=== PATIENT | male | born 1940 | race Caucasian/White ===

== ENCOUNTER 2017-11-14 16:06 | Emergency (ER) | payer MEDICARE, SELFPAY ==
[2017-11-14 16:07] VITALS: BP 147/79; PULSE 73; RESP 16; TEMP 37.1; O2SAT 98; BMI 28.5
[2017-11-14 17:30] VITALS: BP 142/78; PULSE 87; RESP 16; O2SAT 98
--- NOTE | 2017-11-14 18:05 | ED.VISSUMM ---
- ER Visit Summary Date of Service: 11/14/17 Chief Complaint: Right foot pain History of Present Illness: The patient is a 77 M who presents for 1 week of right foot pain, that occurs only at night. Patient states that he had a similar episode one year ago in both legs and was diagnosed with neuropathy. His pain began again earlier this week and only occurs while he is sleeping at night. The pain will wake him up. He soaked his foot in Epsom salts which helped. He has no pain during the day. No pain with walking. No left foot pain, ankle pain or other pain. No fever or other constitutional symptoms. No injury. Patient was seen at urgent care and told to come to the emergency department for further evaluation. He has an appointment in January with his neurologist regarding his neuropathy. Physical Examination: Vital signs: afebrile, hemodynamically stable, no hypoxia on room air General: well nourished, well developed, in no distress Skin: warm, dry, no rash, no pallor HEENT: normocephalic and atraumatic; PERRL, EOMI, moist mucous membranes Cardiovascular: regular rate and rhythm with harsh systolic murmur, no peripheral edema, 2+ pulses all distal extremities Respiratory: No increased work of breathing, lungs are clear to auscultation bilaterally, no rales, rhonchi or wheezing Abdominal: Abdomen is soft, nontender with normoactive bowel sounds, no guarding or rebound, no masses MSK: Moves all extremities, no deformities, normal strength, no tenderness or deformities to the feet, very small nontender abrasion to the third distal toe Neuro: Awake and alert, oriented ?4. No facial droop, sensation and motor function intact and symmetric Test Results: [] Emergency Department Course and Treatment: Patient declined an x-ray of the foot to look for occult injury because he did not think it was injured since he is able to walk on his foot during the day without any difficulty. He also declined any pain medication. Patient's nighttime symptoms that resolve during the day are not consistent with gout, infection, or other cause of foot pain. This is likely related to patient's history of neuropathy. Patient was encouraged to follow-up with his doctor. He will take [id number] pain medication as needed. He was discharged home. Treatment Plan: [] Disposition: [] Impression: Right foot pain, suspect neuropathy This note was generated with [employer] dictation software. It may contain incorrect words, spelling, and punctuation that were not noted in review of the chart prior to signing ED Disposition - Plan for ED Patient: Disposition: Home or Assisted Living Chief Complaint: Lower Extremity Injury Instructions: ED Neuropathy Peripheral Referrals: Milton Menendez Chi, MD [Primary Care Provider] - Keep Lia appointment Additional Instructions: You are having night-time foot pain that has no other symptoms that would be concerning for a serious cause, such as heart failure. Please use Tylenol as needed for pain for your nighttime foot pain. You may continue the Epsom salt soaks. Please keep your appointment on Friday with your primary care doctor. If you have any worsening of your condition, such as shortness of breath, chest pain, dizziness or lightheadedness, or leg swelling, please return to emergency department immediately for another evaluation.
[2017-11-14 18:33] VITALS: BP 140/74; PULSE 78; RESP 16; O2SAT 100
== END 2017-11-14 18:34 | disposition home or self-care (01) ==
LOC: ED 18:33
PROVIDERS: Emergency Provider Emergency Medicine; Family Provider Family Medicine Geriatric Medicine; PCP Family Medicine Geriatric Medicine
DX: M79.671 Pain in right foot (principal); G62.9 Polyneuropathy, unspecified; I50.9 Heart failure, unspecified; R01.1 Cardiac murmur, unspecified; Z79.82 Long term (current) use of aspirin; Z79.02 Long term (current) use of antithrombotics/antiplatelets; Z79.899 Other long term (current) drug therapy
CPT/HCPCS: 99283

== ENCOUNTER → 2017-11-17 14:57 | Outpatient (CLI) | payer MEDICARE, SELFPAY ==
[2017-11-17 16:52] LABS: Vitamin D,25 Hydroxy 12.6 ng/mL (19.95-100.01)
[2017-11-17 17:07] LABS: ALB/GLOB Ratio 1.2 RATIO (0.9-2.4); AST(SGOT) 24 U/L (15-37); Alanine Aminotransfer ALT/SGPT 29 U/L (16-61); Albumin, Serum 3.8 g/dL (3.2-5.0); Alkaline Phosphatase 56 U/L (45-117); Anion Gap 8 (5-15); BUN 17 mg/dL (7-18); Calcium,Total 8.3 mg/dL (8.5-10.1); Chloride 102 mmol/L (98-107); EST Glomerular Filtration Rate 77 mL/min (>60); Est Glom Filt Rate - Afr Amer 93 mL/min (>60); Globulin 3.3 g/dL (2.2-4.2); Glucose 92 mg/dL (74-106); Potassium 3.7 mmol/L (3.5-5.1); Protein, Total 7.1 g/dL (6.4-8.2); Sodium Level 139 mmol/L (136-145); Thyroid Stim Hormone (TSH) 2.69 uIU/mL (0.358-3.74)
[2017-11-17 17:24] LABS: Absolute Neutrophil Count 6.9 X10^3/uL (2.0-7.7); Basophil# 0.03 X10^3/uL; Basophil% 0.3 % (0-1); Eosinophil# 0.21 X10^3/uL; Eosinophils% 2.4 % (0-5); Hematocrit 39.1 % (40-54); Hemoglobin 11.7 g/dl (13.0-16.5); Lymphocyte % 12.4 % (19-41); Mean Corp Hgb Conc 29.9 g/gl (32-36); Mean Corpuscular Hgb 23.4 pg (27.0-32.0); Mean Corpuscular Volume 78.2 fL (80-94); Mean Platelet Vol. 10.2 fl (6.2-12.0); Monocyte# 0.64 X10^3/uL; Monocyte% 7.2 % (0-10); Neutrophil # 6.85 X10^3/uL (2.7-7.7); Neutrophil % 77.6 % (47-70); Platelet Count 275 K/mm3 (150-450); RBC Distribution Width CV 17.2 % (11.6-14.6); White Blood Count 8.8 K/mm3 (4.4-11.0)
[2017-11-17 18:13] LABS: POSITIVE COUNT NO; POSITIVE DIFFERENTIAL NO; POSITIVE MORPHOLOGY NO
== END ==
PROVIDERS: Family Provider Family Medicine Geriatric Medicine; PCP Family Medicine Geriatric Medicine; Visit Provider Family Medicine Geriatric Medicine
DX: I10 Essential (primary) hypertension (principal); E55.9 Vitamin D deficiency, unspecified; E23.6 Other disorders of pituitary gland
CPT/HCPCS: 36415; 80053; 82306; 84403; 84443; 85025

== ENCOUNTER 2018-06-30 12:30 | Observation (INO) | payer MEDICARE, SELFPAY ==
[2018-06-30] VITALS (19 sets, daily range): BP systolic 103–129; BP diastolic 62–92; PULSE 60–104; RESP 15–23; TEMP 36.4–37.2; O2SAT 95–100; BMI 27.3; BMI 26.4
--- NOTE | 2018-06-30 12:45 | RAD_ITS ---
STUDY: X-RAY CHEST REASON FOR EXAM: Male, 78 years old. Chronic dyspnea. TECHNIQUE: Single AP portable view of the chest. COMPARISON: Comparison is made with prior study dated July 28, 2016. FINDINGS: Hyperinflation. Stable pleural parenchymal changes at the left lung base. There is mild cardiac enlargement. Normal mediastinum and henrik. Normal visualized pulmonary arteries. Normal visualized aortic arch and descending thoracic aorta. There are diffuse degenerative changes of the visualized thoracic spine. Normal visualized ribs, clavicles, and shoulders. Large hiatal hernia. RAD/Chest 1 View (Portable) IMPRESSION: Hyperinflation. Stable pleural parenchymal changes at the left lung base. Electronically Signed: Bryant Dang MD at 13:24 EDT Tel [phone], Service support ,
--- NOTE | 2018-06-30 12:45 | EKG12_ITS ---
Test Reason : SOB Blood Pressure : / mmHG Vent. Rate : 087 BPM Atrial Rate : 312 BPM P-R Int : 000 ms QRS Dur : 116 ms QT Int : 408 ms P-R-T Axes : 000 015 107 degrees QTc Int : 490 ms Atrial fibrillation with premature ventricular or aberrantly conducted complexes Incomplete left bundle branch block Nonspecific ST and T wave abnormality Abnormal ECG Confirmed by OXANA GREENE, HAFSA ([id number]), editor newspaper WILDA QUINTANILLA ([id number]) on 07/06/2018 3:30:33 PM Referred By: Los Whitney Confirmed By:HAFSA DAIGLE MD
[2018-06-30] MEDS: Ipratropium/Albuterol Sulfate 3 ML AMPUL.NEB INHALATION (13:08)
--- NOTE | 2018-06-30 13:08 | ED.VISSUMM ---
- ER Visit Summary Date of Service: 06/30/18 Chief Complaint: [Shortness of breath] History of Present Illness: The patient is a 78 M [to the emergency department complaint of shortness of breath that started about a ago. Patient complains of exertional dyspnea. Patient denies any chest pain. He denies any fever. Had a mild cough but mostly nonproductive. Patient does have a history of asthma and CHF. Patient has a history of A. fib and is currently on Eliquis. Patient has had history of anemia. Patient denies any blood in his stool or black tarry stools.] Physical Examination: [HEENT-PERRLA, EOMI. Cranial nerves II through XII grossly intact. TMs clear. Mucous membranes moist. No adenopathy. Cardiovascular-elderly irregular with a 3 out of 6 systolic ejection murmur Lungs-clear to auscultation, chest wall stable without crepitus or subcu emphysema Abdomen-normoactive bowel sounds, soft, nontender, no rebound or rigidity, no peritoneal signs. Rectal exam-no masses, brown stool Extremities-intact ?4, normal range of motion, normal pulses, atraumatic]. Trace edema both lower extremities. Test Results: [EKG obtained on arrival showed atrial fibrillation with a ventricular rate of 87 bpm with incomplete left bundle branch block as well as nonspecific ST changes and occasional PVCs. CBC with differential showed a white count of 9.3, hemoglobin 7.5, hematocrit 28, platelets 318. Chemistries unremarkable. Troponin was 0.024. BNP was 896.] Emergency Department Course and Treatment: [Patient had initially a type and screen followed by a type and cross of 2 units packed red cells.] Treatment Plan: [Patient will be transfused and admitted] Disposition: [Admit] Impression: [Dyspnea Symptomatic anemia Chronic A. fib] This note was generated with [employer] dictation software. It may contain incorrect words, spelling, and punctuation that were not noted in review of the chart prior to signing ED Disposition - Plan for ED Patient: Chief Complaint: Shortness of Breath Referrals: Milton Menendez Chi, MD [Primary Care Provider] -
[2018-06-30 13:37] LABS: Absolute Lymphocyte Count 0.74 X10^3/ul (0.83-4.51); Absolute Neutrophil Count 7.4 X10^3/uL (2.0-7.7); Basophil# 0.06 X10^3/uL; Basophil% 0.6 % (0-1); Differential Indicated SCAN CRITERIA MET; Eosinophil# 0.17 X10^3/uL; Eosinophils% 1.8 % (0-5); Hematocrit 25.4 % (40-54); Hemoglobin 7.5 g/dl (13.0-16.5); Lymphocyte # 0.74 X10^3/ul (4.0); Mean Corp Hgb Conc 29.5 g/gl (32-36); Mean Corpuscular Hgb 20.4 pg (27.0-32.0); Mean Platelet Vol. 10.2 fl (6.2-12.0); Monocyte# 0.86 X10^3/uL; Monocyte% 9.3 % (0-10); Neutrophil # 7.44 X10^3/uL (2.7-7.7); Neutrophil % 80.1 % (47-70); POSITIVE COUNT NO; POSITIVE DIFFERENTIAL NO; POSITIVE MORPHOLOGY YES; Platelet Count 318 K/mm3 (150-450); RBC Distribution Width SD 38.9 fl (35.1-43.9); Red Blood Count 3.68 M/mm3 (4.6-6.2); White Blood Count 9.3 K/mm3 (4.4-11.0)
[2018-06-30 13:46] LABS: Anion Gap 9 (5-15); BUN 20 mg/dL (7-18); BUN/Creat Ratio 15.9 RATIO (10-20); Calcium,Total 8.6 mg/dL (8.5-10.1); Chloride 101 mmol/L (98-107); Creatinine, Serum 1.26 mg/dL (0.70-1.30); EST Glomerular Filtration Rate 59 mL/min (>60); Est Glom Filt Rate - Afr Amer 71 mL/min (>60); Estimated Creatinine Clearance 55.89 ml/min; Glucose 112 mg/dL (74-106); Potassium 3.4 mmol/L (3.5-5.1); Sodium Level 137 mmol/L (136-145)
[2018-06-30 13:59] LABS: BNP,B-Type NATRIURETIC PEPTIDE 896.7 pg/mL (0-100)
[2018-06-30 14:12] LABS: Hypochromasia 1+; Microcytosis 1+
--- NOTE | 2018-06-30 14:59 | PCM.HP.STD ---
Problem List (1) Acute blood loss anemia Status: Acute History of Present Illness Date of Admission: 06/30/18 Chief Complaint: shortness of breath The patient is a 78 year old M presents with ZHENG over the past 2 weeks. ~2 weeks ago was constipated but did note dark tarry stools. Given his symptoms were similar to 2 years ago when he was anemic, he came into the hospital. Hg was 7.5 and in October it was 11. Patient denies any epistaxis, hematochezia, hematemesis.[] Past Medical History Past Medical History (Chronic Problems): Chronic Problems History of prostate cancer in remission (Chronic) Hyperlipidemia (Chronic) Hypertension (Chronic) Left eye blindness (Chronic) Hypothyroidism (Chronic) Medical History: Medical History (Last Updated 06/30/18 @ 15:04 by Los Whitney DO) Afib I48.91 Blind left eye H54.40 CVA (cerebral vascular accident) I63.9 Heart failure with reduced ejection fraction I50.20 Hyperlipidemia E78.5 Hypothyroidism E03.9 HTN (hypertension) I10 Allergies latex Allergy (Verified 06/30/18 12:33) Rash Home Medications: Ambulatory Orders Medication Instructions Recorded Levothyroxine [Synthroid] 25 mcg PO 0600 03/19/14 Aspirin [Aspirin, Baby] 81 mg PO DAILY@0800 #30 tab.chew 03/22/14 Metoprolol Tartrate [Lopressor 12.5 mg PO BID #60 tablet 03/22/14 (beta yesi)] Ascorbic Acid [Vitamin C] 500 mg PO DAILY@0800 07/28/16 Cyanocobalamin (Vitamin B-12) 1,000 mcg PO DAILY 07/28/16 [Vitamin B-12] Multivitamins,Therapeutic 1 tablet PO DAILY 07/28/16 [Multivitamin] Vitamin E 400 unit PO DAILY 07/28/16 Furosemide 40 mg PO DAILY #30 tablet 07/30/16 Ketoconazole [Nizoral Cream] 1 applic TOPICAL BID #1 tube 07/30/16 Apixaban [Eliquis] 5 mg PO BID 06/30/18 Atorvastatin Calcium [Lipitor] 20 mg PO QHS 06/30/18 Clotrimazole [Lotrimin] 1 applicatio TP DAILY 06/30/18 Ergocalciferol [Vitamin D] 50,000 unit PO QMONTH 06/30/18 Latanoprost 0.005% [Xalatan 1 drop RIGHT EYE QHS 06/30/18 Opthalmic] Lutein 1 tab PO DAILY 06/30/18 Quinapril/Hydrochlorothiazide 1 tab PO DAILY 06/30/18 [Accuretic 20-12.5 MG Tablet] prednisoLONE eye drops (5 mL) 1 drop LEFT EYE QHS 06/30/18 [Pred Forte eye drops (5 mL)] Surgical History: - - Hernia repair call for surgery, eye surgery Smoking Status: Former smoker Tobacco Use: Non-smoker Alcohol: Rare Drugs: None - *Family History Maternal History Items: No pertinent history - no heart disease Review of Systems Constitutional: Reports: Weakness. Denies: Anorexia, Chills, Fever, Malaise Eyes: Denies: Blurred vision, Double vision HEENT: Denies: Head Aches, Sinus Congestion, Sinus Drainage Cardiovascular: Denies: Chest Pain, Palpitations Respiratory: Denies: Cough, Shortness of breath at rest, Sputum production Gastrointestinal: Reports: Melena. Denies: Abdominal Pain, Hematemesis, Hematochezia, Vomiting Genitourinary: Denies: Dysuria, Hematuria Musculoskeletal: Denies: Joint Pain, Joint Tenderness Skin: Denies: Rash, Wounds Neurological: Denies: Numbness, Tingling, Focal weakness Psychiatric: Denies: Anxiety, Depression Hematologic/ Lymphatic: Denies: Easy Bruising, Easy Bleeding, Hx of blood clot Comment: All review of systems are negative except as mentioned in the history of present illness and the other review of systems. VTE Information - Inpt Only VTE Present on Admission: No VTE Mechan Device Prophylaxis: SCD's VTE Pharm Prophylaxis ordered?: No Reason prophylaxis not ordered:: Medical Contraindication Patient Problems: Active and Suspected Problems Acute blood loss anemia (Acute) - Physical Exam General: Alert, Cooperative, No apparent distress HEENT: Atraumatic, Normocephalic, - - Pale conjunctiva Oral: Moist Mucosa, No Gingival or Mucosal Lesions/ Ulcerations Neck: No Nodes, Thyroid Normal Size and Texture Lungs: Clear to auscultation, Normal air movement, No rhonchi, No wheeze Cardiovascular: Regular rate, Regular Rhythm, Normal S1, Normal S2, No murmurs Abdomen: Bowel Sounds Present, Soft, Non Tender, Non-Distended, No Hepato-splenomegaly Extremities: No edema, No Calf Tenderness Skin: No rashes, No breakdown, - - Some upper extremity bruising Musculoskeletal: No Tenderness to Palpation of Joints or Extremities, No Muscle Wasting Neurological: Sensory exam intact to light touch and pain, - - Clonus Psych/Mental Status: Normal Affect, Appropriate Vital Signs Temp Pulse Resp BP Pulse Ox 36.6 C 103 H 17 129/92 H 95 06/30/18 12:31 06/30/18 14:52 06/30/18 14:52 06/30/18 14:52 06/30/18 14:52 Oxygen Delivery Method Room Air Weight: 99 kg Body Mass Index (BMI) 27.3 Finger Stick Blood Glucose 85 Laboratory Tests Past 24 Hrs 06/30/18 06/30/18 06/30/18 13:20 13:20 13:20 WBC 9.3 RBC 3.68 L Hgb 7.5 L Hct 25.4 L MCV 69.0 L MCH 20.4 L MCHC 29.5 L RDW 16.0 H RDW Differential 38.9 Plt Count 318 MPV 10.2 Immature Gran % (Auto) 0.200 Neut % (Auto) 80.1 H Lymph % (Auto) 8.0 L [place] % (Auto) 9.3 Eos % (Auto) 1.8 Baso % (Auto) 0.6 Absolute Neuts (auto) 7.4 Absolute Lymphs (auto) 0.74 L Total Counted Not Reportable Hypochromasia 1+ Microcytosis 1+ Sodium 137 Potassium 3.4 L Chloride 101 Carbon Dioxide 27.0 Anion Gap 9 BUN 20 H Creatinine 1.26 Estim Creat Clear Calc 55.89 Est GFR (MDRD) Af Amer 71 Est GFR (MDRD) Non-Af 59 L BUN/Creatinine Ratio 15.9 Glucose 112 H Calcium 8.6 Troponin I 0.024 B-Natriuretic Peptide 896.7 H Blood Type Antibody Screen Crossmatch 06/30/18 14:20 WBC RBC Hgb Hct MCV MCH MCHC RDW RDW Differential Plt Count MPV Immature Gran % (Auto) Neut % (Auto) Lymph % (Auto) [place] % (Auto) Eos % (Auto) Baso % (Auto) Absolute Neuts (auto) Absolute Lymphs (auto) Total Counted Hypochromasia Microcytosis Sodium Potassium Chloride Carbon Dioxide Anion Gap BUN Creatinine Estim Creat Clear Calc Est GFR (MDRD) Af Amer Est GFR (MDRD) Non-Af BUN/Creatinine Ratio Glucose Calcium Troponin I B-Natriuretic Peptide Blood Type Pending Antibody Screen Pending Crossmatch See Detail EKG reviewed and showed atrial fibrillation with PVCs Very reviewed and slight flattening of the diaphragms but no pulmonary edema nor infiltrate. Assessment/Plan All Active Problems Acute blood loss anemia (Acute) Acute systolic heart failure exacerbatio (Acute) Cellulitis superimposed acute tinea (Acute) Dyspnea (Acute) 1. Acute blood loss anemia Hemoglobin has dropped roughly 4 g in the past 7-8 months though I suspect much of the drop probably occurred when patient noted some melena a couple weeks ago Patient will receive 1 unit of packed red blood cells as he is currently asymptomatic Will monitor overnight Hold his Eliquis. I explained to the patient in detail and on several occasions that Eliquis did not causes bleeding but led to him bleeding probably more Patient took his Eliquis today and will hold Eliquis for now until he can get further endoscopy Discussed with Dr. De La Cruz The patient is stable and can likely follow-up with her as outpatient. She agreed and would be willing to see him probably next week as she will be out of town and Friday. I will put the patient on a clear diet for now just make sure he does not have any hemorrhage and if he does then he may warrant general surgery seeing him while in the hospital Start ferrous sulfate 2. Atrial fibrillation [id number] score of 6 Given the anemia and likely hemorrhage, Eliquis will be held for now Continue with metoprolol and aspirin Resume Eliquis at a later point when his hemoglobin has been stable and pending on further GI workup 3. Heart failure with reduced ejection fraction EF 40% from echocardiogram 2013 Continue with CADEN inhibitor, Lasix and metoprolol 4. DVT prophylaxis with SCDs 5. Disposition: Patient will be monitored overnight and brought in under observation status. Patient's condition deteriorates, then they will need to be changed to admission but given the patient's anemia and his symptoms I feel the patient could be discharged on the third if he remained stable. Code Visit OBSV E&M: 72198 Initial observation care L3
--- NOTE | 2018-06-30 15:04 | HP.PCM_ITS ---
Problem List (1) Acute blood loss anemia Status: Acute History of Present Illness Date of Admission: 06/30/18 Chief Complaint: shortness of breath The patient is a 78 year old M presents with ZHENG over the past 2 weeks. ~2 weeks ago was constipated but did note dark tarry stools. Given his symptoms were similar to 2 years ago when he was anemic, he came into the hospital. Hg was 7.5 and in October it was 11. Patient denies any epistaxis, hematochezia, hematemesis.[] Past Medical History Past Medical History (Chronic Problems): Chronic Problems History of prostate cancer in remission (Chronic) Hyperlipidemia (Chronic) Hypertension (Chronic) Left eye blindness (Chronic) Hypothyroidism (Chronic) Medical History: Medical History (Last Updated 06/30/18 @ 15:04 by Los hWitney DO) Afib I48.91 Blind left eye H54.40 CVA (cerebral vascular accident) I63.9 Heart failure with reduced ejection fraction I50.20 Hyperlipidemia E78.5 Hypothyroidism E03.9 HTN (hypertension) I10 Allergies latex Allergy (Verified 06/30/18 12:33) Rash Home Medications: Ambulatory Orders Medication Instructions Recorded Levothyroxine [Synthroid] 25 mcg PO 0600 03/19/14 Aspirin [Aspirin, Baby] 81 mg PO DAILY@0800 #30 tab.chew 03/22/14 Metoprolol Tartrate [Lopressor 12.5 mg PO BID #60 tablet 03/22/14 (beta yesi)] Ascorbic Acid [Vitamin C] 500 mg PO DAILY@0800 07/28/16 Cyanocobalamin (Vitamin B-12) 1,000 mcg PO DAILY 07/28/16 [Vitamin B-12] Multivitamins,Therapeutic 1 tablet PO DAILY 07/28/16 [Multivitamin] Vitamin E 400 unit PO DAILY 07/28/16 Furosemide 40 mg PO DAILY #30 tablet 07/30/16 Ketoconazole [Nizoral Cream] 1 applic TOPICAL BID #1 tube 07/30/16 Apixaban [Eliquis] 5 mg PO BID 06/30/18 Atorvastatin Calcium [Lipitor] 20 mg PO QHS 06/30/18 Clotrimazole [Lotrimin] 1 applicatio TP DAILY 06/30/18 Ergocalciferol [Vitamin D] 50,000 unit PO QMONTH 06/30/18 Latanoprost 0.005% [Xalatan 1 drop RIGHT EYE QHS 06/30/18 Opthalmic] Lutein 1 tab PO DAILY 06/30/18 Quinapril/Hydrochlorothiazide 1 tab PO DAILY 06/30/18 [Accuretic 20-12.5 MG Tablet] prednisoLONE eye drops (5 mL) 1 drop LEFT EYE QHS 06/30/18 [Pred Forte eye drops (5 mL)] Surgical History: - - Hernia repair call for surgery, eye surgery Smoking Status: Former smoker Tobacco Use: Non-smoker Alcohol: Rare Drugs: None - *Family History Maternal History Items: No pertinent history - no heart disease Review of Systems Constitutional: Reports: Weakness. Denies: Anorexia, Chills, Fever, Malaise Eyes: Denies: Blurred vision, Double vision HEENT: Denies: Head Aches, Sinus Congestion, Sinus Drainage Cardiovascular: Denies: Chest Pain, Palpitations Respiratory: Denies: Cough, Shortness of breath at rest, Sputum production Gastrointestinal: Reports: Melena. Denies: Abdominal Pain, Hematemesis, Hematochezia, Vomiting Genitourinary: Denies: Dysuria, Hematuria Musculoskeletal: Denies: Joint Pain, Joint Tenderness Skin: Denies: Rash, Wounds Neurological: Denies: Numbness, Tingling, Focal weakness Psychiatric: Denies: Anxiety, Depression Hematologic/ Lymphatic: Denies: Easy Bruising, Easy Bleeding, Hx of blood clot Comment: All review of systems are negative except as mentioned in the history of present illness and the other review of systems. VTE Information - Inpt Only VTE Present on Admission: No VTE Mechan Device Prophylaxis: SCD's VTE Pharm Prophylaxis ordered?: No Reason prophylaxis not ordered:: Medical Contraindication Patient Problems: Active and Suspected Problems Acute blood loss anemia (Acute) - Physical Exam General: Alert, Cooperative, No apparent distress HEENT: Atraumatic, Normocephalic, - - Pale conjunctiva Oral: Moist Mucosa, No Gingival or Mucosal Lesions/ Ulcerations Neck: No Nodes, Thyroid Normal Size and Texture Lungs: Clear to auscultation, Normal air movement, No rhonchi, No wheeze Cardiovascular: Regular rate, Regular Rhythm, Normal S1, Normal S2, No murmurs Abdomen: Bowel Sounds Present, Soft, Non Tender, Non-Distended, No Hepato- splenomegaly Extremities: No edema, No Calf Tenderness Skin: No rashes, No breakdown, - - Some upper extremity bruising Musculoskeletal: No Tenderness to Palpation of Joints or Extremities, No Muscle Wasting Neurological: Sensory exam intact to light touch and pain, - - Clonus Psych/Mental Status: Normal Affect, Appropriate Vital Signs Temp Pulse Resp BP Pulse Ox 36.6 C 103 H 17 129/92 H 95 06/30/18 12:31 06/30/18 14:52 06/30/18 14:52 06/30/18 14:52 06/30/18 14:52 Oxygen Delivery Method Room Air Weight: 99 kg Body Mass Index (BMI) 27.3 Finger Stick Blood Glucose 85 Laboratory Tests Past 24 Hrs 06/30/18 06/30/18 06/30/18 13:20 13:20 13:20 WBC 9.3 RBC 3.68 L Hgb 7.5 L Hct 25.4 L MCV 69.0 L MCH 20.4 L MCHC 29.5 L RDW 16.0 H RDW Differential 38.9 Plt Count 318 MPV 10.2 Immature Gran % (Auto) 0.200 Neut % (Auto) 80.1 H Lymph % (Auto) 8.0 L [place] % (Auto) 9.3 Eos % (Auto) 1.8 Baso % (Auto) 0.6 Absolute Neuts (auto) 7.4 Absolute Lymphs (auto) 0.74 L Total Counted Not Reportable Hypochromasia 1+ Microcytosis 1+ Sodium 137 Potassium 3.4 L Chloride 101 Carbon Dioxide 27.0 Anion Gap 9 BUN 20 H Creatinine 1.26 Estim Creat Clear Calc 55.89 Est GFR (MDRD) Af Amer 71 Est GFR (MDRD) Non-Af 59 L BUN/Creatinine Ratio 15.9 Glucose 112 H Calcium 8.6 Troponin I 0.024 B-Natriuretic Peptide 896.7 H Blood Type Antibody Screen Crossmatch 06/30/18 14:20 WBC RBC Hgb Hct MCV MCH MCHC RDW RDW Differential Plt Count MPV Immature Gran % (Auto) Neut % (Auto) Lymph % (Auto) [place] % (Auto) Eos % (Auto) Baso % (Auto) Absolute Neuts (auto) Absolute Lymphs (auto) Total Counted Hypochromasia Microcytosis Sodium Potassium Chloride Carbon Dioxide Anion Gap BUN Creatinine Estim Creat Clear Calc Est GFR (MDRD) Af Amer Est GFR (MDRD) Non-Af BUN/Creatinine Ratio Glucose Calcium Troponin I B-Natriuretic Peptide Blood Type Pending Antibody Screen Pending Crossmatch See Detail EKG reviewed and showed atrial fibrillation with PVCs Very reviewed and slight flattening of the diaphragms but no pulmonary edema nor infiltrate. Assessment/Plan All Active Problems Acute blood loss anemia (Acute) Acute systolic heart failure exacerbatio (Acute) Cellulitis superimposed acute tinea (Acute) Dyspnea (Acute) 1. Acute blood loss anemia * Hemoglobin has dropped roughly 4 g in the past 7-8 months though I suspect much of the drop probably occurred when patient noted some melena a couple weeks ago * Patient will receive 1 unit of packed red blood cells as he is currently asymptomatic * Will monitor overnight * Hold his Eliquis. I explained to the patient in detail and on several occasions that Eliquis did not causes bleeding but led to him bleeding probably more * Patient took his Eliquis today and will hold Eliquis for now until he can get further endoscopy * Discussed with Dr. De La Cruz The patient is stable and can likely follow-up with her as outpatient. She agreed and would be willing to see him probably next week as she will be out of town and Friday. * I will put the patient on a clear diet for now just make sure he does not have any hemorrhage and if he does then he may warrant general surgery seeing him while in the hospital * Start ferrous sulfate 2. Atrial fibrillation * [id number] score of 6 * Given the anemia and likely hemorrhage, Eliquis will be held for now * Continue with metoprolol and aspirin * Resume Eliquis at a later point when his hemoglobin has been stable and pending on further GI workup 3. Heart failure with reduced ejection fraction * EF 40% from echocardiogram 2013 * Continue with CADEN inhibitor, Lasix and metoprolol 4. DVT prophylaxis with SCDs 5. Disposition: Patient will be monitored overnight and brought in under observation status. Patient's condition deteriorates, then they will need to be changed to admission but given the patient's anemia and his symptoms I feel the patient could be discharged on the third if he remained stable. Code Visit OBSV E&M: 08092 Initial observation care L3
[2018-06-30] MEDS: Ferrous Sulfate 325 MG Tablet PO (16:18)
[2018-06-30] MEDS: Metoprolol Tartrate 25 MG Tablet 12.5 MG PO (21:48)
[2018-06-30] MEDS: Atorvastatin Calcium 20 MG Tablet PO (21:48)
[2018-06-30] MEDS: Latanoprost 0.005% 1 Bottle 1 DRP RIGHT EYE (21:49)
[2018-06-30] MEDS: prednisoLONE eye drops (1 mL) 1 DROP OPTH.BTL 1 DRP LEFT EYE (21:49)
[2018-07-01] VITALS (11 sets, daily range): BP systolic 108–129; BP diastolic 74–96; PULSE 88–99; RESP 16–18; TEMP 36.4–37.1; O2SAT 97–98
[2018-07-01] MEDS: Levothyroxine 25 MCG TABLET PO (05:41)
[2018-07-01 06:28] LABS: Absolute Lymphocyte Count 0.96 X10^3/ul (0.83-4.51); Absolute Neutrophil Count 7.7 X10^3/uL (2.0-7.7); Basophil# 0.04 X10^3/uL; Basophil% 0.4 % (0-1); Differential Indicated SCAN CRITERIA MET; Eosinophil# 0.13 X10^3/uL; Eosinophils% 1.3 % (0-5); Hematocrit 30.2 % (40-54); Hemoglobin 9.2 g/dl (13.0-16.5); Lymphocyte # 0.96 X10^3/ul (4.0); Lymphocyte % 9.7 % (19-41); Mean Corp Hgb Conc 30.5 g/gl (32-36); Mean Corpuscular Hgb 21.5 pg (27.0-32.0); Mean Corpuscular Volume 70.6 fL (80-94); Mean Platelet Vol. 9.5 fl (6.2-12.0); Monocyte% 10.2 % (0-10); Neutrophil # 7.71 X10^3/uL (2.7-7.7); Neutrophil % 78.3 % (47-70); POSITIVE COUNT NO; POSITIVE DIFFERENTIAL NO; POSITIVE MORPHOLOGY YES; Platelet Count 293 K/mm3 (150-450); RBC Distribution Width CV 17.6 % (11.6-14.6); RBC Distribution Width SD 44.2 fl (35.1-43.9); Red Blood Count 4.28 M/mm3 (4.6-6.2); White Blood Count 9.9 K/mm3 (4.4-11.0)
[2018-07-01 06:31] LABS: Anion Gap 11 (5-15); BUN 18 mg/dL (7-18); Calcium,Total 8.5 mg/dL (8.5-10.1); Chloride 102 mmol/L (98-107); EST Glomerular Filtration Rate 62 mL/min (>60); Est Glom Filt Rate - Afr Amer 75 mL/min (>60); Estimated Creatinine Clearance 60.28 ml/min; Glucose 98 mg/dL (74-106); Potassium 3.9 mmol/L (3.5-5.1); Sodium Level 137 mmol/L (136-145)
[2018-07-01 06:39] LABS: Magnesium 2.2 mg/dL (1.6-2.6)
[2018-07-01 06:44] LABS: Anisocytosis 3+; Differential Comment SCANNED; Hypochromasia 3+; Microcytosis 2+
[2018-07-01 06:45] LABS: Ovalocyte 1+; Schistocytes RARE
[2018-07-01] MEDS: Vitamin E 400 UNITS Capsule PO (09:09)
[2018-07-01] MEDS: HYDROCHLOROTHIAZIDE 12.5 MG CAPSULE PO (09:09)
[2018-07-01] MEDS: Aspirin 81 MG TAB.CHEW PO (09:09)
[2018-07-01] MEDS: Furosemide 40 MG Tablet PO (09:09)
[2018-07-01] MEDS: Ascorbic Acid 500 MG Tablet PO (09:09)
[2018-07-01] MEDS: Multivitamins,Therapeutic Tablet 1 TABLET PO (09:09)
[2018-07-01] MEDS: Lisinopril 20 MG Tablet PO (09:10)
[2018-07-01] MEDS: Metoprolol Tartrate 25 MG Tablet 12.5 MG PO (09:10)
[2018-07-01] MEDS: Cyanocobalamin 500 MCG Tablet 1000 MCG PO (09:10)
--- NOTE | 2018-07-01 12:25 | PCM.PN.HOSP ---
Patient Problems: Active and Suspected Problems (Last Updated 06/30/18 @ 15:04 by Los Whitney DO) Acute blood loss anemia (Acute) Subjective: Patient was seen and examined. He feels well. Been hallucinating about seeing children, bus load and people dressed in Halloween custome. Transfused 2 units pRBCs. Denies chest pain, SOB, palpitations. Vitals/I&O's: Vital Signs Temp Pulse Resp BP Pulse Ox 97.6 F L 97 18 126/96 H 98 07/01/18 05:45 07/01/18 09:10 07/01/18 05:45 07/01/18 05:45 07/01/18 05:45 Oxygen Delivery Method Room Air Weight: 98.4 kg Body Mass Index (BMI) 26.4 Finger Stick Blood Glucose 85 Intake and Output for Last 24 Hours 06/29/18 06/30/18 07/01/18 23:59 23:59 23:59 Intake Total 640 / 640 1261 / 1261 Balance 640 / 640 1261 / 1261 General: Alert, Oriented x3, Cooperative, No apparent distress HEENT: Atraumatic, PERRLA, EOMI, Normocephalic Oral: Moist Mucosa Neck: Supple, No JVD, Negative Carotid Bruits Lungs: Clear to auscultation, Normal air movement Cardiovascular: Regular rate, Regular Rhythm, Normal S1, Normal S2, No murmurs Abdomen: Bowel Sounds Present, Soft, Non Tender, Non-Distended, No Hepato-splenomegaly Extremities: No edema Skin: No rashes, No breakdown Musculoskeletal: No Tenderness to Palpation of Joints or Extremities Lymphatic: No Cervical, Supraclavicular, or Inguinal Adenopathy Neurological: Cranial nerves II-XII grossly intact, Motor Exam 5/5 strength throughout Psych/Mental Status: Normal Affect, Appropriate Laboratory Results 06/30/18 13:20: WBC 9.3, RBC 3.68 L, Hgb 7.5 L, Hct 25.4 L, MCV 69.0 L, MCH 20.4 L, MCHC 29.5 L, RDW 16.0 H, RDW Differential 38.9, Plt Count 318, MPV 10.2, Immature Gran % (Auto) 0.200, Neut % (Auto) 80.1 H, Lymph % (Auto) 8.0 L, [place] % (Auto) 9.3, Eos % (Auto) 1.8, Baso % (Auto) 0.6, Absolute Neuts (auto) 7.4, Absolute Lymphs (auto) 0.74 L, Total Counted Not Reportable, Hypochromasia 1+, Microcytosis 1+ 06/30/18 13:20: Sodium 137, Potassium 3.4 L, Chloride 101, Carbon Dioxide 27.0, Anion Gap 9, BUN 20 H, Creatinine 1.26, Estim Creat Clear Calc 55.89, Est GFR (MDRD) Af Amer 71, Est GFR (MDRD) Non-Af 59 L, BUN/Creatinine Ratio 15.9, Glucose 112 H, Calcium 8.6, Troponin I 0.024 06/30/18 13:20: B-Natriuretic Peptide 896.7 H 06/30/18 14:20: Blood Type O POSITIVE, Antibody Screen NEGATIVE, Crossmatch See Detail 07/01/18 05:44: WBC 9.9, RBC 4.28 L, Hgb 9.2 L, Hct 30.2 L, MCV 70.6 L, MCH 21.5 L, MCHC 30.5 L, RDW 17.6 H, RDW Differential 44.2 H, Plt Count 293, MPV 9.5, Immature Gran % (Auto) 0.100, Neut % (Auto) 78.3 H, Lymph % (Auto) 9.7 L, [place] % (Auto) 10.2 H, Eos % (Auto) 1.3, Baso % (Auto) 0.4, Absolute Neuts (auto) 7.7, Absolute Lymphs (auto) 0.96, Total Counted Not Reportable, Differential Comment SCANNED, Hypochromasia 3+, Anisocytosis 3+, Microcytosis 2+, Ovalocytes 1+, Schistocytes RARE 07/01/18 05:44: Sodium 137, Potassium 3.9, Chloride 102, Carbon Dioxide 24.0, Anion Gap 11, BUN 18, Creatinine 1.20, Estim Creat Clear Calc 60.28, Est GFR (MDRD) Af Amer 75, Est GFR (MDRD) Non-Af 62, BUN/Creatinine Ratio 15.0, Glucose 98, Calcium 8.5 07/01/18 05:44: Magnesium 2.2 Current Medications Ascorbic Acid (Vitamin C) 500 mg PO DAILY@0800 [facility] Last Admin: 07/01/18 09:09 Dose: 500 mg Aspirin (Aspirin, Baby) 81 mg PO DAILY@0800 [facility] Last Admin: 07/01/18 09:09 Dose: 81 mg Atorvastatin Calcium (Lipitor) 20 mg PO QHS [facility] Last Admin: 06/30/18 21:48 Dose: 20 mg Cyanocobalamin (Vitamin B12) 1,000 mcg PO DAILY [facility] Last Admin: 07/01/18 09:10 Dose: 1,000 mcg Ergocalciferol (Vitamin D) 50,000 unit PO QMONTH [facility] Ferrous Sulfate (Ferrous Sulfate) 325 mg PO 1200,1700 [facility] Last Admin: 06/30/18 16:18 Dose: 325 mg Furosemide (Lasix) 40 mg PO DAILY [facility] Last Admin: 07/01/18 09:09 Dose: 40 mg Hydrochlorothiazide (Hydrochlorothiazide) 12.5 mg PO DAILY [facility] Last Admin: 07/01/18 09:09 Dose: 12.5 mg Latanoprost (Xalatan Opthalmic) 1 drop RIGHT EYE QHS [facility] Last Admin: 06/30/18 21:49 Dose: 1 drop Levothyroxine Sodium (Synthroid) 25 mcg PO 0600 [facility] Last Admin: 07/01/18 05:41 Dose: 25 mcg Lisinopril (Zestril) 20 mg PO DAILY [facility] Last Admin: 07/01/18 09:10 Dose: 20 mg Magnesium Hydroxide (Milk Of Magnesia) 30 ml PO DAILY PRN PRN PRN Reason: Constipation Metoprolol Tartrate (Lopressor (Beta Neal)) 12.5 mg PO BID [facility] Last Admin: 07/01/18 09:10 Dose: 12.5 mg Multivitamins (Multivitamin) 1 tablet PO DAILY@0800 [facility] Last Admin: 07/01/18 09:09 Dose: 1 tablet Nutritional Formula (Lactose Free) (Ensure Clear) 120 ml PO 4X/DAY [facility] Last Admin: 07/01/18 09:09 Dose: 120 ml Prednisolone Acetate (Pred Forte Eye Drops (1 Ml)) 1 drop LEFT EYE HS [facility] Last Admin: 06/30/18 21:49 Dose: 1 drop Sodium Chloride () 5 - 30 ml IV UD PRN PRN Reason: SALINE FLUSH Vitamin E (Vitamin E) 400 units PO DAILY@0800 [facility] Last Admin: 07/01/18 09:09 Dose: 400 units Medical Necessity - Tobacco Use Smoking Status: Former smoker Tobacco Use: Cigars Assessment/Plan All Active Problems (Last Updated 06/30/18 @ 15:04 by Los Whitney DO) Dyspnea (Acute) Cellulitis superimposed acute tinea (Acute) Acute systolic heart failure exacerbatio (Acute) Acute blood loss anemia (Acute) 78-year-old male with past medical history of hypertension, chronic atrial fibrillation, on Eliquis, hyperlipidemia who comes in with complaints of shortness of breath ongoing for 2 weeks as well as dark tarry stools 1. Acute Symptomatic anemia, admitting Hb of 7.5, status post packed RBC, off Eliquis and aspirin, patient will follow up with general surgery in the outpatient for workup 2. Hypertension, controlled, continue home medication 3. Hyperlipidemia, on statin 4. Hypothyroidism, on levothyroxine 5. 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
[2018-07-01] MEDS: Ferrous Sulfate 325 MG Tablet PO ×2 (13:17→17:38)
--- NOTE | 2018-07-01 13:44 | CASEMGMT ---
Per RN and BRUSHER TENDER patient is hallucinating. He claims he sees a bus with kids, he saw a democrat in the alley. Patient actually walked out to the desk while his ex- was standing there and told her to come back to the room. He said, There are girls in [facility] in his room. Physician asked SW to consult crisis for patient. SW spoke with Genevieve in the ER and she will pass this along to the licensing worker that comes on at 1p. PETAR notified RN of plan. Aditi SOSA MSW
--- NOTE | 2018-07-01 17:27 | DCINST_ITS ---
- Discharge Diagnoses Current Active Problems: Current Active and Chronic Problems (Last Updated 06/30/18 @ 15:04 by Los Whitney DO) Acute blood loss anemia (Acute) Reason(s) for Visit for Discharge Instructions: Anemia You will use the following diet at home:: Regular Your food should be the consistency of: Regular Your liquids should be the consistency of: Regular/Thin Discharge Activity: Return to Normal Activity Allergies/Adverse Reactions: Allergies latex Allergy (Verified 06/30/18 12:33) Rash Medications to take at Discharge Levothyroxine [Synthroid] 25 mcg PO 0600 03/19/14 Metoprolol Tartrate [Lopressor (beta yesi)] 12.5 mg PO BID #60 tablet 03/22/14 Ascorbic Acid [Vitamin C] 500 mg PO DAILY@0800 07/28/16 Cyanocobalamin (Vitamin B-12) [Vitamin B-12] 1,000 mcg PO DAILY 07/28/16 Multivitamins,Therapeutic [Multivitamin] 1 tablet PO DAILY 07/28/16 Vitamin E 400 unit PO DAILY 07/28/16 Furosemide 40 mg PO DAILY #30 tablet 07/30/16 Ketoconazole [Nizoral Cream] 1 applic TOPICAL BID #1 tube 07/30/16 Atorvastatin Calcium [Lipitor] 20 mg PO QHS 06/30/18 Clotrimazole [Lotrimin] 1 applicatio TP DAILY 06/30/18 Ergocalciferol [Vitamin D] 50,000 unit PO QMONTH 06/30/18 Latanoprost 0.005% [Xalatan Opthalmic] 1 drop RIGHT EYE QHS 06/30/18 Lutein 1 tab PO DAILY 06/30/18 Quinapril/Hydrochlorothiazide [Accuretic 20-12.5 MG Tablet] 1 tab PO DAILY 06/30/18 prednisoLONE eye drops (5 mL) [Pred Forte eye drops (5 mL)] 1 drop LEFT EYE QHS 06/30/18 Ensure Clear 120 ml PO 4X/DAY #100 liquid 07/01/18 Ferrous Sulfate 325 mg PO 1200,1700 #30 tablet 07/01/18 The following prescriptions were given: Ferrous Sulfate 325 mg PO 1200,1700 #30 tablet Ensure Clear 120 ml PO 4X/DAY #100 liquid Primary Care Physician: Milton Menendez Chi, MD [Primary Care Provider] - Please follow up with your Primary Care Physician in: within 2 weeks Test Results: Test results from this visit will be discussed in further detail at your follow- up appointment, if applicable. Please Follow Up With: Sherry De La Cruz MD When: in 1 week Proposed Discharge Date: 07/01/18
--- NOTE | 2018-07-01 17:33 | PCM.DC.SUM ---
Discharge Date and Diagnosis - Problem List Patient Problems: Active and Suspected Problems (Last Updated 06/30/18 @ 15:04 by Los Whitney DO) Acute blood loss anemia (Acute) Date of Admission: 06/30/18 Date of Discharge: 07/01/18 - Primary Discharge Diagnosis Active and Suspected Problems (Last Updated 06/30/18 @ 15:04 by Los Whitney DO) Acute blood loss anemia (Acute) Hallucinations - Secondary Discharge Diagnosis Chronic Problems (Last Updated 06/30/18 @ 15:04 by Los Whitney DO) History of prostate cancer in remission (Chronic) Hyperlipidemia (Chronic) Hypertension (Chronic) Left eye blindness (Chronic) Hypothyroidism (Chronic) Hospital Course and Treatment Imaging Results: Clinical Impression(s) from Imaging Studies Chest X-Ray 06/30/18 12:45 IMPRESSION: Hyperinflation. Stable pleural parenchymal changes at the left lung base. Electronically Signed: Bryant Dang MD at 13:24 EDT Tel [phone], Service support , None Operations: None Procedures: None Summary of Care Provided: The patient is a 78 year old M with past medical history of hypertension, hyperlipidemia, history of prostate cancer in remission, hypothyroidism, paroxysmal atrial fibrillation, on Eliquis who had complaints of constipation for the past 2 weeks and her dyspnea on exertion. He had also noticed dark tarry stools. No epistaxis, hematochezia, or hematemesis. He says that he had similar presentation 2 years ago and he was transfused. His hemoglobin was found to be 7.5. He was admitted to the telemetry bed, no acute events on telemetry. He was transfused 2 units of blood with improvement in his hemoglobin to 9.2. Patient was not dyspneic on exertion. He was found to be hallucinating on the day of discharge. Reportedly saying that he seemed to be poor dressing hollowing costumes on the nursing unit. He saw a allie load of children and her people partying in the Alley in the hospital. Discussed patient with his ex- who is still very close to him as well as his son, they have noticed some memory lapses with increasing forgetfulness and repetition of questions. They are not sure if they have been in the lapses and IADLs. They do not know of any psychiatric history for him. Patient has been tangential throughout further discussions. Forgetting sometimes what he had already asked. Crisis was consulted for patient and declined to admit patient to an inpatient facility. Patient was insistent on being discharged. Discussed the plan of care with the son, advised the son on getting a med alert watch or change for the father. The son says that the father has it but will not wear it. Recommended looking into possibly an assisted living facility. Discussed with his primary care doctor Dr. Menendez, patient will be seen in the earliest. He will be discharged home with home health and APS referral Discharge Diet: No Restrictions Discharge Activity: Return to Normal Activity Home Medications: Medications to take at Discharge Levothyroxine [Synthroid] 25 mcg PO 0600 03/19/14 Metoprolol Tartrate [Lopressor (beta yesi)] 12.5 mg PO BID #60 tablet 03/22/14 Ascorbic Acid [Vitamin C] 500 mg PO DAILY@0800 07/28/16 Cyanocobalamin (Vitamin B-12) [Vitamin B-12] 1,000 mcg PO DAILY 07/28/16 Multivitamins,Therapeutic [Multivitamin] 1 tablet PO DAILY 07/28/16 Vitamin E 400 unit PO DAILY 07/28/16 Furosemide 40 mg PO DAILY #30 tablet 07/30/16 Ketoconazole [Nizoral Cream] 1 applic TOPICAL BID #1 tube 07/30/16 Atorvastatin Calcium [Lipitor] 20 mg PO QHS 06/30/18 Clotrimazole [Lotrimin] 1 applicatio TP DAILY 06/30/18 Ergocalciferol [Vitamin D] 50,000 unit PO QMONTH 06/30/18 Latanoprost 0.005% [Xalatan Opthalmic] 1 drop RIGHT EYE QHS 06/30/18 Lutein 1 tab PO DAILY 06/30/18 Quinapril/Hydrochlorothiazide [Accuretic 20-12.5 MG Tablet] 1 tab PO DAILY 06/30/18 prednisoLONE eye drops (5 mL) [Pred Forte eye drops (5 mL)] 1 drop LEFT EYE QHS 06/30/18 Ensure Clear 120 ml PO 4X/DAY #100 liquid 07/01/18 Ferrous Sulfate 325 mg PO 1200,1700 #30 tablet 07/01/18 Following Prescrptions Were Given to Patient: Ferrous Sulfate 325 mg PO 1200,1700 #30 tablet Ensure Clear 120 ml PO 4X/DAY #100 liquid Other Amb Orders: CBC W/Diff, Automated Time Frame: 1 Week, Location: Laboratory Primary Care Physician: Milton Menendez Chi, MD [Primary Care Provider] - Please follow up with your Primary Care Physician in: within 2 weeks Please Follow Up With: Sherry De La Cruz MD When: in 1 week Disposition: Home with Home Health Minutes spent on discharge:: 50 - Discussing discharge plan with primary care doctor, crisis team Patient Condition:: Stable Medical Necessity - Tobacco Use Smoking Status: Former smoker Tobacco Use: Cigars Meaningful Use Info Meaningful Use Diagnoses (Choose all that apply): None applicable Code Visit Inpatient E&M: 85706 Disch Hosp
--- NOTE | 2018-07-02 09:19 | CASEMGMT ---
This RADHA CORTES received referral to set up [facility] for pt from Dr. Cruz. Call to pt's son, Tin, and he agrees to [facility] and [facility] for pt at this time and states no preference on HHC. Son states that pt did have a fall upon returning home but did not injure himself and he states that pt is 'more back to normal' since being home. Son states that he has noticed short term memory loss lately but states he has never seen pt act like he did here in the hospital before. Advised son to make sure pt follows up with PCP regarding same, voices understanding. Call to Dian at [facility] and she states that they can take pt for RN and SW at this time. Call to Terry at [facility] and she is aware of referral at this time, voices understanding. Orders for [facility] and [facility] both placed in [facility] at this time. [facility] and [facility] both aware to call son. Bert GARCIA CM
--- NOTE | 2018-07-02 09:27 | CASEMGMT ---
PETAR and RADHA CORTES received referral to set up home health and to call Adult Protective Services. RADHA CORTES set up home health with [facility] and Social Work was added to this referral. SW called [facility] PETAR, [place], and told her the situation. RADHA CORTES spoke with patient's son this am and he is very involved in patient's care. This is new to them and they are working through things. He was appreciative of having a SW to assist. SW and PETAR decided that APS will not be called at this time. PETAR will assess the situation and determine if a referral is necessary now that patient is home. Aditi SOSA CATH LAB RADIOLOGICAL TECHNOLOGIST
== END 2018-07-01 17:23 | disposition home health service (06) ==
LOC: ED 12:55 → PCU 14:48
PROVIDERS: Hospitalist; Emergency Provider Emergency Medicine; Family Provider Family Medicine Geriatric Medicine; PCP Family Medicine Geriatric Medicine; Visit Provider Internal Medicine
DX: D62 Acute posthemorrhagic anemia (principal); E78.5 Hyperlipidemia, unspecified; E03.9 Hypothyroidism, unspecified; Z85.46 Personal history of malignant neoplasm of prostate; Z79.899 Other long term (current) drug therapy; Z79.82 Long term (current) use of aspirin; H54.40 Blindness, one eye, unspecified eye; R44.3 Hallucinations, unspecified; I48.0 Paroxysmal atrial fibrillation; Z87.891 Personal history of nicotine dependence; I11.0 Hypertensive heart disease with heart failure; Z79.01 Long term (current) use of anticoagulants; I50.21 Acute systolic (congestive) heart failure
CPT/HCPCS: 36415; 36430; 71045; 80048; 83735; 83880; 84484; 85025; 86850; 86900; 86920; 86922; 93005; 94640; 97802; 99218; 99285; J7040; P9016; A4216; G0378

== ENCOUNTER → 2018-07-07 17:20 | Outpatient (CLI) | payer MEDICARE, SELFPAY ==
--- NOTE | 2018-07-07 17:25 | RAD_ITS ---
STUDY: X-RAY CHEST REASON FOR EXAM: Male, 78 years old. Cough TECHNIQUE: 2 views COMPARISON: June 30, 2018 FINDINGS: There is cardiomegaly with no acute pneumonia or failure. No pleural effusions. A hiatal hernia is in place Degenerative changes of the thoracic spine. Normal visualized ribs, clavicles, and shoulders. There is no demonstrated abnormality of the visualized soft tissue structures of the upper abdomen. RAD/Chest PA and Lateral IMPRESSION: Cardiomegaly. No acute findings in the lungs. Hiatal hernia Electronically Signed: Eleazar Wagner MD at 6:27 EDT Tel , Service support ,
[2018-07-07 18:19] LABS: ALB/GLOB Ratio 1.1 RATIO (0.9-2.4); AST(SGOT) 26 U/L (15-37); Alanine Aminotransfer ALT/SGPT 45 U/L (16-61); Albumin, Serum 3.7 g/dL (3.2-5.0); Alkaline Phosphatase 73 U/L (45-117); Anion Gap 8 (5-15); BUN 24 mg/dL (7-18); BUN/Creat Ratio 17.3 RATIO (10-20); Calcium,Total 8.5 mg/dL (8.5-10.1); Chloride 103 mmol/L (98-107); Creatinine, Serum 1.39 mg/dL (0.70-1.30); EST Glomerular Filtration Rate 52 mL/min (>60); Est Glom Filt Rate - Afr Amer 63 mL/min (>60); Globulin 3.4 g/dL (2.2-4.2); Glucose 88 mg/dL (74-106); Potassium 4.3 mmol/L (3.5-5.1); Protein, Total 7.1 g/dL (6.4-8.2); Sodium Level 138 mmol/L (136-145); Thyroid Stim Hormone (TSH) 3.77 uIU/mL (0.358-3.74)
[2018-07-07 18:24] LABS: Absolute Neutrophil Count 7.9 X10^3/uL (2.0-7.7); Basophil# 0.08 X10^3/uL; Basophil% 0.8 % (0-1); Differential Indicated SCAN CRITERIA MET; Eosinophil# 0.19 X10^3/uL; Eosinophils% 1.9 % (0-5); Hematocrit 30.2 % (40-54); Hemoglobin 9.1 g/dl (13.0-16.5); Lymphocyte % 10.8 % (19-41); Mean Corp Hgb Conc 30.1 g/gl (32-36); Mean Corpuscular Hgb 21.5 pg (27.0-32.0); Mean Corpuscular Volume 71.4 fL (80-94); Mean Platelet Vol. 10.3 fl (6.2-12.0); Monocyte# 0.86 X10^3/uL; Monocyte% 8.4 % (0-10); Neutrophil # 7.92 X10^3/uL (2.7-7.7); Neutrophil % 77.8 % (47-70); POSITIVE COUNT NO; POSITIVE DIFFERENTIAL NO; POSITIVE MORPHOLOGY YES; Platelet Count 309 K/mm3 (150-450); RBC Distribution Width CV 20.1 % (11.6-14.6); RBC Distribution Width SD 49.4 fl (35.1-43.9); Red Blood Count 4.23 M/mm3 (4.6-6.2); White Blood Count 10.2 K/mm3 (4.4-11.0)
[2018-07-07 18:46] LABS: Anisocytosis 1+; Differential Comment SCANNED; Hypochromasia 2+; Polychromasia RARE
[2018-07-07 18:47] LABS: Ovalocyte RARE; Target Cells RARE
[2018-07-07 18:55] LABS: BNP,B-Type NATRIURETIC PEPTIDE 1174.7 pg/mL (0-100)
== END ==
PROVIDERS: Family Provider Family Medicine Geriatric Medicine; PCP Family Medicine Geriatric Medicine; Referring Provider Family Medicine Geriatric Medicine; Visit Provider Family Medicine Geriatric Medicine
DX: I10 Essential (primary) hypertension (principal); R05 Cough; R06.89 Other abnormalities of breathing
CPT/HCPCS: 71046; 80053; 83880; 84443; 85025

== ENCOUNTER → 2018-07-09 16:42 | Outpatient (CLI) | payer MEDICARE, SELFPAY ==
[2018-07-09 17:13] LABS: Absolute Lymphocyte Count 0.91 X10^3/ul (0.83-4.51); Absolute Neutrophil Count 7.2 X10^3/uL (2.0-7.7); Basophil# 0.07 X10^3/uL; Basophil% 0.8 % (0-1); Eosinophil# 0.15 X10^3/uL; Eosinophils% 1.6 % (0-5); Hematocrit 30.7 % (40-54); Hemoglobin 9.2 g/dl (13.0-16.5); Lymphocyte # 0.91 X10^3/ul (4.0); Lymphocyte % 9.9 % (19-41); Mean Corpuscular Hgb 21.4 pg (27.0-32.0); Mean Corpuscular Volume 71.6 fL (80-94); Mean Platelet Vol. 10.5 fl (6.2-12.0); Monocyte# 0.83 X10^3/uL; Monocyte% 9.1 % (0-10); Neutrophil # 7.19 X10^3/uL (2.7-7.7); Neutrophil % 78.4 % (47-70); Platelet Count 330 K/mm3 (150-450); RBC Distribution Width CV 20.5 % (11.6-14.6); Red Blood Count 4.29 M/mm3 (4.6-6.2); White Blood Count 9.2 K/mm3 (4.4-11.0)
[2018-07-09 17:17] LABS: D-Dimer Quantitative (DVT/PE) 0.96 FEU/ug/m (0.27-0.49)
[2018-07-09 17:33] LABS: BNP,B-Type NATRIURETIC PEPTIDE 1306.5 pg/mL (0-100)
[2018-07-09 17:36] LABS: Anion Gap 10 (5-15); BUN 22 mg/dL (7-18); BUN/Creat Ratio 17.3 RATIO (10-20); CPK Total, Creatine Kinase 73 U/L (39-308); Calcium,Total 8.7 mg/dL (8.5-10.1); Chloride 101 mmol/L (98-107); Creatinine, Serum 1.27 mg/dL (0.70-1.30); EST Glomerular Filtration Rate 58 mL/min (>60); Est Glom Filt Rate - Afr Amer 70 mL/min (>60); Glucose 99 mg/dL (74-106); Potassium 3.5 mmol/L (3.5-5.1); Sodium Level 139 mmol/L (136-145)
[2018-07-09 17:50] LABS: POSITIVE COUNT NO; POSITIVE DIFFERENTIAL NO; POSITIVE MORPHOLOGY NO
[2018-07-14 11:17] LABS: Myoglobin, Serum 64 ng/mL (28-72)
== END ==
PROVIDERS: Family Provider Family Medicine Geriatric Medicine; PCP Family Medicine Geriatric Medicine; Visit Provider Family Medicine Geriatric Medicine
DX: R06.02 Shortness of breath (principal)
CPT/HCPCS: 36415; 80048; 82550; 83874; 83880; 84484; 85025; 85379

== ENCOUNTER → 2018-07-10 10:19 | Outpatient (CLI) | payer MEDICARE, SELFPAY ==
--- NOTE | 2018-07-10 10:23 | CT_ITS ---
STUDY: CTA CHEST REASON FOR EXAM: Male, 78 years old. Shortness of breath. RADIATION DOSAGE (If Supplied By Facility): CTDIvol = ( 26.32 ) mGy, DLP = ( 770.90 ) mGycm TECHNIQUE: The examination was performed with the intravenous administration of 100 ml of Isovue 370 contrast material. Post-processing of the angiographic images was performed, with multiplanar reformation and 3D reconstruction. Individualized dose optimization techniques were used for this CT. COMPARISON: Chest x-ray July 07, 2018.. FINDINGS: Normal enhancement of the main pulmonary artery and right and left pulmonary arteries. Normal enhancement of the bilateral peripheral pulmonary arteries. There is no demonstrated pulmonary embolism. There is atherosclerotic calcification of the aortic arch with tortuosity. There is no demonstrated aortic dissection. There are calcifications of the coronary arteries. There is cardiomegaly. Normal mediastinum. Normal hilar regions. Normal visualized trachea and bronchi. The lungs are well expanded. There are mildly increased diffuse interstitial parenchymal markings. Small bilateral pleural effusions. Normal chest wall structures. There are degenerative changes of thoracic spine. There is a large hiatal hernia composed mostly of the fundus of the stomach. CT/CTA Chest W/WO Contrast IMPRESSION: CTA chest examination, without a demonstrated pulmonary embolism or arterial dissection. Small pleural effusions. Hiatal hernia. Electronically Signed: Sheldon Yan MD at 13:39 EDT , Service support ,
== END ==
PROVIDERS: Family Provider Family Medicine Geriatric Medicine; PCP Family Medicine Geriatric Medicine; Visit Provider Family Medicine Geriatric Medicine
DX: R06.02 Shortness of breath (principal); R79.9 Abnormal finding of blood chemistry, unspecified
CPT/HCPCS: 71275; Q9967

== ENCOUNTER → 2018-07-10 11:15 | Outpatient (CLI) | payer MEDICARE, SELFPAY ==
--- NOTE | 2018-07-10 11:18 | ECHOD_ITS ---
Reason For Study: SOB Procedure This was a 2D Doppler, Color Flow transthoracic echocardiogram. Exam performed in department. Dr. Menendez's office notified of PT's arrhythmia. Will see PT on Fri07/13/18. Left Ventricle Severely dilated left ventricle. Severe concentric left ventricular hypertrophy. The estimated ejection fraction is 20 %. There is severe global hypokinesis of the left ventricle. Right Ventricle Normal RV size. Normal systolic function. Atria The left atrium is severely enlarged. The right atrium is severely enlarged. Mitral Valve There is moderate mitral annular calcification. Mild-Moderate (1-2+) eccentric mitral valve insufficiency. Tricuspid Valve Normal tricuspid valve. Mild to moderate (1-2+) tricuspid valve insufficiency. Pulmonary artery systolic pressure is 38 mmHg. Aortic Valve Trisinus/trileaflet aortic valve. Moderate focal aortic valve calcification. Peak aortic valve gradient 52 mmHg. Mean aortic valve gradient 35 mmHg. Calculated aortic valve area (continuity equation) is 0.8 cm2. Pulmonic Valve Normal pulmonic valve. Great Vessels Normal aortic root. The pulmonary artery is normal size. Normal inferior vena cava. Pericardium/Pleural No pericardial effusion. MMode/2D Measurements & Calculations LVIDd: 6.7 cm IVSd: 1.7 cm LVOT diam: 2.4 cm LVIDs: 5.6 cm LVPWd: 1.7 cm LVOT area: 4.7 cm2 RVDd: 4.1 cm FS: 16.2 % Ao root diam: 3.7 cm LAV(MOD-bp): 182.5 ml LA A4 area: 35.1 cm2 LAV(MOD-bp) Indexed: 79.1 ml/m2 LAV(MOD-sp2): 182.9 ml LAV(MOD-sp4): 159.7 ml RA A4 area: 34.5 cm2 Doppler Measurements & Calculations MV E max seferino: 127.4 cm/sec Ao V2 max: 361.1 cm/sec LV V1 max: 69.4 cm/sec Ao max P.3 mmHg LV V1 max P.9 mmHg Ao V2 mean: 287.9 cm/sec LV V1 mean P.0 mmHg Ao mean P.9 mmHg LV V1 mean: 48.4 cm/sec Ao V2 VTI: 82.0 cm LV V1 VTI: 13.6 cm CHRISTOPHER(I,D): 0.78 cm2 CHRISTOPHER(V,D): 0.90 cm2 SV(LVOT): 64.1 ml PA V2 max: 51.8 cm/sec TR max seferino: 288.5 cm/sec TR max P.3 mmHg Interpretation Summary Severely dilated left ventricle. Severe concentric left ventricular hypertrophy. The estimated ejection fraction is 20 %. There is severe global hypokinesis of the left ventricle. The left atrium is severely enlarged. The right atrium is severely enlarged. Calculated aortic valve area (continuity equation) is 0.8 cm2. Mean aortic valve gradient 35 mmHg. Ordering Physician: Milton Menendez Referring Physician: Milton Menendez Chi Performed By: Lorri Hardy, SACHI, RVT
--- NOTE | 2018-07-10 11:23 | CT_ITS ---
STUDY: CTA CHEST REASON FOR EXAM: Male, 78 years old. Shortness of breath. RADIATION DOSAGE (If Supplied By Facility): CTDIvol = ( 26.32 ) mGy, DLP = ( 770.90 ) mGycm TECHNIQUE: The examination was performed with the intravenous administration of 100 ml of Isovue 370 contrast material. Post-processing of the angiographic images was performed, with multiplanar reformation and 3D reconstruction. Individualized dose optimization techniques were used for this CT. COMPARISON: Chest x-ray July 07, 2018.. FINDINGS: Normal enhancement of the main pulmonary artery and right and left pulmonary arteries. Normal enhancement of the bilateral peripheral pulmonary arteries. There is no demonstrated pulmonary embolism. There is atherosclerotic calcification of the aortic arch with tortuosity. There is no demonstrated aortic dissection. There are calcifications of the coronary arteries. There is cardiomegaly. Normal mediastinum. Normal hilar regions. Normal visualized trachea and bronchi. The lungs are well expanded. There are mildly increased diffuse interstitial parenchymal markings. Small bilateral pleural effusions. Normal chest wall structures. There are degenerative changes of thoracic spine. There is a large hiatal hernia composed mostly of the fundus of the stomach. CT/CTA Chest W/WO Contrast IMPRESSION: CTA chest examination, without a demonstrated pulmonary embolism or arterial dissection. Small pleural effusions. Hiatal hernia. Electronically Signed: Sheldon Yan MD at 13:39 EDT , Service support ,
== END ==
PROVIDERS: Family Provider Family Medicine Geriatric Medicine; PCP Family Medicine Geriatric Medicine; Referring Provider Family Medicine Geriatric Medicine; Visit Provider Family Medicine Geriatric Medicine
DX: R06.02 Shortness of breath (principal); R79.9 Abnormal finding of blood chemistry, unspecified
CPT/HCPCS: 71275; 93306; Q9967

== ENCOUNTER → 2018-07-24 12:42 | Outpatient (CLI) | payer MEDICARE, SELFPAY ==
[2018-07-24 13:10] LABS: Absolute Lymphocyte Count 0.66 X10^3/ul (0.83-4.51); Absolute Neutrophil Count 6.4 X10^3/uL (2.0-7.7); Basophil# 0.03 X10^3/uL; Basophil% 0.4 % (0-1); Differential Indicated SCAN CRITERIA MET; Eosinophil# 0.16 X10^3/uL; Hematocrit 35.8 % (40-54); Hemoglobin 10.1 g/dl (13.0-16.5); Lymphocyte # 0.66 X10^3/ul (4.0); Lymphocyte % 8.3 % (19-41); Mean Corp Hgb Conc 28.2 g/gl (32-36); Mean Corpuscular Hgb 21.7 pg (27.0-32.0); Mean Corpuscular Volume 76.8 fL (80-94); Mean Platelet Vol. 9.6 fl (6.2-12.0); Monocyte% 8.8 % (0-10); Neutrophil # 6.44 X10^3/uL (2.7-7.7); Neutrophil % 80.4 % (47-70); POSITIVE COUNT NO; POSITIVE DIFFERENTIAL NO; POSITIVE MORPHOLOGY YES; Platelet Count 280 K/mm3 (150-450); RBC Distribution Width CV 24.3 % (11.6-14.6); RBC Distribution Width SD 65.8 fl (35.1-43.9); Red Blood Count 4.66 M/mm3 (4.6-6.2)
[2018-07-24 13:24] LABS: Anion Gap 7 (5-15); BUN 18 mg/dL (7-18); BUN/Creat Ratio 15.5 RATIO (10-20); Calcium,Total 8.3 mg/dL (8.5-10.1); Chloride 107 mmol/L (98-107); Creatinine, Serum 1.16 mg/dL (0.70-1.30); EST Glomerular Filtration Rate 64 mL/min (>60); Est Glom Filt Rate - Afr Amer 78 mL/min (>60); Glucose 80 mg/dL (74-106); Potassium 3.6 mmol/L (3.5-5.1); Sodium Level 141 mmol/L (136-145)
[2018-07-24 13:34] LABS: BNP,B-Type NATRIURETIC PEPTIDE 1862.6 pg/mL (0-100)
[2018-07-24 13:36] LABS: Anisocytosis 1+; Hypochromasia 2+; Platelet Estimate ADEQUATE (ADEQ)
== END ==
PROVIDERS: Family Provider Family Medicine Geriatric Medicine; PCP Family Medicine Geriatric Medicine; Visit Provider Family Medicine Geriatric Medicine
DX: D64.9 Anemia, unspecified (principal); R06.02 Shortness of breath; I50.9 Heart failure, unspecified
CPT/HCPCS: 36415; 80048; 83880; 85025

== ENCOUNTER → 2018-08-05 17:16 | Outpatient (CLI) | payer MEDICARE, SELFPAY ==
[2018-08-05 17:59] LABS: Absolute Lymphocyte Count 0.66 X10^3/ul (0.83-4.51); Absolute Neutrophil Count 5.6 X10^3/uL (2.0-7.7); Basophil# 0.04 X10^3/uL; Basophil% 0.6 % (0-1); Eosinophil# 0.11 X10^3/uL; Eosinophils% 1.6 % (0-5); Hematocrit 35.8 % (40-54); Hemoglobin 10.6 g/dl (13.0-16.5); Lymphocyte # 0.66 X10^3/ul (4.0); Lymphocyte % 9.6 % (19-41); Mean Corp Hgb Conc 29.6 g/gl (32-36); Mean Corpuscular Hgb 23.1 pg (27.0-32.0); Mean Platelet Vol. 10.2 fl (6.2-12.0); Monocyte# 0.53 X10^3/uL; Monocyte% 7.7 % (0-10); Neutrophil # 5.56 X10^3/uL (2.7-7.7); Neutrophil % 80.4 % (47-70); Platelet Count 213 K/mm3 (150-450); RBC Distribution Width SD 71.2 fl (35.1-43.9); Red Blood Count 4.59 M/mm3 (4.6-6.2); White Blood Count 6.9 K/mm3 (4.4-11.0)
[2018-08-05 18:01] LABS: Differential Indicated SCAN CRITERIA MET; POSITIVE COUNT NO; POSITIVE DIFFERENTIAL NO; POSITIVE MORPHOLOGY YES
[2018-08-05 18:20] LABS: Anisocytosis 1+; Microcytosis 1+; Platelet Estimate ADEQUATE (ADEQ)
[2018-08-05 18:25] LABS: Anion Gap 7 (5-15); BUN 16 mg/dL (7-18); Calcium,Total 8.4 mg/dL (8.5-10.1); Chloride 106 mmol/L (98-107); Creatinine, Serum 1.07 mg/dL (0.70-1.30); EST Glomerular Filtration Rate 71 mL/min (>60); Est Glom Filt Rate - Afr Amer 85 mL/min (>60); Glucose 89 mg/dL (74-106); Potassium 3.8 mmol/L (3.5-5.1); Sodium Level 142 mmol/L (136-145)
== END ==
PROVIDERS: Family Provider Family Medicine Geriatric Medicine; PCP Family Medicine Geriatric Medicine; Referring Provider Family Medicine Geriatric Medicine; Visit Provider Family Medicine Geriatric Medicine
DX: I50.9 Heart failure, unspecified (principal)
CPT/HCPCS: 36415; 80048; 85025

== ENCOUNTER → 2018-08-12 16:34 | Outpatient (CLI) | payer MEDICARE, SELFPAY ==
[2018-08-12 17:23] LABS: AST(SGOT) 19 U/L (15-37); Alanine Aminotransfer ALT/SGPT 25 U/L (16-61); Albumin, Serum 3.4 g/dL (3.2-5.0); Alkaline Phosphatase 66 U/L (45-117); Anion Gap 8 (5-15); BUN 18 mg/dL (7-18); BUN/Creat Ratio 15.8 RATIO (10-20); Calcium,Total 8.4 mg/dL (8.5-10.1); Chloride 104 mmol/L (98-107); Creatinine, Serum 1.14 mg/dL (0.70-1.30); EST Glomerular Filtration Rate 66 mL/min (>60); Est Glom Filt Rate - Afr Amer 79 mL/min (>60); Globulin 3.4 g/dL (2.2-4.2); Glucose 72 mg/dL (74-106); Potassium 3.8 mmol/L (3.5-5.1); Protein, Total 6.8 g/dL (6.4-8.2); Sodium Level 143 mmol/L (136-145)
[2018-08-12 18:37] LABS: Absolute Lymphocyte Count 0.92 X10^3/ul (0.83-4.51); Absolute Neutrophil Count 4.9 X10^3/uL (2.0-7.7); Basophil# 0.03 X10^3/uL; Basophil% 0.4 % (0-1); Differential Indicated SCAN CRITERIA MET; Hematocrit 39.6 % (40-54); Hemoglobin 11.8 g/dl (13.0-16.5); Lymphocyte # 0.92 X10^3/ul (4.0); Lymphocyte % 13.8 % (19-41); Mean Corp Hgb Conc 29.8 g/gl (32-36); Mean Corpuscular Hgb 23.3 pg (27.0-32.0); Mean Corpuscular Volume 78.1 fL (80-94); Mean Platelet Vol. 10.1 fl (6.2-12.0); Monocyte# 0.61 X10^3/uL; Monocyte% 9.1 % (0-10); Neutrophil # 4.92 X10^3/uL (2.7-7.7); Neutrophil % 73.6 % (47-70); POSITIVE COUNT NO; POSITIVE DIFFERENTIAL NO; POSITIVE MORPHOLOGY YES; Platelet Count 223 K/mm3 (150-450); RBC Distribution Width SD 71.3 fl (35.1-43.9); Red Blood Count 5.07 M/mm3 (4.6-6.2); White Blood Count 6.7 K/mm3 (4.4-11.0)
== END ==
PROVIDERS: Family Provider Family Medicine Geriatric Medicine; PCP Family Medicine Geriatric Medicine; Visit Provider Family Medicine Geriatric Medicine
DX: I50.23 Acute on chronic systolic (congestive) heart failure (principal)
CPT/HCPCS: 36415; 80053; 85025

== ENCOUNTER 2018-08-21 18:14 | Inpatient (IN) | payer MEDICARE, SELFPAY ==
[2018-08-21] VITALS (9 sets, daily range): BP systolic 73–126; BP diastolic 42–77; PULSE 65–86; RESP 16–18; TEMP 35.8–36.3; O2SAT 96–100; BMI 26.4; BMI 24.8
--- NOTE | 2018-08-21 18:40 | EKG12_ITS ---
Test Reason : DIZZINESS Blood Pressure : / mmHG Vent. Rate : 069 BPM Atrial Rate : 069 BPM P-R Int : 000 ms QRS Dur : 124 ms QT Int : 410 ms P-R-T Axes : 000 006 139 degrees QTc Int : 439 ms Atrial fibrillation with premature ventricular or aberrantly conducted complexes Non-specific intra-ventricular conduction delay T wave abnormality, consider lateral ischemia Abnormal ECG Confirmed by HAFSA DAIGLE MD ([id number]), map editor LEDY BUCHANAN ([id number]) on 08/24/2018 10:56:59 AM Referred By: KELLEN Confirmed By:HAFSA DAIGLE MD
--- NOTE | 2018-08-21 18:43 | ED.VISSUMM ---
- ER Visit Summary Date of Service: 08/21/18 Chief Complaint: Dizziness History of Present Illness: The patient is a 78 M presenting with dizziness. Patient states he has been having intermittent dizziness for the past several days. He states he was started on potassium 6 days ago. He feels that this has been making him lightheaded. It is worse with standing. He states that he has been having loose stools approximately 20 stools per day. Denies blood in his stool. He has had near syncope. He denies chest pain or shortness of breath. He complains of mild abdominal cramping and nausea. Denies vomiting. Denies fever. Denies other complaints. Per home health nurse his blood pressure was 68/50 with a heart rate of 80. Physical Examination: Vitals are stable. Blood pressure 100/57. patient is afebrile. Alert no acute distress. HEENT exam dry mucous membranes Neck is supple. Lungs are clear and equal bilaterally. Heart is regular rate and rhythm. Abdomen is soft nontender nondistended. No rebound or guarding Extremities are unremarkable. Skin is warm and dry. No focal neurologic deficit. Remainder of exam is unremarkable. Emergency Department Course and Treatment: Patient given IV fluids. EKG is A. fib rate of 69 with PVC. CBC, chemistries unremarkable other than sodium 132, BUN 46, creatinine 1.79. Troponin is negative. Lactic acid is normal. Stool is guaiac negative. Chest x-ray shows no acute process. Patient was given IV fluids. He is unable to stand due to dizziness with orthostatic vital signs. Repeat blood pressure after fluids is 93/74. Patient is resting comfortably on reevaluation. Discussed with the hospitalist for admission. Disposition: Admission Impression: Hypotension, dehydration, and FUNMI This note was generated with [employer] dictation software. It may contain incorrect words, spelling, and punctuation that were not noted in review of the chart prior to signing ED Disposition - Plan for ED Patient: Chief Complaint: Dizziness Referrals: Milton Menendez Chi, MD [Primary Care Provider] -
--- NOTE | 2018-08-21 18:50 | RAD_ITS ---
STUDY: X-RAY CHEST REASON FOR EXAM: Male, 78 years old. Shortness of breath and chest pain TECHNIQUE: Single frontal view of the chest. COMPARISON: July 07, 2018 FINDINGS: The lungs are clear and expanded. There is no demonstrated pleural abnormality. Mild cardiomegaly. Normal mediastinum and henrik. Normal visualized pulmonary arteries. Normal visualized aortic arch and descending thoracic aorta. Normal visualized thoracic spine. Normal visualized ribs, clavicles, and shoulders. Moderate hiatal hernia. RAD/Chest 1 View (Portable) IMPRESSION: Moderate hiatal hernia unchanged. No acute disease. Electronically Signed: Adan Cosme MD at 20:40 EST , Service support ,
[2018-08-21 19:15] LABS: Absolute Lymphocyte Count 0.97 X10^3/ul (0.83-4.51); Absolute Neutrophil Count 7.1 X10^3/uL (2.0-7.7); Basophil# 0.03 X10^3/uL; Basophil% 0.3 % (0-1); Eosinophil# 0.16 X10^3/uL; Eosinophils% 1.8 % (0-5); Hematocrit 42.3 % (40-54); Hemoglobin 13.4 g/dl (13.0-16.5); Lymphocyte # 0.97 X10^3/ul (4.0); Lymphocyte % 10.6 % (19-41); Mean Corp Hgb Conc 31.7 g/gl (32-36); Mean Corpuscular Hgb 23.7 pg (27.0-32.0); Mean Corpuscular Volume 74.9 fL (80-94); Mean Platelet Vol. 9.7 fl (6.2-12.0); Monocyte# 0.82 X10^3/uL; Neutrophil # 7.12 X10^3/uL (2.7-7.7); Neutrophil % 78.1 % (47-70); Platelet Count 254 K/mm3 (150-450); RBC Distribution Width SD 65.7 fl (35.1-43.9); Red Blood Count 5.65 M/mm3 (4.6-6.2); White Blood Count 9.1 K/mm3 (4.4-11.0)
[2018-08-21 19:18] LABS: Differential Indicated SCAN CRITERIA MET; POSITIVE COUNT NO; POSITIVE DIFFERENTIAL NO; POSITIVE MORPHOLOGY YES
[2018-08-21 19:28] LABS: Anion Gap 8 (5-15); BUN 46 mg/dL (7-18); BUN/Creat Ratio 25.7 RATIO (10-20); Calcium,Total 8.8 mg/dL (8.5-10.1); Chloride 96 mmol/L (98-107); Creatinine, Serum 1.79 mg/dL (0.70-1.30); EST Glomerular Filtration Rate 39 mL/min (>60); Est Glom Filt Rate - Afr Amer 47 mL/min (>60); Estimated Creatinine Clearance 40.41 ml/min; Glucose 98 mg/dL (74-106); Potassium 3.7 mmol/L (3.5-5.1); Sodium Level 132 mmol/L (136-145)
[2018-08-21 19:31] LABS: Anisocytosis 2+; Hypochromasia 1+; Microcytosis 2+; Ovalocyte 1+
[2018-08-21 19:33] LABS: Lactic Acid 1.5 mmol/L (0.4-2.0)
[2018-08-21 21:02] LABS: Bacteria 0 SEEN /hpf (None Seen); Mucous, Urine 0 SEEN /hpf (<or=2+); Squamous Epithelial Cells - UA 0 SEEN /hpf (0-5); White Blood Cells 0 SEEN /hpf (0-5)
[2018-08-21 21:06] LABS: Color, Urine Yellow (Yellow); Glucose, Dipstick Normal (Normal); Ketone-Dipstick Negative (Negative); Leukocyte Esterase-Dipstick Negative /ul (Negative); Nitrite-Dipstick Negative (Negative); Occult Blood-Urine Negative /ul (Negative); Protein-Dipstick 15 mg/dl (Negative); Specific Gravity, Urine 1.015 (1.002-1.030); Urine Bilirubin Dipstick Negative (Negative); Urine Clarity Clear (Clear); Urine Urobilinogen Normal (Normal)
[2018-08-21 21:14] LABS: Hyaline Cast 10-25 SEEN /lpf (0-5); Red Blood Cells-Urine 0-5 SEEN /hpf (0-5)
--- NOTE | 2018-08-21 21:17 | HP.PCM_ITS ---
Problem List (1) Hypotension Status: Acute Qualifiers: Hypotension type: unspecified hypotension type Qualified Code(s): I95.9 - Hypotension, unspecified (2) FUNMI (acute kidney injury) Status: Acute (3) Chronic systolic CHF (congestive heart failure) Status: Chronic (4) History of prostate cancer in remission Status: Chronic (5) Hyperlipidemia Status: Chronic (6) Hypertension Status: Chronic (7) Left eye blindness Status: Chronic (8) Hypothyroidism Status: Chronic History of Present Illness Date of Admission: 08/21/18 Chief Complaint: Lightheadedness, dizziness, low BP The patient is a 78 y/o M w/ PMHx: Chronic AF, HTN, HLD, Systolic CHF, Iron Deficiency Anemia, History of CVA, History of Retinal Detachment w/ L Eye Blindness, History of Prostate CA, Hypothyroidism who presents to the [facility] ED on 08/21/18 with history of ongoing debility, weakness, lightheadedness and dizziness primarily in the AM following his home medications, suspect some BP regimen although notes recently had some BP regimen discontinued secondary to noted low BPs per his PCP but notes also started following addition of oral K+ supplementation w/ concurrent onset over the last several days loose frequent stools without marked abdominal discomfort but some cramping w/ BM, no nausea, emesis associated. He was evaluated on day of ED presentation per home health and had noted BP 68/50 and noted he had been feeling especially with seated to standing position changes in the AM like he would possibly pass out. He notes that these symptoms would feel better after ~ 3 hours but recurred after taking his AM medications. In the ED workup included T 97.4, heart rate 69, BP initially 100/57 with then noted positive orthostatic vital signs decreasing to 73/56, respiratory rate 16, 96% on room air with improved BP following IV hydration with BP 104/42 upon transition from ED, CBC with WBC 9.1, hemoglobin 13.4, platelet 254 without market shift, BMP with sodium 132, chloride 96, BUN/creatinine 46/1.79 with prior baseline creatinine noted 0.9-1.1, lactic acid 1.5, troponin < 0.015, EKG without acute evidence of ischemia, UA not marked appearing aside mildly elevated SG, chest x-ray with moderate hiatal hernia otherwise no acute process noted. The ED patient administered normal saline. Past Medical History Past Medical History (Chronic Problems): Chronic Problems (Last Reviewed 07/08/18 @ 14:08 by Vicky Rojo) Chronic systolic CHF (congestive heart failure) (Chronic) History of prostate cancer in remission (Chronic) Hyperlipidemia (Chronic) Hypertension (Chronic) Left eye blindness (Chronic) Hypothyroidism (Chronic) Medical History: Medical History (Last Reviewed 07/08/18 @ 14:08 by Vicky Rojo) Afib I48.91 Blind left eye H54.40 CVA (cerebral vascular accident) I63.9 Heart failure with reduced ejection fraction I50.20 Hyperlipidemia E78.5 Hypothyroidism E03.9 HTN (hypertension) I10 Allergies latex Allergy (Verified 07/08/18 14:09) Rash Home Medications: Ambulatory Orders Medication Instructions Recorded Levothyroxine [Synthroid] 25 mcg PO 0600 03/19/14 Metoprolol Tartrate [Lopressor 12.5 mg PO BID #60 tab 03/22/14 (beta yesi)] Ascorbic Acid [Vitamin C] 500 mg PO DAILY@0800 07/28/16 Cyanocobalamin (Vitamin B-12) 1,000 mcg PO DAILY 07/28/16 [Vitamin B-12] Multivitamins,Therapeutic 1 tab PO DAILY 07/28/16 [Multivitamin] Vitamin E 400 unit PO DAILY 07/28/16 Atorvastatin Calcium [Lipitor] 20 mg PO QHS 06/30/18 Ergocalciferol [Vitamin D] 50,000 unit PO QMONTH 06/30/18 Latanoprost 0.005% [Xalatan 1 drp RIGHT EYE QHS 06/30/18 Opthalmic] Lutein 1 tab PO DAILY 06/30/18 Quinapril/Hydrochlorothiazide 1 tab PO DAILY 06/30/18 [Accuretic 20-12.5 MG Tablet] prednisoLONE eye drops (5 mL) 1 drp LEFT EYE QHS 06/30/18 [Pred Forte eye drops (5 mL)] Ferrous Sulfate 325 mg PO 1200,1700 #30 tab 07/01/18 Apixaban [Eliquis] 5 mg PO BID 08/21/18 Furosemide [Lasix] 80 mg PO BID 08/21/18 Metolazone [Zaroxolyn] 2.5 mg PO DAILY 08/21/18 Potassium Chloride [Klor-Con M20] 20 meq PO DAILY 08/21/18 Sacubitril/Valsartan 97-103 mg 1 tab PO BID 08/21/18 [Entresto 97 mg-103 mg Tablet] Surgical History: Surgical History (Last Reviewed 07/08/18 @ 14:08 by Vicky Rojo) H/O detached retina repair Z98.890, Z86.69 Surgical History: - - Hernia repair, bilateral eye surgery for retinal detachment noted to be successful in the right, right foot surgery, tonsillectomy. Psychiatric History: No pertinent psych hx Lives: Alone Smoking Status: Former smoker - 1 cigar daily x 5 years, quit 20 years prior to current presentation. Tobacco Use: Cigars Alcohol: None Drugs: None - *Family History Maternal History Items: - - Denies any marked maternal or paternal family history including HD, DM, CA. Paternal History Items: - - Denies any marked maternal or paternal family history including HD, DM, CA. Review of Systems Constitutional: Reports: Malaise, Weakness, Fatigue. Denies: Chills, Fever, Weight Change HEENT: Denies: Head Aches, Sinus Congestion, Sinus Drainage Cardiovascular: Reports: Light Headedness, Syncope - Near syncopal sensation.. Denies: Chest Pain, Palpitations Respiratory: Denies: Cough, Shortness of breath at rest, Sputum production Gastrointestinal: Reports: Abdominal Pain - Abdominal cramping w/ BM., Diarrhea. Denies: Nausea, Vomiting Genitourinary: Denies: Dysuria Musculoskeletal: Denies: Joint Pain, Joint Tenderness Skin: Denies: Rash, Wounds Neurological: Denies: Numbness, Tingling, Focal weakness Psychiatric: Denies: Anxiety, Depression, Homicidal Ideations, Suicidal Ideations Hematologic/ Lymphatic: Reports: Anemia, Easy Bruising, Easy Bleeding VTE Information - Inpt Only VTE Present on Admission: No VTE Mechan Device Prophylaxis: SCD's VTE Pharm Prophylaxis ordered?: No Reason prophylaxis not ordered:: Treatment Not Indicated - on eliquis. Patient Problems: Active and Suspected Problems (Last Reviewed 07/08/18 @ 14:08 by Vicky Rojo) Hypotension (Acute) FUNMI (acute kidney injury) (Acute) Subjective: Seated upright in the ED bed, NAD, notes currently feeling mildly improved. Objective: Physical Examination: General: awake, alert, oriented x 3 and cooperative, seated upright in the ED bed in no apparent distress. Skin: normal color, turgor, no icterus, cyanosis except occasional extremity various staged ecchymoses. HEENT: AT/NC, EOMI R eye, Blind L eye, PRRLA R eye, moderately dry MM, no carotid bruits or JVD noted. Lungs: CTA bilaterally, moderate effort, mild decrease BL bases, no rales, ronchi or wheezing. Heart: Regular rate and irrhythm; no gallop, rub audible. Abdomen: soft, NTTP, ND, mildly hyperactive BS, no HSM. Extremities: no cyanosis, clubbing, or edema. Neurological: patient awake, alert, oriented x 3; cognitive function intact; pupils equally reactive to light and accomodation; cranial nerves grossly normal aside blind L eye secondary to rental detachment, moving all 4 extremities, no focal deficits, strength moderately globally decreased secondary to acute presentation. Psychiatric: affect appears normal, no acute evidence of depressive or anxiety feelings. - Physical Exam Vital Signs Temp Pulse Resp BP Pulse Ox 96.4 F L 72 17 93/74 96 08/21/18 18:16 08/21/18 20:15 08/21/18 20:15 08/21/18 20:15 08/21/18 20:15 Oxygen Delivery Method Room Air Weight: 216 lb 11.43 oz Body Mass Index (BMI) 26.4 Finger Stick Blood Glucose 85 Microbiology Past 72 Hours 08/21/18 18:30 Stool Occult Blood (HERMINIA) - Final Stool Laboratory Tests Past 24 Hrs 08/21/18 08/21/18 08/21/18 19:00 19:00 19:00 WBC 9.1 RBC 5.65 Hgb 13.4 Hct 42.3 MCV 74.9 L MCH 23.7 L MCHC 31.7 L RDW 25.0 H RDW Differential 65.7 H Plt Count 254 MPV 9.7 Immature Gran % (Auto) 0.200 Neut % (Auto) 78.1 H Lymph % (Auto) 10.6 L [place] % (Auto) 9.0 Eos % (Auto) 1.8 Baso % (Auto) 0.3 Absolute Neuts (auto) 7.1 Absolute Lymphs (auto) 0.97 Total Counted Not Reportable Hypochromasia 1+ Anisocytosis 2+ Microcytosis 2+ Ovalocytes 1+ Sodium 132 L Potassium 3.7 Chloride 96 L Carbon Dioxide 28.0 Anion Gap 8 BUN 46 H Creatinine 1.79 H Estim Creat Clear Calc 40.41 Est GFR (MDRD) Af Amer 47 L Est GFR (MDRD) Non-Af 39 L BUN/Creatinine Ratio 25.7 H Glucose 98 Lactic Acid 1.5 Calcium 8.8 Troponin I < 0.015 Urine Color Urine Clarity Urine pH Ur Specific [place] Urine Protein Urine Glucose (UA) Urine Ketones Urine Occult Blood Urine Nitrite Urine Bilirubin Urine Urobilinogen Ur Leukocyte Esterase Urine RBC Urine WBC Ur Squamous Epith Cells Urine Bacteria Hyaline Casts Urine Mucus 08/21/18 21:00 WBC RBC Hgb Hct MCV MCH MCHC RDW RDW Differential Plt Count MPV Immature Gran % (Auto) Neut % (Auto) Lymph % (Auto) [place] % (Auto) Eos % (Auto) Baso % (Auto) Absolute Neuts (auto) Absolute Lymphs (auto) Total Counted Hypochromasia Anisocytosis Microcytosis Ovalocytes Sodium Potassium Chloride Carbon Dioxide Anion Gap BUN Creatinine Estim Creat Clear Calc Est GFR (MDRD) Af Amer Est GFR (MDRD) Non-Af BUN/Creatinine Ratio Glucose Lactic Acid Calcium Troponin I Urine Color Yellow Urine Clarity Clear Urine pH 5.0 Ur Specific [place] 1.015 Urine Protein 15 H Urine Glucose (UA) Normal Urine Ketones Negative Urine Occult Blood Negative Urine Nitrite Negative Urine Bilirubin Negative Urine Urobilinogen Normal Ur Leukocyte Esterase Negative Urine RBC 0-5 SEEN Urine WBC 0 SEEN Ur Squamous Epith Cells 0 SEEN Urine Bacteria 0 SEEN Hyaline Casts 10-25 SEEN Urine Mucus 0 SEEN Assessment/Plan All Active Problems (Last Reviewed 07/08/18 @ 14:08 by Vicky Rojo) Hypotension (Acute) FUNMI (acute kidney injury) (Acute) Dyspnea (Acute) Cellulitis superimposed acute tinea (Acute) Acute systolic heart failure exacerbatio (Acute) Acute blood loss anemia (Acute) The patient is a 78 y/o M w/ PMHx: Chronic AF, HTN, HLD, Systolic CHF, Iron Deficiency Anemia, History of CVA, History of Retinal Detachment w/ L Eye Blindness, History of Prostate CA, Hypothyroidism who presents to the [facility] ED on 08/21/18 with history of ongoing debility, weakness, lightheadedness and dizziness primarily in the AM following his home medications, suspect some BP regimen although notes recently had some BP regimen discontinued secondary to noted low BPs per his PCP but notes also started following addition of oral K+ supplementation w/ concurrent onset over the last several days loose frequent stools without marked abdominal discomfort but some cramping w/ BM, no nausea, emesis associated. (1) Acute kidney injury: Secondary to parameters of intake, nephrotoxic regimen and concurrently loose stools w/ GI losses. Admission BUN/Cr 46/1.79, prior baseline creatinine noted to be 0.9-1.1. Will hydrate, hold nephrotoxic medications and repeat chemistry in AM. If no improvement would plan FeNa assessment and renal US. (2) Loose Frequent Stools, ? Viral Gastroenteritis: Will continue will obtain c diff, stool cx. Will not start antibiotics at this time given unclear source pending stool studies as may be viral gastroenteritis. Anti-emetics and pain regimen PRN. (3) Lightheadedness, Dizziness, Orthostatic: Secondary to hypotension w/ suspected hypotension and continued usage of home BP regimen, likely primarily in the AM corresponding to his timeline of onset of symptoms and worsened symptoms, continue BP regime hold, IVFs, fall precautions as noted. (4) Systolic CHF, Chronic: We will maintain on Eliquis, statin, holding Lasix, metolazone, metoprolol, quinapril, hydrochlorothiazide, Entresto given hypotension and FUNMI presentation, although unclear exact regimen intake as patient state recent blood pressure medication discontinuations but this is unclear as notes last taken on day of presentation. (5) Chronic AF: EKG w/ rate controlled atrial fibrillation, holding BP regimen including BB as noted, maintain on home eliquis regimen. (6) Hypertension: Notes off BP regimen; however, listed and noted to have been taken on day of presentation, suspect changes may have been made but unclear, holding regimen given hypotension and as noted FUNMI w/ nephrotoxic regimen. (7) Hyperlipidemia: Continue home statin regimen. (8) Hypothyroidism: Continue home synthroid regimen. (9) Iron and Vitamin B12 deficiency anemia: Admission Hgb 13.4, stable, continue home iron, vitamin B12 supplementation. (10) History of CVA: Maintain on home regimen eliquis, statin, holding BP regimen as noted. (11) History of Retinal Detachment w/ Blind L Eye: Noted BL retinal detachment, able to have successful surgical correction of R eye, L failed. (12) DVT prophylaxis: SCDs, eliquis. Code Visit Inpatient E&M: 37408 Init Hosp L3
[2018-08-21 22:48] LABS: Magnesium 2.3 mg/dL (1.6-2.6)
[2018-08-21] MEDS: 0.9% Normal Saline 1,000 ML 100 ML IV (23:00)
[2018-08-22] VITALS (7 sets, daily range): BP systolic 91–99; BP diastolic 58–62; PULSE 74–85; RESP 16–18; TEMP 36.4–36.5; O2SAT 95
[2018-08-22] MEDS: 0.9% NaCl Peripheral Flush Adult/Peds IV (04:12)
[2018-08-22] MEDS: Levothyroxine 25 MCG TABLET PO (05:21)
--- NOTE | 2018-08-22 05:55 | EKG12_ITS ---
Test Reason : AM EKG Blood Pressure : / mmHG Vent. Rate : 078 BPM Atrial Rate : 122 BPM P-R Int : 000 ms QRS Dur : 128 ms QT Int : 422 ms P-R-T Axes : 000 021 166 degrees QTc Int : 481 ms Atrial fibrillation with premature ventricular or aberrantly conducted complexes Non-specific intra-ventricular conduction block T wave abnormality, consider lateral ischemia Abnormal ECG When compared with ECG of 30-JUN-2018 13:03, Nonspecific T wave abnormality now evident in Inferior leads T wave inversion now evident in Anterior leads Confirmed by OXANA GREENE, HAFSA ([id number]), deputy editor in chief LEDY BUCHANAN ([id number] on 08/25/2018 4:08:59 PM Referred By: PACO Confirmed By:HAFSA DAIGLE MD
[2018-08-22] MEDS: Ascorbic Acid 500 MG Tablet PO (08:56)
[2018-08-22] MEDS: Cyanocobalamin 500 MCG Tablet 1000 MCG PO (08:56)
[2018-08-22] MEDS: 0.9% Normal Saline 1,000 ML 100 ML IV (08:56)
[2018-08-22] MEDS: Multivitamins,Therapeutic Tablet 1 TABLET PO (08:56)
[2018-08-22] MEDS: APIXABAN 5 MG TABLET PO (08:56)
[2018-08-22 10:36] LABS: Hematocrit 43.1 % (40-54); Hemoglobin 13.3 g/dl (13.0-16.5); Mean Corp Hgb Conc 30.9 g/gl (32-36); Mean Corpuscular Hgb 23.5 pg (27.0-32.0); Mean Corpuscular Volume 76.3 fL (80-94); Mean Platelet Vol. 9.7 fl (6.2-12.0); Platelet Count 235 K/mm3 (150-450); RBC Distribution Width CV 23.8 % (11.6-14.6); RBC Distribution Width SD 64.3 fl (35.1-43.9); Red Blood Count 5.65 M/mm3 (4.6-6.2); White Blood Count 7.1 K/mm3 (4.4-11.0)
[2018-08-22 10:43] LABS: Scan Indicated on CBC? Y/N YES- FLAGS NOTED
[2018-08-22 10:48] LABS: Anion Gap 10 (5-15); BUN 42 mg/dL (7-18); BUN/Creat Ratio 30.2 RATIO (10-20); Calcium,Total 8.5 mg/dL (8.5-10.1); Chloride 100 mmol/L (98-107); Creatinine, Serum 1.39 mg/dL (0.70-1.30); EST Glomerular Filtration Rate 52 mL/min (>60); Est Glom Filt Rate - Afr Amer 63 mL/min (>60); Estimated Creatinine Clearance 52.04 ml/min; Glucose 111 mg/dL (74-106); Magnesium 2.4 mg/dL (1.6-2.6); Potassium 3.4 mmol/L (3.5-5.1); Sodium Level 139 mmol/L (136-145)
[2018-08-22 10:57] LABS: Differential Comment SCANNED
--- NOTE | 2018-08-22 11:54 | DCINST_ITS ---
- Discharge Diagnoses Current Active Problems: Current Active and Chronic Problems (Last Reviewed 07/08/18 @ 14:08 by Vicky Rojo) Hypotension (Acute) FUNMI (acute kidney injury) (Acute) Chronic systolic CHF (congestive heart failure) (Chronic) You will use the following diet at home:: Cardiac Discharge Activity: Return to Normal Activity Call your doctor if you observe: Shortness of breath, Dizziness, Fainting spells, Chest pain Additional Instructions: Your lasix regimen was decreased to 40mg twice daily and metolazone was discontinued. Recommend BMP by primary care at follow up in 1 week to assess kidney function. Allergies/Adverse Reactions: Allergies latex Allergy (Verified 07/08/18 14:09) Rash Medications to take at Discharge Levothyroxine [Synthroid] 25 mcg PO 0600 03/19/14 Metoprolol Tartrate [Lopressor (beta yesi)] 12.5 mg PO BID #60 tab 03/22/14 Ascorbic Acid [Vitamin C] 500 mg PO DAILY@0800 07/28/16 Cyanocobalamin (Vitamin B-12) [Vitamin B-12] 1,000 mcg PO DAILY 07/28/16 Multivitamins,Therapeutic [Multivitamin] 1 tab PO DAILY 07/28/16 Vitamin E 400 unit PO DAILY 07/28/16 Atorvastatin Calcium [Lipitor] 20 mg PO QHS 06/30/18 Ergocalciferol [Vitamin D] 50,000 unit PO QMONTH 06/30/18 Latanoprost 0.005% [Xalatan Opthalmic] 1 drp RIGHT EYE QHS 06/30/18 Lutein 1 tab PO DAILY 06/30/18 Quinapril/Hydrochlorothiazide [Accuretic 20-12.5 MG Tablet] 1 tab PO DAILY 06/30/18 prednisoLONE eye drops (5 mL) [Pred Forte eye drops (5 mL)] 1 drp LEFT EYE QHS 06/30/18 Ferrous Sulfate 325 mg PO 1200,1700 #30 tab 07/01/18 Apixaban [Eliquis] 5 mg PO BID 08/21/18 Potassium Chloride [Klor-Con M20] 20 meq PO DAILY 08/21/18 Sacubitril/Valsartan 97-103 mg [Entresto 97 mg-103 mg Tablet] 1 tab PO BID 08/21/18 Furosemide [Lasix] 40 mg PO BID #0 08/22/18 Primary Care Physician: Milton Menendez Chi, MD [Primary Care Provider] - Please follow up with your Primary Care Physician in: 1 Week Test Results: Test results from this visit will be discussed in further detail at your follow- up appointment, if applicable. Proposed Discharge Date: 08/22/18
[2018-08-22] MEDS: Ferrous Sulfate 325 MG Tablet PO (12:41)
--- NOTE | 2018-08-22 12:59 | DS.PCM_ITS ---
<Margarette Medina - Last Filed: 08/22/18 13:00> Discharge Date and Diagnosis Date of Admission: 08/21/18 Date of Discharge: 08/22/18 - Primary Discharge Diagnosis Active and Suspected Problems (Last Reviewed 07/08/18 @ 14:08 by Vicky Rojo) 1. Acute kidney injury secondary to diuretic regimen 2. Orthostatic hypotension secondary to hypovolemia as a result of #1 3. Mild hypokalemia 4. Mild gastroenteritis, resolved - Secondary Discharge Diagnosis Chronic Problems (Last Reviewed 07/08/18 @ 14:08 by Vicky Rojo) Chronic systolic CHF (congestive heart failure) (Chronic) History of prostate cancer in remission (Chronic) Hyperlipidemia (Chronic) Hypertension (Chronic) Left eye blindness (Chronic) Hypothyroidism (Chronic) Hospital Course and Treatment Imaging Results: Diagnostic Data Chest X-Ray 08/21/18 18:50 IMPRESSION: Moderate hiatal hernia unchanged. No acute disease. Electronically Signed: Adan Cosme MD at 20:40 EST , Service support , Operations: None Procedures: None Summary of Care Provided: The patient is a 78 year old M admitted 08/21/2018 due to lightheadedness and low blood pressure. He has a past medical history of chronic atrial fibrillation, hypertension, hyperlipidemia, chronic systolic CHF, iron deficiency anemia, history of CVA, history of retinal detachment with left eye blindness, history of prostate cancer, hypothyroidism. Patient was found to have acute kidney injury and positive orthostatic vitals on admission. Patient states he has been on a strict fluid restriction the past few weeks. His primary care physician also recently increased Lasix from 40 mg daily to 80 mg twice a daily 08/05/2018 with addition of metolazone 2.5 mg at that time as well. Echocardiogram 07/10/2018 with EF 20%, mean aortic valve gradient 35 mmHg. Patient received gentle IV fluids with improvement in creatinine from 1.7 to 1.3. His repeat orthostatic vitals were negative. Patient denies further dizziness, lightheadedness. He reported loose stools prior to admission. Denies further loose stools or diarrhea since admission. Home Lasix regimen decreased to 40 mg twice daily at discharge. Metolazone discontinued. Patient is also on both Accuretic and Entresto. Discontinue Accuretic as this is a contraindication together with Entresto. Feel patients presenting FUNMI and hypotension are due to hypovolemia as a result of diuretic regimen. Recommend repeat BMP in 1 week. Follow-up with primary care physician in 1 week. Chronic medical conditions as noted above are stable at this time. Physical Examination: General: awake, alert, oriented x 3 and cooperative Skin: normal color, turgor, no icterus, cyanosis except occasional extremity various staged ecchymoses. HEENT: Blind L eye, PRRLA R eye, no carotid bruits or JVD noted. Lungs: Clear to auscultation Heart: Atrial fibrillation, rate controlled. Murmur. Abdomen: Soft, nontender, normal bowel sounds Extremities: no cyanosis, clubbing, or edema. Neurological: Neuro grossly intact. Psychiatric: Normal affect. Patient seen and examined prior to discharge. Physical assessment as noted above. Patient stable for discharge home with a follow-up of her conditions as noted above. This patient was seen by AMANDA Davis under the supervision of Dr. Zapata. - Physical Exam Vital Signs Temp Pulse Resp BP Pulse Ox 97.7 F L 77 16 95/60 95 08/22/18 10:05 08/22/18 12:28 08/22/18 10:05 08/22/18 12:28 08/22/18 10:05 Oxygen Delivery Method Room Air Weight: 203 lb 14.841 oz Body Mass Index (BMI) 24.8 Finger Stick Blood Glucose 85 Orthostatic Vital Signs Start: 08/21/18 22:40 Freq: q24h Status: Active Protocol: Activity Type Activity Date Activity User E-Sign Co-Sign Detail Recorded Client Recorded Date Recorded By Document 08/22/18 12:28 PRODUCTION DESIGNER [id number] 08/22/18 12:32 PRODUCTION DESIGNER 08/22/18 12:28 Orthostatic Vitals Standing -Blood Pressure (90/60-120/80) 96/60 -Extremity Use Right Arm -Pulse Rate (60-100) 85 Sitting -Blood Pressure (90/60-120/80) 96/62 -Extremity Use Right Arm -Pulse Rate (60-100) 80 Lying -Blood Pressure (90/60-120/80) 95/60 -Extremity Use Right Arm -Pulse Rate (60-100) 77 Intake and Output for Last 24 Hours 08/20/18 08/21/18 08/22/18 23:59 23:59 23:59 Intake Total 2277 / 2277 Balance 2277 / 2277 Microbiology Past 72 Hours 08/21/18 18:30 Stool Occult Blood (HERMINIA) - Final Stool Laboratory Tests Past 24 Hrs 08/21/18 08/21/18 08/21/18 19:00 19:00 19:00 WBC 9.1 RBC 5.65 Hgb 13.4 Hct 42.3 MCV 74.9 L MCH 23.7 L MCHC 31.7 L RDW 25.0 H RDW Differential 65.7 H Plt Count 254 MPV 9.7 Immature Gran % (Auto) 0.200 Neut % (Auto) 78.1 H Lymph % (Auto) 10.6 L [place] % (Auto) 9.0 Eos % (Auto) 1.8 Baso % (Auto) 0.3 Absolute Neuts (auto) 7.1 Absolute Lymphs (auto) 0.97 Total Counted Not Reportable Differential Comment Hypochromasia 1+ Anisocytosis 2+ Microcytosis 2+ Ovalocytes 1+ Sodium 132 L Potassium 3.7 Chloride 96 L Carbon Dioxide 28.0 Anion Gap 8 BUN 46 H Creatinine 1.79 H Estim Creat Clear Calc 40.41 Est GFR (MDRD) Af Amer 47 L Est GFR (MDRD) Non-Af 39 L BUN/Creatinine Ratio 25.7 H Glucose 98 Lactic Acid 1.5 Calcium 8.8 Magnesium Troponin I < 0.015 Urine Color Urine Clarity Urine pH Ur Specific [place] Urine Protein Urine Glucose (UA) Urine Ketones Urine Occult Blood Urine Nitrite Urine Bilirubin Urine Urobilinogen Ur Leukocyte Esterase Urine RBC Urine WBC Ur Squamous Epith Cells Urine Bacteria Hyaline Casts Urine Mucus 08/21/18 08/21/18 08/22/18 19:00 21:00 10:15 WBC RBC Hgb Hct MCV MCH MCHC RDW RDW Differential Plt Count MPV Immature Gran % (Auto) Neut % (Auto) Lymph % (Auto) [place] % (Auto) Eos % (Auto) Baso % (Auto) Absolute Neuts (auto) Absolute Lymphs (auto) Total Counted Differential Comment Hypochromasia Anisocytosis Microcytosis Ovalocytes Sodium 139 Potassium 3.4 L Chloride 100 Carbon Dioxide 29.0 Anion Gap 10 BUN 42 H Creatinine 1.39 H Estim Creat Clear Calc 52.04 Est GFR (MDRD) Af Amer 63 Est GFR (MDRD) Non-Af 52 L BUN/Creatinine Ratio 30.2 H Glucose 111 H Lactic Acid Calcium 8.5 Magnesium 2.3 2.4 Troponin I Urine Color Yellow Urine Clarity Clear Urine pH 5.0 Ur Specific [place] 1.015 Urine Protein 15 H Urine Glucose (UA) Normal Urine Ketones Negative Urine Occult Blood Negative Urine Nitrite Negative Urine Bilirubin Negative Urine Urobilinogen Normal Ur Leukocyte Esterase Negative Urine RBC 0-5 SEEN Urine WBC 0 SEEN Ur Squamous Epith Cells 0 SEEN Urine Bacteria 0 SEEN Hyaline Casts 10-25 SEEN Urine Mucus 0 SEEN 08/22/18 10:15 WBC 7.1 RBC 5.65 Hgb 13.3 Hct 43.1 MCV 76.3 L MCH 23.5 L MCHC 30.9 L RDW 23.8 H RDW Differential 64.3 H Plt Count 235 MPV 9.7 Immature Gran % (Auto) Neut % (Auto) Lymph % (Auto) [place] % (Auto) Eos % (Auto) Baso % (Auto) Absolute Neuts (auto) Absolute Lymphs (auto) Total Counted Differential Comment SCANNED Hypochromasia Anisocytosis Microcytosis Ovalocytes Sodium Potassium Chloride Carbon Dioxide Anion Gap BUN Creatinine Estim Creat Clear Calc Est GFR (MDRD) Af Amer Est GFR (MDRD) Non-Af BUN/Creatinine Ratio Glucose Lactic Acid Calcium Magnesium Troponin I Urine Color Urine Clarity Urine pH Ur Specific [place] Urine Protein Urine Glucose (UA) Urine Ketones Urine Occult Blood Urine Nitrite Urine Bilirubin Urine Urobilinogen Ur Leukocyte Esterase Urine RBC Urine WBC Ur Squamous Epith Cells Urine Bacteria Hyaline Casts Urine Mucus Discharge Diet: Low fat/ Low Cholesterol Discharge Activity: Return to Normal Activity Call your doctor if you observe: Shortness of breath, Dizziness, Fainting spells, Chest pain Home Medications: Medications to take at Discharge Levothyroxine [Synthroid] 25 mcg PO 0600 03/19/14 Metoprolol Tartrate [Lopressor (beta yesi)] 12.5 mg PO BID #60 tab 03/22/14 Ascorbic Acid [Vitamin C] 500 mg PO DAILY@0800 07/28/16 Cyanocobalamin (Vitamin B-12) [Vitamin B-12] 1,000 mcg PO DAILY 07/28/16 Multivitamins,Therapeutic [Multivitamin] 1 tab PO DAILY 07/28/16 Vitamin E 400 unit PO DAILY 07/28/16 Atorvastatin Calcium [Lipitor] 20 mg PO QHS 06/30/18 Ergocalciferol [Vitamin D] 50,000 unit PO QMONTH 06/30/18 Latanoprost 0.005% [Xalatan Opthalmic] 1 drp RIGHT EYE QHS 06/30/18 Lutein 1 tab PO DAILY 06/30/18 prednisoLONE eye drops (5 mL) [Pred Forte eye drops (5 mL)] 1 drp LEFT EYE QHS 06/30/18 Ferrous Sulfate 325 mg PO 1200,1700 #30 tab 07/01/18 Apixaban [Eliquis] 5 mg PO BID 08/21/18 Potassium Chloride [Klor-Con M20] 20 meq PO DAILY 08/21/18 Sacubitril/Valsartan 97-103 mg [Entresto 97 mg-103 mg Tablet] 1 tab PO BID 08/21/18 Furosemide [Lasix] 40 mg PO BID #0 08/22/18 Primary Care Physician: Milton Menendez Chi, MD [Primary Care Provider] - Please follow up with your Primary Care Physician in: 1 Week Disposition: Home Minutes spent on discharge:: 35 Patient Condition:: Stable Medical Necessity - Tobacco Use Smoking Status: Former smoker - 1 cigar daily x 5 years, quit 20 years prior to current presentation. Tobacco Use: Cigars Meaningful Use Info Meaningful Use Diagnoses (Choose all that apply): None applicable <Christian Zapata - Last Filed: 08/22/18 13:28> Discharge Date and Diagnosis - Secondary Discharge Diagnosis Chronic Problems (Last Reviewed 07/08/18 @ 14:08 by Vicky Rojo) Chronic systolic CHF (congestive heart failure) (Chronic) History of prostate cancer in remission (Chronic) Hyperlipidemia (Chronic) Hypertension (Chronic) Left eye blindness (Chronic) Hypothyroidism (Chronic) Hospital Course and Treatment Summary of Care Provided: This patient was seen in conjunction with AMANDA Davis . I have independently interviewed and examined the patient and reviewed pertinent historical, laboratory, and other data. Please refer to AMANDA Davis note for details of this patient's presentation, findings, and recommendations. I have reviewed AMANDA Davis note and concur with documented findings. In brief, patient is a 78-year-old male admitted with lightheadedness. Patient was found to be orthostatic with impaired kidney function. Admitted to a monitored bed for further management Hospital course: As elicited above by Margarette Medina GREASE BUFFER - Physical Exam Vital Signs Temp Pulse Resp BP Pulse Ox 97.7 F L 77 16 95/60 95 08/22/18 10:05 08/22/18 12:28 08/22/18 10:05 08/22/18 12:28 08/22/18 11:15 Oxygen Delivery Method Room Air Weight: 92.5 kg Body Mass Index (BMI) 24.8 Finger Stick Blood Glucose 85 Orthostatic Vital Signs Start: 08/21/18 22:40 Freq: q24h Status: Active Protocol: Activity Type Activity Date Activity User E-Sign Co-Sign Detail Recorded Client Recorded Date Recorded By Document 08/22/18 12:28 PRODUCTION DESIGNER [id number] 08/22/18 12:32 PRODUCTION DESIGNER 08/22/18 12:28 Orthostatic Vitals Standing -Blood Pressure (90/60-120/80) 96/60 -Extremity Use Right Arm -Pulse Rate (60-100) 85 Sitting -Blood Pressure (90/60-120/80) 96/62 -Extremity Use Right Arm -Pulse Rate (60-100) 80 Lying -Blood Pressure (90/60-120/80) 95/60 -Extremity Use Right Arm -Pulse Rate (60-100) 77 Intake and Output for Last 24 Hours 08/20/18 08/21/18 08/22/18 23:59 23:59 23:59 Intake Total 2277 / 2277 Balance 2277 / 2277 Microbiology Past 72 Hours 08/21/18 18:30 Stool Occult Blood (HERMINIA) - Final Stool Laboratory Tests Past 24 Hrs 08/21/18 08/21/18 08/21/18 19:00 19:00 19:00 WBC 9.1 RBC 5.65 Hgb 13.4 Hct 42.3 MCV 74.9 L MCH 23.7 L MCHC 31.7 L RDW 25.0 H RDW Differential 65.7 H Plt Count 254 MPV 9.7 Immature Gran % (Auto) 0.200 Neut % (Auto) 78.1 H Lymph % (Auto) 10.6 L [place] % (Auto) 9.0 Eos % (Auto) 1.8 Baso % (Auto) 0.3 Absolute Neuts (auto) 7.1 Absolute Lymphs (auto) 0.97 Total Counted Not Reportable Differential Comment Hypochromasia 1+ Anisocytosis 2+ Microcytosis 2+ Ovalocytes 1+ Sodium 132 L Potassium 3.7 Chloride 96 L Carbon Dioxide 28.0 Anion Gap 8 BUN 46 H Creatinine 1.79 H Estim Creat Clear Calc 40.41 Est GFR (MDRD) Af Amer 47 L Est GFR (MDRD) Non-Af 39 L BUN/Creatinine Ratio 25.7 H Glucose 98 Lactic Acid 1.5 Calcium 8.8 Magnesium Troponin I < 0.015 Urine Color Urine Clarity Urine pH Ur Specific [place] Urine Protein Urine Glucose (UA) Urine Ketones Urine Occult Blood Urine Nitrite Urine Bilirubin Urine Urobilinogen Ur Leukocyte Esterase Urine RBC Urine WBC Ur Squamous Epith Cells Urine Bacteria Hyaline Casts Urine Mucus 08/21/18 08/21/18 08/22/18 19:00 21:00 10:15 WBC RBC Hgb Hct MCV MCH MCHC RDW RDW Differential Plt Count MPV Immature Gran % (Auto) Neut % (Auto) Lymph % (Auto) [place] % (Auto) Eos % (Auto) Baso % (Auto) Absolute Neuts (auto) Absolute Lymphs (auto) Total Counted Differential Comment Hypochromasia Anisocytosis Microcytosis Ovalocytes Sodium 139 Potassium 3.4 L Chloride 100 Carbon Dioxide 29.0 Anion Gap 10 BUN 42 H Creatinine 1.39 H Estim Creat Clear Calc 52.04 Est GFR (MDRD) Af Amer 63 Est GFR (MDRD) Non-Af 52 L BUN/Creatinine Ratio 30.2 H Glucose 111 H Lactic Acid Calcium 8.5 Magnesium 2.3 2.4 Troponin I Urine Color Yellow Urine Clarity Clear Urine pH 5.0 Ur Specific [place] 1.015 Urine Protein 15 H Urine Glucose (UA) Normal Urine Ketones Negative Urine Occult Blood Negative Urine Nitrite Negative Urine Bilirubin Negative Urine Urobilinogen Normal Ur Leukocyte Esterase Negative Urine RBC 0-5 SEEN Urine WBC 0 SEEN Ur Squamous Epith Cells 0 SEEN Urine Bacteria 0 SEEN Hyaline Casts 10-25 SEEN Urine Mucus 0 SEEN 08/22/18 10:15 WBC 7.1 RBC 5.65 Hgb 13.3 Hct 43.1 MCV 76.3 L MCH 23.5 L MCHC 30.9 L RDW 23.8 H RDW Differential 64.3 H Plt Count 235 MPV 9.7 Immature Gran % (Auto) Neut % (Auto) Lymph % (Auto) [place] % (Auto) Eos % (Auto) Baso % (Auto) Absolute Neuts (auto) Absolute Lymphs (auto) Total Counted Differential Comment SCANNED Hypochromasia Anisocytosis Microcytosis Ovalocytes Sodium Potassium Chloride Carbon Dioxide Anion Gap BUN Creatinine Estim Creat Clear Calc Est GFR (MDRD) Af Amer Est GFR (MDRD) Non-Af BUN/Creatinine Ratio Glucose Lactic Acid Calcium Magnesium Troponin I Urine Color Urine Clarity Urine pH Ur Specific [place] Urine Protein Urine Glucose (UA) Urine Ketones Urine Occult Blood Urine Nitrite Urine Bilirubin Urine Urobilinogen Ur Leukocyte Esterase Urine RBC Urine WBC Ur Squamous Epith Cells Urine Bacteria Hyaline Casts Urine Mucus Code Visit OBSV E&M: [id number] Observation care discharge
--- NOTE | 2018-08-26 10:29 | CASEMGMT ---
RADHA CORTES Discharge Follow-up Phone Call: DEVI: Shea Strata: 3 Call Date: 08/26/18 Discharge Date: 08/22/18 Time of Call: 1023 Duration: 5 minutes ? Admitting Diagnosis: orthostatic hypotension, FUNMI This RADHA CORTES contacted pt via telephone to follow-up s/p discharge. Pt states he has been doing well. Denies any dizziness. States he has a home health RN that visits him from [facility]. [facility] he received a visit on Friday. States today his BP was 123/70. He had made his follow-up appointment with Dr. Menendez for 09/02 and has discontinued his Accuretic medication. Pt denied any further questions or concerns. Charla Siddiqi RN
== END 2018-08-22 14:17 | disposition home or self-care (01) | DRG 683 ==
LOC: ED 18:50 → PCU 22:34
PROVIDERS: Admitting Provider Family Medicine; Emergency Provider Emergency Medicine; Family Provider Family Medicine Geriatric Medicine; PCP Family Medicine Geriatric Medicine; Visit Provider Internal Medicine
DX: N17.9 Acute kidney failure, unspecified (principal); I50.22 Chronic systolic (congestive) heart failure; E03.9 Hypothyroidism, unspecified; E86.0 Dehydration; E78.5 Hyperlipidemia, unspecified; I11.0 Hypertensive heart disease with heart failure; H54.62 Unqualified visual loss, left eye, normal vision right eye; D51.9 Vitamin B12 deficiency anemia, unspecified; T50.2X5A Adverse effect of carbonic-anhydrase inhibitors, benzothiadiazides and other diuretics, initial encounter; D50.9 Iron deficiency anemia, unspecified; E86.1 Hypovolemia; E87.6 Hypokalemia; K52.9 Noninfective gastroenteritis and colitis, unspecified; I95.1 Orthostatic hypotension; I48.2 Chronic atrial fibrillation; Z87.891 Personal history of nicotine dependence; Z79.01 Long term (current) use of anticoagulants; Z85.46 Personal history of malignant neoplasm of prostate; Z86.73 Personal history of transient ischemic attack (TIA), and cerebral infarction without residual deficits
CPT/HCPCS: 36415; 71045; 80048; 81001; 82274; 83605; 83735; 84484; 85025; 85027; 93005; 97161; 97165; 99284; J7030; J7040; A4216

== ENCOUNTER → 2018-09-02 12:06 | Outpatient (CLI) | payer MEDICARE, SELFPAY ==
[2018-08-21 22:13] VITALS: BMI 24.8
[2018-09-02 12:44] LABS: Absolute Lymphocyte Count 1.09 X10^3/ul (0.83-4.51); Absolute Neutrophil Count 5.1 X10^3/uL (2.0-7.7); Anion Gap 7 (5-15); BUN 21 mg/dL (7-18); BUN/Creat Ratio 17.5 RATIO (10-20); Basophil# 0.03 X10^3/uL; Basophil% 0.4 % (0-1); Calcium,Total 8.7 mg/dL (8.5-10.1); Chloride 104 mmol/L (98-107); EST Glomerular Filtration Rate 62 mL/min (>60); Eosinophil# 0.25 X10^3/uL; Eosinophils% 3.6 % (0-5); Est Glom Filt Rate - Afr Amer 75 mL/min (>60); Glucose 77 mg/dL (74-106); Hematocrit 42.6 % (40-54); Hemoglobin 13.1 g/dl (13.0-16.5); Lymphocyte # 1.09 X10^3/ul (4.0); Lymphocyte % 15.7 % (19-41); Mean Corp Hgb Conc 30.8 g/gl (32-36); Mean Corpuscular Hgb 23.9 pg (27.0-32.0); Mean Corpuscular Volume 77.9 fL (80-94); Mean Platelet Vol. 9.9 fl (6.2-12.0); Monocyte# 0.46 X10^3/uL; Monocyte% 6.6 % (0-10); Neutrophil # 5.11 X10^3/uL (2.7-7.7); Neutrophil % 73.6 % (47-70); Platelet Count 199 K/mm3 (150-450); Potassium 4.3 mmol/L (3.5-5.1); RBC Distribution Width CV 23.7 % (11.6-14.6); RBC Distribution Width SD 65.6 fl (35.1-43.9); Red Blood Count 5.47 M/mm3 (4.6-6.2); Sodium Level 141 mmol/L (136-145)
[2018-09-02 12:46] LABS: Differential Indicated SCAN CRITERIA MET; POSITIVE COUNT NO; POSITIVE DIFFERENTIAL NO; POSITIVE MORPHOLOGY YES
[2018-09-02 13:10] LABS: Anisocytosis 1+; Hypochromasia RARE; Microcytosis 1+; Platelet Estimate ADEQUATE (ADEQ)
== END ==
PROVIDERS: Family Provider Family Medicine Geriatric Medicine; PCP Family Medicine Geriatric Medicine; Visit Provider Family Medicine Geriatric Medicine
DX: E87.6 Hypokalemia (principal)
CPT/HCPCS: 36415; 80048; 85025

== ENCOUNTER 2018-09-12 11:11 | Inpatient (IN) | payer MEDICARE, SELFPAY ==
[2018-08-21 22:13] VITALS: BMI 24.8
[2018-09-12] VITALS (7 sets, daily range): BP systolic 109–123; BP diastolic 66–81; PULSE 65–95; RESP 14–18; TEMP 36.1–36.6; O2SAT 98–99; BMI 25.5; BMI 26.2; BMI 26.3
--- NOTE | 2018-09-12 11:32 | CT_ITS ---
STUDY: CT ABDOMEN AND PELVIS WITH CONTRAST REASON FOR EXAM: Male, 78 years old. Lower abdominal pain. History of prostate cancer. Recent C. difficile. RADIATION DOSAGE (If Supplied By Facility): CTDIvol = ( 26.31 ) mGy, DLP = ( 1228.59 ) mGycm TECHNIQUE: Transaxial images were obtained from the dome of the diaphragm to the symphysis pubis with oral contrast. 100 ml of Isovue 300 contrast was administered. Sagittal and coronal images were reconstructed. Individualized dose optimization techniques were used for this CT. COMPARISON: September 01, 2015 FINDINGS: The visualized lung bases are unremarkable. The visualized portions of the heart are within normal limits. Normal liver. There are multiple gallstones. Normal spleen. Normal pancreas. Normal bilateral adrenal glands. Normal right kidney. There are left renal cysts measuring up to 3.1 cm. There is a large hiatal hernia composed mostly of the fundus of the stomach. Normal small intestine. There is diverticulosis, with thickening of the sigmoid colon wall, and pericolonic inflammation changes consistent with acute diverticulitis. There is adjacent 3.5 cm air and fluid region adjacent to the wall of the distal sigmoid consistent with abscess, series 2 images 91/130 through 96/130. There is mild free fluid in the pelvis. The appendix is visualized and appears normal. There is diffuse atherosclerotic calcification of the abdominal aorta, without a demonstrated aneurysm. Normal inferior vena cava. Normal retroperitoneum. Normal urinary bladder. Seed implants at the prostate gland. Normal abdominal wall. There are diffuse degenerative changes of the visualized lumbar spine. There is stable iliopsoas bursitis on the left. CT/Abdomen/Pelvis WITH Contrast IMPRESSION: Sigmoid diverticulitis with peridiverticular abscess. Mild free fluid. No obstruction. Hiatal hernia. Multiple gallstones. No biliary dilatation. N.B. : The above information has been verbally conveyed by Sheldon Yan MD to Dr. Jasvir MD, on 09/12/2018 13:53:04 (ET). Electronically Signed: Sheldon Yan MD at 13:48 EST , Service support ,
--- NOTE | 2018-09-12 11:35 | ED.VISSUMM ---
- ER Visit Summary Date of Service: 09/12/18 Chief Complaint: Bowel obstruction History of Present Illness: The patient is a 78 M here for possible bowel obstruction. He describes his symptoms as diffuse and intermittent abdominal pains with gas and small painful stools. He has pain when he sits upright and puts pressure on his anal area. He denies nausea or vomiting. Denies fevers. Denies urinary symptoms. Denies bleeding. He does take Eliquis among his other medications. He is a former smoker. History of prostate cancer. He had a colonoscopy remotely which was normal. Physical Examination: Afebrile and vital signs unremarkable. Patient is alert and oriented. No acute distress. Heart regular. Lungs clear. Abdomen soft and nontender. Rectal exam shows an external hemorrhoid, nonthrombosed, tender. No bleeding noted. No impaction or masses noted otherwise. Test Results: Laboratory studies and CAT scan pending. Emergency Department Course and Treatment: Treated with IV fluids. He declined pain medicine while he waits for results. Labs were all fairly unremarkable except his total bilirubin was 2.2. He had elevated bilirubins in the past. His urinalysis is pending. I spoke with radiology. Radiology was concerned for diverticular abscess in the sigmoid colon. I spoke with Dr. Carter who reviewed the imaging. He was not convinced this was a diverticular abscess, possibly a psoas abscess. Patient will be n.p.o. Will start on Cipro and Flagyl. Hospitalist will admit and monitor throughout the weekend. I am not sure if he will need surgery or interventional point. Treatment Plan: As above Disposition: Admission Impression: 1. Suspected diverticular abscess This note was generated with [employer] dictation software. It may contain incorrect words, spelling, and punctuation that were not noted in review of the chart prior to signing ED Disposition - Plan for ED Patient: Chief Complaint: Abd Pain Referrals: Milton Menendez Chi, MD [Primary Care Provider] -
--- NOTE | 2018-09-12 11:38 | ED.DCSUM_ITS ---
- ER Visit Summary Date of Service: 09/12/18 Chief Complaint: Bowel obstruction History of Present Illness: The patient is a 78 M here for possible bowel obstruction. He describes his symptoms as diffuse and intermittent abdominal pains with gas and small painful stools. He has pain when he sits upright and puts pressure on his anal area. He denies nausea or vomiting. Denies fevers. Denies urinary symptoms. Denies bleeding. He does take Eliquis among his other medications. He is a former smoker. History of prostate cancer. He had a colonoscopy remotely which was normal. Physical Examination: Afebrile and vital signs unremarkable. Patient is alert and oriented. No acute distress. Heart regular. Lungs clear. Abdomen soft and nontender. Rectal exam shows an external hemorrhoid, nonthrombosed, tender. No bleeding noted. No impaction or masses noted otherwise. Test Results: Laboratory studies and CAT scan pending. Emergency Department Course and Treatment: Treated with IV fluids. He declined pain medicine while he waits for results. Labs were all fairly unremarkable except his total bilirubin was 2.2. He had elevated bilirubins in the past. His urinalysis is pending. I spoke with aaron ology. Radiology was concerned for diverticular abscess in the sigmoid colon. I spoke with Dr. Carter who reviewed the imaging. He was not convinced this was a diverticular abscess, possibly a psoas abscess. Patient will be n.p.o. Will start on Cipro and Flagyl. Hospitalist will admit and monitor throughout the weekend. I am not sure if he will need surgery or interventional point. Treatment Plan: As above Disposition: Admission Impression: 1. Suspected diverticular abscess This note was generated with [employer]idence dictation software. It may contain incorrect words, spelling, and punctuation that were not noted in review of the chart prior to signing ED Disposition - Plan for ED Patient: Chief Complaint: Abd Pain Referrals: Milton Menendez Chi, MD [Primary Care Provider] -
[2018-09-12] MEDS: 0.9% Normal Saline 1,000 ML 1000 ML IV (11:53)
[2018-09-12 12:03] LABS: Absolute Lymphocyte Count 0.79 X10^3/ul (0.83-4.51); Absolute Neutrophil Count 6.2 X10^3/uL (2.0-7.7); Basophil# 0.01 X10^3/uL; Basophil% 0.1 % (0-1); Differential Indicated SCAN CRITERIA MET; Eosinophil# 0.26 X10^3/uL; Eosinophils% 3.3 % (0-5); Hematocrit 42.1 % (40-54); Hemoglobin 13.1 g/dl (13.0-16.5); Lymphocyte # 0.79 X10^3/ul (4.0); Lymphocyte % 10.1 % (19-41); Mean Corp Hgb Conc 31.1 g/gl (32-36); Mean Corpuscular Hgb 24.4 pg (27.0-32.0); Mean Corpuscular Volume 78.5 fL (80-94); Mean Platelet Vol. 10.3 fl (6.2-12.0); Monocyte# 0.61 X10^3/uL; Monocyte% 7.8 % (0-10); Neutrophil # 6.16 X10^3/uL (2.7-7.7); Neutrophil % 78.6 % (47-70); POSITIVE COUNT NO; POSITIVE DIFFERENTIAL NO; POSITIVE MORPHOLOGY YES; Platelet Count 185 K/mm3 (150-450); RBC Distribution Width CV 23.4 % (11.6-14.6); RBC Distribution Width SD 66.8 fl (35.1-43.9); Red Blood Count 5.36 M/mm3 (4.6-6.2); White Blood Count 7.8 K/mm3 (4.4-11.0)
[2018-09-12 12:13] LABS: AST(SGOT) 18 U/L (15-37); Alanine Aminotransfer ALT/SGPT 19 U/L (16-61); Albumin, Serum 3.4 g/dL (3.2-5.0); Alkaline Phosphatase 69 U/L (45-117); Anion Gap 9 (5-15); BUN 15 mg/dL (7-18); BUN/Creat Ratio 14.2 RATIO (10-20); Calcium,Total 8.1 mg/dL (8.5-10.1); Chloride 103 mmol/L (98-107); Creatinine, Serum 1.06 mg/dL (0.70-1.30); EST Glomerular Filtration Rate 71 mL/min (>60); Est Glom Filt Rate - Afr Amer 86 mL/min (>60); Estimated Creatinine Clearance 68.24 ml/min; Globulin 3.5 g/dL (2.2-4.2); Glucose 89 mg/dL (74-106); Lipase 192 U/L (73-393); Potassium 3.4 mmol/L (3.5-5.1); Protein, Total 6.9 g/dL (6.4-8.2); Sodium Level 141 mmol/L (136-145)
[2018-09-12 12:32] LABS: Anisocytosis 1+; Hypochromasia RARE; Ovalocyte 1+; Platelet Estimate ADEQUATE (ADEQ); Platelet Morphology LARGE; Schistocytes RARE
[2018-09-12] MEDS: Ciprofloxacin 400 MG/200 ML BAG 200 MG IV ×2 (14:11→22:39)
[2018-09-12 14:21] LABS: Bacteria 0 SEEN /hpf (None Seen); Mucous, Urine 0 SEEN /hpf (<or=2+); Red Blood Cells-Urine 0 SEEN /hpf (0-5); White Blood Cells 0 SEEN /hpf (0-5)
--- NOTE | 2018-09-12 14:23 | NURSING ---
DR ROLON FOR DR SWAIN
[2018-09-12 14:26] LABS: Color, Urine Yellow (Yellow); Glucose, Dipstick Normal (Normal); Ketone-Dipstick Negative (Negative); Leukocyte Esterase-Dipstick Negative /ul (Negative); Nitrite-Dipstick Negative (Negative); Occult Blood-Urine Negative /ul (Negative); Protein-Dipstick 15 mg/dl (Negative); Specific Gravity, Urine 1.015 (1.002-1.030); Urine Bilirubin Dipstick Negative (Negative); Urine Clarity Clear (Clear); Urine Urobilinogen Normal (Normal)
--- NOTE | 2018-09-12 14:28 | NURSING ---
DR NIC BARON
--- NOTE | 2018-09-12 14:39 | PCM.HP.STD ---
Problem List (1) Hypokalemia Status: Acute (2) Hyperlipidemia Status: Chronic (3) Hypertension Status: Chronic (4) Hypothyroidism Status: Chronic (5) Colonic diverticular abscess Status: Acute History of Present Illness Date of Admission: 09/12/18 Chief Complaint: Abdominal pain, fecal urgency x 3 days The patient is a 78 year old M with past medical history of chronic atrial fibrillation, history of prostate cancer in remission, hyperlipidemia, chronic systolic CHF, history of retinal detachment with left eye blindness, hypothyroidism who was recently admitted and discharged for acute kidney injury, hypokalemia, orthostatic hypotension comes in with complains of abdominal pain, rectal pain. Patient states that since discharge, he has been in his usual state of health until 3 days ago when he noted abdominal cramping, worse on the left side, associated with fecal/rectal urgency/irritation. He had small multiple bowel movements some of which have been liquid. Admits to pain when he sits up. Denied any fever or chills or nausea or vomiting or urinary symptoms. In June he was in the hospital for iron deficiency anemia, was supposed to follow-up for colonoscopy. He saw Dr. Jay but did not come back for colonoscopy. He gives inconsistent history of when he last had colonoscopy with Dr. Terry. This time, he states he last had one 6 months ago. Vitals in the ED show temperature of 90 7F, heart rate 65, blood pressure 120/71, respiratory rate of 14, SPO2 of 98% on room air. His admitting blood work showed WBC count 7.8, hemoglobin 13.1, platelet count of 185. Sodium was 141, potassium 4.3, chloride 103, bicarbonate 29, BUN 19, creatinine 1.06 CT scan of the abdomen and pelvis shows sigmoid diverticulitis with peridiverticular abscess and mild free fluid, multiple gallstones Past Medical History Past Medical History (Chronic Problems): Chronic Problems (Last Reviewed 07/08/18 @ 14:08 by Vicky Rojo) Chronic systolic CHF (congestive heart failure) (Chronic) History of prostate cancer in remission (Chronic) Hyperlipidemia (Chronic) Hypertension (Chronic) Left eye blindness (Chronic) Hypothyroidism (Chronic) Medical History: Medical History (Last Reviewed 07/08/18 @ 14:08 by Vicky Rojo) Afib I48.91 Blind left eye H54.40 CVA (cerebral vascular accident) I63.9 Heart failure with reduced ejection fraction I50.20 Hyperlipidemia E78.5 Hypothyroidism E03.9 HTN (hypertension) I10 Allergies latex Allergy (Verified 09/12/18 11:14) Rash Home Medications: Ambulatory Orders Medication Instructions Recorded Levothyroxine [Synthroid] 25 mcg PO 0600 03/19/14 Metoprolol Tartrate [Lopressor 12.5 mg PO BID #60 tab 03/22/14 (beta yesi)] Ascorbic Acid [Vitamin C] 500 mg PO DAILY@0800 07/28/16 Cyanocobalamin (Vitamin B-12) 1,000 mcg PO DAILY 07/28/16 [Vitamin B-12] Multivitamins,Therapeutic 1 tab PO DAILY 07/28/16 [Multivitamin] Vitamin E 400 unit PO DAILY 07/28/16 Atorvastatin Calcium [Lipitor] 20 mg PO QHS 06/30/18 Ergocalciferol [Vitamin D] 50,000 unit PO QMONTH 06/30/18 Latanoprost 0.005% [Xalatan 1 drp RIGHT EYE QHS 06/30/18 Opthalmic] Lutein 1 tab PO DAILY 06/30/18 prednisoLONE eye drops (5 mL) 1 drp LEFT EYE QHS 06/30/18 [Pred Forte eye drops (5 mL)] Ferrous Sulfate 325 mg PO 1200,1700 #30 tab 07/01/18 Apixaban [Eliquis] 5 mg PO BID 08/21/18 Potassium Chloride [Klor-Con M20] 20 meq PO DAILY 08/21/18 Sacubitril/Valsartan 97-103 mg 1 tab PO BID 08/21/18 [Entresto 97 mg-103 mg Tablet] Furosemide [Lasix] 40 mg PO BID #0 08/22/18 Surgical History: Surgical History (Last Reviewed 07/08/18 @ 14:08 by Vicky Rojo) H/O detached retina repair Z98.890, Z86.69 Surgical History: - - Hernia repair, bilateral eye surgery for retinal detachment noted to be successful in the right, right foot surgery, tonsillectomy. Psychiatric History: No pertinent psych hx Lives: Alone Smoking Status: Former smoker Tobacco Use: Cigarettes Alcohol: None Drugs: None - *Family History Maternal History Items: - - Denies any marked maternal or paternal family history including HD, DM, CA. Paternal History Items: - - Denies any marked maternal or paternal family history including HD, DM, CA. Review of Systems Constitutional: Denies: Anorexia, Chills, Fever, Weakness, Weight Change Eyes: Denies: Blurred vision, Cataracts, Conjunctivae Inflammation HEENT: Denies: Difficulty Hearing, Difficulty Swallowing, Head Aches, Hearing Changes, Sinus Congestion, Sinus Drainage Cardiovascular: Denies: Chest Pain, Claudication, Chest Tightness, Orthopnea, Palpitations, Paroxysmal Noc. Dyspnea Respiratory: Denies: Cough, Hemoptysis, Pleuritic Pain, Shortness of breath at rest, Shortness of breath upon exertion, Sputum production Gastrointestinal: Reports: Abdominal Pain. Denies: Hematemesis, Hematochezia, Nausea, Melena, Vomiting Genitourinary: Denies: Dysuria, Frequency, Incontinence Musculoskeletal: Denies: Joint Pain, Joint stiffness, Joint swelling, Joint Tenderness Skin: Denies: Rash, Wounds Neurological: Denies: Balance problems, Blurred vision, Difficulty swallowing, Focal weakness, Numbness, Tingling Psychiatric: Denies: Anxiety, Depression, Homicidal Ideations, Suicidal Ideations Hematologic/ Lymphatic: Denies: Easy Bruising, Easy Bleeding VTE Information - Inpt Only VTE Present on Admission: No VTE Pharm Prophylaxis ordered?: Yes Patient Problems: Active and Suspected Problems (Last Reviewed 07/08/18 @ 14:08 by Vicky Rojo) Hypokalemia (Acute) Colonic diverticular abscess (Acute) - Physical Exam General: Alert, Oriented x3, Cooperative, No apparent distress HEENT: Atraumatic, PERRLA, EOMI, Normocephalic Oral: Moist Mucosa Neck: Supple, No JVD, Negative Carotid Bruits Lungs: Clear to auscultation, Normal air movement Cardiovascular: Regular rate, Regular Rhythm, Normal S1, Normal S2, No murmurs Abdomen: Bowel Sounds Present, Soft, Non-Distended, No Hepato-splenomegaly, Tender - very mild left lower quadrant tenderness without guarding or RBT Extremities: No edema Skin: No rashes, No breakdown Musculoskeletal: No Tenderness to Palpation of Joints or Extremities Lymphatic: No Cervical, Supraclavicular, or Inguinal Adenopathy Neurological: Cranial nerves II-XII grossly intact Psych/Mental Status: Normal Affect, Appropriate Vital Signs Temp Pulse Resp BP Pulse Ox 97.5 F L 89 16 117/66 98 09/12/18 14:12 09/12/18 14:12 09/12/18 14:12 09/12/18 14:12 09/12/18 14:12 Oxygen Delivery Method Room Air Weight: 95.254 kg Body Mass Index (BMI) 25.5 Finger Stick Blood Glucose 85 Laboratory Tests Past 24 Hrs 09/12/18 09/12/18 09/12/18 11:45 11:45 14:15 WBC 7.8 RBC 5.36 Hgb 13.1 Hct 42.1 MCV 78.5 L MCH 24.4 L MCHC 31.1 L RDW 23.4 H RDW Differential 66.8 H Plt Count 185 MPV 10.3 Immature Gran % (Auto) 0.100 Neut % (Auto) 78.6 H Lymph % (Auto) 10.1 L [place] % (Auto) 7.8 Eos % (Auto) 3.3 Baso % (Auto) 0.1 Absolute Neuts (auto) 6.2 Absolute Lymphs (auto) 0.79 L Total Counted Not Reportable Platelet Estimate ADEQUATE Plt Morphology Comment LARGE Hypochromasia RARE Anisocytosis 1+ Ovalocytes 1+ Schistocytes RARE Sodium 141 Potassium 3.4 L Chloride 103 Carbon Dioxide 29.0 Anion Gap 9 BUN 15 Creatinine 1.06 Estim Creat Clear Calc 68.24 Est GFR (MDRD) Af Amer 86 Est GFR (MDRD) Non-Af 71 BUN/Creatinine Ratio 14.2 Glucose 89 Calcium 8.1 L Total Bilirubin 2.20 H AST 18 ALT 19 Alkaline Phosphatase 69 Total Protein 6.9 Albumin 3.4 Globulin 3.5 Albumin/Globulin Ratio 1.0 Lipase 192 Urine Color Pending Urine Clarity Pending Urine pH Pending Ur Specific [place] Pending Urine Protein Pending Urine Glucose (UA) Pending Urine Ketones Pending Urine Occult Blood Pending Urine Nitrite Pending Urine Bilirubin Pending Urine Urobilinogen Pending Ur Leukocyte Esterase Pending Urine RBC Pending Urine WBC Pending Ur Squamous Epith Cells Pending Urine Bacteria Pending Urine Mucus Pending Assessment/Plan All Active Problems (Last Reviewed 07/08/18 @ 14:08 by Vicky Rojo) Hypokalemia (Acute) Colonic diverticular abscess (Acute) Hypotension (Acute) FUNMI (acute kidney injury) (Acute) Dyspnea (Acute) Cellulitis superimposed acute tinea (Acute) Acute systolic heart failure exacerbatio (Acute) Acute blood loss anemia (Acute) The patient is a 78 year old M with past medical history of chronic atrial fibrillation, history of prostate cancer in remission, hyperlipidemia, chronic systolic CHF, history of retinal detachment with left eye blindness, hypothyroidism who was recently admitted and discharged for acute kidney injury, hypokalemia, orthostatic hypotension comes in with complains of abdominal pain, rectal pain. 1. Acute sigmoid diverticulitis with?perventricular abscess/phlegmon, no fever or chills Plan: Admit to Medsurg floor, keep NPO, gentle IV fluids, IV Cipro, IV Flagyl, general surgery-Dr. Carter. 2. Hypertension, controlled, on metoprolol, sacubitril/valsartan, will monitor 3. Hyperlipidemia, on statin 4. Chronic atrial fibrillation, rate controlled, on beta-yesi, Eliquis 5. Hypothyroidism, on synthroid 6. Chronic systolic CHF, EF 20%, on entresto and Lasix, no signs of acute exacerbation, will monitor, strict I & Os, daily weights 7. DVT PPx- On apixaban Code Visit Inpatient E&M: 53341 Init Hosp L3
[2018-09-12 14:40] LABS: Squamous Epithelial Cells - UA 0-5 SEEN /hpf (0-5)
--- NOTE | 2018-09-12 14:46 | NURSING ---
DR ROLON IN ER
--- NOTE | 2018-09-12 14:46 | NURSING ---
MED SURG DIVERTICULAR ABSCESS PAINTSIL
[2018-09-12] MEDS: 0.9% Normal Saline 1,000 ML 50 ML IV (18:31)
[2018-09-13] VITALS (8 sets, daily range): BP systolic 103–120; BP diastolic 65–79; PULSE 79–101; RESP 18; TEMP 36.4–37.1; O2SAT 95–100
[2018-09-13 06:48] LABS: Anion Gap 9 (5-15); BUN 11 mg/dL (7-18); Calcium,Total 7.5 mg/dL (8.5-10.1); Chloride 106 mmol/L (98-107); Creatinine, Serum 0.92 mg/dL (0.70-1.30); EST Glomerular Filtration Rate 84 mL/min (>60); Est Glom Filt Rate - Afr Amer 102 mL/min (>60); Estimated Creatinine Clearance 78.62 ml/min; Glucose 94 mg/dL (74-106); Potassium 3.4 mmol/L (3.5-5.1); Sodium Level 142 mmol/L (136-145)
[2018-09-13 06:59] LABS: Absolute Lymphocyte Count 0.68 X10^3/ul (0.83-4.51); Absolute Neutrophil Count 6.8 X10^3/uL (2.0-7.7); Basophil# 0.01 X10^3/uL; Basophil% 0.1 % (0-1); Eosinophil# 0.17 X10^3/uL; Hemoglobin 11.6 g/dl (13.0-16.5); Lymphocyte # 0.68 X10^3/ul (4.0); Lymphocyte % 8.1 % (19-41); Mean Corp Hgb Conc 31.4 g/gl (32-36); Mean Corpuscular Hgb 24.6 pg (27.0-32.0); Mean Corpuscular Volume 78.4 fL (80-94); Mean Platelet Vol. 9.6 fl (6.2-12.0); Monocyte# 0.69 X10^3/uL; Monocyte% 8.3 % (0-10); Neutrophil % 81.4 % (47-70); POSITIVE COUNT NO; POSITIVE DIFFERENTIAL NO; Platelet Count 150 K/mm3 (150-450); RBC Distribution Width CV 22.4 % (11.6-14.6); RBC Distribution Width SD 64.4 fl (35.1-43.9); Red Blood Count 4.72 M/mm3 (4.6-6.2); White Blood Count 8.4 K/mm3 (4.4-11.0)
[2018-09-13 07:00] LABS: Differential Indicated SCAN CRITERIA MET; POSITIVE MORPHOLOGY YES
[2018-09-13 07:41] LABS: Anisocytosis 1+; Hypochromasia 1+; Platelet Estimate ADEQUATE (ADEQ)
--- NOTE | 2018-09-13 09:57 | PCM.CONS.GEN ---
Problem List (1) Colonic diverticular abscess Status: Acute Reason for Consult Date of Consultation: 09/13/18 Reason for Consultation: Diverticulitis with abscess History of Present Illness: The patient is a 78 year old M with lower abdominal pain. The patient reports 3-4 days of lower abdominal pain especially with sitting up. He says the pain is in his lower pelvis and rectal area. He is also having some left lower quadrant pain. No nausea or vomiting. The pain is okay as long as he is laying down he says it is exacerbated by sitting on his behind. He says he has been having loose liquid bowel movements with chunks of hard stool. He he does not believe that he has ever had diverticulitis in the past. He thinks that he was scoped recently but this may not be the case. Past Medical History Past Medical History (Chronic Problems): Chronic Problems (Last Reviewed 07/08/18 @ 14:08 by Vicky Rojo) Chronic systolic CHF (congestive heart failure) (Chronic) History of prostate cancer in remission (Chronic) Hyperlipidemia (Chronic) Hypertension (Chronic) Left eye blindness (Chronic) Hypothyroidism (Chronic) Medical History: Medical History (Last Reviewed 07/08/18 @ 14:08 by Vicky Rojo) Afib I48.91 Blind left eye H54.40 CVA (cerebral vascular accident) I63.9 Heart failure with reduced ejection fraction I50.20 Hyperlipidemia E78.5 Hypothyroidism E03.9 HTN (hypertension) I10 Allergies latex Allergy (Verified 09/12/18 11:14) Rash Home Medications: Ambulatory Orders Medication Instructions Recorded Levothyroxine [Synthroid] 25 mcg PO 0600 03/19/14 Metoprolol Tartrate [Lopressor 12.5 mg PO BID #60 tab 03/22/14 (beta yesi)] Ascorbic Acid [Vitamin C] 500 mg PO DAILY@0800 07/28/16 Cyanocobalamin (Vitamin B-12) 1,000 mcg PO DAILY 07/28/16 [Vitamin B-12] Multivitamins,Therapeutic 1 tab PO DAILY 07/28/16 [Multivitamin] Vitamin E 400 unit PO DAILY 07/28/16 Atorvastatin Calcium [Lipitor] 20 mg PO QHS 06/30/18 Ergocalciferol [Vitamin D] 50,000 unit PO QMONTH 06/30/18 Latanoprost 0.005% [Xalatan 1 drp RIGHT EYE QHS 06/30/18 Opthalmic] Lutein 1 tab PO DAILY 06/30/18 prednisoLONE eye drops (5 mL) 1 drp LEFT EYE QHS 06/30/18 [Pred Forte eye drops (5 mL)] Ferrous Sulfate 325 mg PO 1200,1700 #30 tab 07/01/18 Apixaban [Eliquis] 5 mg PO BID 08/21/18 Potassium Chloride [Klor-Con M20] 20 meq PO DAILY 08/21/18 Sacubitril/Valsartan 97-103 mg 1 tab PO BID 08/21/18 [Entresto 97 mg-103 mg Tablet] Furosemide [Lasix] 40 mg PO BID #0 08/22/18 Surgical History: Surgical History (Last Reviewed 07/08/18 @ 14:08 by Vicky Rojo) H/O detached retina repair Z98.890, Z86.69 Surgical History: - - Hernia repair, bilateral eye surgery for retinal detachment noted to be successful in the right, right foot surgery, tonsillectomy. Psychiatric History: No pertinent psych hx Lives: Alone Smoking Status: Former smoker Tobacco Use: Cigarettes Alcohol: None Drugs: None - *Family History Maternal History Items: - - Denies any marked maternal or paternal family history including HD, DM, CA. Paternal History Items: - - Denies any marked maternal or paternal family history including HD, DM, CA. Review of Systems Constitutional: Denies: Anorexia, Chills, Fever Eyes: Denies: Drainage HEENT: Denies: Difficulty Hearing Cardiovascular: Denies: Chest Pain Respiratory: Denies: Cough, Shortness of Breath Gastrointestinal: Reports: Abdominal Pain. Denies: Hematemesis, Hematochezia, Nausea, Vomiting Genitourinary: Denies: Dysuria Musculoskeletal: Denies: Joint Tenderness Skin: Denies: Dryness, Jaundice Neurological: Denies: Balance problems Psychiatric: Denies: Anxiety Hematologic/ Lymphatic: Denies: Anemia Patient Problems: Active and Suspected Problems (Last Reviewed 07/08/18 @ 14:08 by Vicky Rojo) Hypokalemia (Acute) Colonic diverticular abscess (Acute) - Physical Exam General: Alert, Cooperative, No apparent distress HEENT: Atraumatic, PERRLA, EOMI Neck: Supple, No JVD Lungs: Normal air movement Cardiovascular: Regular rate, Regular Rhythm Abdomen: Soft, Non-Distended, Tender - Tender in the left lower quadrant with no guarding or rebound Extremities: No clubbing Skin: No rashes Musculoskeletal: No Muscle Wasting Neurological: Cranial nerves II-XII grossly intact Psych/Mental Status: Normal Affect Vital Signs Temp Pulse Resp BP Pulse Ox 97.8 F 79 18 103/73 95 09/13/18 03:15 09/13/18 07:55 09/13/18 03:15 09/13/18 03:15 09/13/18 03:15 Oxygen Delivery Method Room Air Weight: 214 lb 1.102 oz Body Mass Index (BMI) 26.2 Finger Stick Blood Glucose 85 Intake and Output for Last 24 Hours 09/11/18 09/12/18 09/13/18 23:59 23:59 23:59 Intake Total 254 / 254 865 / 865 Balance 254 / 254 865 / 865 Laboratory Tests Past 24 Hrs 09/12/18 09/12/18 09/12/18 11:45 11:45 14:15 WBC 7.8 RBC 5.36 Hgb 13.1 Hct 42.1 MCV 78.5 L MCH 24.4 L MCHC 31.1 L RDW 23.4 H RDW Differential 66.8 H Plt Count 185 MPV 10.3 Immature Gran % (Auto) 0.100 Neut % (Auto) 78.6 H Lymph % (Auto) 10.1 L [place] % (Auto) 7.8 Eos % (Auto) 3.3 Baso % (Auto) 0.1 Absolute Neuts (auto) 6.2 Absolute Lymphs (auto) 0.79 L Total Counted Not Reportable Platelet Estimate ADEQUATE Plt Morphology Comment LARGE Hypochromasia RARE Anisocytosis 1+ Ovalocytes 1+ Schistocytes RARE Sodium 141 Potassium 3.4 L Chloride 103 Carbon Dioxide 29.0 Anion Gap 9 BUN 15 Creatinine 1.06 Estim Creat Clear Calc 68.24 Est GFR (MDRD) Af Amer 86 Est GFR (MDRD) Non-Af 71 BUN/Creatinine Ratio 14.2 Glucose 89 Calcium 8.1 L Total Bilirubin 2.20 H AST 18 ALT 19 Alkaline Phosphatase 69 Total Protein 6.9 Albumin 3.4 Globulin 3.5 Albumin/Globulin Ratio 1.0 Lipase 192 Urine Color Yellow Urine Clarity Clear Urine pH 5.0 Ur Specific [place] 1.015 Urine Protein 15 H Urine Glucose (UA) Normal Urine Ketones Negative Urine Occult Blood Negative Urine Nitrite Negative Urine Bilirubin Negative Urine Urobilinogen Normal Ur Leukocyte Esterase Negative Urine RBC 0 SEEN Urine WBC 0 SEEN Ur Squamous Epith Cells 0-5 SEEN Urine Bacteria 0 SEEN Urine Mucus 0 SEEN 09/13/18 09/13/18 06:00 06:00 WBC 8.4 RBC 4.72 Hgb 11.6 L Hct 37.0 L MCV 78.4 L MCH 24.6 L MCHC 31.4 L RDW 22.4 H RDW Differential 64.4 H Plt Count 150 MPV 9.6 Immature Gran % (Auto) 0.100 Neut % (Auto) 81.4 H Lymph % (Auto) 8.1 L [place] % (Auto) 8.3 Eos % (Auto) 2.0 Baso % (Auto) 0.1 Absolute Neuts (auto) 6.8 Absolute Lymphs (auto) 0.68 L Total Counted Not Reportable Platelet Estimate ADEQUATE Plt Morphology Comment Hypochromasia 1+ Anisocytosis 1+ Ovalocytes Schistocytes Sodium 142 Potassium 3.4 L Chloride 106 Carbon Dioxide 27.0 Anion Gap 9 BUN 11 Creatinine 0.92 Estim Creat Clear Calc 78.62 Est GFR (MDRD) Af Amer 102 Est GFR (MDRD) Non-Af 84 BUN/Creatinine Ratio 12.0 Glucose 94 Calcium 7.5 L Total Bilirubin AST ALT Alkaline Phosphatase Total Protein Albumin Globulin Albumin/Globulin Ratio Lipase Urine Color Urine Clarity Urine pH Ur Specific [place] Urine Protein Urine Glucose (UA) Urine Ketones Urine Occult Blood Urine Nitrite Urine Bilirubin Urine Urobilinogen Ur Leukocyte Esterase Urine RBC Urine WBC Ur Squamous Epith Cells Urine Bacteria Urine Mucus Clinical Impression(s) from Imaging Studies Abdomen/Pelvis CT 09/12/18 11:32 IMPRESSION: Sigmoid diverticulitis with peridiverticular abscess. Mild free fluid. No obstruction. Hiatal hernia. Multiple gallstones. No biliary dilatation. N.B. : The above information has been verbally conveyed by Sheldon Yan MD to Dr. Jasvir MD, on 09/12/2018 13:53:04 (ET). Electronically Signed: Sheldon Yan MD at 13:48 EST , Service support , ADDENDUM: 09/12/18 1401 Assessment/Plan All Active Problems (Last Reviewed 07/08/18 @ 14:08 by Vicky Rojo) Hypokalemia (Acute) Colonic diverticular abscess (Acute) Hypotension (Acute) FUNMI (acute kidney injury) (Acute) Dyspnea (Acute) Cellulitis superimposed acute tinea (Acute) Acute systolic heart failure exacerbatio (Acute) Acute blood loss anemia (Acute) 78-year-old male with diverticulitis with peridiverticular abscess 1. The patient appears to have diverticulitis on his CAT scan. The radiologist is calling a 3.5 cm abscess adjacent to the distal sigmoid colon. At this time I will keep the patient n.p.o. and placed on Cipro and Flagyl. The patient is having bowel movements. Once his pain subsides we can start a diet. I will repeat his CT scan to see if the abscess is shrinking in a few days. If it does not it may require percutaneous drain. 2. The patient believes that he had a colonoscopy 6 months ago but this may not be the case. He saw my partner in June for a possible scope with due to anemia and this was never done. At that time the patient's records show that he has not been scoped for a few years. Mandeep Carter MD Pager: [facility] [address] [place] [address], [address] [place] [address] Office:
--- NOTE | 2018-09-13 10:01 | CON.PCM_ITS ---
Problem List (1) Colonic diverticular abscess Status: Acute Reason for Consult Date of Consultation: 09/13/18 Reason for Consultation: Diverticulitis with abscess History of Present Illness: The patient is a 78 year old M with lower abdominal pain. The patient reports 3-4 days of lower abdominal pain especially with sitting up. He says the pain is in his lower pelvis and rectal area. He is also having some left lower quadr ant pain. No nausea or vomiting. The pain is okay as long as he is laying down he says it is exacerbated by sitting on his behind. He says he has been having loose liquid bowel movements with chunks of hard stool. He he does not believe that he has ever had diverticulitis in the past. He thinks that he was scoped recently but this may not be the case. Past Medical History Past Medical History (Chronic Problems): Chronic Problems (Last Reviewed 07/08/18 @ 14:08 by Vicky Rojo) Chronic systolic CHF (congestive heart failure) (Chronic) History of prostate cancer in remission (Chronic) Hyperlipidemia (Chronic) Hypertension (Chronic) Left eye blindness (Chronic) Hypothyroidism (Chronic) Medical History: Medical History (Last Reviewed 07/08/18 @ 14:08 by Vicky Rojo) Afib I48.91 Blind left eye H54.40 CVA (cerebral vascular accident) I63.9 Heart failure with reduced ejection fraction I50.20 Hyperlipidemia E78.5 Hypothyroidism E03.9 HTN (hypertension) I10 Allergies latex Allergy (Verified 09/12/18 11:14) Rash Home Medications: Ambulatory Orders Medication Instructions Recorded Levothyroxine [Synthroid] 25 mcg PO 0600 03/19/14 Metoprolol Tartrate [Lopressor 12.5 mg PO BID #60 tab 03/22/14 (beta yesi)] Ascorbic Acid [Vitamin C] 500 mg PO DAILY@0800 07/28/16 Cyanocobalamin (Vitamin B-12) 1,000 mcg PO DAILY 07/28/16 [Vitamin B-12] Multivitamins,Therapeutic 1 tab PO DAILY 07/28/16 [Multivitamin] Vitamin E 400 unit PO DAILY 07/28/16 Atorvastatin Calcium [Lipitor] 20 mg PO QHS 06/30/18 Ergocalciferol [Vitamin D] 50,000 unit PO QMONTH 06/30/18 Latanoprost 0.005% [Xalatan 1 drp RIGHT EYE QHS 06/30/18 Opthalmic] Lutein 1 tab PO DAILY 06/30/18 prednisoLONE eye drops (5 mL) 1 drp LEFT EYE QHS 06/30/18 [Pred Forte eye drops (5 mL)] Ferrous Sulfate 325 mg PO 1200,1700 #30 tab 07/01/18 Apixaban [Eliquis] 5 mg PO BID 08/21/18 Potassium Chloride [Klor-Con M20] 20 meq PO DAILY 08/21/18 Sacubitril/Valsartan 97-103 mg 1 tab PO BID 08/21/18 [Entresto 97 mg-103 mg Tablet] Furosemide [Lasix] 40 mg PO BID #0 08/22/18 Surgical History: Surgical History (Last Reviewed 07/08/18 @ 14:08 by Vicky Rojo) H/O detached retina repair Z98.890, Z86.69 Surgical History: - - Hernia repair, bilateral eye surgery for retinal detachment noted to be successful in the right, right foot surgery, tonsillect cindy. Psychiatric History: No pertinent psych hx Lives: Alone Smoking Status: Former smoker Tobacco Use: Cigarettes Alcohol: None Drugs: None - *Family History Maternal History Items: - - Denies any marked maternal or paternal family history including HD, DM, CA. Paternal History Items: - - Denies any marked maternal or paternal family history including HD, DM, CA. Review of Systems Constitutional: Denies: Anorexia, Chills, Fever Eyes: Denies: Drainage HEENT: Denies: Difficulty Hearing Cardiovascular: Denies: Chest Pain Respiratory: Denies: Cough, Shortness of Breath Gastrointestinal: Reports: Abdominal Pain. Denies: Hematemesis, Hematochezia, Nausea, Vomiting Genitourinary: Denies: Dysuria Musculoskeletal: Denies: Joint Tenderness Skin: Denies: Dryness, Jaundice Neurological: Denies: Balance problems Psychiatric: Denies: Anxiety Hematologic/ Lymphatic: Denies: Anemia Patient Problems: Active and Suspected Problems (Last Reviewed 07/08/18 @ 14:08 by Vicky Rojo) Hypokalemia (Acute) Colonic diverticular abscess (Acute) - Physical Exam General: Alert, Cooperative, No apparent distress HEENT: Atraumatic, PERRLA, EOMI Neck: Supple, No JVD Lungs: Normal air movement Cardiovascular: Regular rate, Regular Rhythm Abdomen: Soft, Non-Distended, Tender - Tender in the left lower quadrant with no guarding or rebound Extremities: No clubbing Skin: No rashes Musculoskeletal: No Muscle Wasting Neurological: Cranial nerves II-XII grossly intact Psych/Mental Status: Normal Affect Vital Signs Temp Pulse Resp BP Pulse Ox 97.8 F 79 18 103/73 95 09/13/18 03:15 09/13/18 07:55 09/13/18 03:15 09/13/18 03:15 09/13/18 03:15 Oxygen Delivery Method Room Air Weight: 214 lb 1.102 oz Body Mass Index (BMI) 26.2 Finger Stick Blood Glucose 85 Intake and Output for Last 24 Hours 09/11/18 09/12/18 09/13/18 23:59 23:59 23:59 Intake Total 254 / 254 865 / 865 Balance 254 / 254 865 / 865 Laboratory Tests Past 24 Hrs 09/12/18 09/12/18 09/12/18 11:45 11:45 14:15 WBC 7.8 RBC 5.36 Hgb 13.1 Hct 42.1 MCV 78.5 L MCH 24.4 L MCHC 31.1 L RDW 23.4 H RDW Differential 66.8 H Plt Count 185 MPV 10.3 Immature Gran % (Auto) 0.100 Neut % (Auto) 78.6 H Lymph % (Auto) 10.1 L [place] % (Auto) 7.8 Eos % (Auto) 3.3 Baso % (Auto) 0.1 Absolute Neuts (auto) 6.2 Absolute Lymphs (auto) 0.79 L Total Counted Not Reportable Platelet Estimate ADEQUATE Plt Morphology Comment LARGE Hypochromasia RARE Anisocytosis 1+ Ovalocytes 1+ Schistocytes RARE Sodium 141 Potassium 3.4 L Chloride 103 Carbon Dioxide 29.0 Anion Gap 9 BUN 15 Creatinine 1.06 Estim Creat Clear Calc 68.24 Est GFR (MDRD) Af Amer 86 Est GFR (MDRD) Non-Af 71 BUN/Creatinine Ratio 14.2 Glucose 89 Calcium 8.1 L Total Bilirubin 2.20 H AST 18 ALT 19 Alkaline Phosphatase 69 Total Protein 6.9 Albumin 3.4 Globulin 3.5 Albumin/Globulin Ratio 1.0 Lipase 192 Urine Color Yellow Urine Clarity Clear Urine pH 5.0 Ur Specific [place] 1.015 Urine Protein 15 H Urine Glucose (UA) Normal Urine Ketones Negative Urine Occult Blood Negative Urine Nitrite Negative Urine Bilirubin Negative Urine Urobilinogen Normal Ur Leukocyte Esterase Negative Urine RBC 0 SEEN Urine WBC 0 SEEN Ur Squamous Epith Cells 0-5 SEEN Urine Bacteria 0 SEEN Urine Mucus 0 SEEN 09/13/18 09/13/18 06:00 06:00 WBC 8.4 RBC 4.72 Hgb 11.6 L Hct 37.0 L MCV 78.4 L MCH 24.6 L MCHC 31.4 L RDW 22.4 H RDW Differential 64.4 H Plt Count 150 MPV 9.6 Immature Gran % (Auto) 0.100 Neut % (Auto) 81.4 H Lymph % (Auto) 8.1 L [place] % (Auto) 8.3 Eos % (Auto) 2.0 Baso % (Auto) 0.1 Absolute Neuts (auto) 6.8 Absolute Lymphs (auto) 0.68 L Total Counted Not Reportable Platelet Estimate ADEQUATE Plt Morphology Comment Hypochromasia 1+ Anisocytosis 1+ Ovalocytes Schistocytes Sodium 142 Potassium 3.4 L Chloride 106 Carbon Dioxide 27.0 Anion Gap 9 BUN 11 Creatinine 0.92 Estim Creat Clear Calc 78.62 Est GFR (MDRD) Af Amer 102 Est GFR (MDRD) Non-Af 84 BUN/Creatinine Ratio 12.0 Glucose 94 Calcium 7.5 L Total Bilirubin AST ALT Alkaline Phosphatase Total Protein Albumin Globulin Albumin/Globulin Ratio Lipase Urine Color Urine Clarity Urine pH Ur Specific [place] Urine Protein Urine Glucose (UA) Urine Ketones Urine Occult Blood Urine Nitrite Urine Bilirubin Urine Urobilinogen Ur Leukocyte Esterase Urine RBC Urine WBC Ur Squamous Epith Cells Urine Bacteria Urine Mucus Clinical Impression(s) from Imaging Studies Abdomen/Pelvis CT 09/12/18 11:32 IMPRESSION: Sigmoid diverticulitis with peridiverticular abscess. Mild free fluid. No obstruction. Hiatal hernia. Multiple gallstones. No biliary dilatation. N.B. : The above information has been verbally conveyed by Sheldon Yan MD to Dr. Jasvir MD, on 09/12/2018 13:53:04 (ET). Electronically Signed: Sheldon Yan MD at 13:48 EST , Service support , ADDENDUM: 09/12/18 1401 Assessment/Plan All Active Problems (Last Reviewed 07/08/18 @ 14:08 by Vicky Rojo) Hypokalemia (Acute) Colonic diverticular abscess (Acute) Hypotension (Acute) FUNMI (acute kidney injury) (Acute) Dyspnea (Acute) Cellulitis superimposed acute tinea (Acute) Acute systolic heart failure exacerbatio (Acute) Acute blood loss anemia (Acute) 78-year-old male with diverticulitis with peridiverticular abscess 1. The patient appears to have diverticulitis on his CAT scan. The radiologist is calling a 3.5 cm abscess adjacent to the distal sigmoid colon. At this time I will keep the patient n.p.o. and placed on Cipro and Flagyl. The patient is having bowel movements. Once his pain subsides we can start a diet. I will repeat his CT scan to see if the abscess is shrinking in a few days. If it does not it may require percutaneous drain. 2. The patient believes that he had a colonoscopy 6 months ago but this may not be the case. He saw my partner in June for a possible scope with due to anemia and this was never done. At that time the patient's records show that he has not been scoped for a few years. Mandeep Carter MD Pager: [facility] [address] [place] [address], [address] [place] [address] Office:
--- NOTE | 2018-09-13 10:21 | PN_ITS ---
Patient Problems: Active and Suspected Problems (Last Reviewed 07/08/18 @ 14:08 by Vicky Rojo) Hypokalemia (Acute) Colonic diverticular abscess (Acute) Subjective: Patient was seen and examined. Complains of left-sided pain, worse with sitting up. Denies any nausea or vomiting no fever or chills. No other acute events overnight. Discussed with Dr. Carter, will repeat CT scan planned later to decide on possible percutaneous drainage. Objective: Physical Exam General: Alert, Oriented x3, Cooperative, No apparent distress HEENT: Atraumatic, PERRLA, EOMI, Normocephalic Oral: Moist Mucosa Neck: Supple, No JVD, Negative Carotid Bruits Lungs: Clear to auscultation, Normal air movement Cardiovascular: Regular rate, Regular Rhythm, Normal S1, Normal S2, No murmurs Abdomen: Bowel Sounds Present, Soft, Non-Distended, No Hepato-splenomegaly, Tender - very mild left lower quadrant tenderness without guarding or RBT Extremities: No edema Skin: No rashes, No breakdown Musculoskeletal: No Tenderness to Palpation of Joints or Extremities Lymphatic: No Cervical, Supraclavicular, or Inguinal Adenopathy Neurological: Cranial nerves II-XII grossly intact Psych/Mental Status: Normal Affect, Appropriate Vitals/I&O's: Vital Signs Temp Pulse Resp BP Pulse Ox 97.8 F 79 18 103/73 95 09/13/18 03:15 09/13/18 07:55 09/13/18 03:15 09/13/18 03:15 09/13/18 03:15 Oxygen Delivery Method Room Air Weight: 97.1 kg Body Mass Index (BMI) 26.2 Finger Stick Blood Glucose 85 Intake and Output for Last 24 Hours 09/11/18 09/12/18 09/13/18 23:59 23:59 23:59 Intake Total 254 / 254 865 / 865 Balance 254 / 254 865 / 865 Laboratory Results 09/12/18 11:45: WBC 7.8, RBC 5.36, Hgb 13.1, Hct 42.1, MCV 78.5 L, MCH 24.4 L, MCHC 31.1 L, RDW 23.4 H, RDW Differential 66.8 H, Plt Count 185, MPV 10.3, Immature Gran % (Auto) 0.100, Neut % (Auto) 78.6 H, Lymph % (Auto) 10.1 L, [place] % (Auto) 7.8, Eos % (Auto) 3.3, Baso % (Auto) 0.1, Absolute Neuts (auto) 6.2, Absolute Lymphs (auto) 0.79 L, Total Counted Not Reportable, Platelet Estimate ADEQUATE, Plt Morphology Comment LARGE, Hypochromasia RARE, Anisocytosis 1+, Ovalocytes 1+, Schistocytes RARE 09/12/18 11:45: Sodium 141, Potassium 3.4 L, Chloride 103, Carbon Dioxide 29.0, Anion Gap 9, BUN 15, Creatinine 1.06, Estim Creat Clear Calc 68.24, Est GFR (MDRD) Af Amer 86, Est GFR (MDRD) Non-Af 71, BUN/Creatinine Ratio 14.2, Glucose 89, Calcium 8.1 L, Total Bilirubin 2.20 H, AST 18, ALT 19, Alkaline Phosphatase 69, Total Protein 6.9, Albumin 3.4, Globulin 3.5, Albumin/Globulin Ratio 1.0, Lipase 192 09/12/18 14:15: Urine Color Yellow, Urine Clarity Clear, Urine pH 5.0, Ur Specific [place] 1.015, Urine Protein 15 H, Urine Glucose (UA) Normal, Urine Ketones Negative, Urine Occult Blood Negative, Urine Nitrite Negative, Urine Bilirubin Negative, Urine Urobilinogen Normal, Ur Leukocyte Esterase Negative, Urine RBC 0 SEEN, Urine WBC 0 SEEN, Ur Squamous Epith Cells 0-5 SEEN, Urine Bacteria 0 SEEN, Urine Mucus 0 SEEN 09/13/18 06:00: WBC 8.4, RBC 4.72, Hgb 11.6 L, Hct 37.0 L, MCV 78.4 L, MCH 24.6 L, MCHC 31.4 L, RDW 22.4 H, RDW Differential 64.4 H, Plt Count 150, MPV 9.6, Immature Gran % (Auto) 0.100, Neut % (Auto) 81.4 H, Lymph % (Auto) 8.1 L, [place] % (Auto) 8.3, Eos % (Auto) 2.0, Baso % (Auto) 0.1, Absolute Neuts (auto) 6.8, Absolute Lymphs (auto) 0.68 L, Total Counted Not Reportable, Platelet Estimate ADEQUATE, Hypochromasia 1+, Anisocytosis 1+ 09/13/18 06:00: Sodium 142, Potassium 3.4 L, Chloride 106, Carbon Dioxide 27.0, Anion Gap 9, BUN 11, Creatinine 0.92, Estim Creat Clear Calc 78.62, Est GFR (MDRD) Af Amer 102, Est GFR (MDRD) Non-Af 84, BUN/Creatinine Ratio 12.0, Glucose 94, Calcium 7.5 L Current Medications Acetaminophen (Tylenol) 650 mg PO Q6H PRN PRN PRN Reason: Mild Pain (1-3)/Temp > 100.7 F Bisacodyl (Dulcolax) 5 mg PO DAILY PRN PRN PRN Reason: Constipation Ciprofloxacin (Cipro) 400 mg in 200 mls @ 200 mls/hr IV Q12 [facility] Last Admin: 09/12/18 22:39 Dose: 200 mls/hr Metronidazole (Flagyl) 500 mg in 100 mls @ 100 mls/hr IV Q8 [facility] Last Admin: 09/13/18 05:29 Dose: 100 mls/hr Potassium Chloride/Sodium Chloride () 1,000 mls @ 75 mls/hr IV .[id number] [facility] Stop: 09/13/18 21:44 Magnesium Hydroxide (Milk Of Magnesia) 30 ml PO DAILY PRN PRN PRN Reason: Constipation Morphine Sulfate () 1 mg IV Q4H PRN PRN PRN Reason: MOD-SEVERE PAIN (4-10/10) Ondansetron HCl (Zofran) 4 mg IV Q8H PRN PRN PRN Reason: NAUSEA Oxycodone HCl (Oxyir) 5 mg PO Q4H PRN PRN PRN Reason: MOD-SEVERE PAIN (4-10/10) Psyllium Hydrophilic Mucilloid (Metamucil) 1 packet PO DAILY PRN PRN PRN Reason: CONSTIPATION Sodium Chloride () 5 - 15 ml IV UD PRN PRN Reason: SALINE FLUSH Medical Necessity - Tobacco Use Smoking Status: Former smoker Tobacco Use: Cigarettes Assessment/Plan All Active Problems (Last Reviewed 07/08/18 @ 14:08 by Vicky Rojo) Hypokalemia (Acute) Colonic diverticular abscess (Acute) Hypotension (Acute) FUNMI (acute kidney injury) (Acute) Dyspnea (Acute) Cellulitis superimposed acute tinea (Acute) Acute systolic heart failure exacerbatio (Acute) Acute blood loss anemia (Acute) The patient is a 78 year old M with past medical history of chronic atrial fibrillation, history of prostate cancer in remission, hyperlipidemia, chronic systolic CHF, history of retinal detachment with left eye blindness, hypothyroidism who was recently admitted and discharged for acute kidney injury, hypokalemia, orthostatic hypotension comes in with complains of abdominal pain, rectal pain. 1. Acute sigmoid diverticulitis with?perventricular abscess/phlegmon, not much improvement, no fever or chills General surgery consulted, recommends keeping NPO, gentle IV fluids, IV Cipro, IV Flagyl, CT scan of the abdomen and pelvis to be scheduled later by general surgery to follow-up on possible abscess 2. Hypertension, controlled, was on metoprolol, sacubitril/valsartan, patient is admitted to medication list is still not done, blood pressures have however been stable, continue to monitor 3. Hyperlipidemia, on statin 4. Chronic atrial fibrillation, rate controlled, will resume on beta-yesi, Eliquis 5. Hypothyroidism, on synthroid 6. Chronic systolic CHF, EF 20%, on entresto and Lasix, no signs of acute exacerbation, will monitor, strict I & Os, daily weights 7. DVT PPx- On apixaban Code Visit Inpatient E&M: 49829 Subs Hosp L2
[2018-09-13] MEDS: Ciprofloxacin 400 MG/200 ML BAG 200 MG IV ×2 (11:00→22:55)
[2018-09-14] VITALS (9 sets, daily range): BP systolic 110–129; BP diastolic 70–87; PULSE 78–110; RESP 18; TEMP 36.3–36.7; O2SAT 96–99
[2018-09-14] MEDS: 0.9% NaCl Peripheral Flush Adult/Peds IV ×4 (05:51→16:58)
[2018-09-14 06:33] LABS: Anion Gap 10 (5-15); BUN 10 mg/dL (7-18); BUN/Creat Ratio 10.9 RATIO (10-20); Calcium,Total 7.7 mg/dL (8.5-10.1); Chloride 111 mmol/L (98-107); Creatinine, Serum 0.92 mg/dL (0.70-1.30); EST Glomerular Filtration Rate 84 mL/min (>60); Est Glom Filt Rate - Afr Amer 102 mL/min (>60); Estimated Creatinine Clearance 78.62 ml/min; Glucose 85 mg/dL (74-106); Potassium 3.9 mmol/L (3.5-5.1); Sodium Level 143 mmol/L (136-145)
[2018-09-14 06:36] LABS: Absolute Neutrophil Count 6.3 X10^3/uL (2.0-7.7); Basophil# 0.02 X10^3/uL; Basophil% 0.3 % (0-1); Eosinophils% 1.3 % (0-5); Hematocrit 37.4 % (40-54); Hemoglobin 11.7 g/dl (13.0-16.5); Lymphocyte % 7.8 % (19-41); Mean Corp Hgb Conc 31.3 g/gl (32-36); Mean Corpuscular Hgb 24.7 pg (27.0-32.0); Mean Corpuscular Volume 78.9 fL (80-94); Mean Platelet Vol. 10.6 fl (6.2-12.0); Monocyte# 0.68 X10^3/uL; Monocyte% 8.8 % (0-10); Neutrophil # 6.32 X10^3/uL (2.7-7.7); Neutrophil % 81.7 % (47-70); Platelet Count 174 K/mm3 (150-450); RBC Distribution Width CV 22.7 % (11.6-14.6); Red Blood Count 4.74 M/mm3 (4.6-6.2); White Blood Count 7.7 K/mm3 (4.4-11.0)
[2018-09-14 06:39] LABS: Differential Indicated SCAN CRITERIA MET; POSITIVE COUNT NO; POSITIVE DIFFERENTIAL YES; POSITIVE MORPHOLOGY YES
[2018-09-14 07:06] LABS: Anisocytosis 1+; Differential Comment SCAN; Hypochromasia 1+; Microcytosis 1+; Polychromasia 1+
--- NOTE | 2018-09-14 08:24 | PN.SURG_ITS ---
Patient Problems: Active and Suspected Problems (Last Reviewed 07/08/18 @ 14:08 by Vicky Rojo) Hypokalemia (Acute) Colonic diverticular abscess (Acute) Subjective: The patient reports he is feeling somewhat better compared to yesterday but he is still having pain with passing gas. - Physical Exam General: Alert, Cooperative Lungs: Normal air movement Abdomen: Soft, Non-Distended, Tender - Tender in the left lower quadrant with no guarding. Vital Signs Temp Pulse Resp BP Pulse Ox 97.5 F L 90 18 110/70 96 09/14/18 02:24 09/14/18 02:24 09/14/18 02:24 09/14/18 02:24 09/14/18 02:24 Oxygen Delivery Method Room Air Weight: 215 lb 6.266 oz Body Mass Index (BMI) 26.2 Finger Stick Blood Glucose 85 Intake and Output for Last 24 Hours 09/12/18 09/13/18 09/14/18 23:59 23:59 23:59 Intake Total 254 / 254 3512 / 3512 435 / 435 Balance 254 / 254 3512 / 3512 435 / 435 Laboratory Tests Past 24 Hrs 09/14/18 09/14/18 05:40 05:40 WBC 7.7 RBC 4.74 Hgb 11.7 L Hct 37.4 L MCV 78.9 L MCH 24.7 L MCHC 31.3 L RDW 22.7 H RDW Differential 65.0 H Plt Count 174 MPV 10.6 Immature Gran % (Auto) 0.100 Neut % (Auto) 81.7 H Lymph % (Auto) 7.8 L [place] % (Auto) 8.8 Eos % (Auto) 1.3 Baso % (Auto) 0.3 Absolute Neuts (auto) 6.3 Absolute Lymphs (auto) 0.60 L Total Counted Not Reportable Differential Comment SCAN Polychromasia 1+ Hypochromasia 1+ Anisocytosis 1+ Microcytosis 1+ Sodium 143 Potassium 3.9 Chloride 111 H Carbon Dioxide 22.0 Anion Gap 10 BUN 10 Creatinine 0.92 Estim Creat Clear Calc 78.62 Est GFR (MDRD) Af Amer 102 Est GFR (MDRD) Non-Af 84 BUN/Creatinine Ratio 10.9 Glucose 85 Calcium 7.7 L Medical Necessity - Tobacco Use Smoking Status: Former smoker Tobacco Use: Cigarettes Assessment/Plan All Active Problems (Last Reviewed 07/08/18 @ 14:08 by Vicky Rojo) Hypokalemia (Acute) Colonic diverticular abscess (Acute) Hypotension (Acute) FUNMI (acute kidney injury) (Acute) Dyspnea (Acute) Cellulitis superimposed acute tinea (Acute) Acute systolic heart failure exacerbatio (Acute) Acute blood loss anemia (Acute) 78-year-old male with diverticulitis and peridiverticular abscess 1. The abscess seems small enough that it should be amenable to antibiotic treatment. The patient is doing well but is still having some pain with palpation. I recommend keeping him n.p.o. with sips of clear liquids until his pain resolves. This may take a while because of the abscess. I will likely repeat a CT in the next few days to check on the abscess. 2. The patient has not had a colonoscopy because he was deemed too high risk by Dr. Menendez. I will have to check into how bad his CHF is and if any further treatment will be contraindicated. Normally I would perform a colonoscopy after this diverticulitis and recommend elective sigmoid colectomy. If he is not a candidate for this I would recommend treatment with antibiotics to resolve this abscess and following conservatively. Mandeep Carter MD Pager: [facility] [address] [place] [address] [address] [place] [address] Office:
--- NOTE | 2018-09-14 09:41 | PCA ---
Sent a request for medical records to doctor laura jennings
--- NOTE | 2018-09-14 10:46 | CASEMGMT ---
Social Work Note Per finishing range supervisor questions, pt has completed advanced directives and hasn't provided [facility] with a copy but is able to bring in copies. Ivonne Meneses CONTRACT ASSOCIATE, SAP BPC DEVELOPER
[2018-09-14] MEDS: Ciprofloxacin 400 MG/200 ML BAG 200 MG IV ×2 (10:49→20:56)
--- NOTE | 2018-09-14 11:40 | CASEMGMT ---
RN S[place] Face to Face with patient for initial transition planning/care coordination assessment. RN CM introduced self and role at [facility]. Patient lying in bed, alert and oriented. Patient willing to participate in assessment and is able to answer all questions appropriately. Care providers, pharmacy, and demographics verified. Patient wishes to discharge home, denies need for home health at this time. Patient states he has no further needs or concerns at this time. CM to follow for discharge planning needs that may arise. PCP: Shon Specialists: None Preferred Pharmacy: [facility] Insurance: [employer] [facility] PPO Prescription Benefit: [employer] MCR PPO Living Will/HPOA: Yes, sammy Tabares HPOA LNOK: Son and DIL Living Arrangements: Patient lives alone in 1st level apartment, independent at home. Transportation: [facility] van DME/HHC: Patient denies DME, has had [facility] HHC in past, denies need for HHC at this discharge. Disposition Plan: Patient to discharge home with family support and follow-up plans in place. Ivonne NEVAREZ, RN, CM
--- NOTE | 2018-09-14 12:12 | PN_ITS ---
Patient Problems: Active and Suspected Problems (Last Reviewed 07/08/18 @ 14:08 by Vicky Rojo) Hypokalemia (Acute) Colonic diverticular abscess (Acute) Subjective: Patient had a small semisolid bowel movement like finger thin nuggets and passing of lot of gas. Fever or chills. Denies abdominal pain. Vitals/I&O's: Vital Signs Temp Pulse Resp BP Pulse Ox 97.4 F L 92 18 118/87 H 97 09/14/18 10:02 09/14/18 10:03 09/14/18 10:02 09/14/18 10:02 09/14/18 10:02 Oxygen Delivery Method Room Air Weight: 215 lb 6.266 oz Body Mass Index (BMI) 26.2 Finger Stick Blood Glucose 85 Intake and Output for Last 24 Hours 09/12/18 09/13/18 09/14/18 23:59 23:59 23:59 Intake Total 254 / 254 3512 / 3512 435 / 435 Balance 254 / 254 3512 / 3512 435 / 435 General: Alert, Oriented x3, Cooperative HEENT: Atraumatic, PERRLA, EOMI, Normocephalic Neck: Supple, No JVD, Negative Carotid Bruits Lungs: Clear to auscultation, Normal air movement, No rhonchi, No wheeze, No rales Cardiovascular: Regular rate, Regular Rhythm, Normal S1, Normal S2, No murmurs Abdomen: Bowel Sounds Present, Soft, Non Tender, Non-Distended, Hyperactive Bowel Sounds, No hernias noted Extremities: No edema, Capillary Refill Less than 3 Seconds Skin: No rashes, No breakdown Musculoskeletal: No Tenderness to Palpation of Joints or Extremities, Arthritic Changes, Muscle Wasting Lymphatic: No Cervical, Supraclavicular, or Inguinal Adenopathy Neurological: Cranial nerves II-XII grossly intact Psych/Mental Status: Normal Affect, Appropriate Laboratory Results 09/14/18 05:40: WBC 7.7, RBC 4.74, Hgb 11.7 L, Hct 37.4 L, MCV 78.9 L, MCH 24.7 L, MCHC 31.3 L, RDW 22.7 H, RDW Differential 65.0 H, Plt Count 174, MPV 10.6, Immature Gran % (Auto) 0.100, Neut % (Auto) 81.7 H, Lymph % (Auto) 7.8 L, [place] % (Auto) 8.8, Eos % (Auto) 1.3, Baso % (Auto) 0.3, Absolute Neuts (auto) 6.3, Absolute Lymphs (auto) 0.60 L, Total Counted Not Reportable, Differential Comment SCAN, Polychromasia 1+, Hypochromasia 1+, Anisocytosis 1+, Microcytosis 1+ 09/14/18 05:40: Sodium 143, Potassium 3.9, Chloride 111 H, Carbon Dioxide 22.0, Anion Gap 10, BUN 10, Creatinine 0.92, Estim Creat Clear Calc 78.62, Est GFR (MDRD) Af Amer 102, Est GFR (MDRD) Non-Af 84, BUN/Creatinine Ratio 10.9, Glucose 85, Calcium 7.7 L Current Medications Acetaminophen (Tylenol) 650 mg PO Q6H PRN PRN PRN Reason: Mild Pain (1-3)/Temp > 100.7 F Bisacodyl (Dulcolax) 5 mg PO DAILY PRN PRN PRN Reason: Constipation Ciprofloxacin (Cipro) 400 mg in 200 mls @ 200 mls/hr IV Q12 [facility] Last Admin: 09/14/18 10:49 Dose: 200 mls/hr Metronidazole (Flagyl) 500 mg in 100 mls @ 100 mls/hr IV Q8 [facility] Last Admin: 09/14/18 05:51 Dose: 100 mls/hr Potassium Chloride 40 meq/ (Dextrose/Sodium Chloride) 1,020 mls @ 100 mls/hr IV .[id number] [facility] Sodium Chloride () 250 mls @ 15 mls/hr IV .[id number] PRN PRN Reason: SALINE FLUSH Magnesium Hydroxide (Milk Of Magnesia) 30 ml PO DAILY PRN PRN PRN Reason: Constipation Morphine Sulfate () 1 mg IV Q4H PRN PRN PRN Reason: MOD-SEVERE PAIN (4-10/10) Ondansetron HCl (Zofran) 4 mg IV Q8H PRN PRN PRN Reason: NAUSEA Oxycodone HCl (Oxyir) 5 mg PO Q4H PRN PRN PRN Reason: MOD-SEVERE PAIN (4-10/10) Psyllium Hydrophilic Mucilloid (Metamucil) 1 packet PO DAILY PRN PRN PRN Reason: CONSTIPATION Sodium Chloride () 5 - 15 ml IV UD PRN PRN Reason: SALINE FLUSH Last Admin: 09/14/18 10:51 Dose: 10 ml Medical Necessity - Tobacco Use Smoking Status: Former smoker Tobacco Use: Cigarettes Assessment/Plan All Active Problems (Last Reviewed 07/08/18 @ 14:08 by Vicky Rojo) Hypokalemia (Acute) Colonic diverticular abscess (Acute) Hypotension (Acute) FUNMI (acute kidney injury) (Acute) Dyspnea (Acute) Cellulitis superimposed acute tinea (Acute) Acute systolic heart failure exacerbatio (Acute) Acute blood loss anemia (Acute) The patient is a 78 year old M with past medical history of chronic atrial fibrillation, history of prostate cancer in remission, hyperlipidemia, chronic systolic CHF, history of retinal detachment with left eye blindness, hypothyroidism who was recently admitted and discharged for acute kidney injury, hypokalemia, orthostatic hypotension comes in with complains of abdominal pain, rectal pain. 1. Acute sigmoid diverticulitis with peridiverticular abscess/phlegmon: Patient is on IV antibiotics. Abdominal pain is much better. N.p.o. with sips of clear liquid. Patient was seen by surgeon and recommended continue conservative management. May need repeat CT in few days to check on abscess. Continue NPO, gentle IV fluids, IV Cipro, IV Flagyl. Earlier patient was deemed high risk by Dr. Menendez for colonoscopy but needs to be further evaluated in outpatient for risk benefit analysis for colonoscopy. Generally, for average risk patient colonoscopy after diverticulitis is resolved and may be elective sigmoid colectomy. This needs to be further evaluated as an outpatient 2. Hypertension, controlled, was on metoprolol, sacubitril/valsartan, patient is admitted to medication list is still not done, blood pressures have however been stable, continue to monitor 3. Hyperlipidemia, on statin 4. Chronic atrial fibrillation, rate controlled, on beta-yesi. Eliquis is being held in anticipation for abdominal catheter if needed for sigmoid diverti culitis abscess drainage 5. Hypothyroidism, on synthroid 6. Chronic systolic CHF, EF 20%, on entresto and Lasix, no signs of acute exacerbation, will monitor, strict I & Os, daily weights 7. DVT PPx-on Eliquis 5000 units subcutaneous 3 times daily. Will discontinue heparin subcuT if needed for abdominal catheter. This note was generated with [employer] dictation software. Every effort was made t o ensure accuracy, however computerized deep tissue massage therapist mistakes may persist. Code Visit Inpatient E&M: 40682 Subs Hosp L3
[2018-09-14 19:00] LABS: Phosphorus 2.5 mg/dL (2.5-4.9)
[2018-09-14] MEDS: Potassium Chloride 40 MEQ in Dext 5%-0.45% NS 1,000 ML 100 MEQ IV (19:19)
[2018-09-14] MEDS: prednisoLONE eye drops (5 mL) 1 DROP OPTH.BTL 1 DRP LEFT EYE (21:03)
[2018-09-14] MEDS: Metoprolol Tartrate 25 MG Tablet 12.5 MG PO (21:03)
[2018-09-14] MEDS: Latanoprost 0.005% 1 Bottle 1 DRP RIGHT EYE (21:04)
[2018-09-15] VITALS (13 sets, daily range): BP systolic 90–137; BP diastolic 52–88; PULSE 75–97; RESP 16–18; TEMP 36.6–36.7; O2SAT 95–98
[2018-09-15] MEDS: Heparin Injection (Vial) 5,000 UNIT/ML VIAL 5000 UNIT SC ×2 (05:27→14:48)
[2018-09-15 06:55] LABS: Absolute Lymphocyte Count 0.56 X10^3/ul (0.83-4.51); Absolute Neutrophil Count 4.1 X10^3/uL (2.0-7.7); Basophil# 0.01 X10^3/uL; Basophil% 0.2 % (0-1); Eosinophil# 0.25 X10^3/uL; Eosinophils% 4.6 % (0-5); Hematocrit 38.5 % (40-54); Lymphocyte # 0.56 X10^3/ul (4.0); Lymphocyte % 10.3 % (19-41); Mean Corp Hgb Conc 31.2 g/gl (32-36); Mean Corpuscular Hgb 24.5 pg (27.0-32.0); Mean Corpuscular Volume 78.6 fL (80-94); Monocyte# 0.49 X10^3/uL; Neutrophil % 75.7 % (47-70); Platelet Count 141 K/mm3 (150-450); RBC Distribution Width CV 22.1 % (11.6-14.6); RBC Distribution Width SD 63.8 fl (35.1-43.9); White Blood Count 5.4 K/mm3 (4.4-11.0)
[2018-09-15 07:10] LABS: POSITIVE COUNT NO; POSITIVE DIFFERENTIAL YES; POSITIVE MORPHOLOGY YES
[2018-09-15 07:11] LABS: Differential Indicated SCAN CRITERIA MET
[2018-09-15 07:12] LABS: Anion Gap 7 (5-15); BUN 9 mg/dL (7-18); BUN/Creat Ratio 9.9 RATIO (10-20); Calcium,Total 7.9 mg/dL (8.5-10.1); Chloride 110 mmol/L (98-107); Creatinine, Serum 0.91 mg/dL (0.70-1.30); EST Glomerular Filtration Rate 85 mL/min (>60); Est Glom Filt Rate - Afr Amer 103 mL/min (>60); Estimated Creatinine Clearance 79.49 ml/min; Glucose 103 mg/dL (74-106); Sodium Level 141 mmol/L (136-145)
--- NOTE | 2018-09-15 08:21 | PN.SURG_ITS ---
Patient Problems: Active and Suspected Problems (Last Reviewed 07/08/18 @ 14:08 by Vicky Rojo) Hypokalemia (Acute) Colonic diverticular abscess (Acute) Subjective: Patient reports he is not having abdominal pain. He is passing flatus. No nausea or vomiting. - Physical Exam General: Alert, Oriented x3 Lungs: Normal air movement Abdomen: Soft, Non Tender, Non-Distended Vital Signs Temp Pulse Resp BP Pulse Ox 98.1 F 79 18 101/52 L 97 09/15/18 05:11 09/15/18 05:11 09/15/18 05:11 09/15/18 05:11 09/15/18 05:11 Oxygen Delivery Method Room Air Weight: 217 lb 14.4 oz Body Mass Index (BMI) 26.2 Finger Stick Blood Glucose 85 Intake and Output for Last 24 Hours 09/13/18 09/14/18 09/15/18 23:59 23:59 23:59 Intake Total 3512 / 3512 435 / 435 1379 / 1379 Balance 3512 / 3512 435 / 435 1379 / 1379 Laboratory Tests Past 24 Hrs 09/14/18 09/15/18 09/15/18 05:40 06:06 06:06 WBC 5.4 RBC 4.90 Hgb 12.0 L Hct 38.5 L MCV 78.6 L MCH 24.5 L MCHC 31.2 L RDW 22.1 H RDW Differential 63.8 H Plt Count 141 L MPV TNP Immature Gran % (Auto) 0.200 Neut % (Auto) 75.7 H Lymph % (Auto) 10.3 L [place] % (Auto) 9.0 Eos % (Auto) 4.6 Baso % (Auto) 0.2 Absolute Neuts (auto) 4.1 Absolute Lymphs (auto) 0.56 L Total Counted Not Reportable Differential Comment COMMENT Sodium 141 Potassium 4.0 Chloride 110 H Carbon Dioxide 24.0 Anion Gap 7 BUN 9 Creatinine 0.91 Estim Creat Clear Calc 79.49 Est GFR (MDRD) Af Amer 103 Est GFR (MDRD) Non-Af 85 BUN/Creatinine Ratio 9.9 L Glucose 103 Calcium 7.9 L Phosphorus 2.5 Magnesium 2.0 Medical Necessity - Tobacco Use Smoking Status: Former smoker Tobacco Use: Cigarettes Assessment/Plan All Active Problems (Last Reviewed 10/10/18 @ 14:08 by Vicky Pleitez Hypokalemia (Acute) Colonic diverticular abscess (Acute) Hypotension (Acute) FUNMI (acute kidney injury) (Acute) Dyspnea (Acute) Cellulitis superimposed acute tinea (Acute) Acute systolic heart failure exacerbatio (Acute) Acute blood loss anemia (Acute) 78-year-old male with peridiverticular abscess 1. Patient appears to have no abdominal pain this morning. There was no pain on palpation. I will slowly advance his diet. If he tolerates a diet today I would transition to p.o. antibiotics and discharge tomorrow. 2. I will need to touch base with Dr. Villarreal to see if he would be a surgical candidate. According to Dr. Menendez he was not healthy enough for colonoscopy due to his CHF. If colonoscopy and sigmoid colectomy or contraindicated I explained that this would leave him at risk of recurrence of this diverticulitis. I plan to repeat a colonoscopy 7 days after the first 1 to ensure that the abscess is shrinking. If his symptoms worsen in the meantime I would repeat it sooner. If he has any pain with regular diet I will change him back to n.p.o. and repeat CT. Mandeep Carter MD Pager: [facility] [address] [place] [address], [address] [place] [address] Office:
--- NOTE | 2018-09-15 10:10 | PCM.PN.HOSP ---
Patient Problems: Active and Suspected Problems (Last Reviewed 07/08/18 @ 14:08 by Vicky Rojo) Hypokalemia (Acute) Colonic diverticular abscess (Acute) Subjective: No fever/tachycardia. Denies abdominal pain. Has passed gas and small semisolid, thin fingerlike stool yesterday. No macroscopic blood in the stool. Vitals/I&O's: Vital Signs Temp Pulse Resp BP Pulse Ox 98.1 F 75 18 101/52 L 97 09/15/18 05:11 09/15/18 08:38 09/15/18 05:11 09/15/18 05:11 09/15/18 05:11 Oxygen Delivery Method Room Air Weight: 217 lb 14.4 oz Body Mass Index (BMI) 26.2 Finger Stick Blood Glucose 85 Intake and Output for Last 24 Hours 09/13/18 09/14/18 09/15/18 23:59 23:59 23:59 Intake Total 3512 / 3512 435 / 435 1379 / 1379 Balance 3512 / 3512 435 / 435 1379 / 1379 General: Alert, Oriented x3, Cooperative HEENT: Atraumatic, PERRLA, EOMI, Normocephalic Neck: Supple, No JVD, Negative Carotid Bruits Lungs: Clear to auscultation, Normal air movement, No rhonchi, No wheeze, No rales Cardiovascular: Regular rate, Regular Rhythm, Normal S1, Normal S2, No murmurs Abdomen: Bowel Sounds Present, Soft, Tender - Mild tenderness over epigastric region. No rebound tenderness. No tenderness to her left lower quadrant Extremities: No edema, Capillary Refill Less than 3 Seconds Skin: No rashes, No breakdown Musculoskeletal: No Tenderness to Palpation of Joints or Extremities, Arthritic Changes Neurological: Cranial nerves II-XII grossly intact Psych/Mental Status: Normal Affect, Appropriate Laboratory Results 09/14/18 05:40: Phosphorus 2.5, Magnesium 2.0 09/15/18 06:06: WBC 5.4, RBC 4.90, Hgb 12.0 L, Hct 38.5 L, MCV 78.6 L, MCH 24.5 L, MCHC 31.2 L, RDW 22.1 H, RDW Differential 63.8 H, Plt Count 141 L, MPV TNP, Immature Gran % (Auto) 0.200, Neut % (Auto) 75.7 H, Lymph % (Auto) 10.3 L, [place] % (Auto) 9.0, Eos % (Auto) 4.6, Baso % (Auto) 0.2, Absolute Neuts (auto) 4.1, Absolute Lymphs (auto) 0.56 L, Total Counted Not Reportable, Differential Comment COMMENT 09/15/18 06:06: Sodium 141, Potassium 4.0, Chloride 110 H, Carbon Dioxide 24.0, Anion Gap 7, BUN 9, Creatinine 0.91, Estim Creat Clear Calc 79.49, Est GFR (MDRD) Af Amer 103, Est GFR (MDRD) Non-Af 85, BUN/Creatinine Ratio 9.9 L, Glucose 103, Calcium 7.9 L Current Medications Acetaminophen (Tylenol) 650 mg PO Q6H PRN PRN PRN Reason: Mild Pain (1-3)/Temp > 100.7 F Ascorbic Acid (Vitamin C) 500 mg PO DAILY@0800 [facility] Bisacodyl (Dulcolax) 5 mg PO DAILY PRN PRN PRN Reason: Constipation Calamine/Phenol (Calmoseptine Ointment) 1 applic TOPICAL 4X/DAY PRN; Protocol PRN Reason: Diaper Rash Heparin Sodium (Porcine) (Heparin Na) 5,000 unit SC Q8 [facility] Last Admin: 09/15/18 05:27 Dose: 5,000 unit Ciprofloxacin (Cipro) 400 mg in 200 mls @ 200 mls/hr IV Q12 [facility] Last Admin: 09/14/18 20:56 Dose: 200 mls/hr Metronidazole (Flagyl) 500 mg in 100 mls @ 100 mls/hr IV Q8 [facility] Last Admin: 09/15/18 05:27 Dose: 100 mls/hr Potassium Chloride 40 meq/ (Dextrose/Sodium Chloride) 1,020 mls @ 100 mls/hr IV .[id number] [facility] Last Admin: 09/14/18 19:19 Dose: 100 mls/hr Sodium Chloride () 250 mls @ 15 mls/hr IV .[id number] PRN PRN Reason: SALINE FLUSH Latanoprost (Xalatan Opthalmic) 1 drop RIGHT EYE QHS [facility] Last Admin: 09/14/18 21:04 Dose: 1 drop Magnesium Hydroxide (Milk Of Magnesia) 30 ml PO DAILY PRN PRN PRN Reason: Constipation Metoprolol Tartrate (Lopressor (Beta Yesi)) 12.5 mg PO BID [facility] Last Admin: 09/14/18 21:03 Dose: 12.5 mg Morphine Sulfate () 1 mg IV Q4H PRN PRN PRN Reason: MOD-SEVERE PAIN (4-10/10) Ondansetron HCl (Zofran) 4 mg IV Q8H PRN PRN PRN Reason: NAUSEA Oxycodone HCl (Oxyir) 5 mg PO Q4H PRN PRN PRN Reason: MOD-SEVERE PAIN (4-10/10) Prednisolone Acetate (Pred Forte Eye Drops (5 Ml)) 1 drop LEFT EYE QHS [facility] Last Admin: 09/14/18 21:03 Dose: 1 drop Psyllium Hydrophilic Mucilloid (Metamucil) 1 packet PO DAILY PRN PRN PRN Reason: CONSTIPATION Sodium Chloride () 5 - 15 ml IV UD PRN PRN Reason: SALINE FLUSH Last Admin: 09/14/18 16:58 Dose: 10 ml Medical Necessity - Tobacco Use Smoking Status: Former smoker Tobacco Use: Cigarettes Assessment/Plan All Active Problems (Last Reviewed 07/08/18 @ 14:08 by Vicky Rojo) Hypokalemia (Acute) Colonic diverticular abscess (Acute) Hypotension (Acute) FUNMI (acute kidney injury) (Acute) Dyspnea (Acute) Cellulitis superimposed acute tinea (Acute) Acute systolic heart failure exacerbatio (Acute) Acute blood loss anemia (Acute) The patient is a 78 year old M with past medical history of chronic atrial fibrillation, history of prostate cancer in remission, hyperlipidemia, chronic systolic CHF, history of retinal detachment with left eye blindness, hypothyroidism who was recently admitted and discharged for acute kidney injury, hypokalemia, orthostatic hypotension comes in with complains of abdominal pain, rectal pain. 1. Acute sigmoid diverticulitis with peridiverticular abscess/phlegmon: Patient is on IV antibiotics. Abdominal pain is much better. N.p.o. with sips of clear liquid. Patient was seen by surgeon and recommended continue conservative management. May need repeat CT in few days to check on abscess. Continue IV fluid, IV Cipro, IV Flagyl. Patient is started on clear liquid diet. Earlier patient was deemed high risk by Dr. Menendez for colonoscopy but needs to be further evaluated in outpatient for risk benefit analysis for colonoscopy. Generally, for average risk patient colonoscopy after diverticulitis is resolved and may be elective sigmoid colectomy. This needs to be further evaluated as an outpatient 2. Hypertension, controlled, was on metoprolol, sacubitril/valsartan, patient is admitted to medication list is still not done, blood pressures have however been stable, continue to monitor 3. Hyperlipidemia, on statin 4. Chronic atrial fibrillation, rate controlled, on beta-yesi. Eliquis is being held in anticipation for abdominal catheter if needed for sigmoid diverticulitis abscess drainage 5. Hypothyroidism, on synthroid 6. Chronic systolic CHF, EF 20%, on entresto and Lasix, no signs of acute exacerbation, will monitor, strict I & Os, daily weights 7. DVT PPx-on Eliquis 5000 units subcutaneous 3 times daily. Will discontinue heparin subcuT if needed for abdominal catheter. This note was generated with [employer] dictation software. Every effort was made to ensure accuracy, however computerized city driver mistakes may persist. Code Visit Inpatient E&M: 58871 Subs Hosp L3
--- NOTE | 2018-09-15 10:13 | PN_ITS ---
Patient Problems: Active and Suspected Problems (Last Reviewed 07/08/18 @ 14:08 by Vicky Rojo) Hypokalemia (Acute) Colonic diverticular abscess (Acute) Subjective: No fever/tachycardia. Denies abdominal pain. Has passed gas and small semisolid, thin fingerlike stool yesterday. No macroscopic blood in the stool. Vitals/I&O's: Vital Signs Temp Pulse Resp BP Pulse Ox 98.1 F 75 18 101/52 L 97 09/15/18 05:11 09/15/18 08:38 09/15/18 05:11 09/15/18 05:11 09/15/18 05:11 Oxygen Delivery Method Room Air Weight: 217 lb 14.4 oz Body Mass Index (BMI) 26.2 Finger Stick Blood Glucose 85 Intake and Output for Last 24 Hours 09/13/18 09/14/18 09/15/18 23:59 23:59 23:59 Intake Total 3512 / 3512 435 / 435 1379 / 1379 Balance 3512 / 3512 435 / 435 1379 / 1379 General: Alert, Oriented x3, Cooperative HEENT: Atraumatic, PERRLA, EOMI, Normocephalic Neck: Supple, No JVD, Negative Carotid Bruits Lungs: Clear to auscultation, Normal air movement, No rhonchi, No wheeze, No rales Cardiovascular: Regular rate, Regular Rhythm, Normal S1, Normal S2, No murmurs Abdomen: Bowel Sounds Present, Soft, Tender - Mild tenderness over epigastric region. No rebound tenderness. No tenderness to her left lower quadrant Extremities: No edema, Capillary Refill Less than 3 Seconds Skin: No rashes, No breakdown Musculoskeletal: No Tenderness to Palpation of Joints or Extremities, Arthritic Changes Neurological: Cranial nerves II-XII grossly intact Psych/Mental Status: Normal Affect, Appropriate Laboratory Results 09/14/18 05:40: Phosphorus 2.5, Magnesium 2.0 09/15/18 06:06: WBC 5.4, RBC 4.90, Hgb 12.0 L, Hct 38.5 L, MCV 78.6 L, MCH 24.5 L, MCHC 31.2 L, RDW 22.1 H, RDW Differential 63.8 H, Plt Count 141 L, MPV TNP, Immature Gran % (Auto) 0.200, Neut % (Auto) 75.7 H, Lymph % (Auto) 10.3 L, [place] % (Auto) 9.0, Eos % (Auto) 4.6, Baso % (Auto) 0.2, Absolute Neuts (auto) 4.1, Absolute Lymphs (auto) 0.56 L, Total Counted Not Reportable, Differential Comment COMMENT 09/15/18 06:06: Sodium 141, Potassium 4.0, Chloride 110 H, Carbon Dioxide 24.0, Anion Gap 7, BUN 9, Creatinine 0.91, Estim Creat Clear Calc 79.49, Est GFR (MDRD) Af Amer 103, Est GFR (MDRD) Non-Af 85, BUN/Creatinine Ratio 9.9 L, Glucose 103, Calcium 7.9 L Current Medications Acetaminophen (Tylenol) 650 mg PO Q6H PRN PRN PRN Reason: Mild Pain (1-3)/Temp > 100.7 F Ascorbic Acid (Vitamin C) 500 mg PO DAILY@0800 [facility] Bisacodyl (Dulcolax) 5 mg PO DAILY PRN PRN PRN Reason: Constipation Calamine/Phenol (Calmoseptine Ointment) 1 applic TOPICAL 4X/DAY PRN; Protocol PRN Reason: Diaper Rash Heparin Sodium (Porcine) (Heparin Na) 5,000 unit SC Q8 [facility] Last Admin: 09/15/18 05:27 Dose: 5,000 unit Ciprofloxacin (Cipro) 400 mg in 200 mls @ 200 mls/hr IV Q12 [facility] Last Admin: 09/14/18 20:56 Dose: 200 mls/hr Metronidazole (Flagyl) 500 mg in 100 mls @ 100 mls/hr IV Q8 [facility] Last Admin: 09/15/18 05:27 Dose: 100 mls/hr Potassium Chloride 40 meq/ (Dextrose/Sodium Chloride) 1,020 mls @ 100 mls/hr IV .[id number] [facility] Last Admin: 09/14/18 19:19 Dose: 100 mls/hr Sodium Chloride () 250 mls @ 15 mls/hr IV .[id number] PRN PRN Reason: SALINE FLUSH Latanoprost (Xalatan Opthalmic) 1 drop RIGHT EYE QHS [facility] Last Admin: 09/14/18 21:04 Dose: 1 drop Magnesium Hydroxide (Milk Of Magnesia) 30 ml PO DAILY PRN PRN PRN Reason: Constipation Metoprolol Tartrate (Lopressor (Beta Yesi)) 12.5 mg PO BID [facility] Last Admin: 09/14/18 21:03 Dose: 12.5 mg Morphine Sulfate () 1 mg IV Q4H PRN PRN PRN Reason: MOD-SEVERE PAIN (4-10/10) Ondansetron HCl (Zofran) 4 mg IV Q8H PRN PRN PRN Reason: NAUSEA Oxycodone HCl (Oxyir) 5 mg PO Q4H PRN PRN PRN Reason: MOD-SEVERE PAIN (4-10/10) Prednisolone Acetate (Pred Forte Eye Drops (5 Ml)) 1 drop LEFT EYE QHS [facility] Last Admin: 09/14/18 21:03 Dose: 1 drop Psyllium Hydrophilic Mucilloid (Metamucil) 1 packet PO DAILY PRN PRN PRN Reason: CONSTIPATION Sodium Chloride () 5 - 15 ml IV UD PRN PRN Reason: SALINE FLUSH Last Admin: 09/14/18 16:58 Dose: 10 ml Medical Necessity - Tobacco Use Smoking Status: Former smoker Tobacco Use: Cigarettes Assessment/Plan All Active Problems (Last Reviewed 07/08/18 @ 14:08 by Vicky Rojo) Hypokalemia (Acute) Colonic diverticular abscess (Acute) Hypotension (Acute) FUNMI (acute kidney injury) (Acute) Dyspnea (Acute) Cellulitis superimposed acute tinea (Acute) Acute systolic heart failure exacerbatio (Acute) Acute blood loss anemia (Acute) The patient is a 78 year old M with past medical history of chronic atrial fibrillation, history of prostate cancer in remission, hyperlipidemia, chronic systolic CHF, history of retinal detachment with left eye blindness, hypothyroidism who was recently admitted and discharged for acute kidney injury, hypokalemia, orthostatic hypotension comes in with complains of abdominal pain, rectal pain. 1. Acute sigmoid diverticulitis with peridiverticular abscess/phlegmon: Patient is on IV antibiotics. Abdominal pain is much better. N.p.o. with sips of clear liquid. Patient was seen by surgeon and recommended continue conservative management. May need repeat CT in few days to check on abscess. Continue IV fluid, IV Cipro, IV Flagyl. Patient is started on clear liquid diet. Earlier patient was deemed high risk by Dr. Menendez for colonoscopy but needs to be further evaluated in outpatient for risk benefit analysis for colonoscopy. Generally, for average risk patient colonoscopy after diverticulitis is resolved and may be elective sigmoid colectomy. This needs to be further evaluated as an outpatient 2. Hypertension, controlled, was on metoprolol, sacubitril/valsartan, patient is admitted to medication list is still not done, blood pressures have however been stable, continue to monitor 3. Hyperlipidemia, on statin 4. Chronic atrial fibrillation, rate controlled, on beta-yesi. Eliquis is being held in anticipation for abdominal catheter if needed for sigmoid diverticulitis abscess drainage 5. Hypothyroidism, on synthroid 6. Chronic systolic CHF, EF 20%, on entresto and Lasix, no signs of acute exacerbation, will monitor, strict I & Os, daily weights 7. DVT PPx-on Eliquis 5000 units subcutaneous 3 times daily. Will discontinue heparin subcuT if needed for abdominal catheter. This note was generated with [employer] dictation software. Every effort was made to ensure accuracy, however computerized shape hand mistakes may persist. Code Visit Inpatient E&M: 76055 Subs Hosp L3
[2018-09-15] MEDS: Ciprofloxacin 400 MG/200 ML BAG 200 MG IV ×2 (10:47→21:44)
[2018-09-15] MEDS: Potassium Chloride 40 MEQ in Dext 5%-0.45% NS 1,000 ML 100 MEQ IV (10:47)
[2018-09-15] MEDS: Metoprolol Tartrate 25 MG Tablet 12.5 MG PO ×2 (10:48→21:50)
[2018-09-15] MEDS: Ascorbic Acid 500 MG Tablet PO (10:48)
--- NOTE | 2018-09-15 12:32 | NURSING ---
pt tolerated clear liquids well and has had 3 small formed brown stools this am, upgraded to full liquids
--- NOTE | 2018-09-15 15:25 | NURSING ---
reg soft diet ordered for pt to be delivered at 5:30
[2018-09-15] MEDS: Latanoprost 0.005% 1 Bottle 1 DRP RIGHT EYE (21:51)
[2018-09-15] MEDS: prednisoLONE eye drops (5 mL) 1 DROP OPTH.BTL 1 DRP LEFT EYE (21:51)
[2018-09-16] VITALS: PULSE 85
[2018-09-16 02:29] VITALS: BP 133/76; PULSE 96; RESP 18; TEMP 36.5; O2SAT 99
[2018-09-16] MEDS: Potassium Chloride 40 MEQ in Dext 5%-0.45% NS 1,000 ML 100 MEQ IV (04:08)
[2018-09-16 06:41] LABS: Absolute Lymphocyte Count 0.87 X10^3/ul (0.83-4.51); Absolute Neutrophil Count 5.5 X10^3/uL (2.0-7.7); Basophil# 0.01 X10^3/uL; Basophil% 0.1 % (0-1); Eosinophil# 0.25 X10^3/uL; Eosinophils% 3.5 % (0-5); Hematocrit 42.3 % (40-54); Hemoglobin 12.9 g/dl (13.0-16.5); Lymphocyte # 0.87 X10^3/ul (4.0); Mean Corp Hgb Conc 30.5 g/gl (32-36); Mean Corpuscular Hgb 24.2 pg (27.0-32.0); Mean Corpuscular Volume 79.2 fL (80-94); Monocyte# 0.57 X10^3/uL; Monocyte% 7.9 % (0-10); Neutrophil # 5.51 X10^3/uL (2.7-7.7); Neutrophil % 76.4 % (47-70); POSITIVE DIFFERENTIAL NO; Platelet Count 184 K/mm3 (150-450); RBC Distribution Width CV 22.1 % (11.6-14.6); RBC Distribution Width SD 64.9 fl (35.1-43.9); Red Blood Count 5.34 M/mm3 (4.6-6.2); White Blood Count 7.2 K/mm3 (4.4-11.0)
[2018-09-16 06:42] LABS: Anion Gap 7 (5-15); BUN 9 mg/dL (7-18); BUN/Creat Ratio 8.6 RATIO (10-20); Calcium,Total 8.4 mg/dL (8.5-10.1); Chloride 107 mmol/L (98-107); Creatinine, Serum 1.05 mg/dL (0.70-1.30); Differential Indicated SCAN CRITERIA MET; EST Glomerular Filtration Rate 72 mL/min (>60); Est Glom Filt Rate - Afr Amer 87 mL/min (>60); Estimated Creatinine Clearance 68.89 ml/min; Glucose 101 mg/dL (74-106); POSITIVE COUNT NO; POSITIVE MORPHOLOGY YES; Sodium Level 140 mmol/L (136-145)
[2018-09-16 07:09] LABS: Anisocytosis 1+; Differential Comment SCAN; Microcytosis 1+; Platelet Estimate ADEQUATE (ADEQ); Platelet Morphology LARGE
[2018-09-16 08:00] VITALS: PULSE 101
--- NOTE | 2018-09-16 08:02 | CT_ITS ---
STUDY: CT ABDOMEN AND PELVIS WITH CONTRAST REASON FOR EXAM: Male, 78 years old. History of diverticular abscess. History of prostate cancer. RADIATION DOSAGE (If Supplied By Facility): CTDIvol = ( 16.93 ) mGy, DLP = ( 1183.83 ) mGycm TECHNIQUE: Transaxial images were obtained from the dome of the diaphragm to the symphysis pubis without oral contrast. 100 ml of Isovue 300 contrast was administered. Sagittal and coronal images were reconstructed. Individualized dose optimization techniques were used for this CT. COMPARISON: Comparison is made with prior study dated September 12, 2018. FINDINGS: Small bilateral pleural effusions with bibasilar atelectasis slightly more prominent on the right side. The visualized portions of the heart are within normal limits. Small amount of perihepatic and perisplenic fluid in keeping with ascites. There is decreased attenuation of the liver consistent with steatosis. There is evidence of colonic interposition where the right hepatic flexure is anterior to the liver. There are multiple small gallstones. Small amount of pericholecystic fluid. Normal spleen. Normal pancreas. Normal bilateral adrenal glands. Normal right kidney. There is a 3 cm x 2.4 cm cyst in the posterior aspect of the left kidney. Nonspecific bilateral perihilar stranding. Large hiatal hernia. Normal small intestine. Sigmoid diverticulosis. Small amount of fluid is seen in the pelvis. Increased markings in the mesenteric fat in the region of the sigmoid colon. No definite abscess collection is seen at this time. There is evidence of an enlarged sigmoid diverticulum measuring 1.8 cm. The appendix is visualized and appears normal. There is diffuse atherosclerotic calcification of the abdominal aorta, without a demonstrated aneurysm. Normal inferior vena cava. Normal retroperitoneum. Normal urinary bladder. There is a 4.3 cm x 9.2 cm in length fluid collection within the left iliopsoas muscle extending into the region of the left groin. This may represent a resolving hematoma if the patient had a history of prior venous puncture at that site. This is unchanged. Normal abdominal wall. There are diffuse degenerative changes of the visualized lumbar spine. Straightening of the normal lumbar lordosis. CT/Abdomen/Pelvis W IV Cont ONLY IMPRESSION: Decreased inflammatory changes in the region of the sigmoid with residual increased markings in the mesenteric fat in the region of the sigmoid colon with small amount of fluid. No definite abscess collection is seen. Electronically Signed: Bryant Dang MD at 9:06 EST Tel [phone], Service support ,
--- NOTE | 2018-09-16 08:03 | PN.SURG_ITS ---
Patient Problems: Active and Suspected Problems (Last Reviewed 07/08/18 @ 14:08 by Vicky Rojo) Hypokalemia (Acute) Colonic diverticular abscess (Acute) Subjective: The patient is doing well. He still describes some discomfort with sitting but he had a bowel movement yesterday with no pain. He is tolerating a regular diet with no abdominal pain. - Physical Exam General: Alert, Oriented x3 Lungs: No rales Cardiovascular: Regular rate, Regular Rhythm Abdomen: Soft, Non Tender, Non-Distended Vital Signs Temp Pulse Resp BP Pulse Ox 97.7 F L 96 18 133/76 H 99 09/16/18 02:29 09/16/18 02:29 09/16/18 02:29 09/16/18 02:29 09/16/18 02:29 Oxygen Delivery Method Room Air Weight: 223 lb 1.725 oz Body Mass Index (BMI) 26.2 Finger Stick Blood Glucose 85 Intake and Output for Last 24 Hours 09/14/18 09/15/18 09/16/18 23:59 23:59 23:59 Intake Total 435 / 435 1879 / 1879 2563 / 2563 Output Total 350 / 350 Balance 435 / 435 1529 / 1529 2563 / 2563 Laboratory Tests Past 24 Hrs 09/16/18 09/16/18 05:42 05:42 WBC 7.2 RBC 5.34 Hgb 12.9 L Hct 42.3 MCV 79.2 L MCH 24.2 L MCHC 30.5 L RDW 22.1 H RDW Differential 64.9 H Plt Count 184 Immature Gran % (Auto) 0.100 Neut % (Auto) 76.4 H Lymph % (Auto) 12.0 L [place] % (Auto) 7.9 Eos % (Auto) 3.5 Baso % (Auto) 0.1 Absolute Neuts (auto) 5.5 Absolute Lymphs (auto) 0.87 Total Counted Not Reportable Differential Comment SCAN Platelet Estimate ADEQUATE Plt Morphology Comment LARGE Anisocytosis 1+ Microcytosis 1+ Sodium 140 Potassium 4.0 Chloride 107 Carbon Dioxide 26.0 Anion Gap 7 BUN 9 Creatinine 1.05 Estim Creat Clear Calc 68.89 Est GFR (MDRD) Af Amer 87 Est GFR (MDRD) Non-Af 72 BUN/Creatinine Ratio 8.6 L Glucose 101 Calcium 8.4 L Medical Necessity - Tobacco Use Smoking Status: Former smoker Tobacco Use: Cigarettes Assessment/Plan All Active Problems (Last Reviewed 07/08/18 @ 14:08 by Vicky Rojo) Hypokalemia (Acute) Colonic diverticular abscess (Acute) Hypotension (Acute) FUNMI (acute kidney injury) (Acute) Dyspnea (Acute) Cellulitis superimposed acute tinea (Acute) Acute systolic heart failure exacerbatio (Acute) Acute blood loss anemia (Acute) 78-year-old male with peridiverticular abscess 1. I will repeat a CT scan to check the status of the abscess. If it is stable and not growing I will discharge the patient on oral antibiotics later today. Mandeep Carter MD Pager: [facility] [address] [place] [address], [address] [place] [address] Office:
--- NOTE | 2018-09-16 08:14 | NURSING ---
iv dorothy'suzy and pt transported to x ray via w/ch for testing
[2018-09-16 08:40] VITALS: BP 122/88; PULSE 92; RESP 18; TEMP 36.7; O2SAT 99
--- NOTE | 2018-09-16 09:18 | PN_ITS ---
Progress Note Patient CT was completed and there is no sign of abscess. The thing they thought was an abscess is read today as a colonic diverticulum. Okay for DC from my standpoint on oral antibiotics for a total of 14 days treatment. Please follow-up with me in 1 week. Recommend low residue diet and avoiding high-fiber vegetables. Mandeep Carter MD Pager: [facility] [address] [place] [address] [address] [place] [address] Office:
--- NOTE | 2018-09-16 09:34 | DCINST_ITS ---
- Discharge Diagnoses Current Active Problems: Current Active and Chronic Problems (Last Reviewed 07/08/18 @ 14:08 by Vicky Rojo) Hypokalemia (Acute) Colonic diverticular abscess (Acute) You will use the following diet at home:: Cardiac - low residue diet Your food should be the consistency of: Regular Discharge Activity: May Not Drive Call your doctor if you observe: Fever of 101 or Higher, Inability to urinate, Inability to have a bowel movement, Shortness of breath, Fainting spells, Swelling in the ankles, Chest pain, Increased palpitations (irregular heartbeat) Allergies/Adverse Reactions: Allergies latex Allergy (Verified 09/12/18 11:14) Rash Medications to take at Discharge Levothyroxine [Synthroid] 25 mcg PO 0600 03/19/14 Ascorbic Acid [Vitamin C] 500 mg PO DAILY@0800 07/28/16 Cyanocobalamin (Vitamin B-12) [Vitamin B-12] 1,000 mcg PO DAILY 07/28/16 Multivitamins,Therapeutic [Multivitamin] 1 tab PO DAILY 07/28/16 Vitamin E 400 unit PO DAILY 07/28/16 Atorvastatin Calcium [Lipitor] 20 mg PO QHS 06/30/18 Ergocalciferol [Vitamin D] 50,000 unit PO QMONTH 06/30/18 Latanoprost 0.005% [Xalatan Opthalmic] 1 drp RIGHT EYE QHS 06/30/18 Lutein 1 tab PO DAILY 06/30/18 prednisoLONE eye drops (5 mL) [Pred Forte eye drops (5 mL)] 1 drp LEFT EYE QHS 06/30/18 Apixaban [Eliquis] 5 mg PO BID 08/21/18 Potassium Chloride [Klor-Con M20] 20 meq PO DAILY 08/21/18 Ferrous Sulfate 325 mg PO 1200,1700 09/14/18 Metoprolol Tartrate [Lopressor (beta yesi)] 12.5 mg PO BID 09/14/18 Ciprofloxacin [Cipro] 500 mg PO BID #20 tablet 09/16/18 Furosemide [Lasix] 40 mg PO DAILY #0 09/16/18 Metronidazole [Flagyl] 500 mg PO TID #10 tablet 09/16/18 Sacubitril/Valsartan 97-103 mg [Entresto 97 mg-103 mg Tablet] 1 tab PO BID #0 09/16/18 The following prescriptions were given: Ciprofloxacin [Cipro] 500 mg PO BID #20 tablet Metronidazole [Flagyl] 500 mg PO TID #10 tablet Primary Care Physician: Milton Menendez Chi, MD [Primary Care Provider] - Please follow up with your Primary Care Physician in: in 1-2 week Test Results: Test results from this visit will be discussed in further detail at your follow- up appointment, if applicable. Please Follow Up With: Mandeep Carter MD When: in 1 weeks Please Follow Up With: Karlos Milton MD When: in 3-4 weeks for CHF, Afib on entresto
--- NOTE | 2018-09-16 09:43 | DS.PCM_ITS ---
Discharge Date and Diagnosis - Problem List Patient Problems: Active and Suspected Problems (Last Reviewed 07/08/18 @ 14:08 by Vicky Rojo) Hypokalemia (Acute) Colonic diverticular abscess (Acute) Date of Admission: 09/12/18 Date of Discharge: 09/16/18 - Primary Discharge Diagnosis Active and Suspected Problems (Last Reviewed 07/08/18 @ 14:08 by Vicky Rojo) Hypokalemia (Acute) Acute sigmoid diverticulitis with localized fluid. Peridiverticular abscess or obstruction or phlegmon ruled out - Secondary Discharge Diagnosis Chronic Problems (Last Reviewed 07/08/18 @ 14:08 by Vicky Rojo) Chronic systolic CHF (congestive heart failure) (Chronic) History of prostate cancer in remission (Chronic) Hyperlipidemia (Chronic) Hypertension (Chronic) Left eye blindness (Chronic) Hypothyroidism (Chronic) Hospital Course and Treatment Imaging Results: 09/16/18 08:02 CT Abd [Abdomen/Pelvis W IV Cont ONLY] [CT] Urgent Operations: None Summary of Care Provided: [] The patient is a 78 year old M with past medical history of chronic atrial fibrillation, history of prostate cancer in remission, hyperlipidemia, chronic systolic CHF, history of retinal detachment with left eye blindness, hypothyroidism who was recently admitted and discharged for acute kidney injury, hypokalemia, orthostatic hypotension comes in with complains of abdominal pain, rectal pain. 1. Acute sigmoid diverticulitis, with mild localized fluid but no abscess or phlegmon: Patient is on IV antibiotics. Abdominal pain is much better. N.p.o. with sips of clear liquid. Patient was seen by surgeon and recommended continue conservative management. May need repeat CT in few days to check on abscess. Continue IV fluid, IV Cipro, IV Flagyl. The patient diet was advanced from clear liquid to soft diet. Repeat CT abdomen was done and showed decreased inflammatory changes in the region of sigmoid and sigmoid mesocolon with a small amount of fluid. No definite abscess collection found. It seems what was thought an abscess was actually a colonic diverticulum. Peridiverticular abscess or obstruction or phlegmon ruled out Patient is being discharged on with total 2 weeks of antibiotics Cipro and Flagyl with remaining 10 days of antibiotics. Follow-up with Dr. Carter in 1 week. Earlier patient was deemed high risk by Dr. Menendez for colonoscopy but needs to be further evaluated in outpatient for risk benefit analysis for colonoscopy. Generally, for average risk patient colonoscopy after diverticulitis is resolved and may be elective sigmoid colectomy. This needs to be further evaluated as an outpatient 2. Hypertension, controlled, was on metoprolol, sacubitril/valsartan: Blood pressure was on lower side initially but is stabilized. 3. Hyperlipidemia, on statin 4. Chronic atrial fibrillation, rate controlled, on beta-yesi. Eliquis resumed 5. Hypothyroidism, on synthroid 6. Chronic systolic CHF, EF 20%, on entresto and Lasix, no signs of acute exacerbation, will monitor, strict I & Os, daily weights. As the patient seems weak for the. He was n.p.o. and no leg swelling was advised to take Lasix 40 mrem daily for 3-4 days and increase to twice daily if leg swelling appears or shortness of breath. Follow-up with concrete pointer Dr. guaman as the patient EF is 20%. Entresto to be resumed with lower dose and titrate upwards. 7. DVT PPx-on Eliquis 5000 units subcutaneous 3 times daily. This note was generated with [employer] dictation software. Every effort was made to ensure accuracy, however computerized bar pointer mistakes may persist. Discharge medication reconciliation done. Follow-up instructions completed and discussed with the patient. Total time spent, exact 35 minutes on discharge meds reconciliation, examination, review of imaging and blood test and discussion with the patient on follow-up instructions. Patient Problems: Active and Suspected Problems (Last Reviewed 07/08/18 @ 14:08 by Vicky Rojo) Hypokalemia (Acute) Colonic diverticular abscess (Acute) - Physical Exam Vital Signs Temp Pulse Resp BP Pulse Ox 98.1 F 92 18 122/88 H 99 09/16/18 08:40 09/16/18 08:40 09/16/18 08:40 09/16/18 08:40 09/16/18 08:40 Oxygen Delivery Method Room Air Weight: 223 lb 1.725 oz Body Mass Index (BMI) 26.2 Finger Stick Blood Glucose 85 Intake and Output for Last 24 Hours 09/14/18 09/15/18 09/16/18 23:59 23:59 23:59 Intake Total 435 / 435 1879 / 1879 2563 / 2563 Output Total 350 / 350 Balance 435 / 435 1529 / 1529 2563 / 2563 Laboratory Tests Past 24 Hrs 09/16/18 09/16/18 05:42 05:42 WBC 7.2 RBC 5.34 Hgb 12.9 L Hct 42.3 MCV 79.2 L MCH 24.2 L MCHC 30.5 L RDW 22.1 H RDW Differential 64.9 H Plt Count 184 Immature Gran % (Auto) 0.100 Neut % (Auto) 76.4 H Lymph % (Auto) 12.0 L [place] % (Auto) 7.9 Eos % (Auto) 3.5 Baso % (Auto) 0.1 Absolute Neuts (auto) 5.5 Absolute Lymphs (auto) 0.87 Total Counted Not Reportable Differential Comment SCAN Platelet Estimate ADEQUATE Plt Morphology Comment LARGE Anisocytosis 1+ Microcytosis 1+ Sodium 140 Potassium 4.0 Chloride 107 Carbon Dioxide 26.0 Anion Gap 7 BUN 9 Creatinine 1.05 Estim Creat Clear Calc 68.89 Est GFR (MDRD) Af Amer 87 Est GFR (MDRD) Non-Af 72 BUN/Creatinine Ratio 8.6 L Glucose 101 Calcium 8.4 L Discharge Activity: May Not Drive Call your doctor if you observe: Fever of 101 or Higher, Inability to urinate, Inability to have a bowel movement, Shortness of breath, Fainting spells, Swelling in the ankles, Chest pain, Increased palpitations (irregular heartbeat) Home Medications: Medications to take at Discharge Levothyroxine [Synthroid] 25 mcg PO 0600 03/19/14 Ascorbic Acid [Vitamin C] 500 mg PO DAILY@0800 07/28/16 Cyanocobalamin (Vitamin B-12) [Vitamin B-12] 1,000 mcg PO DAILY 07/28/16 Multivitamins,Therapeutic [Multivitamin] 1 tab PO DAILY 07/28/16 Vitamin E 400 unit PO DAILY 07/28/16 Atorvastatin Calcium [Lipitor] 20 mg PO QHS 06/30/18 Ergocalciferol [Vitamin D] 50,000 unit PO QMONTH 06/30/18 Latanoprost 0.005% [Xalatan Opthalmic] 1 drp RIGHT EYE QHS 06/30/18 Lutein 1 tab PO DAILY 06/30/18 prednisoLONE eye drops (5 mL) [Pred Forte eye drops (5 mL)] 1 drp LEFT EYE QHS 06/30/18 Apixaban [Eliquis] 5 mg PO BID 08/21/18 Potassium Chloride [Klor-Con M20] 20 meq PO DAILY 08/21/18 Ferrous Sulfate 325 mg PO 1200,1700 09/14/18 Metoprolol Tartrate [Lopressor (beta yesi)] 12.5 mg PO BID 09/14/18 Ciprofloxacin [Cipro] 500 mg PO BID #20 tablet 09/16/18 Furosemide [Lasix] 40 mg PO DAILY #0 09/16/18 Metronidazole [Flagyl] 500 mg PO TID #10 tablet 09/16/18 Sacubitril/Valsartan 97-103 mg [Entresto 97 mg-103 mg Tablet] 1 tab PO BID #0 09/16/18 Following Prescrptions Were Given to Patient: Ciprofloxacin [Cipro] 500 mg PO BID #20 tablet Metronidazole [Flagyl] 500 mg PO TID #10 tablet Primary Care Physician: Milton Menendez Chi, MD [Primary Care Provider] - Please follow up with your Primary Care Physician in: in 1-2 week Please Follow Up With: Mandeep Carter MD When: in 1 weeks Please Follow Up With: Karlos Guaman MD When: as scheduled Medical Necessity - Tobacco Use Smoking Status: Former smoker Tobacco Use: Cigarettes Meaningful Use Info Meaningful Use Diagnoses (Choose all that apply): None applicable Code Visit Inpatient E&M: 87023 Disch Hosp
[2018-09-16] MEDS: Ciprofloxacin 400 MG/200 ML BAG 200 MG IV (10:22)
[2018-09-16 10:23] VITALS: PULSE 90
[2018-09-16] MEDS: Metoprolol Tartrate 25 MG Tablet 12.5 MG PO (10:23)
[2018-09-16] MEDS: Ascorbic Acid 500 MG Tablet PO (10:23)
[2018-09-16 11:00] VITALS: PULSE 88; RESP 18; TEMP 36.7; O2SAT 95
--- NOTE | 2018-09-16 12:12 | CASEMGMT ---
Social Work Note RN updated this worker that pt may benefit from CCN referral. SW in to speak with pt regarding CCN. Pt states he is not interested in CCN. SW provided pt with CCN brochure in the event pt would be interested in CCN at a later time. Ivonne Meneses DRAW HAND, [employer] OUT WORKER
--- NOTE | 2018-09-16 14:04 | PCA ---
Made appointments for doctor coronel office.. Tried multiple times to get ahold of doctor guaman office for an appointment tried leaving message and multiple attempts and cant get ahold of them..
--- NOTE | 2018-09-18 16:35 | CASEMGMT ---
RN CM Discharge Follow-up Phone Call: DEVI: Guzman Strata: 4 Call Date: 09/18/18 Discharge Date: 09/16/18 Time of Call: 2882 Duration: 1 MINUTE ? Admitting Diagnosis: Diverticular abscess This RN CM attempted to contact pt via phone regarding discharge planning. Voicemail received and message left requesting a return call if pt has questions or concerns. Charla Siddiqi RN
--- OUTSIDE RECORDS SUMMARY | 2018-12-16 10:53 | XMS RPT_ITS ---
:1940 Author Organization OHIP Support Name Relationship Address Phone SKYLAR TABARES Unavailable [address] + [place] [address] KAMALJIT TABARES Unavailable [address] + [place] [address] R Unavailable Unavailable Unavailable TABARESSKYLAR Unavailable [address] + [place] [address] KAMALJIT TABARES Unavailable [address] + [place] [address] R Unavailable Unavailable Unavailable TABARESSKYLAR Unavailable [address] + [place] [address] KAMALJIT TABARES Unavailable [address] + [place] [address] R Unavailable Unavailable Unavailable SKYLAR TABARES Unavailable [address] + [place] [address] KAMALJIT TABARES Unavailable [address] + [place] [address] R Unavailable Unavailable Unavailable DANITA SKYLAR Unavailable [address] + [place] [address] KAMALJIT TABARES Unavailable [address] + [place] [address] R Unavailable Unavailable Unavailable SKYLAR TABARES Unavailable [address] + [place] [address] KAMALJIT TABARES Unavailable [address] + [place] [address] R Unavailable Unavailable Unavailable SKYLAR TABARES Unavailable [address] + [place] [address] KAMALJIT TABARES Unavailable [address] + [place] [address] R Unavailable Unavailable Unavailable TABARES SKYLAR Unavailable [address] + [place] [address] KAMALJIT TABARES Unavailable [address] + [place] [address] R Unavailable Unavailable Unavailable SKYLAR TABARES Unavailable [address] + [place] [address] KAMALJIT TABARES Unavailable [address] + [place] [address] R Unavailable Unavailable Unavailable SKYLAR TABARES Unavailable [address] + [place] [address] KAMALJIT TABARES Unavailable [address] + [place] [address] R Unavailable Unavailable Unavailable SKYLAR TABARES Unavailable [address] + [place] [address] KAMALJIT TABARES Unavailable [address] + [place] [address] R Unavailable Unavailable Unavailable SKYLAR TABARES Unavailable [address] + [place] [address] KAMALJIT TABARES Unavailable [address] + [place] [address] R Unavailable Unavailable Unavailable SKYLAR TABARES Unavailable [address] + [place] [address] KAMALJIT TABARES Unavailable [address] + [place] [address] R Unavailable Unavailable Unavailable SKYLAR TABARES Unavailable [address] + [place] [address] KAMALJIT TABARES Unavailable [address] + [place] [address] R Unavailable Unavailable Unavailable SKYLAR TABARES Unavailable [address] + [place] [address] KAMALJIT TABARES Unavailable Unavailable + [place] [address] R Unavailable Unavailable Unavailable SKYLAR TABARES Unavailable [address] + [place] [address] KAMALJIT TABARES Unavailable Unavailable + [place] [address] R Unavailable Unavailable Unavailable SKYLAR TABARES Unavailable [address] + [facility] [place] [address] KAMALJIT TABARES Unavailable Unavailable + [place] [address] R Unavailable Unavailable Unavailable SKYLAR TABARES Unavailable [address] + [place] [address] KAMALJIT TABARES Unavailable Unavailable + [place] [address] R Unavailable Unavailable Unavailable SKYLAR TABARES Unavailable [address] + [place] [address] KAMALJIT TABARES Unavailable Unavailable + [place] [address] R Unavailable Unavailable Unavailable SKYLAR TABARES Unavailable [address] + [place] [address] KAMALJIT TABARES Unavailable Unavailable + [place] [address] R Unavailable Unavailable Unavailable SKYLAR TABARES Unavailable [address] + [place] [address] KAMALJIT TABARES Unavailable Unavailable + [place] [address] R Unavailable Unavailable Unavailable SKYLAR TABARES Unavailable [address] + [facility] [place] [address] KAMALJIT TABARES Unavailable Unavailable + [place] [address] R Unavailable Unavailable Unavailable SKYLAR TABARES Unavailable [address] + [place] [address] KAMALJIT TABARES Unavailable Unavailable + [place] [address] R Unavailable Unavailable Unavailable SKYLAR TABARES Unavailable [address] + [place] [address] KAMALJIT TABARES Unavailable Unavailable + [place] [address] R Unavailable Unavailable Unavailable SKYLAR TABARES Unavailable [address] + [place] [address] KAMALJIT TABARES Unavailable Unavailable + [place] [address] R Unavailable Unavailable Unavailable SKYLAR TABARES Unavailable [address] + [place] [address] R Unavailable Unavailable Unavailable SKYLAR TABARES Unavailable [address] + [place] [address] R Unavailable Unavailable Unavailable SKYLAR TABARES Unavailable [address] + [place] [address] R Unavailable Unavailable Unavailable SKYLAR TABARES Unavailable [address] + [place] [address] R Unavailable Unavailable Unavailable SKYLAR TABARES Unavailable [address] + [place] [address] KAMALJIT TABARES Unavailable Unavailable + [place] [address] R Unavailable Unavailable Unavailable SKYLAR TABARES Unavailable [address] + [place] [address] KAMALJIT TABARES Unavailable Unavailable + [place] [address] R Unavailable Unavailable Unavailable SKYLAR TABARES Unavailable [address] + [place] [address] R Unavailable Unavailable Unavailable SYKLAR TABARES Unavailable [address] + [place] [address] R Unavailable Unavailable Unavailable Care Team Providers Name Role Phone Karlos Guaman Attending Unavailable White, Referring Unavailable Shon, Milton Chi Primary Care Unavailable Paintsil, Mira Loma Admitting Unavailable Mandeep Carter Consulting Unavailable Thai Tapia Attending Unavailable Paintsil, Mira Loma Attending Unavailable Shon, Milton Chi Primary Care Unavailable Paintsil, Mira Loma Referring Unavailable Paintsil, Mira Loma Admitting Unavailable Mandeep Carter Attending Unavailable Shon, Milton Chi Primary Care Unavailable Mandeep Carter Consulting Unavailable Paintsil, Mira Loma Consulting Unavailable Paintsil, Mira Loma Admitting Unavailable Paintsil, Mira Loma Attending Unavailable Shon, Milton Chi Primary Care Unavailable Mandeep Carter Consulting Unavailable Paintsil, Mira Loma Consulting Unavailable Scarlett Bruce Attending Unavailable Shon, Milton Chi Attending Unavailable Shon, Milton Chi Primary Care Unavailable Shon, Milton Chi Primary Care Unavailable Jopperi, Los Admitting Unavailable Jopperi, Los Referring Unavailable Paintsil, Mira Loma Attending Unavailable Shon, Milton Chi Attending Unavailable Shon, Milton Chi Primary Care Unavailable Shon, Milton Chi Attending Unavailable Shon, Milton Chi Referring Unavailable Shon, Milton Chi Primary Care Unavailable White, Admitting Unavailable Shon, Milton Chi Primary Care Unavailable Christian Zapata Consulting Unavailable Christian Zapata Attending Unavailable White, Admitting Unavailable White, Attending Unavailable Shon, Milton Chi Primary Care Unavailable White, Consulting Unavailable Shon, Milton Chi Primary Care Unavailable White, Admitting Unavailable Christian Zapata Attending Unavailable Shon, Milton Chi Attending Unavailable Shon, Milton Chi Primary Care Unavailable Shon, Milton Chi Attending Unavailable Shon, Milton Chi Primary Care Unavailable Shon, Milton Chi Attending Unavailable Shon, Milton Chi Referring Unavailable Shon, Milton Chi Primary Care Unavailable Yoan Karlos Attending Unavailable Shon, Milton Chi Referring Unavailable Shon, Milton Chi Attending Unavailable Shon, Milton Chi Primary Care Unavailable Shon, Milton Chi Attending Unavailable Shon, Milton Chi Primary Care Unavailable Sherry De La Cruz Attending Unavailable Shon, Milton Chi Referring Unavailable Shon, Milton Chi Attending Unavailable Shon, Milton Chi Referring Unavailable Shon, Milton Chi Primary Care Unavailable Jopperi, Los Admitting Unavailable Paintsil, Mira Loma Attending Unavailable Jopperi, Los Referring Unavailable Shon, Milton Chi Primary Care Unavailable Paintsil, Mira Loma Consulting Unavailable Jopperi, Los Admitting Unavailable Jopperi, Los Attending Unavailable Jopperi, Los Referring Unavailable Shon, Milton Chi Primary Care Unavailable Jopperi, Los Consulting Unavailable Shon, Milton Chi Primary Care Unavailable Alana Rodriguez Attending Unavailable Shon, Milton Chi Attending Unavailable Shon, Milton Chi Primary Care Unavailable Mandeep Carter Attending Unavailable Shon, Milton Chi Referring Unavailable Stella Guamanl Attending Unavailable Shon, Milton Chi Referring Unavailable Paintsil, Mira Loma Admitting Unavailable Willie, Thai Attending Unavailable Shon, Milton Chi Primary Care Unavailable Mandeep Carter Consulting Unavailable Willie, Thai Consulting Unavailable Paintsil, Mira Loma Admitting Unavailable Eren Carterony Attending Unavailable Shon, Milton Chi Primary Care Unavailable CalabrEren delgadoony Consulting Unavailable Willie, Thai Consulting Unavailable Paintsil, Mira Loma Admitting Unavailable Willie, Thai Attending Unavailable Shon, Milton Chi Primary Care Unavailable Calabrsandy Mandeep Consulting Unavailable Willie, Thai Consulting Unavailable Paintsil, Mira Loma Admitting Unavailable Calabrsandy Mandeep Attending Unavailable Shon, Milton Chi Primary Care Unavailable CalabrEren delgadoony Consulting Unavailable Willie, Thai Consulting Unavailable Paintsil, Mira Loma Admitting Unavailable Willie, Thai Attending Unavailable Shon, Milton Chi Primary Care Unavailable CalabrEren delgadoony Consulting Unavailable Willie, Thai Consulting Unavailable Paintsil, Mira Loma Admitting Unavailable CalEren tomony Attending Unavailable Shon, Milton Chi Primary Care Unavailable CalabrEren delgadoony Consulting Unavailable Willie, Thai Consulting Unavailable PROBLEMS PROBLEMS DATE TYPE CONDITION / CODE ATTENDING STATUS SOURCE 10/15/2018 Unknown I50.23 - 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, Milton Chi Active [facility]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 (congestive) heart Hospital failure / Repository I50.23(ICD-10) 09/11/2018 Unknown I50.22 - Chronic Yoan, Hammond Active [facility] systolic [facility] (congestive) heart Hospital failure / Repository I50.22(ICD-10) 09/11/2018 Unknown 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, Karlos Active [facility] Hypertensive 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 / Repository I11.0(ICD-10) 09/11/2018 Unknown I48.2 - Chronic Yoan, Karlos Active [facility] atrial Community fibrillation / Hospital I48.2(ICD-10) Repository 08/05/2018 Unknown I50.9 - Heart Shon, Milton Chi Active [facility] failure, Community unspecified / Hospital I50.9(ICD-10) Repository 07/30/2018 Unknown R06.02 - Shortness Yoan, Karlos Active [facility] of breath / Community R06.02(ICD-10) Hospital Repository 07/07/2018 Unknown R05 - Cough / Shon, Milton Chi Active [facility] R05(ICD-10) [facility] Repository PROCEDURES PROCEDURES No Procedure Records FoundRESULTS RESULTS CBC W/DIFF, AUTOMATED Collected: 10/14/2018 Status: F Source: [place] [facility] TYPE CODE TESTS RESULT OUT OF RANGE REFERENCE UNITS LAB L100.1000 4.4-11.0 K/mm3 Normal WBC 7.4 LAB L100.1200 4.6-6.2 M/mm3 Normal RBC 5.21 LAB L100.1300 13.0-16.5 g/dl Normal HGB 13.7 LAB L100.1400 40-54 % Normal HCT 43.5 LAB L100.1500 80-94 fL Normal MCV 83.5 LAB L100.1600 27.0-32.0 pg Low MCH 26.3 LAB L100.1700 32-36 g/gl Low MCHC 31.5 LAB L100.1810 11.6-14.6 % High RDW CV 21.2 LAB L100.1820 35.1-43.9 fl High RDW SD 64.6 LAB L100.1900 150-450 K/mm3 Normal PLT 166 LAB L100.2000 6.2-12.0 fl Normal MPV 10.2 LAB L100.2100 47-70 % High NEUT% 80.2 LAB L100.2200 19-41 % Low LY% 11.2 LAB L100.2300 0-10 % Normal MONO% 6.8 LAB L100.2400 0-5 % Normal EO% 1.4 LAB L100.2500 0-1 % Normal BASO% 0.3 LAB L100.2550 0.0-0.9 % Normal IM GRAN % 0.100 Result Comment: IG% - Immature Granulocytes (promyelocytes, myelocytes and metamyelocytes) > 1% indicates that a LEFT SHIFT is Present. LAB L100.2620 2.0-7.7 X10 3/uL Normal Absolute Neut 5.9 LAB L100.2720 0.83-4.51 X10 3/ul Normal Absolute Lymph 0.83 LAB L100.4500 Normal SMEAR COMMENT SCANNED Result Comment: 1+ ANISOCYTOSIS Performed By: #### L100.0100 #### [facility] [address] [place], [address] BASIC METABOLIC Collected: 10/14/2018 Status: F Source: [facility] ([facility]) 6:08 PM [facility] REPOSITORY TYPE CODE TESTS RESULT OUT OF RANGE REFERENCE UNITS LAB L501.0100 74-106 mg/dL Normal GLU 92 Result Comment: Please note revised GLUCOSE reference range effective 2017. LAB L501.1000 7-18 mg/dL High BUN 24 LAB L501.1100 0.70-1.30 mg/dL Normal CREAT,SERUM 1.20 Result Comment: The validity of the calculated GFR AND GFRAA in patients over 70 years has not been determined. Clinical correlation is essential. LAB L501.1110 >60 mL/min Normal EST GFR 62 Result Comment: Non- GFR Calc LAB L501.1115 >60 mL/min Normal EST GFR - AA 75 Result Comment: GFR Calc LAB L501.1300 10-20 RATIO Normal BUN/CRE 20.0 LAB L501.2200 8.5-10.1 mg/dL CA Normal 8.8 LAB L501.5300 136-145 mmol/L NA Normal 141 LAB L501.5600 3.5-5.1 mmol/L K Normal 3.6 LAB L501.5900 98-107 mmol/L CL Normal 107 LAB L501.6100 21.0-32.0 mmol/L Normal CO2 26.0 LAB L501.6200 5-15 Normal GAP 8 Performed By: #### L500.2500 #### [facility] [address] [place], [address] BNP,B-TYPE NATRIURETIC Collected: 10/14/2018 Status: F Source: [facility] [place] 6:08 PM [facility] REPOSITORY TYPE CODE TESTS RESULT OUT OF RANGE REFERENCE UNITS LAB L503.6620 0-100 pg/mL High B-TYPE 4408.9 JULIO PEP Performed By: #### L503.6620 #### [facility] [address] [place], [address] CHEST PA AND LATERAL Observed: 10/14/2018 Status: F Source: [place] 6:00 PM [facility] REPOSITORY [facility] Imaging Services [address] [place] [address] Chest PA and Lateral MR#: [id number] Acct: [id number] Name: NGA TABARES Rep #: [id number] : 1940 M 78 From: Jon Nuñez PCP: Milton Menendez MD, Chi Status: REG CLI Study: Chest PA and Lateral Date of Exam: 10/14/18 Exam# [id number] Ordering Dr: Milton Menendez MD STUDY: X-RAY CHEST REASON FOR EXAM: Male, 78 years old. Shortness of breath. CHF. TECHNIQUE: PA and lateral chest. COMPARISON: August 21, 2018. FINDINGS: Stable mild cardiomegaly. There are now minimal bilateral pleural effusions. No focal infiltrates. Pulmonary vascularity is normal. Moderate hiatal hernia noted previously. Osseous structures unchanged. There is no demonstrated abnormality of the visualized soft tissue structures of the upper abdomen. RAD/Chest PA and Lateral IMPRESSION: Stable cardiomegaly with interval development of small bilateral pleural effusions. Hiatal hernia. Electronically Signed: Jon Nuñez MD at 5:41 EST , Service support , CC: Milton Menendez MD Field Sampling Technician: Signed SURGERY VISIT REPORT Observed: 09/25/2018 Status: F Source: [place] 8:11 AM [facility] REPOSITORY [facility] [address] [place] [address] OFFICE VISIT Date of Service: 09/24/18 MR#: [id number] Acct: [id number] Name: NGA TABARES Rep #: [id number] : 1940 Provider: Mandeep Carter MD Age/Sex: 78/M Location: [facility] Status: Signed Intake Vital Signs09/24/18 Body Mass Index (BMI) 25.5 09/24/18 Blood Pressure 128/87 H 09/24/18 Blood Pressure Location Lt brachial Intake Visit Reasons: Diverticular Abscess - sched with [facility] Chief Complaint: recheck abdomen Laminating Press Operator Required: No Is patient in pain?: No Allergies latex Allergy (Verified 09/24/18 14:14) Rash Medications Levothyroxine [Synthroid] 25 mcg PO 0600 03/19/14 [History Confirmed 09/24/18] Ascorbic Acid [Vitamin C] 500 mg PO DAILY@0800 07/28/16 [History Confirmed 09/24/18] Cyanocobalamin (Vitamin B-12) [Vitamin B-12] 1,000 mcg PO DAILY 07/28/16 [History Confirmed 09/24/18] Multivitamins,Therapeutic [Multivitamin] 1 tab PO DAILY 07/28/16 [History Confirmed 09/24/18] Vitamin E 400 unit PO DAILY 07/28/16 [History Confirmed 09/24/18] Atorvastatin Calcium [Lipitor] 20 mg PO QHS 06/30/18 [History Confirmed 09/24/18] Ergocalciferol [Vitamin D] 50,000 unit PO QMONTH 06/30/18 [History Confirmed 09/24/18] Latanoprost 0.005% [Xalatan Opthalmic] 1 drp RIGHT EYE QHS 06/30/18 [History Confirmed 09/24/18] Lutein 1 tab PO DAILY 06/30/18 [History Confirmed 09/24/18] prednisoLONE eye drops (5 mL) [Pred Forte eye drops (5 mL)] 1 drp LEFT EYE QHS 06/30/18 [History Confirmed 09/24/18] Apixaban [Eliquis] 5 mg PO BID 08/21/18 [History Confirmed 09/24/18] Potassium Chloride [Klor-Con M20] 20 meq PO DAILY 08/21/18 [History Confirmed 09/24/18] Ferrous Sulfate 325 mg PO 1200,1700 09/14/18 [History Confirmed 09/24/18] Metoprolol Tartrate [Lopressor (beta yesi)] 12.5 mg PO BID 09/14/18 [History Confirmed 09/24/18] Furosemide [Lasix] 40 mg PO DAILY #0 09/16/18 [Rx Confirmed 09/24/18] Lactobacillus Acidophilus [Acidophilus] 1 tab PO BID #30 tab 09/16/18 [Rx Confirmed 09/24/18] Sacubitril/Valsartan 97-103 mg [Entresto 97 mg-103 mg Tablet] 1 tab PO BID #0 09/16/18 [Rx Confirmed 09/24/18] [facility] Medical History Secondary pulmonary arterial hypertension (Chronic) Nonrheumatic mitral (valve) insufficiency (Chronic) Non-rheumatic tricuspid valve insufficiency (Chronic) Non-rheumatic aortic stenosis (Chronic) Chronic atrial fibrillation (Chronic) Cardiomyopathy in diseases classified elsewhere (Chronic) Acute on chronic systolic (congestive) heart failure (Chronic) Hyperlipidemia (Chronic) Essential (primary) hypertension (Chronic) Hypokalemia (Chronic) Acute blood loss anemia (Chronic) Blind left eye (Chronic) CVA (cerebral vascular accident) (Chronic) Cellulitis (Chronic) Diverticulitis of intestine with abscess (Chronic) Hypothyroidism (Chronic) Prostate cancer (Resolved) Surgical History H/O detached retina repair (Resolved) History of foot surgery (Resolved) History of herniorrhaphy (Resolved) History of tonsillectomy (Resolved) Social History Smoking Status: Former smoker alcohol intake: current alcohol intake frequency: holidays/special occasions only HPI HPI HPI: NGA TABARES, is a 78 M who presents to the office today for follow-up after being admitted for diverticulitis. The patient currently reports that he is having no abdominal pain. He is having some diarrhea from his antibiotics but he is not having pain with bowel movements. ROS General General: Yes fatigue; no weight change, appetite, colon cancer, breast cancer or weakness HEENT HEENT: Yes eye surgery; no difficulty swallowing, eye injury, swollen glands or hoarseness Endo Endocrine: No thyroid disease, diabetes mellitus, thyroid cancer, Hair loss, heat intolerance or cold intolerance Musc Musculoskeletal: Yes arthritis; no back problems, rheumatoid arthritis, gout or joint pain Cardio Cardiovascular: Yes murmur; no pacemaker, heart disease, atrial fibrillation, high blood pressure, heart attack, heart stent, palpitations, shortness of breat with exertion or chest pain Resp Respiratory: Yes shortness of breath, No sleep apnea, No cough, Yes COPD, No asthma, No emphysema, No wheezing Gastro Gastrointestinal: No abdominal pain, No nausea or vomiting, No diarrhea, No constipation, No blood in stool, Yes acid reflux, No hemorrhoids, No ulcers, No gallbladder problem, Yes black,tarry stools Leroy Hematologic: Yes blood thinners, No blood disorders, No bleeding, Yes anemia, No blood clots Neuro Neurologic: No weakness Exam Const General: cooperative Orientation: alert, oriented x3 Resp Effort AND Inspection: normal respiratory effort Auscultation: clear to auscultation bilaterally Cardio Rate: regular rate Rhythm: regular rhythm Heart Sounds: murmur GI Inspection: non-distended Palpation: soft, nontender Assessment AND Plan Problems 1. Diverticulitis K57.92 Plan 1. Patient had his first bout of sigmoid diverticulitis while recently in the hospital. The first read was read as a possible abscess but the repeat read on a CT done a few days later showed that this was just a large diverticulum with no abscess. The patient has been doing well on his oral antibiotics and is stopping his tomorrow. 2. 6 Months ago he was told to have a colonoscopy but this was stopped due to heart reasons by Dr. Menendez. I explained that if the patient would like to be aggressive about this he would need a educational technology coordinator approval before colonoscopy and elective laparoscopic sigmoid colectomy. At this time the patient given his age and health status does not want to proceed aggressively. Mandeep Carter MD Pager: [facility] [address] [place] [address] [address] [place] [address] Office: Coding Level of Care Code Off vis,est,level 3 Diagnoses Diverticulitis K57.92 09/25/18 0811 <Electronically signed by Mandeep Carter MD> Date Mandeep Carter MD Cosigner Signature: Date (if applicable) CC: Milton Menendez MD DISCHARGE SUMMARY Observed: 09/16/2018 Status: F Source: [place] 2:46 PM [facility] REPOSITORY [facility] Medical Records Department [address] [place] [address] Discharge Summary 09/16/18 0937 MR#: [id number] Acct: [id number] Name: NGA TABARES Rep #: [id number] : 1940 78 From: Thai Tapia MD PCP: Milton Menendez MD, Chi Status: AD[facility] IN [facility] Date and Diagnosis - Problem List Patient Problems: Active and Suspected Problems (Last Reviewed 07/08/18 @ 14:08 by Vicky Rojo) Hypokalemia (Acute) Colonic diverticular abscess (Acute) Date of Admission: 09/12/18 Date of Discharge: 09/16/18 - Primary Discharge Diagnosis Active and Suspected Problems (Last Reviewed 07/08/18 @ 14:08 by Vicky Rojo) Hypokalemia (Acute) Acute sigmoid diverticulitis with localized fluid. Peridiverticular abscess or obstruction or phlegmon ruled out - Secondary Discharge Diagnosis Chronic Problems (Last Reviewed 07/08/18 @ 14:08 by Vicky Rojo) Chronic systolic CHF (congestive heart failure) (Chronic) History of prostate cancer in remission (Chronic) Hyperlipidemia (Chronic) Hypertension (Chronic) Left eye blindness (Chronic) Hypothyroidism (Chronic) Hospital Course and Treatment Imaging Results: 09/16/18 08:02 CT Abd [Abdomen/Pelvis W IV Cont ONLY] [CT] Urgent Operations: None Summary of Care Provided: [] The patient is a 78 year old M with past medical history of chronic atrial fibrillation, history of prostate cancer in remission, hyperlipidemia, chronic systolic CHF, history of retinal detachment with left eye blindness, hypothyroidism who was recently admitted and discharged for acute kidney injury, hypokalemia, orthostatic hypotension comes in with complains of abdominal pain, rectal pain. 1. Acute sigmoid diverticulitis, with mild localized fluid but no abscess or phlegmon: Patient is on IV antibiotics. Abdominal pain is much better. N.p.o. with sips of clear liquid. Patient was seen by surgeon and recommended continue conservative management. May need repeat CT in few days to check on abscess. Continue IV fluid, IV Cipro, IV Flagyl. The patient diet was advanced from clear liquid to soft diet. Repeat CT abdomen was done and showed decreased inflammatory changes in the region of sigmoid and sigmoid mesocolon with a small amount of fluid. No definite abscess collection found. It seems what was thought an abscess was actually a colonic diverticulum. Peridiverticular abscess or obstruction or phlegmon ruled out Patient is being discharged on with total 2 weeks of antibiotics Cipro and Flagyl with remaining 10 days of antibiotics. Follow-up with Dr. Carter in 1 week. Earlier patient was deemed high risk by Dr. Menendez for colonoscopy but needs to be further evaluated in outpatient for risk benefit analysis for colonoscopy. Generally, for average risk patient colonoscopy after diverticulitis is resolved and may be elective sigmoid colectomy. This needs to be further evaluated as an outpatient 2. Hypertension, controlled, was on metoprolol, sacubitril/valsartan: Blood pressure was on lower side initially but is stabilized. 3. Hyperlipidemia, on statin 4. Chronic atrial fibrillation, rate controlled, on beta- yesi. Eliquis resumed 5. Hypothyroidism, on synthroid 6. Chronic systolic CHF, EF 20%, on entresto and Lasix, no signs of acute exacerbation, will monitor, strict I AND Os, daily weights. As the patient seems weak for the. He was n.p.o. and no leg swelling was advised to take Lasix 40 mrem daily for 3-4 days and increase to twice daily if leg swelling appears or shortness of breath. Follow-up with educational technology coordinator Dr. guaman as the patient EF is 20%. Entresto to be resumed with lower dose and titrate upwards. 7. DVT PPx-on Eliquis 5000 units subcutaneous 3 times daily. This note was generated with [employer] dictation software. Every effort was made to ensure accuracy, however computerized front worker mistakes may persist. Discharge medication reconciliation done. Follow-up instructions completed and discussed with the patient. Total time spent, exact 35 minutes on discharge meds reconciliation, examination, review of imaging and blood test and discussion with the patient on follow-up instructions. Patient Problems: Active and Suspected Problems (Last Reviewed 07/08/18 @ 14:08 by Vicky Rojo) Hypokalemia (Acute) Colonic diverticular abscess (Acute) - Physical Exam Vital Signs Temp Pulse Resp BP Pulse Ox 98.1 F 92 18 122/88 H 99 09/16/18 08:40 09/16/18 08:40 09/16/18 08:40 09/16/18 08:40 09/16/18 08:40 Oxygen Delivery Method Room Air Weight: 223 lb 1.725 oz Body Mass Index (BMI) 26.2 Finger Stick Blood Glucose 85 Intake and Output for Last 24 Hours Intake Total 435 / 435 1879 / 1879 2563 / 2563 Output Total 350 / 350 Balance 435 / 435 1529 / 1529 2563 / 2563 Laboratory Tests Past 24 Hrs WBC 7.2 RBC 5.34 Discharge Activity: May Not Drive Call your doctor if you observe: Fever of 101 or Higher, Inability to urinate, Inability to have a bowel movement, Shortness of breath, Fainting spells, Swelling in the ankles, Chest pain, Increased palpitations (irregular heartbeat) Home Medications: Medications to take at Discharge Levothyroxine [Synthroid] 25 mcg PO 0600 03/19/14 Ascorbic Acid [Vitamin C] 500 mg PO DAILY@0800 07/28/16 Cyanocobalamin (Vitamin B-12) [Vitamin B-12] 1,000 mcg PO DAILY 07/28/16 Multivitamins,Therapeutic [Multivitamin] 1 tab PO DAILY 07/28/16 Vitamin E 400 unit PO DAILY 07/28/16 Atorvastatin Calcium [Lipitor] 20 mg PO QHS 06/30/18 Ergocalciferol [Vitamin D] 50,000 unit PO QMONTH 06/30/18 Latanoprost 0.005% [Xalatan Opthalmic] 1 drp RIGHT EYE QHS 06/30/18 Lutein 1 tab PO DAILY 06/30/18 prednisoLONE eye drops (5 mL) [Pred Forte eye drops (5 mL)] 1 drp LEFT EYE QHS 06/30/18 Apixaban [Eliquis] 5 mg PO BID 08/21/18 Potassium Chloride [Klor-Con M20] 20 meq PO DAILY 08/21/18 Ferrous Sulfate 325 mg PO 1200,1700 09/14/18 Metoprolol Tartrate [Lopressor (beta yesi)] 12.5 mg PO BID 09/14/18 Ciprofloxacin [Cipro] 500 mg PO BID #20 tablet 09/16/18 Furosemide [Lasix] 40 mg PO DAILY #0 09/16/18 Metronidazole [Flagyl] 500 mg PO TID #10 tablet 09/16/18 Sacubitril/Valsartan 97-103 mg [Entresto 97 mg-103 mg Tablet] 1 tab PO BID #0 09/16/18 Following Prescrptions Were Given to Patient: Ciprofloxacin [Cipro] 500 mg PO BID #20 tablet Metronidazole [Flagyl] 500 mg PO TID #10 tablet Primary Care Physician: Mitlon Menendez Chi, MD [Primary Care Provider] - Please follow up with your Primary Care Physician in: in 1- 2 week Please Follow Up With: Mandeep Carter MD When: in 1 weeks Please Follow Up With: Karlos Guaman MD When: as scheduled Medical Necessity - Tobacco Use Smoking Status: Former smoker Tobacco Use: Cigarettes Meaningful Use Info Meaningful Use Diagnoses (Choose all that apply): None applicable Code Visit Inpatient E AND M: 96510 Disch Hosp 09/16/18 1446 <Electronically signed by Thai Tapia MD> Date Thai Tapia MD Cosigner Signature (if applicable): Date CC: Thai Tapia MD; Milton Menendez MD Signed DISCHARGE INSTRUCTION Observed: 09/16/2018 Status: F Source: [place] 10:48 AM [facility] REPOSITORY [facility] Medical Records Department [address] [place] [address] Instructions for Home/Discharge Instructions 09/16/18 0931 MR#: [id number] Acct: [id number] Name: NGA TABARES Rep #: [id number] : 1940 78 From: Thai Tapia MD PCP: Milton Menendez MD, Chi Status: ADM IN - Discharge Diagnoses Current Active Problems: Current Active and Chronic Problems (Last Reviewed 07/08/18 @ 14:08 by Vicky Rojo) Hypokalemia (Acute) Colonic diverticular abscess (Acute) You will use the following diet at home:: Cardiac - low residue diet Your food should be the consistency of: Regular Discharge Activity: May Not Drive Call your doctor if you observe: Fever of 101 or Higher, Inability to urinate, Inability to have a bowel movement, Shortness of breath, Fainting spells, Swelling in the ankles, Chest pain, Increased palpitations (irregular heartbeat) Allergies/Adverse Reactions: Allergies latex Allergy (Verified 09/12/18 11:14) Rash Medications to take at Discharge Levothyroxine [Synthroid] 25 mcg PO 0600 03/19/14 Ascorbic Acid [Vitamin C] 500 mg PO DAILY@0800 07/28/16 Cyanocobalamin (Vitamin B-12) [Vitamin B-12] 1,000 mcg PO DAILY 07/28/16 Multivitamins,Therapeutic [Multivitamin] 1 tab PO DAILY 07/28/16 Vitamin E 400 unit PO DAILY 07/28/16 Atorvastatin Calcium [Lipitor] 20 mg PO QHS 06/30/18 Ergocalciferol [Vitamin D] 50,000 unit PO QMONTH 06/30/18 Latanoprost 0.005% [Xalatan Opthalmic] 1 drp RIGHT EYE QHS 06/30/18 Lutein 1 tab PO DAILY 06/30/18 prednisoLONE eye drops (5 mL) [Pred Forte eye drops (5 mL)] 1 drp LEFT EYE QHS 06/30/18 Apixaban [Eliquis] 5 mg PO BID 08/21/18 Potassium Chloride [Klor-Con M20] 20 meq PO DAILY 08/21/18 Ferrous Sulfate 325 mg PO 1200,1700 09/14/18 Metoprolol Tartrate [Lopressor (beta yesi)] 12.5 mg PO BID 09/14/18 Ciprofloxacin [Cipro] 500 mg PO BID #20 tablet 09/16/18 Furosemide [Lasix] 40 mg PO DAILY #0 09/16/18 Metronidazole [Flagyl] 500 mg PO TID #10 tablet 09/16/18 Sacubitril/Valsartan 97-103 mg [Entresto 97 mg-103 mg Tablet] 1 tab PO BID #0 09/16/18 The following prescriptions were given: Ciprofloxacin [Cipro] 500 mg PO BID #20 tablet Metronidazole [Flagyl] 500 mg PO TID #10 tablet Primary Care Physician: Milton Menendez Chi, MD [Primary Care Provider] - Please follow up with your Primary Care Physician in: in 1- 2 week Test Results: Test results from this visit will be discussed in further detail at your follow-up appointment, if applicable. Please Follow Up With: Mandeep Carter MD When: in 1 weeks Please Follow Up With: Karlos Guaman MD When: in 3-4 weeks for CHF, Afib on entresto 09/16/18 1048 <Electronically signed by Thai Tapia MD> Date Thai Tapia MD CC: Mandeep Carter MD; Milton Menendez MD ABDOMEN/PELVIS W IV CONT Observed: 09/16/2018 Status: F Source: TRENT ONLY 8:02 AM [facility] REPOSITORY [facility] Imaging Services [address] [place] [address] Abdomen/Pelvis W IV Cont ONLY MR#: [id number] Acct: [id number] Name: NGA TABARES Rep #: [id number] : 1940 M 78 From: Bryant Dang MD PCP: Shon GREENE,Milton Stephenson Status: ADM IN Study: Abdomen/Pelvis W IV Cont ONLY Date of Exam: 09/16/18 Exam# [id number] Ordering Dr: Mandeep Carter MD STUDY: CT ABDOMEN AND PELVIS WITH CONTRAST REASON FOR EXAM: Male, 78 years old. History of diverticular abscess. History of prostate cancer. RADIATION DOSAGE (If Supplied By Facility): CTDIvol = ( 16.93 ) mGy, DLP = ( 1183.83 ) mGycm TECHNIQUE: Transaxial images were obtained from the dome of the diaphragm to the symphysis pubis without oral contrast. 100 ml of Isovue 300 contrast was administered. Sagittal and coronal images were reconstructed. Individualized dose optimization techniques were used for this CT. COMPARISON: Comparison is made with prior study dated September 12, 2018. FINDINGS: Small bilateral pleural effusions with bibasilar atelectasis slightly more prominent on the right side. The visualized portions of the heart are within normal limits. Small amount of perihepatic and perisplenic fluid in keeping with ascites. There is decreased attenuation of the liver consistent with steatosis. There is evidence of colonic interposition where the right hepatic flexure is anterior to the liver. There are multiple small gallstones. Small amount of pericholecystic fluid. Normal spleen. Normal pancreas. Normal bilateral adrenal glands. Normal right kidney. There is a 3 cm x 2.4 cm cyst in the posterior aspect of the left kidney. Nonspecific bilateral perihilar stranding. Large hiatal hernia. Normal small intestine. Sigmoid diverticulosis. Small amount of fluid is seen in the pelvis. Increased markings in the mesenteric fat in the region of the sigmoid colon. No definite abscess collection is seen at this time. There is evidence of an enlarged sigmoid diverticulum measuring 1.8 cm. The appendix is visualized and appears normal. There is diffuse atherosclerotic calcification of the abdominal aorta, without a demonstrated aneurysm. Normal inferior vena cava. Normal retroperitoneum. Normal urinary bladder. There is a 4.3 cm x 9.2 cm in length fluid collection within the left iliopsoas muscle extending into the region of the left groin. This may represent a resolving hematoma if the patient had a history of prior venous puncture at that site. This is unchanged. Normal abdominal wall. There are diffuse degenerative changes of the visualized lumbar spine. Straightening of the normal lumbar lordosis. CT/Abdomen/Pelvis W IV Cont ONLY IMPRESSION: Decreased inflammatory changes in the region of the sigmoid with residual increased markings in the mesenteric fat in the region of the sigmoid colon with small amount of fluid. No definite abscess collection is seen. Electronically Signed: Bryant Dang MD at 9:06 EST Tel [phone], Service support , CC: Mandeep Carter MD; Milton Menendez MD Field Sampling Technician: Signed CBC W/DIFF, AUTOMATED Collected: 09/16/2018 Status: F Source: [place] 5:42 AM [facility] REPOSITORY TYPE CODE TESTS RESULT OUT OF RANGE REFERENCE UNITS LAB L100.1000 4.4-11.0 K/mm3 Normal WBC 7.2 LAB L100.1200 4.6-6.2 M/mm3 Normal RBC 5.34 LAB L100.1300 13.0-16.5 g/dl Low HGB 12.9 LAB L100.1400 40-54 % Normal HCT 42.3 LAB L100.1500 80-94 fL Low MCV 79.2 LAB L100.1600 27.0-32.0 pg Low MCH 24.2 LAB L100.1700 32-36 g/gl Low MCHC 30.5 LAB L100.1810 11.6-14.6 % High RDW CV 22.1 LAB L100.1820 35.1-43.9 fl High RDW SD 64.9 LAB L100.1900 150-450 K/mm3 Normal PLT 184 LAB L100.2100 47-70 % High NEUT% 76.4 LAB L100.2200 19-41 % Low LY% 12.0 LAB L100.2300 0-10 % Normal MONO% 7.9 LAB L100.2400 0-5 % Normal EO% 3.5 LAB L100.2500 0-1 % Normal BASO% 0.1 LAB L100.2550 0.0-0.9 % Normal IM GRAN % 0.100 Result Comment: IG% - Immature Granulocytes (promyelocytes, myelocytes and metamyelocytes) > 1% indicates that a LEFT SHIFT is Present. LAB L100.2620 2.0-7.7 X10 3/uL Absolute Normal Neut 5.5 LAB L100.2720 0.83-4.51 X10 3/ul Absolute Normal Lymph 0.87 LAB L100.4500 SMEAR Normal COMMENT SCAN LAB L100.5500 ADEQ PLT EST Normal ADEQUATE LAB L100.5650 PLT Normal MORPH LARGE LAB L100.7300 ANISO Normal 1+ LAB L100.7700 Normal MICROCYTES 1+ Performed By: #### L100.0100 #### [facility] [address] [place], [address] BASIC METABOLIC Collected: 09/16/2018 Status: F Source: [place] PROFILE (BMP) 5:42 AM [facility] REPOSITORY TYPE CODE TESTS RESULT OUT OF RANGE REFERENCE UNITS LAB L501.0100 74-106 mg/dL Normal GLU 101 Result Comment: Fasting Glucose result from 100 to 125 mg/dL suggests IMPAIRED HOMEOSTASIS per A.D.A. criteria. Please note revised GLUCOSE reference range effective 2017. LAB L501.1000 7-18 mg/dL Normal BUN 9 LAB L501.1100 0.70-1.30 mg/dL Normal CREAT,SERUM 1.05 Result Comment: The validity of the calculated GFR AND GFRAA in patients over 70 years has not been determined. Clinical correlation is essential. LAB L501.1110 >60 mL/min Normal EST GFR 72 Result Comment: Non- GFR Calc LAB L501.1115 >60 mL/min Normal EST GFR - AA 87 Result Comment: GFR Calc LAB L501.1255 ml/min Normal Estimated CRCL 68.89 LAB L501.1300 10-20 RATIO Low BUN/CRE 8.6 LAB L501.2200 8.5-10 mg/dL Low .1 CA 8.4 LAB L501.5300 136-14 mmol/L Normal 5 NA 140 LAB L501.5600 3.5-5. mmol/L Normal 1 K 4.0 LAB L501.5900 98-107 mmol/L Normal CL 107 LAB L501.6100 21.0-3 mmol/L Normal 2.0 CO2 26.0 LAB L501.6200 5-15 Normal GAP 7 Performed By: #### L500.2500 #### [facility] [address], [address] CBC W/DIFF, AUTOMATED Collected: 09/15/2018 Status: F Source: [place] 6:06 AM [facility] REPOSITORY TYPE CODE TESTS RESULT OUT OF RANGE REFERENCE UNITS LAB L100.1000 4.4-11.0 K/mm3 5.4 Normal WBC LAB L100.1200 4.6-6.2 M/mm3 4.90 Normal RBC LAB L100.1300 13.0-16.5 g/dl Low 12.0 HGB LAB L100.1400 40-54 % Low 38.5 HCT LAB L100.1500 80-94 fL Low 78.6 MCV LAB L100.1600 27.0-32.0 pg Low 24.5 MCH LAB L100.1700 32-36 g/gl Low 31.2 MCHC LAB L100.1810 11.6-14.6 % High 22.1 RDW CV LAB L100.1820 35.1-43.9 fl High 63.8 RDW SD LAB L100.1900 150-450 K/mm3 Low 141 PLT LAB L100.2000 6.2-12.0 fl Test Normal MPV not performed LAB L100.2100 47-70 % High 75.7 NEUT% LAB L100.2200 19-41 % Low 10.3 LY% LAB L100.2300 0-10 % 9.0 Normal MONO% LAB L100.2400 0-5 % 4.6 Normal EO% LAB L100.2500 0-1 % 0.2 Normal BASO% LAB L100.2550 0.0-0.9 % 0.200 Normal IM GRAN % Result Comment: IG% - Immature Granulocytes (promyelocytes, myelocytes and metamyelocytes) > 1% indicates that a LEFT SHIFT is Present. LAB L100.2620 2.0-7.7 X10 3/uL Normal Absolute Neut 4.1 LAB L100.2720 0.83-4.51 X10 3/ul Low Absolute Lymph 0.56 LAB L100.4500 Normal SMEAR COMMENT COMMENT Result Comment: SLIDE SCANNED - 1+ ANISO, 1+ LARGE PLTS, LYMPHOPENIA. Performed By: #### L100.0100 #### [facility] [address] [place], [place], [id number] BASIC METABOLIC Collected: 09/15/2018 Status: F Source: [place] PROFILE (BMP) 6:06 AM [facility] REPOSITORY TYPE CODE TESTS RESULT OUT OF RANGE REFERENCE UNITS LAB L501.0100 74-106 mg/dL Normal GLU 103 Result Comment: Fasting Glucose result from 100 to 125 mg/dL suggests IMPAIRED HOMEOSTASIS per A.D.A. criteria. Please note revised GLUCOSE reference range effective 2017. LAB L501.1000 7-18 mg/dL Normal BUN 9 LAB L501.1100 0.70-1.30 mg/dL Normal CREAT,SERUM 0.91 Result Comment: The validity of the calculated GFR AND GFRAA in patients over 70 years has not been determined. Clinical correlation is essential. LAB L501.1110 >60 mL/min Normal EST GFR 85 Result Comment: Non- GFR Calc LAB L501.1115 >60 mL/min Normal EST GFR - AA 103 Result Comment: GFR Calc LAB L501.1255 ml/min Normal Estimated CRCL 79.49 LAB L501.1300 10-20 RATIO Low BUN/CRE 9.9 LAB L501.2200 8.5-10 mg/dL Low .1 CA 7.9 LAB L501.5300 136-14 mmol/L Normal 5 NA 141 LAB L501.5600 3.5-5. mmol/L Normal 1 K 4.0 Result Comment: Moderate Hemolysis, Result may be falsely increased. LAB L501.5900 98-107 mmol/L High CL 110 LAB L501.6100 21.0-32.0 mmol/L Normal CO2 24.0 LAB L501.6200 5-15 Normal 7 GAP Performed By: #### L500.2500 #### [facility] [address] [place], [place], [id number] BASIC METABOLIC Collected: 09/14/2018 Status: F Source: [place] PROFILE (BMP) 5:40 AM [facility] REPOSITORY TYPE CODE TESTS RESULT OUT OF RANGE REFERENCE UNITS LAB L501.0100 74-106 mg/dL Normal GLU 85 Result Comment: Please note revised GLUCOSE reference range effective 2017. LAB L501.1000 7-18 mg/dL Normal BUN 10 LAB L501.1100 0.70-1.30 mg/dL Normal CREAT,SERUM 0.92 Result Comment: The validity of the calculated GFR AND GFRAA in patients over 70 years has not been determined. Clinical correlation is essential. LAB L501.1110 >60 mL/min Normal EST GFR 84 Result Comment: Non- GFR Calc LAB L501.1115 >60 mL/min Normal EST GFR - AA 102 Result Comment: GFR Calc LAB L501.1255 ml/min Normal Estimated CRCL 78.62 LAB L501.1300 10-20 RATIO Normal BUN/CRE 10.9 LAB L501.2200 8.5-10 mg/dL Low .1 CA 7.7 LAB L501.5300 136-14 mmol/L Normal 5 NA 143 LAB L501.5600 3.5-5. mmol/L Normal 1 K 3.9 LAB L501.5900 98-107 mmol/L High CL 111 LAB L501.6100 21.0-3 mmol/L Normal 2.0 CO2 22.0 LAB L501.6200 5-15 Normal GAP 10 Performed By: #### L500.2500 #### [facility] [place], [address] CBC W/DIFF, AUTOMATED Collected: 09/14/2018 Status: F Source: [place] 5:40 AM [facility] REPOSITORY TYPE CODE TESTS RESULT OUT OF RANGE REFERENCE UNITS LAB L100.1000 4.4-11.0 K/mm3 Normal WBC 7.7 LAB L100.1200 4.6-6.2 M/mm3 Normal RBC 4.74 LAB L100.1300 13.0-16.5 g/dl Low HGB 11.7 LAB L100.1400 40-54 % Low HCT 37.4 LAB L100.1500 80-94 fL Low MCV 78.9 LAB L100.1600 27.0-32.0 pg Low MCH 24.7 LAB L100.1700 32-36 g/gl Low MCHC 31.3 LAB L100.1810 11.6-14.6 % High RDW CV 22.7 LAB L100.1820 35.1-43.9 fl High RDW SD 65.0 LAB L100.1900 150-450 K/mm3 Normal PLT 174 LAB L100.2000 6.2-12.0 fl Normal MPV 10.6 LAB L100.2100 47-70 % High NEUT% 81.7 LAB L100.2200 19-41 % Low LY% 7.8 LAB L100.2300 0-10 % Normal MONO% 8.8 LAB L100.2400 0-5 % Normal EO% 1.3 LAB L100.2500 0-1 % Normal BASO% 0.3 LAB L100.2550 0.0-0.9 % Normal IM GRAN % 0.100 Result Comment: IG% - Immature Granulocytes (promyelocytes, myelocytes and metamyelocytes) > 1% indicates that a LEFT SHIFT is Present. LAB L100.2620 2.0-7.7 X10 3/uL Absolute Neut Normal 6.3 LAB L100.2720 0.83-4.51 X10 3/ul Low Absolute Lymph 0.60 LAB L100.4500 SMEAR COMMENT Normal SCAN LAB L100.7300 ANISO Normal 1+ LAB L100.7500 POLYCHROMASIA Normal 1+ LAB L100.7600 HYPOCHROMASIA Normal 1+ LAB L100.7700 MICROCYTES Normal 1+ Performed By: #### L100.0100 #### [facility] [address] [facility] [place], [place], [address] PHOSPHORUS Collected: 09/14/2018 Status: F Source: VAL[place] 5:40 AM [facility] REPOSITORY TYPE CODE TESTS RESULT OUT OF RANGE REFERENCE UNITS LAB L501.2300 2.5-4.9 mg/dL Normal PHOS 2.5 Performed By: #### L501.2300, L501.5200 #### [facility] [address] [facility] [place], [place], [address] MAGNESIUM Collected: 09/14/2018 Status: F Source: [place] 5:40 AM [facility] REPOSITORY TYPE CODE TESTS RESULT OUT OF RANGE REFERENCE UNITS LAB L501.5200 1.6-2.6 mg/dL Normal MG 2.0 Performed By: #### L501.2300, L501.5200 #### [facility] [address] [place], [address] CONSULTATION Observed: 09/13/2018 Status: F Source: [place] 10:01 AM [facility] REPOSITORY [facility] Medical Records Department [address] [place] [address] Consultation 09/13/18 0957 MR#: [id number] Acct: [id number] Name: NGA TABARES Rep #: [id number] : 1940 78 From: Mandeep Carter MD PCP: Shon GREENE,Milton Stephenson Status: ADM IN Y [id number] Problem List (1) Colonic diverticular abscess Status: Acute Reason for Consult Date of Consultation: 09/13/18 Reason for Consultation: Diverticulitis with abscess History of Present Illness: The patient is a 78 year old M with lower abdominal pain. The patient reports 3-4 days of lower abdominal pain especially with sitting up. He says the pain is in his lower pelvis and rectal area. He is also having some left lower quadrant pain. No nausea or vomiting. The pain is okay as long as he is laying down he says it is exacerbated by sitting on his behind. He says he has been having loose liquid bowel movements with chunks of hard stool. He he does not believe that he has ever had diverticulitis in the past. He thinks that he was scoped recently but this may not be the case. Past Medical History Past Medical History (Chronic Problems): Chronic Problems (Last Reviewed 07/08/18 @ 14:08 by Vicky Rojo) Chronic systolic CHF (congestive heart failure) (Chronic) History of prostate cancer in remission (Chronic) Hyperlipidemia (Chronic) Hypertension (Chronic) Left eye blindness (Chronic) Hypothyroidism (Chronic) Medical History: Medical History (Last Reviewed 07/08/18 @ 14:08 by Vicky Rojo) Afib I48.91 Blind left eye H54.40 CVA (cerebral vascular accident) I63.9 Heart failure with reduced ejection fraction I50.20 Hyperlipidemia E78.5 Hypothyroidism E03.9 HTN (hypertension) I10 Allergies latex Allergy (Verified 09/12/18 11:14) Rash Home Medications: Ambulatory Orders Medication Instructions Recorded Surgical History: Surgical History (Last Reviewed 07/08/18 @ 14:08 by Vicky Rojo) H/O detached retina repair Z98.890, Z86.69 Surgical History: - - Hernia repair, bilateral eye surgery for retinal detachment noted to be successful in the right, right foot surgery, tonsillectomy. Psychiatric History: No pertinent psych hx Lives: Alone Smoking Status: Former smoker Tobacco Use: Cigarettes Alcohol: None Drugs: None - *Family History Maternal History Items: - - Denies any marked maternal or paternal family history including HD, DM, CA. Paternal History Items: - - Denies any marked maternal or paternal family history including HD, DM, CA. Review of Systems Constitutional: Denies: Anorexia, Chills, Fever Eyes: Denies: Drainage HEENT: Denies: Difficulty Hearing Cardiovascular: Denies: Chest Pain Respiratory: Denies: Cough, Shortness of Breath Gastrointestinal: Reports: Abdominal Pain. Denies: Hematemesis, Hematochezia, Nausea, Vomiting Genitourinary: Denies: Dysuria Musculoskeletal: Denies: Joint Tenderness Skin: Denies: Dryness, Jaundice Neurological: Denies: Balance problems Psychiatric: Denies: Anxiety Hematologic/ Lymphatic: Denies: Anemia Patient Problems: Active and Suspected Problems (Last Reviewed 07/08/18 @ 14:08 by Vicky Rojo) Hypokalemia (Acute) Colonic diverticular abscess (Acute) - Physical Exam General: Alert, Cooperative, No apparent distress HEENT: Atraumatic, PERRLA, EOMI Neck: Supple, No JVD Lungs: Normal air movement Cardiovascular: Regular rate, Regular Rhythm Abdomen: Soft, Non-Distended, Tender - Tender in the left lower quadrant with no guarding or rebound Extremities: No clubbing Skin: No rashes Musculoskeletal: No Muscle Wasting Neurological: Cranial nerves II-XII grossly intact Psych/Mental Status: Normal Affect Vital Signs Temp Pulse Resp BP Pulse Ox 97.8 F 79 18 103/73 95 09/13/18 03:15 09/13/18 07:55 09/13/18 03:15 09/13/18 03:15 09/13/18 03:15 Oxygen Delivery Method Room Air Weight: 214 lb 1.102 oz Body Mass Index (BMI) 26.2 Finger Stick Blood Glucose 85 Intake and Output for Last 24 Hours Intake Total 254 / 254 865 / 865 Balance 254 / 254 865 / 865 Laboratory Tests Past 24 Hrs WBC 7.8 RBC 5.36 Hgb 13.1 Hct 42.1 MCV 78.5 L MCH 24.4 L MCHC 31.1 L RDW 23.4 H RDW Differential 66.8 H WBC 8.4 RBC 4.72 Hgb 11.6 L Hct 37.0 L MCV 78.4 L MCH 24.6 L MCHC 31.4 L RDW 22.4 H Clinical Impression(s) from Imaging Studies Abdomen/Pelvis CT 09/12/18 11:32 IMPRESSION: Sigmoid diverticulitis with peridiverticular abscess. Mild free fluid. No obstruction. Hiatal hernia. Multiple gallstones. No biliary dilatation. N.B. : The above information has been verbally conveyed by Sheldon Yan MD to Dr. Jasvir MD, on 09/12/2018 13:53:04 (ET). Electronically Signed: Sheldon Yan MD at 13:48 EST , Service support , ADDENDUM: 09/12/18 1401 Assessment/Plan All Active Problems (Last Reviewed 07/08/18 @ 14:08 by Vicky Rojo) Hypokalemia (Acute) Colonic diverticular abscess (Acute) Hypotension (Acute) FUNMI (acute kidney injury) (Acute) Dyspnea (Acute) Cellulitis superimposed acute tinea (Acute) Acute systolic heart failure exacerbatio (Acute) Acute blood loss anemia (Acute) 78-year-old male with diverticulitis with peridiverticular abscess 1. The patient appears to have diverticulitis on his CAT scan. The radiologist is calling a 3.5 cm abscess adjacent to the distal sigmoid colon. At this time I will keep the patient n.p.o. and placed on Cipro and Flagyl. The patient is having bowel movements. Once his pain subsides we can start a diet. I will repeat his CT scan to see if the abscess is shrinking in a few days. If it does not it may require percutaneous drain. 2. The patient believes that he had a colonoscopy 6 months ago but this may not be the case. He saw my partner in June for a possible scope with due to anemia and this was never done. At that time the patient's records show that he has not been scoped for a few years. Mandeep Carter MD Pager: [facility] [address] [place] [address] [address] [place], [address] [place] [address] Office: 09/13/18 100 <Electronically signed by Mandeep Carter MD> Date Mandeep Carter MD Cosigner Signature (if applicable): Date CC: Mandeep Carter MD; Milton Menendez MD Signed BASIC METABOLIC Collected: 09/13/2018 Status: F Source: [facility] PROFILE ([facility]) 6:00 AM [facility] REPOSITORY TYPE CODE TESTS RESULT OUT OF RANGE REFERENCE UNITS LAB L501.0100 74-106 mg/dL Normal GLU 94 Result Comment: Please note revised GLUCOSE reference range effective 2017. LAB L501.1000 7-18 mg/dL Normal BUN 11 LAB L501.1100 0.70-1.30 mg/dL Normal CREAT,SERUM 0.92 Result Comment: The validity of the calculated GFR AND GFRAA in patients over 70 years has not been determined. Clinical correlation is essential. LAB L501.1110 >60 mL/min Normal EST GFR 84 Result Comment: Non- GFR Calc LAB L501.1115 >60 mL/min Normal EST GFR - AA 102 Result Comment: GFR Calc LAB L501.1255 ml/min Normal Estimated CRCL 78.62 LAB L501.1300 10-20 RATIO Normal BUN/CRE 12.0 LAB L501.2200 8.5-10 mg/dL Low .1 CA 7.5 LAB L501.5300 136-14 mmol/L Normal 5 NA 142 LAB L501.5600 3.5-5. mmol/L Low 1 K 3.4 LAB L501.5900 98-107 mmol/L Normal CL 106 LAB L501.6100 21.0-3 mmol/L Normal 2.0 CO2 27.0 LAB L501.6200 5-15 Normal GAP 9 Performed By: #### L500.2500 #### [facility] [address] [place], [address] CBC W/DIFF, AUTOMATED Collected: 09/13/2018 Status: F Source: [place] 6:00 AM [facility] REPOSITORY TYPE CODE TESTS RESULT OUT OF RANGE REFERENCE UNITS LAB L100.1000 4.4-11.0 K/mm3 Normal WBC 8.4 LAB L100.1200 4.6-6.2 M/mm3 Normal RBC 4.72 LAB L100.1300 13.0-16.5 g/dl Low HGB 11.6 LAB L100.1400 40-54 % Low HCT 37.0 LAB L100.1500 80-94 fL Low MCV 78.4 LAB L100.1600 27.0-32.0 pg Low MCH 24.6 LAB L100.1700 32-36 g/gl Low MCHC 31.4 LAB L100.1810 11.6-14.6 % High RDW CV 22.4 LAB L100.1820 35.1-43.9 fl High RDW SD 64.4 LAB L100.1900 150-450 K/mm3 Normal PLT 150 LAB L100.2000 6.2-12.0 fl Normal MPV 9.6 LAB L100.2100 47-70 % High NEUT% 81.4 LAB L100.2200 19-41 % Low LY% 8.1 LAB L100.2300 0-10 % Normal MONO% 8.3 LAB L100.2400 0-5 % Normal EO% 2.0 LAB L100.2500 0-1 % Normal BASO% 0.1 LAB L100.2550 0.0-0.9 % Normal IM GRAN % 0.100 Result Comment: IG% - Immature Granulocytes (promyelocytes, myelocytes and metamyelocytes) > 1% indicates that a LEFT SHIFT is Present. LAB L100.2620 2.0-7.7 X10 3/uL Absolute Neut Normal 6.8 LAB L100.2720 0.83-4.51 X10 3/ul Low Absolute Lymph 0.68 LAB L100.5500 ADEQ PLT EST Normal ADEQUATE LAB L100.7300 ANISO Normal 1+ LAB L100.7600 HYPOCHROMASIA Normal 1+ Performed By: #### L100.0100 #### [facility] [address] [place], [address] EMERGENCY DEPARTMENT Observed: 09/12/2018 Status: F Source: [facility] SUMMARY 4:56 PM [facility] REPOSITORY [facility] Medical Records Department [address] [place] [address] Emergency Department Summary 09/12/18 1135 MR#: [id number] Acct: [id number] Name: NGA TABARES Rep #: [id number] : 1940 78 From: Eric Tay MD PCP: Shon GREENE,[facility] Status: ADM IN - ER Visit Summary Date of Service: 09/12/18 Chief Complaint: Bowel obstruction History of Present Illness: The patient is a 78 M here for possible bowel obstruction. He describes his symptoms as diffuse and intermittent abdominal pains with gas and small painful stools. He has pain when he sits upright and puts pressure on his anal area. He denies nausea or vomiting. Denies fevers. Denies urinary symptoms. Denies bleeding. He does take Eliquis among his other medications. He is a former smoker. History of prostate cancer. He had a colonoscopy remotely which was normal. Physical Examination: Afebrile and vital signs unremarkable. Patient is alert and oriented. No acute distress. Heart regular. Lungs clear. Abdomen soft and nontender. Rectal exam shows an external hemorrhoid, nonthrombosed, tender. No bleeding noted. No impaction or masses noted otherwise. Test Results: Laboratory studies and CAT scan pending. Emergency Department Course and Treatment: Treated with IV fluids. He declined pain medicine while he waits for results. Labs were all fairly unremarkable except his total bilirubin was 2.2. He had elevated bilirubins in the past. His urinalysis is pending. I spoke with radiology. Radiology was concerned for diverticular abscess in the sigmoid colon. I spoke with Dr. Carter who reviewed the imaging. He was not convinced this was a diverticular abscess, possibly a psoas abscess. Patient will be n.p.o. Will start on Cipro and Flagyl. Hospitalist will admit and monitor throughout the weekend. I am not sure if he will need surgery or interventional point. Treatment Plan: As above Disposition: Admission Impression: 1. Suspected diverticular abscess This note was generated with [employer] dictation software. It may contain incorrect words, spelling, and punctuation that were not noted in review of the chart prior to signing ED Disposition - Plan for ED Patient: Chief Complaint: Abd Pain Referrals: Milton Menendez Chi, MD [Primary Care Provider] - What to do if you have Problems For any increased pain, shortness of breath, bleeding, nausea or vomiting, chest pain, or any unexpected problems, contact your Primary Care Provider. Call [facility] ([phone]) or report to the closest Emergency Room. Call 911 if necessary. 09/12/18 1656 <Electronically signed by Eric Tay MD> Date Eric Tay MD Cosigner Signature (If Indicated): Date CC: Milton Menendez MD HISTORY AND PHYSICAL Observed: 09/12/2018 Status: F Source: [facility] EXAM 3:20 PM [facility] REPOSITORY [facility] Medical Records Department [address] [place] [address] History and Physical 09/12/18 1439 MR#: [id number] Acct: [id number] Name: NGA TABARES Rep #: [id number] : 1940 78 From: Kenyatta Cruz MD PCP: Milton Menendez MD, Chi Status: REG ER Y Location: ED Problem List (1) Hypokalemia Status: Acute (2) Hyperlipidemia Status: Chronic (3) Hypertension Status: Chronic (4) Hypothyroidism Status: Chronic (5) Colonic diverticular abscess Status: Acute History of Present Illness Date of Admission: 09/12/18 Chief Complaint: Abdominal pain, fecal urgency x 3 days The patient is a 78 year old M with past medical history of chronic atrial fibrillation, history of prostate cancer in remission, hyperlipidemia, chronic systolic CHF, history of retinal detachment with left eye blindness, hypothyroidism who was recently admitted and discharged for acute kidney injury, hypokalemia, orthostatic hypotension comes in with complains of abdominal pain, rectal pain. Patient states that since discharge, he has been in his usual state of health until 3 days ago when he noted abdominal cramping, worse on the left side, associated with fecal/rectal urgency/irritation. He had small multiple bowel movements some of which have been liquid. Admits to pain when he sits up. Denied any fever or chills or nausea or vomiting or urinary symptoms. In June he was in the hospital for iron deficiency anemia, was supposed to follow-up for colonoscopy. He saw Dr. Jay but did not come back for colonoscopy. He gives inconsistent history of when he last had colonoscopy with Dr. Terry. This time, he states he last had one 6 months ago. Vitals in the ED show temperature of 90 7F, heart rate 65, blood pressure 120/71, respiratory rate of 14, SPO2 of 98% on room air. His admitting blood work showed WBC count 7.8, hemoglobin 13.1, platelet count of 185. Sodium was 141, potassium 4.3, chloride 103, bicarbonate 29, BUN 19, creatinine 1.06 CT scan of the abdomen and pelvis shows sigmoid diverticulitis with peridiverticular abscess and mild free fluid, multiple gallstones Past Medical History Past Medical History (Chronic Problems): Chronic Problems (Last Reviewed 07/08/18 @ 14:08 by Vicky Rojo) Chronic systolic CHF (congestive heart failure) (Chronic) History of prostate cancer in remission (Chronic) Hyperlipidemia (Chronic) Hypertension (Chronic) Left eye blindness (Chronic) Hypothyroidism (Chronic) Medical History: Medical History (Last Reviewed 07/08/18 @ 14:08 by Vicky Rojo) Afib I48.91 Blind left eye H54.40 CVA (cerebral vascular accident) I63.9 Heart failure with reduced ejection fraction I50.20 Hyperlipidemia E78.5 Hypothyroidism E03.9 HTN (hypertension) I10 Allergies latex Allergy (Verified 09/12/18 11:14) Rash Home Medications: Ambulatory Orders Medication Instructions Recorded Surgical History: Surgical History (Last Reviewed 07/08/18 @ 14:08 by Vicky Rojo) H/O detached retina repair Z98.890, Z86.69 Surgical History: - - Hernia repair, bilateral eye surgery for retinal detachment noted to be successful in the right, right foot surgery, tonsillectomy. Psychiatric History: No pertinent psych hx Lives: Alone Smoking Status: Former smoker Tobacco Use: Cigarettes Alcohol: None Drugs: None - *Family History Maternal History Items: - - Denies any marked maternal or paternal family history including HD, DM, CA. Paternal History Items: - - Denies any marked maternal or paternal family history including HD, DM, CA. Review of Systems Constitutional: Denies: Anorexia, Chills, Fever, Weakness, Weight Change Eyes: Denies: Blurred vision, Cataracts, Conjunctivae Inflammation HEENT: Denies: Difficulty Hearing, Difficulty Swallowing, Head Aches, Hearing Changes, Sinus Congestion, Sinus Drainage Cardiovascular: Denies: Chest Pain, Claudication, Chest Tightness, Orthopnea, Palpitations, Paroxysmal Noc. Dyspnea Respiratory: Denies: Cough, Hemoptysis, Pleuritic Pain, Shortness of breath at rest, Shortness of breath upon exertion, Sputum production Gastrointestinal: Reports: Abdominal Pain. Denies: Hematemesis, Hematochezia, Nausea, Melena, Vomiting Genitourinary: Denies: Dysuria, Frequency, Incontinence Musculoskeletal: Denies: Joint Pain, Joint stiffness, Joint swelling, Joint Tenderness Skin: Denies: Rash, Wounds Neurological: Denies: Balance problems, Blurred vision, Difficulty swallowing, Focal weakness, Numbness, Tingling Psychiatric: Denies: Anxiety, Depression, Homicidal Ideations, Suicidal Ideations Hematologic/ Lymphatic: Denies: Easy Bruising, Easy Bleeding VTE Information - Inpt Only VTE Present on Admission: No VTE Pharm Prophylaxis ordered?: Yes Patient Problems: Active and Suspected Problems (Last Reviewed 07/08/18 @ 14:08 by Vicky Rojo) Hypokalemia (Acute) Colonic diverticular abscess (Acute) - Physical Exam General: Alert, Oriented x3, Cooperative, No apparent distress HEENT: Atraumatic, PERRLA, EOMI, Normocephalic Oral: Moist Mucosa Neck: Supple, No JVD, Negative Carotid Bruits Lungs: Clear to auscultation, Normal air movement Cardiovascular: Regular rate, Regular Rhythm, Normal S1, Normal S2, No murmurs Abdomen: Bowel Sounds Present, Soft, Non-Distended, No Hepato- splenomegaly, Tender - very mild left lower quadrant tenderness without guarding or RBT Extremities: No edema Skin: No rashes, No breakdown Musculoskeletal: No Tenderness to Palpation of Joints or Extremities Lymphatic: No Cervical, Supraclavicular, or Inguinal Adenopathy Neurological: Cranial nerves II-XII grossly intact Psych/Mental Status: Normal Affect, Appropriate Vital Signs Temp Pulse Resp BP Pulse Ox 97.5 F L 89 16 117/66 98 09/12/18 14:12 09/12/18 14:12 09/12/18 14:12 09/12/18 14:12 09/12/18 14:12 Oxygen Delivery Method Room Air Weight: 95.254 kg Body Mass Index (BMI) 25.5 Finger Stick Blood Glucose 85 Laboratory Tests Past 24 Hrs Assessment/Plan All Active Problems (Last Reviewed 07/08/18 @ 14:08 by Vicky Rojo) Hypokalemia (Acute) Colonic diverticular abscess (Acute) Hypotension (Acute) FUNMI (acute kidney injury) (Acute) Dyspnea (Acute) Cellulitis superimposed acute tinea (Acute) Acute systolic heart failure exacerbatio (Acute) Acute blood loss anemia (Acute) The patient is a 78 year old M with past medical history of chronic atrial fibrillation, history of prostate cancer in remission, hyperlipidemia, chronic systolic CHF, history of retinal detachment with left eye blindness, hypothyroidism who was recently admitted and discharged for acute kidney injury, hypokalemia, orthostatic hypotension comes in with complains of abdominal pain, rectal pain. 1. Acute sigmoid diverticulitis with?perventricular abscess/phlegmon, no fever or chills Plan: Admit to Medsurg floor, keep NPO, gentle IV fluids, IV Cipro, IV Flagyl, general surgery-Dr. Carter. 2. Hypertension, controlled, on metoprolol, sacubitril/valsartan, will monitor 3. Hyperlipidemia, on statin 4. Chronic atrial fibrillation, rate controlled, on beta-yesi, Eliquis 5. Hypothyroidism, on synthroid 6. Chronic systolic CHF, EF 20%, on entresto and Lasix, no signs of acute exacerbation, will monitor, strict I AND Os, daily weights 7. DVT PPx- On apixaban Code Visit Inpatient E AND M: 04802 Init Hosp L3 09/12/18 1520 <Electronically signed by Kenyatta Cruz MD> Date Kenyatta Cruz MD Cosigner Signature: Date (if applicable) CC: Kenyatta Cruz MD; Milton Menendez MD Signed URINALYSIS, COMPLETE Collected: 09/12/2018 Status: F Source: [facility] 2:15 PM [facility] REPOSITORY Order Comment: Order Date: 09/12/18 Has pt arrived? Y How was Urine Obtained? CLEAN CATCH TYPE CODE TESTS RESULT OUT OF RANGE REFERENCE UNITS LAB L400.3000 Yellow COLOR Normal Yellow LAB L400.3050 Clear Normal CLARITY Clear LAB L400.3200 Normal mg/dl Normal GLUCOSE, UR Normal LAB L400.3300 Negative mg/dL Normal BILIRUBIN URINE Negative LAB L400.3400 Negative mg/dl Normal KETONE UR Negative LAB L400.3465 1.002-1.030 Normal SP.GR. DIPSTX 1.015 LAB L400.3550 5.0 - 8.0 pH UR Normal 5.0 LAB L400.3600 Negative mg/dl High PROT 15 DIPSTX LAB L400.3700 Normal mg/dl Normal UROBILI Normal LAB L400.3750 Negative Normal NITRITE UR Negative LAB L400.3780 Negative /ul Normal OCCULT BLOOD-UR Negative LAB L400.3800 Negative /ul LEUK Normal ESTERASE Negative LAB L400.4050 0-5 /hpf WBC 0 Normal SEEN LAB L400.4100 0-5 /hpf 0 Normal RBC-UA SEEN LAB L400.4150 0-5 /hpf SQUAM Normal EPI 0-5 SEEN LAB L400.4300 None Seen /hpf 0 Normal BACTERIA SEEN LAB L400.4350 <or=2+ /hpf 0 Normal MUCUS, URINE SEEN Performed By: #### L400.0001 #### [facility] [address] [place], [place], [id number] CBC W/DIFF, AUTOMATED Collected: 09/12/2018 Status: F Source: [facility] 11:45 AM [facility] REPOSITORY TYPE CODE TESTS RESULT OUT OF RANGE REFERENCE UNITS LAB L100.1000 4.4-11.0 K/mm3 Normal WBC 7.8 LAB L100.1200 4.6-6.2 M/mm3 Normal RBC 5.36 LAB L100.1300 13.0-16.5 g/dl Normal HGB 13.1 LAB L100.1400 40-54 % Normal HCT 42.1 LAB L100.1500 80-94 fL Low MCV 78.5 LAB L100.1600 27.0-32.0 pg Low MCH 24.4 LAB L100.1700 32-36 g/gl Low MCHC 31.1 LAB L100.1810 11.6-14.6 % High RDW CV 23.4 LAB L100.1820 35.1-43.9 fl High RDW SD 66.8 LAB L100.1900 150-450 K/mm3 Normal PLT 185 LAB L100.2000 6.2-12.0 fl Normal MPV 10.3 LAB L100.2100 47-70 % High NEUT% 78.6 LAB L100.2200 19-41 % Low LY% 10.1 LAB L100.2300 0-10 % Normal MONO% 7.8 LAB L100.2400 0-5 % Normal EO% 3.3 LAB L100.2500 0-1 % Normal BASO% 0.1 LAB L100.2550 0.0-0.9 % Normal IM GRAN % 0.100 Result Comment: IG% - Immature Granulocytes (promyelocytes, myelocytes and metamyelocytes) > 1% indicates that a LEFT SHIFT is Present. LAB L100.2620 2.0-7.7 X10 3/uL Absolute Neut Normal 6.2 LAB L100.2720 0.83-4.51 X10 3/ul Low Absolute Lymph 0.79 LAB L100.5500 ADEQ PLT EST Normal ADEQUATE LAB L100.5650 PLT MORPH Normal LARGE LAB L100.7300 ANISO Normal 1+ LAB L100.7600 HYPOCHROMASIA Normal RARE LAB L100.8200 OVALOCYTE Normal 1+ LAB L100.8400 SCHISTOCYTES Normal RARE Performed By: #### L100.0100 #### [facility] [address] [place], [address] COMPREHENSIVE METABOLIC Collected: 09/12/2018 Status: F Source: [facility] 11:45 AM [facility] REPOSITORY TYPE CODE TESTS RESULT OUT OF RANGE REFERENCE UNITS LAB L501.0100 74-106 mg/dL Normal GLU 89 Result Comment: Please note revised GLUCOSE reference range effective 2017. LAB L501.1000 7-18 mg/dL Normal BUN 15 LAB L501.1100 0.70-1.30 mg/dL Normal CREAT,SERUM 1.06 Result Comment: The validity of the calculated GFR AND GFRAA in patients over 70 years has not been determined. Clinical correlation is essential. LAB L501.1110 >60 mL/min Normal EST GFR 71 Result Comment: Non- GFR Calc LAB L501.1115 >60 mL/min Normal EST GFR - AA 86 Result Comment: GFR Calc LAB L501.1255 ml/min Normal Estimated CRCL 68.24 LAB L501.1300 10-20 RATIO Normal BUN/CRE 14.2 LAB L501.1500 6.4-8. g/dL Normal 2 T PROT 6.9 LAB L501.1800 3.2-5. g/dL Normal 0 ALB 3.4 LAB L501.1950 2.2-4. g/dL Normal 2 GLOB 3.5 LAB L501.2000 0.9-2. RATIO Normal 4 A/G 1.0 LAB L501.2200 8.5-10 mg/dL Low .1 CA 8.1 LAB L501.4100 15-37 U/L Normal AST 18 LAB L501.4305 45-117 U/L Normal ALK P 69 LAB L501.4405 16-61 U/L Normal ALT 19 LAB L501.4600 0.20-1 mg/dL High .00 T BILI 2.20 LAB L501.5300 136-14 mmol/L Normal 5 NA 141 LAB L501.5600 3.5-5. mmol/L Low 1 K 3.4 LAB L501.5900 98-107 mmol/L Normal CL 103 LAB L501.6100 21.0-3 mmol/L Normal 2.0 CO2 29.0 LAB L501.6200 5-15 Normal GAP 9 Performed By: #### L500.4050, L501.2450 #### [facility] [address] [place], [address] LIPASE Collected: 09/12/2018 Status: F Source: [place] 11:45 AM [facility] REPOSITORY TYPE CODE TESTS RESULT OUT OF RANGE REFERENCE UNITS LAB L501.2450 73-393 U/L Normal LIPASE 192 Performed By: #### L500.4050, L501.2450 #### [facility] [address] [place], [address] ABDOMEN/PELVIS WITH Observed: 09/12/2018 Status: F Source: [facility] CONTRAST 11:33 AM [facility] REPOSITORY [facility] Imaging Services [address] [facility] [place] [place] [address] Abdomen/Pelvis WITH Contrast MR#: [id number] Acct: [id number] Name: NGA TABARES Rep #: [id number] : 1940 M 78 From: Sheldon Yan MD PCP: Shon GREENE,[facility] Status: REG ER Study: Abdomen/Pelvis WITH Contrast Date of Exam: 09/12/18 Exam# [id number] Ordering Dr: Eric Tay MD ADDENDUM by Sheldon Yan MD on 09/12/18 at 1354 ADDENDUM Results discussed with Dr. Tay. Electronically Signed: Sheldon Yan MD at 13:54 EST , Service support , N.B. : The above information has been verbally conveyed by Sheldon Yan MD to Dr. Jasvir MD, on 09/12/2018 13:53:04 (ET). 09/12/18 1354 Date cc: Eric Tay MD; Milton Menendez MD * Signed ADDENDUM by Sheldon Yna MD on 09/12/[address]/Abdomen/Pelvis WITH Contrast 09/12/18 1401 Date cc: Eric Tay MD; Milton Menendez MD * Signed STUDY: CT ABDOMEN AND PELVIS WITH CONTRAST REASON FOR EXAM: Male, 78 years old. Lower abdominal pain. History of prostate cancer. Recent C. difficile. RADIATION DOSAGE (If Supplied By Facility): CTDIvol = ( 26.31 ) mGy, DLP = ( 1228.59 ) mGycm TECHNIQUE: Transaxial images were obtained from the dome of the diaphragm to the symphysis pubis with oral contrast. 100 ml of Isovue 300 contrast was administered. Sagittal and coronal images were reconstructed. Individualized dose optimization techniques were used for this CT. COMPARISON: September 01, 2015 FINDINGS: The visualized lung bases are unremarkable. The visualized portions of the heart are within normal limits. Normal liver. There are multiple gallstones. Normal spleen. Normal pancreas. Normal bilateral adrenal glands. Normal right kidney. There are left renal cysts measuring up to 3.1 cm. There is a large hiatal hernia composed mostly of the fundus of the stomach. Normal small intestine. There is diverticulosis, with thickening of the sigmoid colon wall, and pericolonic inflammation changes consistent with acute diverticulitis. There is adjacent 3.5 cm air and fluid region adjacent to the wall of the distal sigmoid consistent with abscess, series 2 images 91/130 through 96/130. There is mild free fluid in the pelvis. The appendix is visualized and appears normal. There is diffuse atherosclerotic calcification of the abdominal aorta, without a demonstrated aneurysm. Normal inferior vena cava. Normal retroperitoneum. Normal urinary bladder. Seed implants at the prostate gland. Normal abdominal wall. There are diffuse degenerative changes of the visualized lumbar spine. There is stable iliopsoas bursitis on the left. CT/Abdomen/Pelvis WITH Contrast IMPRESSION: Sigmoid diverticulitis with peridiverticular abscess. Mild free fluid. No obstruction. Hiatal hernia. Multiple gallstones. No biliary dilatation. N.B. : The above information has been verbally conveyed by Sheldon Yan MD to Dr. Jasvir MD, on 09/12/2018 13:53:04 (ET). Electronically Signed: Sheldon Yan MD at 13:48 EST , Service support , CC: Eric Tay MD; Milton Menendez MD Field Sampling Technician: Signed BASIC METABOLIC Collected: 09/02/2018 Status: F Source: [facility] PROFILE ([facility]) 12:08 PM [facility] REPOSITORY TYPE CODE TESTS RESULT OUT OF RANGE REFERENCE UNITS LAB L501.0100 74-106 mg/dL Normal GLU 77 Result Comment: Please note revised GLUCOSE reference range effective 2017. LAB L501.1000 7-18 mg/dL High BUN 21 LAB L501.1100 0.70-1.30 mg/dL Normal CREAT,SERUM 1.20 Result Comment: The validity of the calculated GFR AND GFRAA in patients over 70 years has not been determined. Clinical correlation is essential. LAB L501.1110 >60 mL/min Normal EST GFR 62 Result Comment: Non- GFR Calc LAB L501.1115 >60 mL/min Normal EST GFR - AA 75 Result Comment: GFR Calc LAB L501.1300 10-20 RATIO Normal BUN/CRE 17.5 LAB L501.2200 8.5-10.1 mg/dL CA Normal 8.7 LAB L501.5300 136-145 mmol/L NA Normal 141 LAB L501.5600 3.5-5.1 mmol/L K Normal 4.3 LAB L501.5900 98-107 mmol/L CL Normal 104 LAB L501.6100 21.0-32.0 mmol/L Normal CO2 30.0 LAB L501.6200 5-15 Normal GAP 7 Performed By: #### L500.2500 #### [facility] [address] [place], [address] CBC W/DIFF, AUTOMATED Collected: 09/02/2018 Status: F Source: [place] 12:08 PM [facility] REPOSITORY TYPE CODE TESTS RESULT OUT OF RANGE REFERENCE UNITS LAB L100.1000 4.4-11.0 K/mm3 Normal WBC 7.0 LAB L100.1200 4.6-6.2 M/mm3 Normal RBC 5.47 LAB L100.1300 13.0-16.5 g/dl Normal HGB 13.1 LAB L100.1400 40-54 % Normal HCT 42.6 LAB L100.1500 80-94 fL Low MCV 77.9 LAB L100.1600 27.0-32.0 pg Low MCH 23.9 LAB L100.1700 32-36 g/gl Low MCHC 30.8 LAB L100.1810 11.6-14.6 % High RDW CV 23.7 LAB L100.1820 35.1-43.9 fl High RDW SD 65.6 LAB L100.1900 150-450 K/mm3 Normal PLT 199 LAB L100.2000 6.2-12.0 fl Normal MPV 9.9 LAB L100.2100 47-70 % High NEUT% 73.6 LAB L100.2200 19-41 % Low LY% 15.7 LAB L100.2300 0-10 % Normal MONO% 6.6 LAB L100.2400 0-5 % Normal EO% 3.6 LAB L100.2500 0-1 % Normal BASO% 0.4 LAB L100.2550 0.0-0.9 % Normal IM GRAN % 0.100 Result Comment: IG% - Immature Granulocytes (promyelocytes, myelocytes and metamyelocytes) > 1% indicates that a LEFT SHIFT is Present. LAB L100.2620 2.0-7.7 X10 3/uL Absolute Neut Normal 5.1 LAB L100.2720 0.83-4.51 X10 3/ul Absolute Lymph Normal 1.09 LAB L100.5500 ADEQ PLT EST Normal ADEQUATE LAB L100.7300 ANISO Normal 1+ LAB L100.7600 HYPOCHROMASIA Normal RARE LAB L100.7700 MICROCYTES Normal 1+ Performed By: #### L100.0100 #### [facility] [address] [place], [address] 12 LEAD ELECTROCARDIOGRAM Observed: 08/28/2018 Status: F Source: [facility] 9:24 AM [facility] REPOSITORY [facility] Cardiovascular Services [address] [place] [address] 12 Lead EKG 08/22/18 0541 MR#: [id number] Acct: [id number] Name: NGA TABARES Rep #: [id number] : 1940 78 From: Karlos Guaman MD Attending Dr: Christian Zapata MD Status: DIS IN Ordering Dr: Autumn Vasques Date: 08/22/18 Location: [facility] Sex: M C Admitted: 08/21/18 Test Reason : AM EKG Blood Pressure : / mmHG Vent. Rate : 078 BPM Atrial Rate : 122 BPM P-R Int : 000 ms QRS Dur : 128 ms QT Int : 422 ms P-R-T Axes : 000 021 166 degrees QTc Int : 481 ms Atrial fibrillation with premature ventricular or aberrantly conducted complexes Non-specific intra-ventricular conduction block T wave abnormality, consider lateral ischemia Abnormal ECG When compared with ECG of 30-JUN-2018 13:03, Nonspecific T wave abnormality now evident in Inferior leads T wave inversion now evident in Anterior leads Confirmed by KARLOS GUAMAN MD ([id number]), clinical editor LEDY BUCHANAN ([id number]) on 08/25/2018 4:08:59 PM Referred By: PACO Confirmed By:KARLOS GUAMAN MD 08/25/18 1609 Date Karlos Guaman MD CC: Autumn Vasques; Christian Zapata MD; Milton Menendez MD Signed 12 LEAD ELECTROCARDIOGRAM Observed: 08/28/2018 Status: F Source: [place] 9:22 AM [facility] REPOSITORY [facility] Cardiovascular Services [address] [place] [address] 12 Lead EKG 08/21/18 1903 MR#: [id number] Acct: [id number] Name: NGA TABARES Rep #: [id number] : 1940 78 From: Karlos Guaman MD Attending Dr: Christian Zapata MD Status: DIS IN Ordering Dr: Sasha Hodge MD Date: 08/21/18 Location: [facility] Sex: M C Admitted: 08/21/18 Test Reason : DIZZINESS Blood Pressure : / mmHG Vent. Rate : 069 BPM Atrial Rate : 069 BPM P-R Int : 000 ms QRS Dur : 124 ms QT Int : 410 ms P-R-T Axes : 000 006 139 degrees QTc Int : 439 ms Atrial fibrillation with premature ventricular or aberrantly conducted complexes Non-specific intra-ventricular conduction delay T wave abnormality, consider lateral ischemia Abnormal ECG Confirmed by YOAN GREENE, KARLOS ([id number]), clinical editor LEDY BUCHANAN ([id number]) on 08/24/2018 10:56:59 AM Referred By: KELLEN Confirmed By:KARLOS GUAMAN MD 08/24/18 1057 Date Karlos Guaman MD CC: Sasha Hodge MD; Christian Zapata MD; Milton Menendez MD Signed DISCHARGE SUMMARY Observed: 08/22/2018 Status: F Source: [place] 1:29 PM [facility] REPOSITORY [facility] Medical Records Department [address] [facility] [place] [address] Discharge Summary 08/22/18 1243 MR#: [id number] Acct: [id number] Name: NGA TABARES Junaid Rep #: [id number] : 1940 78 From: Margarette PATEL PCP: Shon GREENE,Milton Stephenson Status: ADM IN Y [id number] <Margarette Medina - Last Filed: 08/22/18 13:00> Discharge Date and Diagnosis Date of Admission: 08/21/18 Date of Discharge: 08/22/18 - Primary Discharge Diagnosis Active and Suspected Problems (Last Reviewed 07/08/18 @ 14:08 by Vicky Rojo) 1. Acute kidney injury secondary to diuretic regimen 2. Orthostatic hypotension secondary to hypovolemia as a result of #1 3. Mild hypokalemia 4. Mild gastroenteritis, resolved - Secondary Discharge Diagnosis Chronic Problems (Last Reviewed 07/08/18 @ 14:08 by Vicky Rojo) Chronic systolic CHF (congestive heart failure) (Chronic) History of prostate cancer in remission (Chronic) Hyperlipidemia (Chronic) Hypertension (Chronic) Left eye blindness (Chronic) Hypothyroidism (Chronic) Hospital Course and Treatment Imaging Results: Diagnostic Data Chest X-Ray 08/21/18 18:50 IMPRESSION: Moderate hiatal hernia unchanged. No acute disease. Electronically Signed: Adan Cosme MD at 20:40 EST , Service support , Operations: None Procedures: None Summary of Care Provided: The patient is a 78 year old M admitted 08/21/2018 due to lightheadedness and low blood pressure. He has a past medical history of chronic atrial fibrillation, hypertension, hyperlipidemia, chronic systolic CHF, iron deficiency anemia, history of CVA, history of retinal detachment with left eye blindness, history of prostate cancer, hypothyroidism. Patient was found to have acute kidney injury and positive orthostatic vitals on admission. Patient states he has been on a strict fluid restriction the past few weeks. His primary care physician also recently increased Lasix from 40 mg daily to 80 mg twice a daily 08/05/2018 with addition of metolazone 2.5 mg at that time as well. Echocardiogram 07/10/2018 with EF 20%, mean aortic valve gradient 35 mmHg. Patient received gentle IV fluids with improvement in creatinine from 1.7 to 1.3. His repeat orthostatic vitals were negative. Patient denies further dizziness, lightheadedness. He reported loose stools prior to admission. Denies further loose stools or diarrhea since admission. Home Lasix regimen decreased to 40 mg twice daily at discharge. Metolazone discontinued. Patient is also on both Accuretic and Entresto. Discontinue Accuretic as this is a contraindication together with Entresto. Feel patients presenting FUNMI and hypotension are due to hypovolemia as a result of diuretic regimen. Recommend repeat BMP in 1 week. Follow-up with primary care physician in 1 week. Chronic medical conditions as noted above are stable at this time. Physical Examination: General: awake, alert, oriented x 3 and cooperative Skin: normal color, turgor, no icterus, cyanosis except occasional extremity various staged ecchymoses. HEENT: Blind L eye, PRRLA R eye, no carotid bruits or JVD noted. Lungs: Clear to auscultation Heart: Atrial fibrillation, rate controlled. Murmur. Abdomen: Soft, nontender, normal bowel sounds Extremities: no cyanosis, clubbing, or edema. Neurological: Neuro grossly intact. Psychiatric: Normal affect. Patient seen and examined prior to discharge. Physical assessment as noted above. Patient stable for discharge home with a follow-up of her conditions as noted above. This patient was seen by AMANDA Davis under the supervision of Dr. Zapata. - Physical Exam Vital Signs Temp Pulse Resp BP Pulse Ox 97.7 F L 77 16 95/60 95 08/22/18 10:05 08/22/18 12:28 08/22/18 10:05 08/22/18 12:28 08/22/18 10:05 Oxygen Delivery Method Room Air Weight: 203 lb 14.841 oz Body Mass Index (BMI) 24.8 Finger Stick Blood Glucose 85 Orthostatic Vital Signs Start: 08/21/18 22:40 Freq: q24h Status: Active Protocol: Activity Type Activity Date Activity User E-Sign Co-Sign Detail Recorded Client Recorded Date Recorded By Document 08/22/18 12:28 COMMERCIAL OCEAN CLAMMER [id number] 08/22/18 12:32 COMM[employer]CIAL OCEAN CL[employer]MER Orthostatic Vitals Standing -Blood Pressure (90/60-120/80) 96/60 -Extremity Use Right Arm -Pulse Rate (60-100) 85 Sitting Intake and Output for Last 24 Hours Intake Total 2277 / 2277 Balance 2277 / 2277 Microbiology Past 72 Hours 08/21/18 18:30 Stool Occult Blood (HERMINIA) - Final Stool Laboratory Tests Past 24 Hrs WBC 9.1 RBC 5.65 Hgb 13.4 Hct 42.3 MCV 74.9 L WBC RBC Hgb Hct MCV MCH MCHC RDW WBC 7.1 RBC 5.65 Discharge Diet: Low fat/ Low Cholesterol Discharge Activity: Return to Normal Activity Call your doctor if you observe: Shortness of breath, Dizziness, Fainting spells, Chest pain Home Medications: Medications to take at Discharge Levothyroxine [Synthroid] 25 mcg PO 0600 03/19/14 Metoprolol Tartrate [Lopressor (beta yesi)] 12.5 mg PO BID #60 tab 03/22/14 Ascorbic Acid [Vitamin C] 500 mg PO DAILY@0800 07/28/16 Cyanocobalamin (Vitamin B-12) [Vitamin B-12] 1,000 mcg PO DAILY 07/28/16 Multivitamins,Therapeutic [Multivitamin] 1 tab PO DAILY 07/28/16 Vitamin E 400 unit PO DAILY 07/28/16 Atorvastatin Calcium [Lipitor] 20 mg PO QHS 06/30/18 Ergocalciferol [Vitamin D] 50,000 unit PO QMONTH 06/30/18 Latanoprost 0.005% [Xalatan Opthalmic] 1 drp RIGHT EYE QHS 06/30/18 Lutein 1 tab PO DAILY 06/30/18 prednisoLONE eye drops (5 mL) [Pred Forte eye drops (5 mL)] 1 drp LEFT EYE QHS 06/30/18 Ferrous Sulfate 325 mg PO 1200,1700 #30 tab 07/01/18 Apixaban [Eliquis] 5 mg PO BID 08/21/18 Potassium Chloride [Klor-Con M20] 20 meq PO DAILY 08/21/18 Sacubitril/Valsartan 97-103 mg [Entresto 97 mg-103 mg Tablet] 1 tab PO BID 08/21/18 Furosemide [Lasix] 40 mg PO BID #0 08/22/18 Primary Care Physician: Milton Menendez Chi, MD [Primary Care Provider] - Please follow up with your Primary Care Physician in: 1 Week Disposition: Home Minutes spent on discharge:: 35 Patient Condition:: Stable Medical Necessity - Tobacco Use Smoking Status: Former smoker - 1 cigar daily x 5 years, quit 20 years prior to current presentation. Tobacco Use: Cigars Meaningful Use Info Meaningful Use Diagnoses (Choose all that apply): None applicable <Christian Zapata - Last Filed: 08/22/18 13:28> Discharge Date and Diagnosis - Secondary Discharge Diagnosis Chronic Problems (Last Reviewed 07/08/18 @ 14:08 by Vicky Rojo) Chronic systolic CHF (congestive heart failure) (Chronic) History of prostate cancer in remission (Chronic) Hyperlipidemia (Chronic) Hypertension (Chronic) Left eye blindness (Chronic) Hypothyroidism (Chronic) Hospital Course and Treatment Summary of Care Provided: This patient was seen in conjunction with AMANDA Davis . I have independently interviewed and examined the patient and reviewed pertinent historical, laboratory, and other data. Please refer to AMANDA Davis note for details of this patient's presentation, findings, and recommendations. I have reviewed AMANDA Davis note and concur with documented findings. In brief, patient is a 78-year-old male admitted with lightheadedness. Patient was found to be orthostatic with impaired kidney function. Admitted to a monitored bed for further management Hospital course: As elicited above by Margarette Medina LAW LIBRARIAN - Physical Exam Vital Signs Temp Pulse Resp BP Pulse Ox 97.7 F L 77 16 95/60 95 08/22/18 10:05 08/22/18 12:28 08/22/18 10:05 08/22/18 12:28 08/22/18 11:15 Oxygen Delivery Method Room Air Weight: 92.5 kg Body Mass Index (BMI) 24.8 Finger Stick Blood Glucose 85 Orthostatic Vital Signs Start: 08/21/18 22:40 Freq: q24h Status: Active Protocol: Activity Type Activity Date Activity User E-Sign Co-Sign Detail Recorded Client Recorded Date Recorded By Document 08/22/18 12:28 [employer]MER [id number] 08/22/18 12:32 COMM[employer]CE[employer]MER Orthostatic Vitals Standing -Blood Pressure (90/60-120/80) 96/60 -Extremity Use Right Arm -Pulse Rate (60-100) 85 Sitting Intake and Output for Last 24 Hours Intake Total 2277 / 2277 Balance 2277 / 2277 Microbiology Past 72 Hours 08/21/18 18:30 Stool Occult Blood (HERMINIA) - Final Stool Laboratory Tests Past 24 Hrs WBC 9.1 RBC 5.65 Hgb 13.4 Hct 42.3 MCV 74.9 L WBC RBC Hgb Hct MCV MCH MCHC RDW WBC 7.1 RBC 5.65 Code Visit OBSV E AND M: [id number] Observation care discharge 08/22/18 1301 <Electronically signed by Margarette ESPINALC> Date Margarette PATEL 08/22/18 1329<Electronically signed by Christian Zapata MD> Cosigner Signature (if applicable): Date Christian Zapata MD CC: AMANDA Medina; Christian Zapata MD; Milton Menendez MD Signed DISCHARGE INSTRUCTION Observed: 08/22/2018 Status: F Source: [place] 12:55 PM [facility] REPOSITORY [facility] Medical Records Department [address] [place] [address] Instructions for Home/Discharge Instructions 08/22/18 1152 MR#: [id number] Acct: [id number] Name: NGA TABARES Rep #: [id number] : 1940 78 From: Margarette PATEL PCP: Milton Menendez MD, Chi Status: ADM IN ADDENDUM by AMANDA Medina on 08/22/18 at 1255 Additional change to home medication regimen: DISCONTINUE home Accuretic regimen. 08/22/18 1255 Date Margarette Medina cc: Milton Menendez MD * Signed - Discharge Diagnoses Current Active Problems: Current Active and Chronic Problems (Last Reviewed 07/08/18 @ 14:08 by Vicky Rojo) Hypotension (Acute) FUNMI (acute kidney injury) (Acute) Chronic systolic CHF (congestive heart failure) (Chronic) You will use the following diet at home:: Cardiac Discharge Activity: Return to Normal Activity Call your doctor if you observe: Shortness of breath, Dizziness, Fainting spells, Chest pain Additional Instructions: Your lasix regimen was decreased to 40mg twice daily and metolazone was discontinued. Recommend BMP by primary care at follow up in 1 week to assess kidney function. Allergies/Adverse Reactions: Allergies latex Allergy (Verified 07/08/18 14:09) Rash Medications to take at Discharge Levothyroxine [Synthroid] 25 mcg PO 0600 03/19/14 Metoprolol Tartrate [Lopressor (beta yesi)] 12.5 mg PO BID #60 tab 03/22/14 Ascorbic Acid [Vitamin C] 500 mg PO DAILY@0800 07/28/16 Cyanocobalamin (Vitamin B-12) [Vitamin B-12] 1,000 mcg PO DAILY 07/28/16 Multivitamins,Therapeutic [Multivitamin] 1 tab PO DAILY 07/28/16 Vitamin E 400 unit PO DAILY 07/28/16 Atorvastatin Calcium [Lipitor] 20 mg PO QHS 06/30/18 Ergocalciferol [Vitamin D] 50,000 unit PO QMONTH 06/30/18 Latanoprost 0.005% [Xalatan Opthalmic] 1 drp RIGHT EYE QHS 06/30/18 Lutein 1 tab PO DAILY 06/30/18 Quinapril/Hydrochlorothiazide [Accuretic 20-12.5 MG Tablet] 1 tab PO DAILY 06/30/18 prednisoLONE eye drops (5 mL) [Pred Forte eye drops (5 mL)] 1 drp LEFT EYE QHS 06/30/18 Ferrous Sulfate 325 mg PO 1200,1700 #30 tab 07/01/18 Apixaban [Eliquis] 5 mg PO BID 08/21/18 Potassium Chloride [Klor-Con M20] 20 meq PO DAILY 08/21/18 Sacubitril/Valsartan 97-103 mg [Entresto 97 mg-103 mg Tablet] 1 tab PO BID 08/21/18 Furosemide [Lasix] 40 mg PO BID #0 08/22/18 Primary Care Physician: Milton Menendez Chi, MD [Primary Care Provider] - Please follow up with your Primary Care Physician in: 1 Week Test Results: Test results from this visit will be discussed in further detail at your follow-up appointment, if applicable. Proposed Discharge Date: 08/22/18 08/22/18 1154 <Electronically signed by Margarette PATEL> Date Margarette PATEL CC: Milton Menendez MD CBC-COMPLETE BLOOD CNT Collected: 08/22/2018 Status: F Source: [place] NO DIFF 10:15 AM [facility] REPOSITORY TYPE CODE TESTS RESULT OUT OF RANGE REFERENCE UNITS LAB L100.1000 4.4-11.0 K/mm3 Normal WBC 7.1 LAB L100.1200 4.6-6.2 M/mm3 Normal RBC 5.65 LAB L100.1300 13.0-16.5 g/dl Normal HGB 13.3 LAB L100.1400 40-54 % Normal HCT 43.1 LAB L100.1500 80-94 fL Low MCV 76.3 LAB L100.1600 27.0-32.0 pg Low MCH 23.5 LAB L100.1700 32-36 g/gl Low MCHC 30.9 LAB L100.1810 11.6-14.6 % High RDW CV 23.8 LAB L100.1820 35.1-43.9 fl High RDW SD 64.3 LAB L100.1900 150-450 K/mm3 Normal PLT 235 LAB L100.2000 6.2-12.0 fl Normal MPV 9.7 Performed By: #### L100.0500, L100.4500 #### [facility] [address] [facility] [facility] [place], [place], [address] DIFFERENTIAL COMMENT Collected: 08/22/2018 Status: F Source: [place] 10:15 AM [facility] REPOSITORY TYPE CODE TESTS RESULT OUT OF RANGE REFERENCE UNITS LAB L100.4500 Normal SMEAR COMMENT SCANNED Result Comment: 1+ ANISOCYTOSIS RARE SCHISTOCYTES Performed By: #### L100.0500, L100.4500 #### [facility] [address] [place], [address] BASIC METABOLIC Collected: 08/22/2018 Status: F Source: [place] PROFILE (BMP) 10:15 AM [facility] REPOSITORY TYPE CODE TESTS RESULT OUT OF RANGE REFERENCE UNITS LAB L501.0100 74-106 mg/dL High GLU 111 Result Comment: Fasting Glucose result from 100 to 125 mg/dL suggests IMPAIRED HOMEOSTASIS per A.D.A. criteria. Please note revised GLUCOSE reference range effective 2017. LAB L501.1000 7-18 mg/dL High BUN 42 LAB L501.1100 0.70-1.30 mg/dL High CREAT,SERUM 1.39 Result Comment: The validity of the calculated GFR AND GFRAA in patients over 70 years has not been determined. Clinical correlation is essential. LAB L501.1110 >60 mL/min Low EST GFR 52 Result Comment: Non- GFR Calc LAB L501.1115 >60 mL/min Normal EST GFR - AA 63 Result Comment: GFR Calc LAB L501.1255 ml/min Normal Estimated CRCL 52.04 LAB L501.1300 10-20 RATIO High BUN/CRE 30.2 LAB L501.2200 8.5-10 mg/dL Normal .1 CA 8.5 LAB L501.5300 136-14 mmol/L Normal 5 NA 139 LAB L501.5600 3.5-5. mmol/L Low 1 K 3.4 LAB L501.5900 98-107 mmol/L Normal CL 100 LAB L501.6100 21.0-3 mmol/L Normal 2.0 CO2 29.0 LAB L501.6200 5-15 Normal GAP 10 Performed By: #### L500.2500, L501.5200 #### [facility] [address] [place], [address] MAGNESIUM Collected: 08/22/2018 Status: F Source: [place] 10:15 AM [facility] REPOSITORY TYPE CODE TESTS RESULT OUT OF RANGE REFERENCE UNITS LAB L501.5200 1.6-2.6 mg/dL Normal MG 2.4 Performed By: #### L500.2500, L501.5200 #### [facility] [address] [place], [address] HISTORY AND PHYSICAL Observed: 08/22/2018 Status: F Source: [place] EXAM 1:27 AM [facility] REPOSITORY [facility] Medical Records Department [address] [place] [id number] History and Physical 08/21/182114 MR#: [id number] Acct: [id number] Name: NGA TABARES Junaid Rep #: [id number] : 1940 78 From: Autumn Vasques PCP: Shon GREENE,Milton Chi Status: ADM IN Y Location: [place] [address] Problem List (1) Hypotension Status: Acute Qualifiers: Hypotension type: unspecified hypotension type Qualified Code(s): I95.9 - Hypotension, unspecified (2) FUNMI (acute kidney injury) Status: Acute (3) Chronic systolic CHF (congestive heart failure) Status: Chronic (4) History of prostate cancer in remission Status: Chronic (5) Hyperlipidemia Status: Chronic (6) Hypertension Status: Chronic (7) Left eye blindness Status: Chronic (8) Hypothyroidism Status: Chronic History of Present Illness Date of Admission: 08/21/18 Chief Complaint: Lightheadedness, dizziness, low BP The patient is a 78 y/o M w/ PMHx: Chronic AF, HTN, HLD, Systolic CHF, Iron Deficiency Anemia, History of CVA, History of Retinal Detachment w/ L Eye Blindness, History of Prostate CA, Hypothyroidism who presents to the [facility] ED on 08/21/18 with history of ongoing debility, weakness, lightheadedness and dizziness primarily in the AM following his home medications, suspect some BP regimen although notes recently had some BP regimen discontinued secondary to noted low BPs per his PCP but notes also started following addition of oral K+ supplementation w/ concurrent onset over the last several days loose frequent stools without marked abdominal discomfort but some cramping w/ BM, no nausea, emesis associated. He was evaluated on day of ED presentation per home health and had noted BP 68/50 and noted he had been feeling especially with seated to standing position changes in the AM like he would possibly pass out. He notes that these symptoms would feel better after 3 hours but recurred after taking his AM medications. In the ED workup included T 97.4, heart rate 69, BP initially 100/57 with then noted positive orthostatic vital signs decreasing to 73/56, respiratory rate 16, 96% on room air with improved BP following IV hydration with BP 104/42 upon transition from ED, CBC with WBC 9.1, hemoglobin 13.4, platelet 254 without market shift, BMP with sodium 132, chloride 96, BUN/creatinine 46/1.79 with prior baseline creatinine noted 0.9-1.1, lactic acid 1.5, troponin < 0.015, EKG without acute evidence of ischemia, UA not marked appearing aside mildly elevated SG, chest x-ray with moderate hiatal hernia otherwise no acute process noted. The ED patient administered normal saline. Past Medical History Past Medical History (Chronic Problems): Chronic Problems (Last Reviewed 07/08/18 @ 14:08 by Vicky Rojo) Chronic systolic CHF (congestive heart failure) (Chronic) History of prostate cancer in remission (Chronic) Hyperlipidemia (Chronic) Hypertension (Chronic) Left eye blindness (Chronic) Hypothyroidism (Chronic) Medical History: Medical History (Last Reviewed 07/08/18 @ 14:08 by Vicky Rojo) Afib I48.91 Blind left eye H54.40 CVA (cerebral vascular accident) I63.9 Heart failure with reduced ejection fraction I50.20 Hyperlipidemia E78.5 Hypothyroidism E03.9 HTN (hypertension) I10 Allergies latex Allergy (Verified 07/08/18 14:09) Rash Home Medications: Ambulatory Orders Medication Instructions Recorded Levothyroxine [Synthroid] 25 mcg PO 0600 03/19/14 Metoprolol Tartrate [Lopressor 12.5 mg PO BID #60 tab 03/22/14 (beta yesi)] Surgical History: Surgical History (Last Reviewed 07/08/18 @ 14:08 by Vicky Rojo) H/O detached retina repair Z98.890, Z86.69 Surgical History: - - Hernia repair, bilateral eye surgery for retinal detachment noted to be successful in the right, right foot surgery, tonsillectomy. Psychiatric History: No pertinent psych hx Lives: Alone Smoking Status: Former smoker - 1 cigar daily x 5 years, quit 20 years prior to current presentation. Tobacco Use: Cigars Alcohol: None Drugs: None - *Family History Maternal History Items: - - Denies any marked maternal or paternal family history including HD, DM, CA. Paternal History Items: - - Denies any marked maternal or paternal family history including HD, DM, CA. Review of Systems Constitutional: Reports: Malaise, Weakness, Fatigue. Denies: Chills, Fever, Weight Change HEENT: Denies: Head Aches, Sinus Congestion, Sinus Drainage Cardiovascular: Reports: Light Headedness, Syncope - Near syncopal sensation.. Denies: Chest Pain, Palpitations Respiratory: Denies: Cough, Shortness of breath at rest, Sputum production Gastrointestinal: Reports: Abdominal Pain - Abdominal cramping w/ BM., Diarrhea. Denies: Nausea, Vomiting Genitourinary: Denies: Dysuria Musculoskeletal: Denies: Joint Pain, Joint Tenderness Skin: Denies: Rash, Wounds Neurological: Denies: Numbness, Tingling, Focal weakness Psychiatric: Denies: Anxiety, Depression, Homicidal Ideations, Suicidal Ideations Hematologic/ Lymphatic: Reports: Anemia, Easy Bruising, Easy Bleeding VTE Information - Inpt Only VTE Present on Admission: No VTE Mechan Device Prophylaxis: SCD's VTE Pharm Prophylaxis ordered?: No Reason prophylaxis not ordered:: Treatment Not Indicated - on eliquis. Patient Problems: Active and Suspected Problems (Last Reviewed 07/08/18 @ 14:08 by Vicky Rojo) Hypotension (Acute) FUNMI (acute kidney injury) (Acute) Subjective: Seated upright in the ED bed, NAD, notes currently feeling mildly improved. Objective: Physical Examination: General: awake, alert, oriented x 3 and cooperative, seated upright in the ED bed in no apparent distress. Skin: normal color, turgor, no icterus, cyanosis except occasional extremity various staged ecchymoses. HEENT: AT/NC, EOMI R eye, Blind L eye, PRRLA R eye, moderately dry MM, no carotid bruits or JVD noted. Lungs: CTA bilaterally, moderate effort, mild decrease BL bases, no rales, ronchi or wheezing. Heart: Regular rate and irrhythm; no gallop, rub audible. Abdomen: soft, NTTP, ND, mildly hyperactive BS, no HSM. Extremities: no cyanosis, clubbing, or edema. Neurological: patient awake, alert, oriented x 3; cognitive function intact; pupils equally reactive to light and accomodation; cranial nerves grossly normal aside blind L eye secondary to rental detachment, moving all 4 extremities, no focal deficits, strength moderately globally decreased secondary to acute presentation. Psychiatric: affect appears normal, no acute evidence of depressive or anxiety feelings. - Physical Exam Vital Signs Temp Pulse Resp BP Pulse Ox 96.4 F L 72 17 93/74 96 08/21/18 18:16 08/21/18 20:15 08/21/18 20:15 08/21/18 20:15 08/21/18 20:15 Oxygen Delivery Method Room Air Weight: 216 lb 11.43 oz Body Mass Index (BMI) 26.4 Finger Stick Blood Glucose 85 Microbiology Past 72 Hours 08/21/18 18:30 Stool Occult Blood (HERMINIA) - Final Stool Laboratory Tests Past 24 Hrs WBC 9.1 RBC 5.65 Hgb 13.4 WBC RBC Hgb Hct MCV MCH MCHC Assessment/Plan All Active Problems (Last Reviewed 07/08/18 @ 14:08 by Vicky Rojo) Hypotension (Acute) FUNMI (acute kidney injury) (Acute) Dyspnea (Acute) Cellulitis superimposed acute tinea (Acute) Acute systolic heart failure exacerbatio (Acute) Acute blood loss anemia (Acute) The patient is a 78 y/o M w/ PMHx: Chronic AF, HTN, HLD, Systolic CHF, Iron Deficiency Anemia, History of CVA, History of Retinal Detachment w/ L Eye Blindness, History of Prostate CA, Hypothyroidism who presents to the [facility] ED on 08/21/18 with history of ongoing debility, weakness, lightheadedness and dizziness primarily in the AM following his home medications, suspect some BP regimen although notes recently had some BP regimen discontinued secondary to noted low BPs per his PCP but notes also started following addition of oral K+ supplementation w/ concurrent onset over the last several days loose frequent stools without marked abdominal discomfort but some cramping w/ BM, no nausea, emesis associated. (1) Acute kidney injury: Secondary to parameters of intake, nephrotoxic regimen and concurrently loose stools w/ GI losses. Admission BUN/Cr 46/1.79, prior baseline creatinine noted to be 0.9-1.1. Will hydrate, hold nephrotoxic medications and repeat chemistry in AM. If no improvement would plan FeNa assessment and renal US. (2) Loose Frequent Stools, ? Viral Gastroenteritis: Will continue will obtain c diff, stool cx. Will not start antibiotics at this time given unclear source pending stool studies as may be viral gastroenteritis. Anti-emetics and pain regimen PRN. (3) Lightheadedness, Dizziness, Orthostatic: Secondary to hypotension w/ suspected hypotension and continued usage of home BP regimen, likely primarily in the AM corresponding to his timeline of onset of symptoms and worsened symptoms, continue BP regime hold, IVFs, fall precautions as noted. (4) Systolic CHF, Chronic: We will maintain on Eliquis, statin, holding Lasix, metolazone, metoprolol, quinapril, hydrochlorothiazide, Entresto given hypotension and FUNMI presentation, although unclear exact regimen intake as patient state recent blood pressure medication discontinuations but this is unclear as notes last taken on day of presentation. (5) Chronic AF: EKG w/ rate controlled atrial fibrillation, holding BP regimen including BB as noted, maintain on home eliquis regimen. (6) Hypertension: Notes off BP regimen; however, listed and noted to have been taken on day of presentation, suspect changes may have been made but unclear, holding regimen given hypotension and as noted FUNMI w/ nephrotoxic regimen. (7) Hyperlipidemia: Continue home statin regimen. (8) Hypothyroidism: Continue home synthroid regimen. (9) Iron and Vitamin B12 deficiency anemia: Admission Hgb 13.4, stable, continue home iron, vitamin B12 supplementation. (10) History of CVA: Maintain on home regimen eliquis, statin, holding BP regimen as noted. (11) History of Retinal Detachment w/ Blind L Eye: Noted BL retinal detachment, able to have successful surgical correction of R eye, L failed. (12) DVT prophylaxis: SCDs, eliquis. Code Visit Inpatient E AND M: [id number] Init Hosp L3 08/22/18 0127 <Electronically signed by Autumn Vasques > Date Autumn Vasques Cosigner Signature: Date (if applicable) CC: Autumn Vasques; Milton Menendez MD Signed EMERGENCY DEPARTMENT Observed: 08/21/2018 Status: F Source: VALLEY SUMMARY 9:33 PM [facility] REPOSITORY [facility] Medical Records Department [address] [place] [address] Emergency Department Summary 08/21/18 1843 MR#: [id number] Acct: [id number] Name: NGA TABARES Rep #: [id number] : 1940 78 From: Sasha Hodge MD PCP: Milton Menendez MD, Chi Status: REG ER - ER Visit Summary Date of Service: 08/21/18 Chief Complaint: Dizziness History of Present Illness: The patient is a 78 M presenting with dizziness. Patient states he has been having intermittent dizziness for the past several days. He states he was started on potassium 6 days ago. He feels that this has been making him lightheaded. It is worse with standing. He states that he has been having loose stools approximately 20 stools per day. Denies blood in his stool. He has had near syncope. He denies chest pain or shortness of breath. He complains of mild abdominal cramping and nausea. Denies vomiting. Denies fever. Denies other complaints. Per home health nurse his blood pressure was 68/50 with a heart rate of 80. Physical Examination: Vitals are stable. Blood pressure 100/57. patient is afebrile. Alert no acute distress. HEENT exam dry mucous membranes Neck is supple. Lungs are clear and equal bilaterally. Heart is regular rate and rhythm. Abdomen is soft nontender nondistended. No rebound or guarding Extremities are unremarkable. Skin is warm and dry. No focal neurologic deficit. Remainder of exam is unremarkable. Emergency Department Course and Treatment: Patient given IV fluids. EKG is A. fib rate of 69 with PVC. CBC, chemistries unremarkable other than sodium 132, BUN 46, creatinine 1.79. Troponin is negative. Lactic acid is normal. Stool is guaiac negative. Chest x-ray shows no acute process. Patient was given IV fluids. He is unable to stand due to dizziness with orthostatic vital signs. Repeat blood pressure after fluids is 93/74. Patient is resting comfortably on reevaluation. Discussed with the hospitalist for admission. Disposition: Admission Impression: Hypotension, dehydration, and FUNMI This note was generated with Info[employer] dictation software. It may contain incorrect words, spelling, and punctuation that were not noted in review of the chart prior to signing ED Disposition - Plan for ED Patient: Chief Complaint: Dizziness Referrals: Milton Menendez Chi, MD [Primary Care Provider] - What to do if you have Problems For any increased pain, shortness of breath, bleeding, nausea or vomiting, chest pain, or any unexpected problems, contact your Primary Care Provider. Call [facility] ([phone]) or report to the closest Emergency Room. Call 911 if necessary. 08/21/18 0504 <Electronically signed by Sasha Hodge MD> Date Sasha Loyola Signature (If Indicated): Date CC: Milton Menendez MD URINALYSIS, COMPLETE Collected: 08/21/2018 Status: F Source: VALLEY 9:00 PM [facility] REPOSITORY Order Comment: Order Date: 08/21/18 How was Urine Obtained? CLEAN CATCH TYPE CODE TESTS RESULT OUT OF RANGE REFERENCE UNITS LAB L400.3000 Yellow COLOR Normal Yellow LAB L400.3050 Clear Normal CLARITY Clear LAB L400.3200 Normal mg/dl Normal GLUCOSE, UR Normal LAB L400.3300 Negative mg/dL Normal BILIRUBIN URINE Negative LAB L400.3400 Negative mg/dl Normal KETONE UR Negative LAB L400.3465 1.002-1.030 Normal SP.GR. DIPSTX 1.015 LAB L400.3550 5.0 - 8.0 pH UR Normal 5.0 LAB L400.3600 Negative mg/dl High PROT 15 DIPSTX LAB L400.3700 Normal mg/dl Normal UROBILI Normal LAB L400.3750 Negative Normal NITRITE UR Negative LAB L400.3780 Negative /ul Normal OCCULT BLOOD-UR Negative LAB L400.3800 Negative /ul LEUK Normal ESTERASE Negative LAB L400.4050 0-5 /hpf WBC 0 Normal SEEN LAB L400.4100 0-5 /hpf Normal RBC-UA 0-5 SEEN LAB L400.4150 0-5 /hpf SQUAM 0 Normal EPI SEEN LAB L400.4300 None Seen /hpf 0 Normal BACTERIA SEEN LAB L400.4350 <or=2+ /hpf 0 Normal MUCUS, URINE SEEN LAB L400.4400 0-5 /lpf Normal HYALINE CAST 10-25 SEEN Performed By: #### L400.0001 #### [facility] [address] [place], [address] CBC W/DIFF, AUTOMATED Collected: 08/21/2018 Status: F Source: VALLEY 7:00 PM [facility] REPOSITORY TYPE CODE TESTS RESULT OUT OF RANGE REFERENCE UNITS LAB L100.1000 4.4-11.0 K/mm3 Normal WBC 9.1 LAB L100.1200 4.6-6.2 M/mm3 Normal RBC 5.65 LAB L100.1300 13.0-16.5 g/dl Normal HGB 13.4 LAB L100.1400 40-54 % Normal HCT 42.3 LAB L100.1500 80-94 fL Low MCV 74.9 LAB L100.1600 27.0-32.0 pg Low MCH 23.7 LAB L100.1700 32-36 g/gl Low MCHC 31.7 LAB L100.1810 11.6-14.6 % High RDW CV 25.0 LAB L100.1820 35.1-43.9 fl High RDW SD 65.7 LAB L100.1900 150-450 K/mm3 Normal PLT 254 LAB L100.2000 6.2-12.0 fl Normal MPV 9.7 LAB L100.2100 47-70 % High NEUT% 78.1 LAB L100.2200 19-41 % Low LY% 10.6 LAB L100.2300 0-10 % Normal MONO% 9.0 LAB L100.2400 0-5 % Normal EO% 1.8 LAB L100.2500 0-1 % Normal BASO% 0.3 LAB L100.2550 0.0-0.9 % Normal IM GRAN % 0.200 Result Comment: IG% - Immature Granulocytes (promyelocytes, myelocytes and metamyelocytes) > 1% indicates that a LEFT SHIFT is Present. LAB L100.2620 2.0-7.7 X10 3/uL Absolute Neut Normal 7.1 LAB L100.2720 0.83-4.51 X10 3/ul Absolute Lymph Normal 0.97 LAB L100.7300 ANISO Normal 2+ LAB L100.7600 HYPOCHROMASIA Normal 1+ LAB L100.7700 MICROCYTES Normal 2+ LAB L100.8200 OVALOCYTE Normal 1+ Performed By: #### L100.0100 #### [facility] [address] [place], [address] BASIC METABOLIC Collected: 08/21/2018 Status: F Source: TRENT PROFILE (BMP) 7:00 PM [facility] REPOSITORY TYPE CODE TESTS RESULT OUT OF RANGE REFERENCE UNITS LAB L501.0100 74-106 mg/dL Normal GLU 98 Result Comment: Please note revised GLUCOSE reference range effective 2017. LAB L501.1000 7-18 mg/dL High BUN 46 LAB L501.1100 0.70-1.30 mg/dL High CREAT,SERUM 1.79 Result Comment: The validity of the calculated GFR AND GFRAA in patients over 70 years has not been determined. Clinical correlation is essential. LAB L501.1110 >60 mL/min Low EST GFR 39 Result Comment: Non- GFR Calc LAB L501.1115 >60 mL/min Low EST GFR - AA 47 Result Comment: GFR Calc LAB L501.1255 ml/min Normal Estimated CRCL 40.41 LAB L501.1300 10-20 RATIO High BUN/CRE 25.7 LAB L501.2200 8.5-10 mg/dL Normal .1 CA 8.8 LAB L501.5300 136-14 mmol/L Low 5 NA 132 LAB L501.5600 3.5-5. mmol/L Normal 1 K 3.7 Result Comment: Slight Hemolysis, Result may be falsely increased. LAB L501.5900 98-107 mmol/L Low CL 96 LAB L501.6100 21.0-32.0 mmol/L Normal CO2 28.0 LAB L501.6200 5-15 Normal GAP 8 Performed By: #### L500.2500, L501.4010 #### [facility] [address] [place], [address] TROPONIN-I Collected: 08/21/2018 Status: F Source: TRENT 7:00 PM [facility] REPOSITORY TYPE CODE TESTS RESULT OUT OF RANGE REFERENCE UNITS LAB L501.4010 <0.045 ng/mL Normal < 0.015 TROPONIN-I Result Comment: TROPONIN-I EXPECTED VALUES <0.045 Negative 0.045 - 0.590 Consistent with Cardiac Damage > OR = 0.600 Critical Value Not every elevated troponin is indicative of MN. These values should be used with clinical judgement in examining the patient's clinical picture for diagnosis. To establish a diagnosis of MN versus myocardial injury, there must be a demonstrated rise and/or fall in the troponin values, in addition to ischemic symptoms, EKG changes, new regional wall motion abnormality, and/or angiographical evidence. PLEASE NOTE: REFERENCE RANGES EDITED 18 Performed By: #### L500.2500, L501.4010 #### [facility] [address] [place], [address] LACTIC ACID Collected: 08/21/2018 Status: F Source: TRENT 7:00 PM [facility] REPOSITORY Order Comment: Yes/No query for Sepsis Lactate Rule Y TYPE CODE TESTS RESULT OUT OF RANGE REFERENCE UNITS LAB L503.6005 0.4-2.0 mmol/L Normal LACTIC ACID 1.5 Performed By: #### L503.6005 #### [facility] [address] [place], [address] MAGNESIUM Collected: 08/21/2018 Status: F Source: TRENT 7:00 PM [facility] REPOSITORY TYPE CODE TESTS RESULT OUT OF RANGE REFERENCE UNITS LAB L501.5200 1.6-2.6 mg/dL Normal MG 2.3 Result Comment: Slight Hemolysis, Result may be falsely increased. Performed By: #### L501.5200 #### [facility] [address] [place], [address] CHEST 1 VIEW Observed: 08/21/2018 Status: F Source: TRENT (PORTABLE) 6:42 PM [facility] REPOSITORY [facility] Imaging Services [address] [place] [address] Chest 1 View (Portable) MR#: [id number] Acct: [id number] Name: NGA TABARES Rep #: [id number] : 1940 M 78 From: Adan Cosme MD PCP: Shon GREENE,Conject Chi Status: REG ER Study: Chest 1 View (Portable) Date of Exam: 08/21/18 Exam# [id number] Ordering Dr: Sasha Hodge MD STUDY: X-RAY CHEST REASON FOR EXAM: Male, 78 years old. Shortness of breath and chest pain TECHNIQUE: Single frontal view of the chest. COMPARISON: July 07, 2018 FINDINGS: The lungs are clear and expanded. There is no demonstrated pleural abnormality. Mild cardiomegaly. Normal mediastinum and henrik. Normal visualized pulmonary arteries. Normal visualized aortic arch and descending thoracic aorta. Normal visualized thoracic spine. Normal visualized ribs, clavicles, and shoulders. Moderate hiatal hernia. RAD/Chest 1 View (Portable) IMPRESSION: Moderate hiatal hernia unchanged. No acute disease. Electronically Signed: Adan Cosme MD at 20:40 EST , Service support , CC: Sasha Hodge MD; Milton Menendez MD Field Sampling Technician: Signed Observed: 08/21/2018 Status: F Source: VALLEY STOOL OCCULT BLOOD 6:30 PM [facility] IFOB REPOSITORY Order Date: 08/21/18 Has pt arrived? Y STOB iFOB Occult Blood Negative Performed By: #### M100.7900 #### [facility] [address] [place], [address] COMPREHENSIVE METABOLIC Collected: 08/12/2018 Status: F Source: TRENT PROFIL 4:35 PM [facility] REPOSITORY TYPE CODE TESTS RESULT OUT OF RANGE REFERENCE UNITS LAB L501.0100 74-106 mg/dL Low GLU 72 Result Comment: Please note revised GLUCOSE reference range effective 2017. LAB L501.1000 7-18 mg/dL Normal BUN 18 LAB L501.1100 0.70-1.30 mg/dL Normal CREAT,SERUM 1.14 Result Comment: The validity of the calculated GFR AND GFRAA in patients over 70 years has not been determined. Clinical correlation is essential. LAB L501.1110 >60 mL/min Normal EST GFR 66 Result Comment: Non- GFR Calc LAB L501.1115 >60 mL/min Normal EST GFR - AA 79 Result Comment: GFR Calc LAB L501.1300 10-20 RATIO Normal BUN/CRE 15.8 LAB L501.1500 6.4-8.2 g/dL T Normal PROT 6.8 LAB L501.1800 3.2-5.0 g/dL Normal ALB 3.4 LAB L501.1950 2.2-4.2 g/dL Normal GLOB 3.4 LAB L501.2000 0.9-2.4 RATIO Normal A/G 1.0 LAB L501.2200 8.5-10.1 mg/dL Low CA 8.4 LAB L501.4100 15-37 U/L Normal AST 19 LAB L501.4305 45-117 U/L Normal ALK P 66 LAB L501.4405 16-61 U/L Normal ALT 25 LAB L501.4600 0.20-1.00 mg/dL High T BILI 1.80 LAB L501.5300 136-145 mmol/L NA Normal 143 LAB L501.5600 3.5-5.1 mmol/L K Normal 3.8 LAB L501.5900 98-107 mmol/L CL Normal 104 LAB L501.6100 21.0-32.0 mmol/L Normal CO2 31.0 LAB L501.6200 5-15 Normal GAP 8 Performed By: #### L500.4050 #### [facility] [address] [place], [place], [address] CBC W/DIFF, AUTOMATED Collected: 08/12/2018 Status: F Source: VALLEY 4:35 PM [facility] REPOSITORY TYPE CODE TESTS RESULT OUT OF RANGE REFERENCE UNITS LAB L100.1000 4.4-11.0 K/mm3 Normal WBC 6.7 LAB L100.1200 4.6-6.2 M/mm3 Normal RBC 5.07 LAB L100.1300 13.0-16.5 g/dl Low HGB 11.8 LAB L100.1400 40-54 % Low HCT 39.6 LAB L100.1500 80-94 fL Low MCV 78.1 LAB L100.1600 27.0-32.0 pg Low MCH 23.3 LAB L100.1700 32-36 g/gl Low MCHC 29.8 LAB L100.1810 11.6-14.6 % High RDW CV 26.0 LAB L100.1820 35.1-43.9 fl High RDW SD 71.3 LAB L100.1900 150-450 K/mm3 Normal PLT 223 LAB L100.2000 6.2-12.0 fl Normal MPV 10.1 LAB L100.2100 47-70 % High NEUT% 73.6 LAB L100.2200 19-41 % Low LY% 13.8 LAB L100.2300 0-10 % Normal MONO% 9.1 LAB L100.2400 0-5 % Normal EO% 3.0 LAB L100.2500 0-1 % Normal BASO% 0.4 LAB L100.2550 0.0-0.9 % Normal IM GRAN % 0.100 Result Comment: IG% - Immature Granulocytes (promyelocytes, myelocytes and metamyelocytes) > 1% indicates that a LEFT SHIFT is Present. LAB L100.2620 2.0-7.7 X10 3/uL Normal Absolute Neut 4.9 LAB L100.2720 0.83-4.51 X10 3/ul Normal Absolute Lymph 0.92 LAB L100.4500 SMEAR Normal COMMENT Result Comment: RARE ANISOCYTOSIS Performed By: #### L100.0100 #### [facility] [address] [place], [address] CBC W/DIFF, AUTOMATED Collected: 08/05/2018 Status: F Source: VALLEY 5:22 PM [facility] REPOSITORY TYPE CODE TESTS RESULT OUT OF RANGE REFERENCE UNITS LAB L100.1000 4.4-11.0 K/mm3 Normal WBC 6.9 LAB L100.1200 4.6-6.2 M/mm3 Low RBC 4.59 LAB L100.1300 13.0-16.5 g/dl Low HGB 10.6 LAB L100.1400 40-54 % Low HCT 35.8 LAB L100.1500 80-94 fL Low MCV 78.0 LAB L100.1600 27.0-32.0 pg Low MCH 23.1 LAB L100.1700 32-36 g/gl Low MCHC 29.6 LAB L100.1810 11.6-14.6 % High RDW CV 26.0 LAB L100.1820 35.1-43.9 fl High RDW SD 71.2 LAB L100.1900 150-450 K/mm3 Normal PLT 213 LAB L100.2000 6.2-12.0 fl Normal MPV 10.2 LAB L100.2100 47-70 % High NEUT% 80.4 LAB L100.2200 19-41 % Low LY% 9.6 LAB L100.2300 0-10 % Normal MONO% 7.7 LAB L100.2400 0-5 % Normal EO% 1.6 LAB L100.2500 0-1 % Normal BASO% 0.6 LAB L100.2550 0.0-0.9 % Normal IM GRAN % 0.100 Result Comment: IG% - Immature Granulocytes (promyelocytes, myelocytes and metamyelocytes) > 1% indicates that a LEFT SHIFT is Present. LAB L100.2620 2.0-7.7 X10 3/uL Absolute Normal Neut 5.6 LAB L100.2720 0.83-4.51 X10 3/ul Low Absolute Lymph 0.66 LAB L100.5500 ADEQ PLT EST Normal ADEQUATE LAB L100.7300 ANISO Normal 1+ LAB L100.7700 Normal MICROCYTES 1+ Performed By: #### L100.0100 #### [facility] [address] [place], [address] BASIC METABOLIC Collected: 08/05/2018 Status: F Source: [facility] PROFILE ([facility]) 5:22 PM [facility] REPOSITORY TYPE CODE TESTS RESULT OUT OF RANGE REFERENCE UNITS LAB L501.0100 74-106 mg/dL Normal GLU 89 Result Comment: Please note revised GLUCOSE reference range effective 2017. LAB L501.1000 7-18 mg/dL Normal BUN 16 LAB L501.1100 0.70-1.30 mg/dL Normal CREAT,SERUM 1.07 Result Comment: The validity of the calculated GFR AND GFRAA in patients over 70 years has not been determined. Clinical correlation is essential. LAB L501.1110 >60 mL/min Normal EST GFR 71 Result Comment: Non- GFR Calc LAB L501.1115 >60 mL/min Normal EST GFR - AA 85 Result Comment: GFR Calc LAB L501.1300 10-20 RATIO Normal BUN/CRE 15.0 LAB L501.2200 8.5-10.1 mg/dL Low CA 8.4 LAB L501.5300 136-145 mmol/L NA Normal 142 LAB L501.5600 3.5-5.1 mmol/L K Normal 3.8 LAB L501.5900 98-107 mmol/L CL Normal 106 LAB L501.6100 21.0-32.0 mmol/L Normal CO2 29.0 LAB L501.6200 5-15 Normal GAP 7 Performed By: #### L500.2500 #### [facility] [address] [place], [address] CBC W/DIFF, AUTOMATED Collected: 07/24/2018 Status: F Source: VALLEY 12:43 PM [facility] REPOSITORY TYPE CODE TESTS RESULT OUT OF RANGE REFERENCE UNITS LAB L100.1000 4.4-11.0 K/mm3 Normal WBC 8.0 LAB L100.1200 4.6-6.2 M/mm3 Normal RBC 4.66 LAB L100.1300 13.0-16.5 g/dl Low HGB 10.1 LAB L100.1400 40-54 % Low HCT 35.8 LAB L100.1500 80-94 fL Low MCV 76.8 LAB L100.1600 27.0-32.0 pg Low MCH 21.7 LAB L100.1700 32-36 g/gl Low MCHC 28.2 LAB L100.1810 11.6-14.6 % High RDW CV 24.3 LAB L100.1820 35.1-43.9 fl High RDW SD 65.8 LAB L100.1900 150-450 K/mm3 Normal PLT 280 LAB L100.2000 6.2-12.0 fl Normal MPV 9.6 LAB L100.2100 47-70 % High NEUT% 80.4 LAB L100.2200 19-41 % Low LY% 8.3 LAB L100.2300 0-10 % Normal MONO% 8.8 LAB L100.2400 0-5 % Normal EO% 2.0 LAB L100.2500 0-1 % Normal BASO% 0.4 LAB L100.2550 0.0-0.9 % Normal IM GRAN % 0.100 Result Comment: IG% - Immature Granulocytes (promyelocytes, myelocytes and metamyelocytes) > 1% indicates that a LEFT SHIFT is Present. LAB L100.2620 2.0-7.7 X10 3/uL Absolute Neut Normal 6.4 LAB L100.2720 0.83-4.51 X10 3/ul Low Absolute Lymph 0.66 LAB L100.5500 ADEQ PLT EST Normal ADEQUATE LAB L100.7300 ANISO Normal 1+ LAB L100.7600 HYPOCHROMASIA Normal 2+ Performed By: #### L100.0100 #### [facility] [address] [place], [place], [id number] BASIC METABOLIC Collected: 07/24/2018 Status: F Source: TRENT PROFILE (BMP) 12:43 PM [facility] REPOSITORY TYPE CODE TESTS RESULT OUT OF RANGE REFERENCE UNITS LAB L501.0100 74-106 mg/dL Normal GLU 80 Result Comment: Please note revised GLUCOSE reference range effective 2017. LAB L501.1000 7-18 mg/dL Normal BUN 18 LAB L501.1100 0.70-1.30 mg/dL Normal CREAT,SERUM 1.16 Result Comment: The validity of the calculated GFR AND GFRAA in patients over 70 years has not been determined. Clinical correlation is essential. LAB L501.1110 >60 mL/min Normal EST GFR 64 Result Comment: Non- GFR Calc LAB L501.1115 >60 mL/min Normal EST GFR - AA 78 Result Comment: GFR Calc LAB L501.1300 10-20 RATIO Normal BUN/CRE 15.5 LAB L501.2200 8.5-10.1 mg/dL Low CA 8.3 LAB L501.5300 136-145 mmol/L NA Normal 141 LAB L501.5600 3.5-5.1 mmol/L K Normal 3.6 LAB L501.5900 98-107 mmol/L CL Normal 107 LAB L501.6100 21.0-32.0 mmol/L Normal CO2 27.0 LAB L501.6200 5-15 Normal GAP 7 Performed By: #### L500.2500 #### [facility] [address] [place], [place], [address] BNP,B-TYPE NATRIURETIC Collected: 07/24/2018 Status: F Source: TRENT PEPTIDE 12:43 PM [facility] REPOSITORY TYPE CODE TESTS RESULT OUT OF RANGE REFERENCE UNITS LAB L503.6620 0-100 pg/mL High B-TYPE 1862.6 JULIO PEP Performed By: #### L503.6620 #### [facility] [address] [place], [address] ECHOCARDIOGRAM COMPLETE Observed: 07/10/2018 Status: F Source: VALLEY 1:20 PM [facility] REPOSITORY [facility] Cardiovascular Services [address] [place] [address] Echo Complete 07/10/18 1119 MR#: [id number] Acct: [id number] Name: NGA TABARES Rep #: [id number] : 1940 78 From: Karlos Guaman MD Attending Dr: Shon GREENE,Milton Stephenson Status: REG CLI Ordering Dr: Milton Menendez MD Date: 07/10/18 Location: [facility] Sex: M C Admitted: Reason For Study: SOB Procedure This was a 2D Doppler, Color Flow transthoracic echocardiogram. Exam performed in department. Dr. Menendez's office notified of PT's arrhythmia. Will see PT on 07/13/18. Left Ventricle Severely dilated left ventricle. Severe concentric left ventricular hypertrophy. The estimated ejection fraction is 20 %. There is severe global hypokinesis of the left ventricle. Right Ventricle Normal RV size. Normal systolic function. Atria The left atrium is severely enlarged. The right atrium is severely enlarged. Mitral Valve There is moderate mitral annular calcification. Mild-Moderate (1-2+) eccentric mitral valve insufficiency. Tricuspid Valve Normal tricuspid valve. Mild to moderate (1-2+) tricuspid valve insufficiency. Pulmonary artery systolic pressure is 38 mmHg. Aortic Valve Trisinus/trileaflet aortic valve. Moderate focal aortic valve calcification. Peak aortic valve gradient 52 mmHg. Mean aortic valve gradient 35 mmHg. Calculated aortic valve area (continuity equation) is 0.8 cm2. Pulmonic Valve Normal pulmonic valve. Great Vessels Normal aortic root. The pulmonary artery is normal size. Normal inferior vena cava. Pericardium/Pleural No pericardial effusion. MMode/2D Measurements AND Calculations LVIDd: 6.7 cm IVSd: 1.7 cm LVOT diam: 2.4 cm LVIDs: 5.6 cm LVPWd: 1.7 cm LVOT area: 4.7 cm2 RVDd: 4.1 cm FS: 16.2 % Ao root diam: 3.7 cm LAV(MOD-bp): 182.5 ml LA A4 area: 35.1 cm2 LAV(MOD-bp) Indexed: 79.1 ml/m2 LAV(MOD-sp2): 182.9 ml LAV(MOD-sp4): 159.7 ml RA A4 area: 34.5 cm2 Doppler Measurements AND Calculations MV E max seferino: 127.4 cm/sec Ao V2 max: 361.1 cm/sec LV V1 max: 69.4 cm/sec Ao max P.3 mmHg LV V1 max P.9 mmHg Ao V2 mean: 287.9 cm/sec LV V1 mean P.0 mmHg Ao mean P.9 mmHg LV V1 mean: 48.4 cm/sec Ao V2 VTI: 82.0 cm LV V1 VTI: 13.6 cm CHRISTOPHER(I,D): 0.78 cm2 CHRISTOPHER(V,D): 0.90 cm2 SV(LVOT): 64.1 ml PA V2 max: 51.8 cm/sec TR max seferino: 288.5 cm/sec TR max P.3 mmHg Interpretation Summary Severely dilated left ventricle. Severe concentric left ventricular hypertrophy. The estimated ejection fraction is 20 %. There is severe global hypokinesis of the left ventricle. The left atrium is severely enlarged. The right atrium is severely enlarged. Calculated aortic valve area (continuity equation) is 0.8 cm2. Mean aortic valve gradient 35 mmHg. Ordering Physician: Milton Menendez Referring Physician: Milton Menendez Chi Performed By: Lorri Hardy, SACHI, RVT 07/10/18 1320 Date Karlos Guaman MD CC: Milton Menendez MD Date Dictated: 07/10/18 1119 Date Transcribed: 07/10/18 1320 Field Sampling Technician: Signed CTA CHEST W/WO Observed: 07/10/2018 Status: F Source: TRENT CONTRAST 11:23 AM [facility] REPOSITORY [facility] Imaging Services [address] [place] [id number] CTA Chest W/WO Contrast MR#: [id number] Acct: [id number] Name: NGA TABARES Junaid Rep #: [id number] : 1940 M 78 From: Sheldon Yan MD PCP: Milton Menendez MD, Chi Status: REG CLI Study: CTA Chest W/WO Contrast Date of Exam: 07/10/18 Exam# [id number] Ordering Dr: Milton Menendez MD STUDY: CTA CHEST REASON FOR EXAM: Male, 78 years old. Shortness of breath. RADIATION DOSAGE (If Supplied By Facility): CTDIvol = ( 26.32 ) mGy, DLP = ( 770.90 ) mGycm TECHNIQUE: The examination was performed with the intravenous administration of 100 ml of Isovue 370 contrast material. Post-processing of the angiographic images was performed, with multiplanar reformation and 3D reconstruction. Individualized dose optimization techniques were used for this CT. COMPARISON: Chest x-ray July 07, 2018.. FINDINGS: Normal enhancement of the main pulmonary artery and right and left pulmonary arteries. Normal enhancement of the bilateral peripheral pulmonary arteries. There is no demonstrated pulmonary embolism. There is atherosclerotic calcification of the aortic arch with tortuosity. There is no demonstrated aortic dissection. There are calcifications of the coronary arteries. There is cardiomegaly. Normal mediastinum. Normal hilar regions. Normal visualized trachea and bronchi. The lungs are well expanded. There are mildly increased diffuse interstitial parenchymal markings. Small bilateral pleural effusions. Normal chest wall structures. There are degenerative changes of thoracic spine. There is a large hiatal hernia composed mostly of the fundus of the stomach. CT/CTA Chest W/WO Contrast IMPRESSION: CTA chest examination, without a demonstrated pulmonary embolism or arterial dissection. Small pleural effusions. Hiatal hernia. Electronically Signed: Sheldon Yan MD at 13:39 EDT , Service support , CC: Milton Menendez MD Field Sampling Technician: Signed CTA CHEST W/WO Observed: 07/10/2018 Status: F Source: TRENT CONTRAST 10:23 AM [facility] REPOSITORY [facility] Imaging Services [address] [place] [address] CTA Chest W/WO Contrast MR#: [id number] Acct: [id number] Name: NGA TABARES Rep #: [id number] : 1940 M 78 From: Sheldon Yan MD PCP: Milton Menendez MD, Chi Status: REG CLI Study: CTA Chest W/WO Contrast Date of Exam: 07/10/18 Exam# [id number] Ordering Dr: Milton Menendez MD STUDY: CTA CHEST REASON FOR EXAM: Male, 78 years old. Shortness of breath. RADIATION DOSAGE (If Supplied By Facility): CTDIvol = ( 26.32 ) mGy, DLP = ( 770.90 ) mGycm TECHNIQUE: The examination was performed with the intravenous administration of 100 ml of Isovue 370 contrast material. Post-processing of the angiographic images was performed, with multiplanar reformation and 3D reconstruction. Individualized dose optimization techniques were used for this CT. COMPARISON: Chest x-ray July 07, 2018.. FINDINGS: Normal enhancement of the main pulmonary artery and right and left pulmonary arteries. Normal enhancement of the bilateral peripheral pulmonary arteries. There is no demonstrated pulmonary embolism. There is atherosclerotic calcification of the aortic arch with tortuosity. There is no demonstrated aortic dissection. There are calcifications of the coronary arteries. There is cardiomegaly. Normal mediastinum. Normal hilar regions. Normal visualized trachea and bronchi. The lungs are well expanded. There are mildly increased diffuse interstitial parenchymal markings. Small bilateral pleural effusions. Normal chest wall structures. There are degenerative changes of thoracic spine. There is a large hiatal hernia composed mostly of the fundus of the stomach. CT/CTA Chest W/WO Contrast IMPRESSION: CTA chest examination, without a demonstrated pulmonary embolism or arterial dissection. Small pleural effusions. Hiatal hernia. Electronically Signed: Sheldon Yan MD at 13:39 EDT , Service support , CC: Milton Menendez MD Field Sampling Technician: Signed D-DIMER QUANTITATIVE Collected: 07/09/2018 Status: F Source: TRENT (DVT/PE) 4:43 PM [facility] REPOSITORY TYPE CODE TESTS RESULT OUT OF RANGE REFERENCE UNITS LAB L300.8000 0.27-0.49 FEU/ug/m High alert D-DIMER 0.96 QUANT Result Comment: RESULTS CALLED TO 07/09/18 1717 Rogelio Pappas. REPORT READ BACK BY SAME . D-Dimer ELEVATED (>0.49): Additional studies and clinical assessments are indicated to conclude diagnosis of: Deep Vein Thrombosis (DVT) or Pulmonary Embolism (PE) Performed By: #### L300.8000 #### [facility] [address] [place], [address] BNP,B-TYPE NATRIURETIC Collected: 07/09/2018 Status: F Source: TRENT PEPTIDE 4:43 PM [facility] REPOSITORY TYPE CODE TESTS RESULT OUT OF RANGE REFERENCE UNITS LAB L503.6620 0-100 pg/mL High B-TYPE 1306.5 JULIO PEP Performed By: #### L503.6620 #### [facility] [address] [facility] [place], [address] BASIC METABOLIC Collected: 07/09/2018 Status: F Source: TRENT PROFILE (BMP) 4:43 PM [facility] REPOSITORY Order Comment: 'TROP' Serial specimen #1, #2, #3, or #4: 1 TYPE CODE TESTS RESULT OUT OF RANGE REFERENCE UNITS LAB L501.0100 74-106 mg/dL Normal GLU 99 Result Comment: Please note revised GLUCOSE reference range effective 2017. LAB L501.1000 7-18 mg/dL High BUN 22 LAB L501.1100 0.70-1.30 mg/dL Normal CREAT,SERUM 1.27 Result Comment: The validity of the calculated GFR AND GFRAA in patients over 70 years has not been determined. Clinical correlation is essential. LAB L501.1110 >60 mL/min Low EST GFR 58 Result Comment: Non- GFR Calc LAB L501.1115 >60 mL/min Normal EST GFR - AA 70 Result Comment: GFR Calc LAB L501.1300 10-20 RATIO Normal BUN/CRE 17.3 LAB L501.2200 8.5-10.1 mg/dL CA Normal 8.7 LAB L501.5300 136-145 mmol/L NA Normal 139 LAB L501.5600 3.5-5.1 mmol/L K Normal 3.5 LAB L501.5900 98-107 mmol/L CL Normal 101 LAB L501.6100 21.0-32.0 mmol/L Normal CO2 28.0 LAB L501.6200 5-15 Normal GAP 10 Performed By: #### L500.2500, L501.3620, L501.4010 #### [facility] [address] [place], [address] CPK TOTAL, CREATINE Collected: 07/09/2018 Status: F Source: VALLEY KINASE 4:43 PM [facility] REPOSITORY Order Comment: 'TROP' Serial specimen #1, #2, #3, or #4: 1 TYPE CODE TESTS RESULT OUT OF RANGE REFERENCE UNITS LAB L501.3620 39-308 U/L Normal CPK TOTAL 73 Performed By: #### L500.2500, L501.3620, L501.4010 #### [facility] [address] [facility] [place] [place], [address] TROPONIN-I Collected: 07/09/2018 Status: F Source: VALLEY 4:43 PM [facility] REPOSITORY Order Comment: 'TROP' Serial specimen #1, #2, #3, or #4: 1 TYPE CODE TESTS RESULT OUT OF RANGE REFERENCE UNITS LAB L501.4010 <0.045 ng/mL Normal 0.019 TROPONIN-I Result Comment: TROPONIN-I EXPECTED VALUES <0.045 Negative 0.045 - 0.590 Consistent with Cardiac Damage > OR = 0.600 Critical Value Not every elevated troponin is indicative of MN. These values should be used with clinical judgement in examining the patient's clinical picture for diagnosis. To establish a diagnosis of MN versus myocardial injury, there must be a demonstrated rise and/or fall in the troponin values, in addition to ischemic symptoms, EKG changes, new regional wall motion abnormality, and/or angiographical evidence. PLEASE NOTE: REFERENCE RANGES EDITED 18 Performed By: #### L500.2500, L501.3620, L501.4010 #### [facility] [address] [place] [place], [address] CBC W/DIFF, AUTOMATED Collected: 07/09/2018 Status: F Source: VALLEY 4:43 PM [facility] REPOSITORY TYPE CODE TESTS RESULT OUT OF RANGE REFERENCE UNITS LAB L100.1000 4.4-11.0 K/mm3 Normal WBC 9.2 LAB L100.1200 4.6-6.2 M/mm3 Low RBC 4.29 LAB L100.1300 13.0-16.5 g/dl Low HGB 9.2 LAB L100.1400 40-54 % Low HCT 30.7 LAB L100.1500 80-94 fL Low MCV 71.6 LAB L100.1600 27.0-32.0 pg Low MCH 21.4 LAB L100.1700 32-36 g/gl Low MCHC 30.0 LAB L100.1810 11.6-14.6 % High RDW CV 20.5 LAB L100.1820 35.1-43.9 fl High RDW SD 51.0 LAB L100.1900 150-450 K/mm3 Normal PLT 330 LAB L100.2000 6.2-12.0 fl Normal MPV 10.5 LAB L100.2100 47-70 % High NEUT% 78.4 LAB L100.2200 19-41 % Low LY% 9.9 LAB L100.2300 0-10 % Normal MONO% 9.1 LAB L100.2400 0-5 % Normal EO% 1.6 LAB L100.2500 0-1 % Normal BASO% 0.8 LAB L100.2550 0.0-0.9 % Normal IM GRAN % 0.200 Result Comment: IG% - Immature Granulocytes (promyelocytes, myelocytes and metamyelocytes) > 1% indicates that a LEFT SHIFT is Present. LAB L100.2620 2.0-7.7 X10 3/uL Normal Absolute Neut 7.2 LAB L100.2720 0.83-4.51 X10 3/ul Normal Absolute Lymph 0.91 Performed By: #### L100.0100 #### [facility] [address] [place], [place], [address] MYOGLOBIN, SERUM Collected: 07/09/2018 Status: F Source: VALLEY 4:43 PM [facility] REPOSITORY TYPE CODE TESTS RESULT OUT OF RANGE REFERENCE UNITS LAB L3600.5100 28-72 ng/mL Normal 64 Myoglobin, Ser Result Comment: Performed at: - [facility], [place], [place] [id number] Medical Education Coordinator: Tai Marshall PhD, Phone: [phone] Performed By: #### L3600.5100 #### [facility] (refer to report for specific site) refer to report for address and phone number SURGERY VISIT REPORT Observed: 07/08/2018 Status: F Source: TRENT 2:49 PM [facility] REPOSITORY [facility] [address] [place] [address] OFFICE VISIT Date of Service: 07/08/18 MR#: [id number] Acct: [id number] Name: NGA TABARES Rep #: [id number] : 1940 Provider: Sherry De La Cruz MD Age/Sex: 78/M Location: [facility] Status: Signed Intake Vital Signs07/08/18 Height 6 ft 4 in 07/08/18 Weight: 215 lb 07/08/18 Body Mass Index (BMI) 26.2 Intake Visit Reasons: [facility] ER 06/30 Dyspnea/Anemia Chief Complaint: Anemia Laminating Press Operator Required: No Is patient in pain?: No Allergies latex Allergy (Verified 07/08/18 14:09) Rash Medications Levothyroxine [Synthroid] 25 mcg PO 0600 03/19/14 [History Confirmed 07/08/18] Metoprolol Tartrate [Lopressor (beta yesi)] 12.5 mg PO BID #60 tab 03/22/14 [Rx Confirmed 07/08/18] Ascorbic Acid [Vitamin C] 500 mg PO DAILY@0800 07/28/16 [History Confirmed 07/08/18] Cyanocobalamin (Vitamin B-12) [Vitamin B-12] 1,000 mcg PO DAILY 07/28/16 [History Confirmed 07/08/18] Multivitamins,Therapeutic [Multivitamin] 1 tab PO DAILY 07/28/16 [History Confirmed 07/08/18] Vitamin E 400 unit PO DAILY 07/28/16 [History Confirmed 07/08/18] Furosemide 40 mg PO DAILY #30 tab 07/30/16 [Rx Confirmed 07/08/18] Ketoconazole [Nizoral Cream] 1 applic TOPICAL BID #1 tube 07/30/16 [Rx Confirmed 07/08/18] Atorvastatin Calcium [Lipitor] 20 mg PO QHS 06/30/18 [History Confirmed 07/08/18] Clotrimazole [Lotrimin] 1 applicatio TP DAILY 06/30/18 [History Confirmed 07/08/18] Ergocalciferol [Vitamin D] 50,000 unit PO QMONTH 06/30/18 [History Confirmed 07/08/18] Latanoprost 0.005% [Xalatan Opthalmic] 1 drp RIGHT EYE QHS 06/30/18 [History Confirmed 07/08/18] Lutein 1 tab PO DAILY 06/30/18 [History Confirmed 07/08/18] Quinapril/Hydrochlorothiazide [Accuretic 20-12.5 MG Tablet] 1 tab PO DAILY 06/30/18 [History Confirmed 07/08/18] prednisoLONE eye drops (5 mL) [Pred Forte eye drops (5 mL)] 1 drp LEFT EYE QHS 06/30/18 [History Confirmed 07/08/18] Ensure Clear 120 ml PO 4X/DAY #100 liquid 07/01/18 [Rx Confirmed 07/08/18] Ferrous Sulfate 325 mg PO 1200,1700 #30 tab 07/01/18 [Rx Confirmed 07/08/18] PFSH Medical History Afib (Acute) Blind left eye (Acute) CVA (cerebral vascular accident) (Acute) Heart failure with reduced ejection fraction (Acute) Hyperlipidemia (Acute) Hypothyroidism (Acute) HTN (hypertension) (Chronic) Surgical History H/O detached retina repair (Acute) Social History Smoking Status: Former smoker alcohol intake: current alcohol intake frequency: holidays/special occasions only HPI HPI HPI: NGA TABARES, is a 78 M who presents to the office today for EGD and colonoscopy due to anemia/melena. Patient was admitted to the hospital last week due to anemia shortness of breath. On admit his hemoglobin was 7.5. He does not give a history of occasional melena. Patient that that that may mean that he needs to eat more salad. She has been on iron because he does have black stools daily currently. He recently had his hemoglobin rechecked which was 9.1 from 9.2 when he left the hospital. As he states it is happen off and on for a while. Patient states about 2 years ago he did also come and get a transfusion and his shortness of breath was improved. He states he had a colonoscopy about [address] Terry and an EGD about 8 years ago in [place]. Denies any GERD symptoms. However he does state that shortness of breath has not really gotten better since the transfusion it was okay when he was in the hospital not moving around but with activity he complains of increased shortness of breath/audible wheezing which his tprcppab-ct-alf also agrees. Patient is heading to see his PCP Dr. Menendez right after this appointment. ROS General General: Yes weight change and fatigue Resp Respiratory: Yes shortness of breath, No sleep apnea, No cough, No COPD, Yes asthma, No emphysema, Yes wheezing Gastro Gastrointestinal: No abdominal pain, No nausea or vomiting, No diarrhea, No constipation, No blood in stool, No acid reflux, No hemorrhoids, No ulcers, No gallbladder problem, No black,tarry stools Exam Const General: cooperative, comfortable, no acute distress GI Inspection: non-distended Palpation: soft, no guarding, nontender Assessment AND Plan Problems 1. Anemia D64.9 2. Melena K92.1 Plan I have discussed the above with the patient. I have offered the patient egd AND colonoscopy for evaluation. I have explained the risks/benefits of the procedure and described the procedure. I have discussed the risks with the patient, including but not limited to: infection, bleeding, perforation of the GI tract requiring emergency surgery, inability to complete the procedure, injury to any internal organs, complications of anesthesia, etc. - the patient understands and agrees to proceed. I have answered all the patient's questions to the patient's satisfaction and the patient has no further questions. The patient has been given instructions for the colon cleansing preparation. One day clears, MiraLAX Dulcolax split, discussed patient to stop iron 5 days prior and continue blood pressure medications, discuss Lasix dose with michael Navarrete to continue 81 mg aspirin. Patient will discuss his continued shortness of breath/wheezing with activity with Dr. Shon De La Cruz M.D. Pager: [phone] [facility] [address] [place] [address], [facility], [address] [place] [address] Office: [phone] Orders Orders: Plan Detail Follow Up Will schedule EGD and colonoscopy Coding Level of Care Code Off vis,new,level 3 Diagnoses Anemia D64.9 Melena K92.1 07/08/18 1449 <Electronically signed by Sherry De La Cruz MD> Date Sherry De La Cruz MD Cosigner Signature: Date (if applicable) CC: Milton Menendez MD COMPREHENSIVE METABOLIC Collected: 07/07/2018 Status: F Source: TRENT IRENE 5:50 PM [facility] REPOSITORY TYPE CODE TESTS RESULT OUT OF RANGE REFERENCE UNITS LAB L501.0100 74-106 mg/dL Normal GLU 88 Result Comment: Please note revised GLUCOSE reference range effective 2017. LAB L501.1000 7-18 mg/dL High BUN 24 LAB L501.1100 0.70-1.30 mg/dL High CREAT,SERUM 1.39 Result Comment: The validity of the calculated GFR AND GFRAA in patients over 70 years has not been determined. Clinical correlation is essential. LAB L501.1110 >60 mL/min Low EST GFR 52 Result Comment: Non- GFR Calc LAB L501.1115 >60 mL/min Normal EST GFR - AA 63 Result Comment: GFR Calc LAB L501.1300 10-20 RATIO Normal BUN/CRE 17.3 LAB L501.1500 6.4-8.2 g/dL T Normal PROT 7.1 LAB L501.1800 3.2-5.0 g/dL Normal ALB 3.7 LAB L501.1950 2.2-4.2 g/dL Normal GLOB 3.4 LAB L501.2000 0.9-2.4 RATIO Normal A/G 1.1 LAB L501.2200 8.5-10.1 mg/dL CA Normal 8.5 LAB L501.4100 15-37 U/L Normal AST 26 LAB L501.4305 45-117 U/L Normal ALK P 73 LAB L501.4405 16-61 U/L Normal ALT 45 LAB L501.4600 0.20-1.00 mg/dL High T BILI 1.70 LAB L501.5300 136-145 mmol/L NA Normal 138 LAB L501.5600 3.5-5.1 mmol/L K Normal 4.3 LAB L501.5900 98-107 mmol/L CL Normal 103 LAB L501.6100 21.0-32.0 mmol/L Normal CO2 27.0 LAB L501.6200 5-15 Normal GAP 8 Performed By: #### L500.4050, L501.9520 #### [facility] [address] [place], [place], [address] THYROID STIM HORMONE Collected: 07/07/2018 Status: F Source: VALLEY (TSH) 5:50 PM [facility] REPOSITORY TYPE CODE TESTS RESULT OUT OF RANGE REFERENCE UNITS LAB L501.9520 0.358-3.74 uIU/mL High TSH 3.77 Performed By: #### L500.4050, L501.9520 #### [facility] [address] [place], [place], [address] CBC W/DIFF, AUTOMATED Collected: 07/07/2018 Status: F Source: VALLEY 5:50 PM [facility] REPOSITORY TYPE CODE TESTS RESULT OUT OF RANGE REFERENCE UNITS LAB L100.1000 4.4-11.0 K/mm3 Normal WBC 10.2 LAB L100.1200 4.6-6.2 M/mm3 Low RBC 4.23 LAB L100.1300 13.0-16.5 g/dl Low HGB 9.1 LAB L100.1400 40-54 % Low HCT 30.2 LAB L100.1500 80-94 fL Low MCV 71.4 LAB L100.1600 27.0-32.0 pg Low MCH 21.5 LAB L100.1700 32-36 g/gl Low MCHC 30.1 LAB L100.1810 11.6-14.6 % High RDW CV 20.1 LAB L100.1820 35.1-43.9 fl High RDW SD 49.4 LAB L100.1900 150-450 K/mm3 Normal PLT 309 LAB L100.2000 6.2-12.0 fl Normal MPV 10.3 LAB L100.2100 47-70 % High NEUT% 77.8 LAB L100.2200 19-41 % Low LY% 10.8 LAB L100.2300 0-10 % Normal MONO% 8.4 LAB L100.2400 0-5 % Normal EO% 1.9 LAB L100.2500 0-1 % Normal BASO% 0.8 LAB L100.2550 0.0-0.9 % Normal IM GRAN % 0.300 Result Comment: IG% - Immature Granulocytes (promyelocytes, myelocytes and metamyelocytes) > 1% indicates that a LEFT SHIFT is Present. LAB L100.2620 2.0-7.7 X10 3/uL Absolute Neut High 7.9 LAB L100.2720 0.83-4.51 X10 3/ul Absolute Lymph Normal 1.10 LAB L100.4500 SMEAR COMMENT Normal SCANNED LAB L100.7300 ANISO Normal 1+ LAB L100.7500 POLYCHROMASIA Normal RARE LAB L100.7600 HYPOCHROMASIA Normal 2+ LAB L100.8200 OVALOCYTE Normal RARE LAB L100.8600 T[employer] CELLS Normal RARE Performed By: #### L100.0100 #### [facility] [address] [place], [address] BNP,B-TYPE NATRIURETIC Collected: 07/07/2018 Status: F Source: VALLEY PEPTIDE 5:50 PM [facility] REPOSITORY TYPE CODE TESTS RESULT OUT OF RANGE REFERENCE UNITS LAB L503.6620 0-100 pg/mL High B-TYPE 1174.7 JULIO PEP Performed By: #### L503.6620 #### [facility] [address] [facility] [place] [place], [address] CHEST PA AND LATERAL Observed: 07/07/2018 Status: F Source: TRENT 5:23 PM [facility] REPOSITORY [facility] Imaging Services [address] [place] [address] Chest PA and Lateral MR#: [id number] Acct: [id number] Name: NGA TABARES Rep #: [id number] : 1940 M 78 From: Eleazar Wagner MD PCP: Shon Milton GREENE Chi Status: REG CLI Study: Chest PA and Lateral Date of Exam: 07/07/18 Exam# [id number] Ordering Dr: Milton Menendez MD STUDY: X-RAY CHEST REASON FOR EXAM: Male, 78 years old. Cough TECHNIQUE: 2 views COMPARISON: June 30, 2018 FINDINGS: There is cardiomegaly with no acute pneumonia or failure. No pleural effusions. A hiatal hernia is in place Degenerative changes of the thoracic spine. Normal visualized ribs, clavicles, and shoulders. There is no demonstrated abnormality of the visualized soft tissue structures of the upper abdomen. RAD/Chest PA and Lateral IMPRESSION: Cardiomegaly. No acute findings in the lungs. Hiatal hernia Electronically Signed: Eleazar Wagner MD at 6:27 EDT Tel , Service support , CC: Milton Menendez MD Field Sampling Technician: Signed 12 LEAD ELECTROCARDIOGRAM Observed: 07/06/2018 Status: F Source: VALLEY 3:30 PM [facility] REPOSITORY [facility] Cardiovascular Services [address] [place] [address] 12 Lead EKG 06/30/18 1303 MR#: [id number] Acct: [id number] Name: NGA TABARES Rep #: [id number] : 1940 78 From: Karlos Guaman MD Attending Dr: Kenyatta Cruz MD Status: DIS LIZZY Ordering Dr: Mary Barba DO Date: 06/30/18 Location: [facility] Sex: M C Admitted: 06/30/18 Test Reason : SOB Blood Pressure : / mmHG Vent. Rate : 087 BPM Atrial Rate : 312 BPM P-R Int : 000 ms QRS Dur : 116 ms QT Int : 408 ms P-R-T Axes : 000 015 107 degrees QTc Int : 490 ms Atrial fibrillation with premature ventricular or aberrantly conducted complexes Incomplete left bundle branch block Nonspecific ST and T wave abnormality Abnormal ECG Confirmed by KARLOS GUAMAN MD ([id number]), clinical editor WILDA QUINTANILLA ([id number]) on 07/06/2018 3:30:33 PM Referred By: Los Whitney Confirmed By:KARLOS GUMAAN MD 07/06/18 1530 Date Karlos Guaman MD CC: Kenyatta Cruz MD; Los Whitney DO; Mary Barba DO; Milton Menendez MD Signed EMERGENCY DEPARTMENT Observed: 07/02/2018 Status: F Source: VALLEY SUMMARY 4:21 PM [facility] REPOSITORY [facility] Medical Records Department [address] [place] [address] Emergency Department Summary 06/30/18 1308 MR#: [id number] Acct: [id number] Name: NGA TABARES Rep #: [id number] : 1940 78 From: Mary Barba DO PCP: Milton Menendez MD, Chi Status: DIS LIZZY - ER Visit Summary Date of Service: 06/30/18 Chief Complaint: [Shortness of breath] History of Present Illness: The patient is a 78 M [to the emergency department complaint of shortness of breath that started about a ago. Patient complains of exertional dyspnea. Patient denies any chest pain. He denies any fever. Had a mild cough but mostly nonproductive. Patient does have a history of asthma and CHF. Patient has a history of A. fib and is currently on Eliquis. Patient has had history of anemia. Patient denies any blood in his stool or black tarry stools.] Physical Examination: [HEENT-PERRLA, EOMI. Cranial nerves II through XII grossly intact. TMs clear. Mucous membranes moist. No adenopathy. Cardiovascular-elderly irregular with a 3 out of 6 systolic ejection murmur Lungs-clear to auscultation, chest wall stable without crepitus or subcu emphysema Abdomen-normoactive bowel sounds, soft, nontender, no rebound or rigidity, no peritoneal signs. Rectal exam-no masses, brown stool Extremities-intact 4, normal range of motion, normal pulses, atraumatic]. Trace edema both lower extremities. Test Results: [EKG obtained on arrival showed atrial fibrillation with a ventricular rate of 87 bpm with incomplete left bundle branch block as well as nonspecific ST changes and occasional PVCs. CBC with differential showed a white count of 9.3, hemoglobin 7.5, hematocrit 28, platelets 318. Chemistries unremarkable. Troponin was 0.024. BNP was 896.] Emergency Department Course and Treatment: [Patient had initially a type and screen followed by a type and cross of 2 units packed red cells.] Treatment Plan: [Patient will be transfused and admitted] Disposition: [Admit] Impression: [Dyspnea Symptomatic anemia Chronic A. fib] This note was generated with [employer] dictation software. It may contain incorrect words, spelling, and punctuation that were not noted in review of the chart prior to signing ED Disposition - Plan for ED Patient: Chief Complaint: Shortness of Breath Referrals: Milton Menendez Chi, MD [Primary Care Provider] - What to do if you have Problems For any increased pain, shortness of breath, bleeding, nausea or vomiting, chest pain, or any unexpected problems, contact your Primary Care Provider. Call [facility] ([phone]) or report to the closest Emergency Room. Call 911 if necessary. 07/02/18 1621 <Electronically signed by Mary Barba DO> Date Mary Barba DO Cosigner Signature (If Indicated): Date CC: Milton Menendez MD DISCHARGE SUMMARY Observed: 07/01/2018 Status: F Source: TRENT 5:41 PM [facility] REPOSITORY [facility] Medical Records Department [address] [place] [address] Discharge Summary 07/01/18 1733 MR#: [id number] Acct: [id number] Name: NGA TABARES Rep #: [id number] : 1940 78 From: Kenyatta Cruz MD PCP: Shon GREENE,Milton Stephenson Status: ADM LIZZY Y Location: [place] [address] Discharge Date and Diagnosis - Problem List Patient Problems: Active and Suspected Problems (Last Updated 06/30/18 @ 15:04 by Los Whitney DO) Acute blood loss anemia (Acute) Date of Admission: 06/30/18 Date of Discharge: 07/01/18 - Primary Discharge Diagnosis Active and Suspected Problems (Last Updated 06/30/18 @ 15:04 by Los Whitney DO) Acute blood loss anemia (Acute) Hallucinations - Secondary Discharge Diagnosis Chronic Problems (Last Updated 06/30/18 @ 15:04 by Los Whitney DO) History of prostate cancer in remission (Chronic) Hyperlipidemia (Chronic) Hypertension (Chronic) Left eye blindness (Chronic) Hypothyroidism (Chronic) Hospital Course and Treatment Imaging Results: Clinical Impression(s) from Imaging Studies Chest X-Ray 06/30/18 12:45 IMPRESSION: Hyperinflation. Stable pleural parenchymal changes at the left lung base. Electronically Signed: Bryant Dang MD at 13:24 EDT Tel [phone], Service support , None Operations: None Procedures: None Summary of Care Provided: The patient is a 78 year old M with past medical history of hypertension, hyperlipidemia, history of prostate cancer in remission, hypothyroidism, paroxysmal atrial fibrillation, on Eliquis who had complaints of constipation for the past 2 weeks and her dyspnea on exertion. He had also noticed dark tarry stools. No epistaxis, hematochezia, or hematemesis. He says that he had similar presentation 2 years ago and he was transfused. His hemoglobin was found to be 7.5. He was admitted to the telemetry bed, no acute events on telemetry. He was transfused 2 units of blood with improvement in his hemoglobin to 9.2. Patient was not dyspneic on exertion. He was found to be hallucinating on the day of discharge. Reportedly saying that he seemed to be poor dressing hollowing costumes on the nursing unit. He saw a allie load of children and her people partying in the [place] in the hospital. Discussed patient with his ex- who is still very close to him as well as his son, they have noticed some memory lapses with increasing forgetfulness and repetition of questions. They are not sure if they have been in the lapses and IADLs. They do not know of any psychiatric history for him. Patient has been tangential throughout further discussions. Forgetting sometimes what he had already asked. Crisis was consulted for patient and declined to admit patient to an inpatient facility. Patient was insistent on being discharged. Discussed the plan of care with the son, advised the son on getting a med alert watch or change for the father. The son says that the father has it but will not wear it. Recommended looking into possibly an assisted living facility. Discussed with his primary care doctor Dr. Menendez, patient will be seen in the earliest. He will be discharged home with home health and APS referral Discharge Diet: No Restrictions Discharge Activity: Return to Normal Activity Home Medications: Medications to take at Discharge Levothyroxine [Synthroid] 25 mcg PO 0600 03/19/14 Metoprolol Tartrate [Lopressor (beta yesi)] 12.5 mg PO BID #60 tablet 03/22/14 Ascorbic Acid [Vitamin C] 500 mg PO DAILY@0800 07/28/16 Cyanocobalamin (Vitamin B-12) [Vitamin B-12] 1,000 mcg PO DAILY 07/28/16 Multivitamins,Therapeutic [Multivitamin] 1 tablet PO DAILY 07/28/16 Vitamin E 400 unit PO DAILY 07/28/16 Furosemide 40 mg PO DAILY #30 tablet 07/30/16 Ketoconazole [Nizoral Cream] 1 applic TOPICAL BID #1 tube 07/30/16 Atorvastatin Calcium [Lipitor] 20 mg PO QHS 06/30/18 Clotrimazole [Lotrimin] 1 applicatio TP DAILY 06/30/18 Ergocalciferol [Vitamin D] 50,000 unit PO QMONTH 06/30/18 Latanoprost 0.005% [Xalatan Opthalmic] 1 drop RIGHT EYE QHS 06/30/18 Lutein 1 tab PO DAILY 06/30/18 Quinapril/Hydrochlorothiazide [Accuretic 20-12.5 MG Tablet] 1 tab PO DAILY 06/30/18 prednisoLONE eye drops (5 mL) [Pred Forte eye drops (5 mL)] 1 drop LEFT EYE QHS 06/30/18 Ensure Clear 120 ml PO 4X/DAY #100 liquid 07/01/18 Ferrous Sulfate 325 mg PO 1200,1700 #30 tablet 07/01/18 Following Prescrptions Were Given to Patient: Ferrous Sulfate 325 mg PO 1200,1700 #30 tablet Ensure Clear 120 ml PO 4X/DAY #100 liquid Other Amb Orders: CBC W/Diff, Automated Time Frame: 1 Week, Location: Laboratory Primary Care Physician: Milton Menendez Chi, MD [Primary Care Provider] - Please follow up with your Primary Care Physician in: within 2 weeks Please Follow Up With: Sherry De La Cruz MD When: in 1 week Disposition: Home with Home Health Minutes spent on discharge:: 50 - Discussing discharge plan with primary care doctor, crisis team Patient Condition:: Stable Medical Necessity - Tobacco Use Smoking Status: Former smoker Tobacco Use: Cigars Meaningful Use Info Meaningful Use Diagnoses (Choose all that apply): None applicable Code Visit Inpatient E AND M: 01919 Disch Hosp 07/01/18 174 <Electronically signed by Kenyatta Cruz MD> Date Kenyatta Cruz MD Cosigner Signature (if applicable): Date CC: Kenyatta Cruz MD; Milton Menendez MD Signed DISCHARGE INSTRUCTION Observed: 07/01/2018 Status: F Source: [place] 5:29 PM [facility] REPOSITORY [facility] Medical Records Department [address] [place] [address] Instructions for Home/Discharge Instructions 07/01/18 172 MR#: [id number] Acct: [id number] Name: NGA TABARES Rep #: [id number] : 1940 78 From: Kenyatta Cruz MD PCP: Shon GREENE,Milton Stephenson Status: ADM LIZZY ADDENDUM by Kenyatta Cruz MD on 07/01/18 at 1729 Note changes to your medications. You have been taken off Eliquis and aspirin until you see the general surgeon for work-up. Follow-up with DR. Menendez in 1 week. You will need repeat blood work in 1 week. 07/01/18 172 Date Kenyatta Cruz MD cc: Milton Menendez MD * Signed - Discharge Diagnoses Current Active Problems: Current Active and Chronic Problems (Last Updated 06/30/18 @ 15:04 by Los Whitney DO) Acute blood loss anemia (Acute) Reason(s) for Visit for Discharge Instructions: Anemia You will use the following diet at home:: Regular Your food should be the consistency of: Regular Your liquids should be the consistency of: Regular/Thin Discharge Activity: Return to Normal Activity Allergies/Adverse Reactions: Allergies latex Allergy (Verified 06/30/18 12:33) Rash Medications to take at Discharge Levothyroxine [Synthroid] 25 mcg PO 0600 03/19/14 Metoprolol Tartrate [Lopressor (beta yesi)] 12.5 mg PO BID #60 tablet 03/22/14 Ascorbic Acid [Vitamin C] 500 mg PO DAILY@0800 07/28/16 Cyanocobalamin (Vitamin B-12) [Vitamin B-12] 1,000 mcg PO DAILY 07/28/16 Multivitamins,Therapeutic [Multivitamin] 1 tablet PO DAILY 07/28/16 Vitamin E 400 unit PO DAILY 07/28/16 Furosemide 40 mg PO DAILY #30 tablet 07/30/16 Ketoconazole [Nizoral Cream] 1 applic TOPICAL BID #1 tube 07/30/16 Atorvastatin Calcium [Lipitor] 20 mg PO QHS 06/30/18 Clotrimazole [Lotrimin] 1 applicatio TP DAILY 06/30/18 Ergocalciferol [Vitamin D] 50,000 unit PO QMONTH 06/30/18 Latanoprost 0.005% [Xalatan Opthalmic] 1 drop RIGHT EYE QHS 06/30/18 Lutein 1 tab PO DAILY 06/30/18 Quinapril/Hydrochlorothiazide [Accuretic 20-12.5 MG Tablet] 1 tab PO DAILY 06/30/18 prednisoLONE eye drops (5 mL) [Pred Forte eye drops (5 mL)] 1 drop LEFT EYE QHS 06/30/18 Ensure Clear 120 ml PO 4X/DAY #100 liquid 07/01/18 Ferrous Sulfate 325 mg PO 1200,1700 #30 tablet 07/01/18 The following prescriptions were given: Ferrous Sulfate 325 mg PO 1200,1700 #30 tablet Ensure Clear 120 ml PO 4X/DAY #100 liquid Primary Care Physician: Milton Menendez Chi, MD [Primary Care Provider] - Please follow up with your Primary Care Physician in: within 2 weeks Test Results: Test results from this visit will be discussed in further detail at your follow-up appointment, if applicable. Please Follow Up With: Sherry De La Cruz MD When: in 1 week Proposed Discharge Date: 07/01/18 07/01/181726 <Electronically signed by Kenyatta Cruz MD> Date Kenyatta Cruz MD CC: Milton Menendez MD CBC W/DIFF, AUTOMATED Collected: 07/01/2018 Status: F Source: [place] 5:44 [facility] REPOSITORY TYPE CODE TESTS RESULT OUT OF RANGE REFERENCE UNITS LAB L100.1000 4.4-11.0 K/mm3 Normal WBC 9.9 LAB L100.1200 4.6-6.2 M/mm3 Low RBC 4.28 LAB L100.1300 13.0-16.5 g/dl Low HGB 9.2 LAB L100.1400 40-54 % Low HCT 30.2 LAB L100.1500 80-94 fL Low MCV 70.6 LAB L100.1600 27.0-32.0 pg Low MCH 21.5 LAB L100.1700 32-36 g/gl Low MCHC 30.5 LAB L100.1810 11.6-14.6 % High RDW CV 17.6 LAB L100.1820 35.1-43.9 fl High RDW SD 44.2 LAB L100.1900 150-450 K/mm3 Normal PLT 293 LAB L100.2000 6.2-12.0 fl Normal MPV 9.5 LAB L100.2100 47-70 % High NEUT% 78.3 LAB L100.2200 19-41 % Low LY% 9.7 LAB L100.2300 0-10 % High MONO% 10.2 LAB L100.2400 0-5 % Normal EO% 1.3 LAB L100.2500 0-1 % Normal BASO% 0.4 LAB L100.2550 0.0-0.9 % Normal IM GRAN % 0.100 Result Comment: IG% - Immature Granulocytes (promyelocytes, myelocytes and metamyelocytes) > 1% indicates that a LEFT SHIFT is Present. LAB L100.2620 2.0-7.7 X10 3/uL Absolute Neut Normal 7.7 LAB L100.2720 0.83-4.51 X10 3/ul Absolute Lymph Normal 0.96 LAB L100.4500 SMEAR COMMENT Normal SCANNED LAB L100.7300 ANISO Normal 3+ LAB L100.7600 HYPOCHROMASIA Normal 3+ LAB L100.7700 MICROCYTES Normal 2+ LAB L100.8200 OVALOCYTE Normal 1+ LAB L100.8400 SCHISTOCYTES Normal RARE Performed By: #### L100.0100 #### [facility] [address] [place], [place], [id number] BASIC METABOLIC Collected: 07/01/2018 Status: F Source: [place] PROFILE (BMP) 5:44 AM [facility] REPOSITORY TYPE CODE TESTS RESULT OUT OF RANGE REFERENCE UNITS LAB L501.0100 74-106 mg/dL Normal GLU 98 Result Comment: Please note revised GLUCOSE reference range effective 2017. LAB L501.1000 7-18 mg/dL Normal BUN 18 LAB L501.1100 0.70-1.30 mg/dL Normal CREAT,SERUM 1.20 Result Comment: The validity of the calculated GFR AND GFRAA in patients over 70 years has not been determined. Clinical correlation is essential. LAB L501.1110 >60 mL/min Normal EST GFR 62 Result Comment: Non- GFR Calc LAB L501.1115 >60 mL/min Normal EST GFR - AA 75 Result Comment: GFR Calc LAB L501.1255 ml/min Normal Estimated CRCL 60.28 LAB L501.1300 10-20 RATIO Normal BUN/CRE 15.0 LAB L501.2200 8.5-10 mg/dL Normal .1 CA 8.5 LAB L501.5300 136-14 mmol/L Normal 5 NA 137 LAB L501.5600 3.5-5. mmol/L Normal 1 K 3.9 LAB L501.5900 98-107 mmol/L Normal CL 102 LAB L501.6100 21.0-3 mmol/L Normal 2.0 CO2 24.0 LAB L501.6200 5-15 Normal GAP 11 Performed By: #### L500.2500 #### [facility] [address] [facility] [place] [place], [address] MAGNESIUM Collected: 07/01/2018 Status: F Source: [place] 5:44 AM [facility] REPOSITORY TYPE CODE TESTS RESULT OUT OF RANGE REFERENCE UNITS LAB L501.5200 1.6-2.6 mg/dL Normal MG 2.2 Performed By: #### L501.5200 #### [facility] [address] [facility] [place], [address] HISTORY AND PHYSICAL Observed: 06/30/2018 Status: F Source: [place] EXAM 3:13 PM [facility] REPOSITORY [facility] Medical Records Department [address] [place] [id number] History and Physical 06/30/18 1459 MR#: [id number] Acct: [id number] Name: NGA TABARES Rep #: [id number] : 1940 78 From: Los Whitney DO PCP: Shon GREENE,Milton Stephenson Status: ADM LIZZY Y Location: [place] [address] Problem List (1) Acute blood loss anemia Status: Acute History of Present Illness Date of Admission: 06/30/18 Chief Complaint: shortness of breath The patient is a 78 year old M presents with ZHENG over the past 2 weeks. 2 weeks ago was constipated but did note dark tarry stools. Given his symptoms were similar to 2 years ago when he was anemic, he came into the hospital. Hg was 7.5 and in October it was 11. Patient denies any epistaxis, hematochezia, hematemesis.[] Past Medical History Past Medical History (Chronic Problems): Chronic Problems History of prostate cancer in remission (Chronic) Hyperlipidemia (Chronic) Hypertension (Chronic) Left eye blindness (Chronic) Hypothyroidism (Chronic) Medical History: Medical History (Last Updated 06/30/18 @ 15:04 by Los Whitney DO) Afib I48.91 Blind left eye H54.40 CVA (cerebral vascular accident) I63.9 Heart failure with reduced ejection fraction I50.20 Hyperlipidemia E78.5 Hypothyroidism E03.9 HTN (hypertension) I10 Allergies latex Allergy (Verified 06/30/18 12:33) Rash Home Medications: Ambulatory Orders Medication Instructions Recorded Levothyroxine [Synthroid] 25 mcg PO 0600 03/19/14 Aspirin [Aspirin, Baby] 81 mg PO DAILY@0800 #30 tab.chew 03/22/14 Surgical History: - - Hernia repair call for surgery, eye surgery Smoking Status: Former smoker Tobacco Use: Non-smoker Alcohol: Rare Drugs: None - *Family History Maternal History Items: No pertinent history - no heart disease Review of Systems Constitutional: Reports: Weakness. Denies: Anorexia, Chills, Fever, Malaise Eyes: Denies: Blurred vision, Double vision HEENT: Denies: Head Aches, Sinus Congestion, Sinus Drainage Cardiovascular: Denies: Chest Pain, Palpitations Respiratory: Denies: Cough, Shortness of breath at rest, Sputum production Gastrointestinal: Reports: Melena. Denies: Abdominal Pain, Hematemesis, Hematochezia, Vomiting Genitourinary: Denies: Dysuria, Hematuria Musculoskeletal: Denies: Joint Pain, Joint Tenderness Skin: Denies: Rash, Wounds Neurological: Denies: Numbness, Tingling, Focal weakness Psychiatric: Denies: Anxiety, Depression Hematologic/ Lymphatic: Denies: Easy Bruising, Easy Bleeding, Hx of blood clot Comment: All review of systems are negative except as mentioned in the history of present illness and the other review of systems. VTE Information - Inpt Only VTE Present on Admission: No VTE Mechan Device Prophylaxis: SCD's VTE Pharm Prophylaxis ordered?: No Reason prophylaxis not ordered:: Medical Contraindication Patient Problems: Active and Suspected Problems Acute blood loss anemia (Acute) - Physical Exam General: Alert, Cooperative, No apparent distress HEENT: Atraumatic, Normocephalic, - - Pale conjunctiva Oral: Moist Mucosa, No Gingival or Mucosal Lesions/ Ulcerations Neck: No Nodes, Thyroid Normal Size and Texture Lungs: Clear to auscultation, Normal air movement, No rhonchi, No wheeze Cardiovascular: Regular rate, Regular Rhythm, Normal S1, Normal S2, No murmurs Abdomen: Bowel Sounds Present, Soft, Non Tender, Non-Distended, No Hepato-splenomegaly Extremities: No edema, No Calf Tenderness Skin: No rashes, No breakdown, - - Some upper extremity bruising Musculoskeletal: No Tenderness to Palpation of Joints or Extremities, No Muscle Wasting Neurological: Sensory exam intact to light touch and pain, - - Clonus Psych/Mental Status: Normal Affect, Appropriate Vital Signs Temp Pulse Resp BP Pulse Ox 36.6 C 103 H 17 129/92 H 95 06/30/18 12:31 06/30/18 14:52 06/30/18 14:52 06/30/18 14:52 06/30/18 14:52 Oxygen Delivery Method Room Air Weight: 99 kg Body Mass Index (BMI) 27.3 Finger Stick Blood Glucose 85 Laboratory Tests Past 24 Hrs WBC 9.3 RBC 3.68 L Hgb 7.5 L Hct 25.4 L MCV 69.0 L MCH 20.4 L WBC RBC Hgb Hct MCV EKG reviewed and showed atrial fibrillation with PVCs Very reviewed and slight flattening of the diaphragms but no pulmonary edema nor infiltrate. Assessment/Plan All Active Problems Acute blood loss anemia (Acute) Acute systolic heart failure exacerbatio (Acute) Cellulitis superimposed acute tinea (Acute) Dyspnea (Acute) 1. Acute blood loss anemia * Hemoglobin has dropped roughly 4 g in the past 7-8 months though I suspect much of the drop probably occurred when patient noted some melena a couple weeks ago * Patient will receive 1 unit of packed red blood cells as he is currently asymptomatic * Will monitor overnight * Hold his Eliquis. I explained to the patient in detail and on several occasions that Eliquis did not causes bleeding but led to him bleeding probably more * Patient took his Eliquis today and will hold Eliquis for now until he can get further endoscopy * Discussed with Dr. De La Cruz The patient is stable and can likely follow-up with her as outpatient. She agreed and would be willing to see him probably next week as she will be out of town and Friday. * I will put the patient on a clear diet for now just make sure he does not have any hemorrhage and if he does then he may warrant general surgery seeing him while in the hospital * Start ferrous sulfate 2. Atrial fibrillation * BQL1SE3-OCHx score of 6 * Given the anemia and likely hemorrhage, Eliquis will be held for now * Continue with metoprolol and aspirin * Resume Eliquis at a later point when his hemoglobin has been stable and pending on further GI workup 3. Heart failure with reduced ejection fraction * EF 40% from echocardiogram 2013 * Continue with CADEN inhibitor, Lasix and metoprolol 4. DVT prophylaxis with SCDs 5. Disposition: Patient will be monitored overnight and brought in under observation status. Patient's condition deteriorates, then they will need to be changed to admission but given the patient's anemia and his symptoms I feel the patient could be discharged on the third if he remained stable. Code Visit OBSV E AND M: [id number] Initial observation care L3 06/30/18 1513 <Electronically signed by Los Whitney DO> Date Los Whitney DO Cosigner Signature: Date (if applicable) CC: Los Whitney DO; Milton Menendez MD Signed TYPE AND SCREEN Collected: 06/30/2018 Status: F Source: [place] 2:20 PM [facility] REPOSITORY Order Comment: CMV NEG? N Number of units to transfuse: 2 Reason for Ordering Blood: Chronic Is there symptomatic anemia? Y Are the blood/blood products to be transfused? Y Is the patient having/had surgery? N CMV NEG?* N Give When? When Ready Irradiated? N Leukodepleted? Y Reason for Type AND Screen/Red Cells: ANEMIA TYPE CODE TESTS RESULT OUT OF RANGE REFERENCE UNITS LAB B10.0800 O Normal BLOOD TYPE GEL POSITIVE LAB B100.4000 Normal Antibody NEGATIVE Screen Performed By: #### B101.7450 #### [facility] [place], [address] Collected: 06/30/2018 Status: F Source: [place] 2:20 PM [facility] REPOSITORY TYPE CODE TESTS RESULT OUT OF REFERENCE UNITS RANGE LAB U100.0000 [id number] TRANSFUSED PRODUCT: T AND S with Crossmatch, Red Cells COUNT: 2 Performed By: #### U100.0000 #### [facility] - refer to report for specific site CBC W/DIFF, AUTOMATED Collected: 06/30/2018 Status: F Source: [place] 1:20 PM [facility] REPOSITORY TYPE CODE TESTS RESULT OUT OF RANGE REFERENCE UNITS LAB L100.1000 4.4-11.0 K/mm3 Normal WBC 9.3 LAB L100.1200 4.6-6.2 M/mm3 Low RBC 3.68 LAB L100.1300 13.0-16.5 g/dl Low HGB 7.5 LAB L100.1400 40-54 % Low HCT 25.4 LAB L100.1500 80-94 fL Low MCV 69.0 LAB L100.1600 27.0-32.0 pg Low MCH 20.4 LAB L100.1700 32-36 g/gl Low MCHC 29.5 LAB L100.1810 11.6-14.6 % High RDW CV 16.0 LAB L100.1820 35.1-43.9 fl Normal RDW SD 38.9 LAB L100.1900 150-450 K/mm3 Normal PLT 318 LAB L100.2000 6.2-12.0 fl Normal MPV 10.2 LAB L100.2100 47-70 % High NEUT% 80.1 LAB L100.2200 19-41 % Low LY% 8.0 LAB L100.2300 0-10 % Normal MONO% 9.3 LAB L100.2400 0-5 % Normal EO% 1.8 LAB L100.2500 0-1 % Normal BASO% 0.6 LAB L100.2550 0.0-0.9 % Normal IM GRAN % 0.200 Result Comment: IG% - Immature Granulocytes (promyelocytes, myelocytes and metamyelocytes) > 1% indicates that a LEFT SHIFT is Present. LAB L100.2620 2.0-7.7 X10 3/uL Absolute Neut Normal 7.4 LAB L100.2720 0.83-4.51 X10 3/ul Low Absolute Lymph 0.74 LAB L100.7600 HYPOCHROMASIA Normal 1+ LAB L100.7700 MICROCYTES Normal 1+ Performed By: #### L100.0100 #### [facility] [address] [facility] [place], [place], [address] BASIC METABOLIC Collected: 06/30/2018 Status: F Source: [place] PROFILE (BMP) 1:20 PM [facility] REPOSITORY TYPE CODE TESTS RESULT OUT OF RANGE REFERENCE UNITS LAB L501.0100 74-106 mg/dL High GLU 112 Result Comment: Fasting Glucose result from 100 to 125 mg/dL suggests IMPAIRED HOMEOSTASIS per A.D.A. criteria. Please note revised GLUCOSE reference range effective 2017. LAB L501.1000 7-18 mg/dL High BUN 20 LAB L501.1100 0.70-1.30 mg/dL Normal CREAT,SERUM 1.26 Result Comment: The validity of the calculated GFR AND GFRAA in patients over 70 years has not been determined. Clinical correlation is essential. LAB L501.1110 >60 mL/min Low EST GFR 59 Result Comment: Non- GFR Calc LAB L501.1115 >60 mL/min Normal EST GFR - AA 71 Result Comment: GFR Calc LAB L501.1255 ml/min Normal Estimated CRCL 55.89 LAB L501.1300 10-20 RATIO Normal BUN/CRE 15.9 LAB L501.2200 8.5-10 mg/dL Normal .1 CA 8.6 LAB L501.5300 136-14 mmol/L Normal 5 NA 137 LAB L501.5600 3.5-5. mmol/L Low 1 K 3.4 LAB L501.5900 98-107 mmol/L Normal CL 101 LAB L501.6100 21.0-3 mmol/L Normal 2.0 CO2 27.0 LAB L501.6200 5-15 Normal GAP 9 Performed By: #### L500.2500, L501.4010 #### [facility] [address] [place], [place], [address] TROPONIN-I Collected: 06/30/2018 Status: F Source: [place] 1:20 PM [facility] REPOSITORY TYPE CODE TESTS RESULT OUT OF RANGE REFERENCE UNITS LAB L501.4010 <0.045 ng/mL Normal 0.024 TROPONIN-I Result Comment: TROPONIN-I EXPECTED VALUES <0.045 Negative 0.045 - 0.590 Consistent with Cardiac Damage > OR = 0.600 Critical Value Not every elevated troponin is indicative of MN. These values should be used with clinical judgement in examining the patient's clinical picture for diagnosis. To establish a diagnosis of MN versus myocardial injury, there must be a demonstrated rise and/or fall in the troponin values, in addition to ischemic symptoms, EKG changes, new regional wall motion abnormality, and/or angiographical evidence. PLEASE NOTE: REFERENCE RANGES EDITED 18 Performed By: #### L500.2500, L501.4010 #### [facility] [address] [facility] [place], [address] BNP,B-TYPE NATRIURETIC Collected: 06/30/2018 Status: F Source: [place] PEPTIDE 1:20 PM [facility] REPOSITORY TYPE CODE TESTS RESULT OUT OF RANGE REFERENCE UNITS LAB L503.6620 0-100 pg/mL High B-TYPE 896.7 JULIO PEP Performed By: #### L503.6620 #### [facility] [address] [facility] [place] [place], [address] CHEST 1 VIEW Observed: 06/30/2018 Status: F Source: [place] (PORTABLE) 12:47 PM [facility] REPOSITORY [facility] Imaging Services [address] [place] [address] Chest 1 View (Portable) MR#: [id number] Acct: [id number] Name: NGA TABARES Rep #: [id number] : 1940 M 78 From: Bryant Dang MD PCP: Shon GREENE,Milton Chi Status: REG ER Study: Chest 1 View (Portable) Date of Exam: 06/30/18 Exam# [id number] Ordering Dr: Mary Barba DO STUDY: X-RAY CHEST REASON FOR EXAM: Male, 78 years old. Chronic dyspnea. TECHNIQUE: Single AP portable view of the chest. COMPARISON: Comparison is made with prior study dated July 28, 2016. FINDINGS: Hyperinflation. Stable pleural parenchymal changes at the left lung base. There is mild cardiac enlargement. Normal mediastinum and henrik. Normal visualized pulmonary arteries. Normal visualized aortic arch and descending thoracic aorta. There are diffuse degenerative changes of the visualized thoracic spine. Normal visualized ribs, clavicles, and shoulders. Large hiatal hernia. RAD/Chest 1 View (Portable) IMPRESSION: Hyperinflation. Stable pleural parenchymal changes at the left lung base. Electronically Signed: Bryant Dang MD at 13:24 EDT Tel [phone], Service support , CC: Mary Barba DO; Milton Menendez MD Field Sampling Technician: Signed PROGRESS Observed: 04/09/2018 Status: COMPLETED Source: [place] 12:09 PM [facility] REPOSITORY HNO ID: [id number] Author: Loraine (Kristan) Hilaria Service: (none) Author Type: Nurse Practitioner Type: Progress Notes Filed: 04/09/2018 12:28 PM Note Text: Subjective HPI HPI Nga Tabares is a 78 year old male who presents today for CC of right foot pain. This started over the past day he noticed a cut or wonders if it could be a splinter. Symptoms are worsened by touch He has tried no treatment or medications. Risk factors none known has not been walking in bare feet. PMH neuropathy BP 132/82 Pulse 70 Temp 36.3 ?C (97.3 ?F) (Tympanic) Resp 16 Wt 103.5 kg (228 lb 3.2 oz) BMI 27.78 kg/m? ALLERGIES Allergen Reactions - Latex Rash Also itching ACTIVE PROBLEM LIST Inguinal Hernia Without Mention of Obstruction Or Gangrene, Unilateral Or Unspecified, (Not Specified As Recurrent) Lymphocele Unilateral Groin Pain No family history on file. Social History Marital status: Spouse name: Years of education: Number of children: Social History Main Topics Smoking status: Never Smoker Smokeless tobacco: Never Used Alcohol use: No Drug use: No Review of Systems Constitutional: Negative for chills, fever and malaise/fatigue. Genitourinary: Negative for dysuria. Musculoskeletal: Negative for joint pain and myalgias. Skin: Negative for rash. ? Splinter in side of right foot, over 5th metatarsal Neurological: Negative for headaches. Objective Physical Exam Constitutional: He is oriented to person, place, and time and well-developed, well-nourished, and in no distress. No distress. HENT: Head: Normocephalic and atraumatic. Eyes: Conjunctivae and EOM are normal. Pupils are equal, round, and reactive to light. Neck: Normal range of motion. Neck supple. Pulmonary/Chest: Effort normal. Musculoskeletal: Right foot: There is tenderness. There is normal range of motion, no bony tenderness, no swelling, normal capillary refill, no crepitus, no deformity and no laceration. Feet: Neurological: He is alert and oriented to person, place, and time. Skin: Skin is warm and dry. Abrasion noted. Psychiatric: Affect normal. Nursing note and vitals reviewed. ASSESSMENT/PLAN: 1. Abrasion - ICD9: 919.0, ICD10: T14.8XXA Due to dryness causing cracking in feet Use vaseline morning and night, and put socks over top Use until dryness and flaking improve Follow up with PCP if no improvement. Diagnosis and treatment plan were discussed and questions were answered to the patient's satisfaction. Pt acknowledged understanding of concepts and follow up plan. Specific signs and symptoms that would indicate the need for higher level of care were discussed in detail warranting prompt ER evaluation. Loraine Padilla APRN.KRISTAN CNOV Observed: 04/09/2018 Status: COMPLETED Source: [place] 11:45 AM [facility] REPOSITORY Office Visit (WSTR) NGA TABARES ([id number]) 1940 M Date Time Provider Department 04/09/18 11:45 AM LORAINE PADILLA (KRISTAN) [facility] During your visit today, we recorded the following information about you: Temperature Pulse Respiration Blood pressure 97.3 degrees 70/minute 16/minute 132/82 Weight 103.5 kg Loraine Padilla APRN.CNP 04/09/2018 12:09 PM Signed ASSESSMENT/PLAN: 1. Abrasion - ICD9: 919.0, ICD10: T14.8XXA Due to dryness causing cracking in feet Use vaseline morning and night, and put socks over top Use until dryness and flaking improve Follow up with PCP if no improvement. Loraine Padilla APRN.CNP 04/09/2018 12:28 PM Signed Subjective HPI HPI Nga Tabares is a 78 year old male who presents today for CC of right foot pain. This started over the past day he noticed a cut or wonders if it could be a splinter. Symptoms are worsened by touch He has tried no treatment or medications. Risk factors none known has not been walking in bare feet. PMH neuropathy BP 132/82 Pulse 70 Temp 36.3 ?C (97.3 ?F) (Tympanic) Resp 16 Wt 103.5 kg (228 lb 3.2 oz) BMI 27.78 kg/m? ALLERGIES Allergen Reactions - Latex Rash Also itching ACTIVE PROBLEM LIST Inguinal Hernia Without Mention of Obstruction Or Gangrene, Unilateral Or Unspecified, (Not Specified As Recurrent) Lymphocele Unilateral Groin Pain No family history on file. Social History Marital status: Spouse name: Years of education: Number of children: Social History Main Topics Smoking status: Never Smoker Smokeless tobacco: Never Used Alcohol use: No Drug use: No Review of Systems Constitutional: Negative for chills, fever and malaise/fatigue. Genitourinary: Negative for dysuria. Musculoskeletal: Negative for joint pain and myalgias. Skin: Negative for rash. ? Splinter in side of right foot, over 5th metatarsal Neurological: Negative for headaches. Objective Physical Exam Constitutional: He is oriented to person, place, and time and well-developed, well-nourished, and in no distress. No distress. HENT: Head: Normocephalic and atraumatic. Eyes: Conjunctivae and EOM are normal. Pupils are equal, round, and reactive to light. Neck: Normal range of motion. Neck supple. Pulmonary/Chest: Effort normal. Musculoskeletal: Right foot: There is tenderness. There is normal range of motion, no bony tenderness, no swelling, normal capillary refill, no crepitus, no deformity and no laceration. Feet: Neurological: He is alert and oriented to person, place, and time. Skin: Skin is warm and dry. Abrasion noted. Psychiatric: Affect normal. Nursing note and vitals reviewed. ASSESSMENT/PLAN: 1. Abrasion - ICD9: 919.0, ICD10: T14.8XXA Due to dryness causing cracking in feet Use vaseline morning and night, and put socks over top Use until dryness and flaking improve Follow up with PCP if no improvement. Diagnosis and treatment plan were discussed and questions were answered to the patient's satisfaction. Pt acknowledged understanding of concepts and follow up plan. Specific signs and symptoms that would indicate the need for higher level of care were discussed in detail warranting prompt ER evaluation. Loraine Padilla APRN.BECK TENDER Referring Provider: SELF [200] Allergies As of Date: 04/09/2018 Noted Allergy Reaction LATEX 01/05/2013 2 - Rash Comments: Also itching Date Reviewed: 04/09/2018 Reviewed by: Adenike Cerna LPN - Fully Assessed Reason for Visit: right foot pain [Other] Cmt: [id number] started last night- he thinks there is a splinter or a cut on the side of his foot Primary Visit Diagnosis:Abrasion [T14.8XXA] Prescriptions as of 04/09/2018 Sig: XARELTO 15 MG TABLET once daily. METOPROLOL TARTRATE 25 MG TAB* twice daily. VITAMIN D2 50,000 UNIT CAPSULE SYNTHROID 25 MCG TABLET once daily. ASPIRIN 81 MG TABLET,DELAYED * Take 81 mg by mouth once kenji* ASCORBIC ACID (VITAMIN C) 500* Take 500 mg by mouth once mary* ATORVASTATIN 80 MG TABLET ZOLPIDEM 10 MG TABLET Take 1 tablet by mouth at bed* PRAVASTATIN 80 MG TABLET Take 1 tablet by mouth once d* LEVOTHYROXINE 125 MCG TABLET Take 1 tablet by mouth once d* QUINAPRIL 20 MG-HYDROCHLOROTH* Take 1 tablet by mouth once d* Problem List As Of Date 04/09/2018 Noted Resolved Inguinal hernia without mention of obstruction *INVALID FOR* Lymphocele [I89.8] INVALID FOR* Unilateral groin pain [R10.30] INVALID FOR* Other instructions from your clinician: ASSESSMENT/PLAN: 1. Abrasion - ICD9: 919.0, ICD10: T14.8XXA Due to dryness causing cracking in feet Use vaseline morning and night, and put socks over top Use until dryness and flaking improve Follow up with PCP if no improvement. Encounter Status:Closed by LORAINE PADILLA CNP on 04/09/18 VITAMIN D,25 HYDROXY Collected: 11/17/2017 Status: F Source: [place] 2:58 PM [facility] REPOSITORY TYPE CODE TESTS RESULT OUT OF REFERENCE UNITS RANGE LAB L506.1000 19.95-100.01 ng/mL Low Vitamin D 12.6 25-OH Result Comment: Vitamin D 25(OH) Status Range Deficiency <20 ng/mL (50nmol/L) Insuffciency 20 - 30 ng/mL (50 - 75 nmol/L) Sufficiency 30 - 100 ng/mL (75 - 250 nmol/L) Toxicity >100 ng/mL (>250 nmol/L) Performed By: #### L506.1000, L509.3000 #### [facility] [address] [place], [place], [address] TESTOSTERONE, SERUM TOTAL Collected: 11/17/2017 Status: F Source: [place] 2:58 PM [facility] REPOSITORY TYPE CODE TESTS RESULT OUT OF REFERENCE UNITS RANGE LAB L509.3000 ng/dL Testosterone Normal 384.80 Result Comment: NORMAL REFERENCE RANGES MALE AGE <50 123.06 - 813.86 ng/dL MALE AGE >50 89.98 - 780.10 ng/dL FEMALE PREMENOPAUSE AGE 21 - 60 9.01 - 47.94 ng/dL FEMALE POSTMENOPAUSE AGE 45 - 89 <7.00 - 45.62 ng/dL REFERENCE RANGE AND METHODOLOGY CHANGED 09/17/2017 Performed By: #### L506.1000, L509.3000 #### [facility] [address] [place], [address] COMPREHENSIVE METABOLIC Collected: 11/17/2017 Status: F Source: [facility] 2:58 PM [facility] REPOSITORY TYPE CODE TESTS RESULT OUT OF RANGE REFERENCE UNITS LAB L501.0100 74-106 mg/dL Normal GLU 92 Result Comment: Please note revised GLUCOSE reference range effective 2017. LAB L501.1000 7-18 mg/dL Normal BUN 17 LAB L501.1100 0.70-1.30 mg/dL Normal CREAT,SERUM 1.00 Result Comment: The validity of the calculated GFR AND GFRAA in patients over 70 years has not been determined. Clinical correlation is essential. LAB L501.1110 >60 mL/min Normal EST GFR 77 Result Comment: Non- GFR Calc LAB L501.1115 >60 mL/min Normal EST GFR - AA 93 Result Comment: GFR Calc LAB L501.1300 10-20 RATIO Normal BUN/CRE 17.0 LAB L501.1500 6.4-8.2 g/dL T Normal PROT 7.1 LAB L501.1800 3.2-5.0 g/dL Normal ALB 3.8 LAB L501.1950 2.2-4.2 g/dL Normal GLOB 3.3 LAB L501.2000 0.9-2.4 RATIO Normal A/G 1.2 LAB L501.2200 8.5-10.1 mg/dL Low CA 8.3 LAB L501.4100 15-37 U/L Normal AST 24 LAB L501.4305 45-117 U/L Normal ALK P 56 LAB L501.4405 16-61 U/L Normal ALT 29 Result Comment: Please note revised ALT reference range effective 2017. LAB L501.4600 0.20-1.00 mg/dL High T BILI 1.10 LAB L501.5300 136-145 mmol/L Normal NA 139 LAB L501.5600 3.5-5.1 mmol/L Normal K 3.7 LAB L501.5900 98-107 mmol/L Normal CL 102 LAB L501.6100 21.0-32.0 mmol/L Normal CO2 29.0 LAB L501.6200 5-15 Normal GAP 8 Performed By: #### L500.4050, L501.9520 #### [facility] [address] [place], [address] THYROID STIM HORMONE Collected: 11/17/2017 Status: F Source: [place] ([facility]) 2:58 PM [facility] REPOSITORY TYPE CODE TESTS RESULT OUT OF RANGE REFERENCE UNITS LAB L501.9520 0.358-3.74 uIU/mL Normal TSH 2.69 Performed By: #### L500.4050, L501.9520 #### [facility] [address] [place] [place], [place], [address] CBC W/DIFF, AUTOMATED Collected: 11/17/2017 Status: F Source: [place] 2:58 PM [facility] REPOSITORY TYPE CODE TESTS RESULT OUT OF RANGE REFERENCE UNITS LAB L100.1000 4.4-11.0 K/mm3 Normal WBC 8.8 LAB L100.1200 4.6-6.2 M/mm3 Normal RBC 5.00 LAB L100.1300 13.0-16.5 g/dl Low HGB 11.7 LAB L100.1400 40-54 % Low HCT 39.1 LAB L100.1500 80-94 fL Low MCV 78.2 LAB L100.1600 27.0-32.0 pg Low MCH 23.4 LAB L100.1700 32-36 g/gl Low MCHC 29.9 LAB L100.1810 11.6-14.6 % High RDW CV 17.2 LAB L100.1820 35.1-43.9 fl High RDW SD 49.0 LAB L100.1900 150-450 K/mm3 Normal PLT 275 LAB L100.2000 6.2-12.0 fl Normal MPV 10.2 LAB L100.2100 47-70 % High NEUT% 77.6 LAB L100.2200 19-41 % Low LY% 12.4 LAB L100.2300 0-10 % Normal MONO% 7.2 LAB L100.2400 0-5 % Normal EO% 2.4 LAB L100.2500 0-1 % Normal BASO% 0.3 LAB L100.2550 0.0-0.9 % Normal IM GRAN % 0.100 Result Comment: IG% - Immature Granulocytes (promyelocytes, myelocytes and metamyelocytes) > 1% indicates that a LEFT SHIFT is Present. LAB L100.2620 2.0-7.7 X10 3/uL Normal Absolute Neut 6.9 LAB L100.2720 0.83-4.51 X10 3/ul Normal Absolute Lymph 1.10 Performed By: #### L100.0100 #### [facility] [address] [facility] [place], [address] EMERGENCY DEPARTMENT Observed: 11/15/2017 Status: F Source: [place] SUMMARY 1:37 AM [facility] REPOSITORY [facility] Medical Records Department [address] [place] [address] Emergency Department Summary 11/14/17 1805 MR#: [id number] Acct: [id number] Name: NGA TABARES Rep #: [id number] : 1940 77 From: Alana Rodriguez MD PCP: Milton Menendez MD, Chi Status: DEP ER - ER Visit Summary Date of Service: 11/14/17 Chief Complaint: Right foot pain History of Present Illness: The patient is a 77 M who presents for 1 week of right foot pain, that occurs only at night. Patient states that he had a similar episode one year ago in both legs and was diagnosed with neuropathy. His pain began again earlier this week and only occurs while he is sleeping at night. The pain will wake him up. He soaked his foot in Epsom salts which helped. He has no pain during the day. No pain with walking. No left foot pain, ankle pain or other pain. No fever or other constitutional symptoms. No injury. Patient was seen at urgent care and told to come to the emergency department for further evaluation. He has an appointment in January with his neurologist regarding his neuropathy. Physical Examination: Vital signs: afebrile, hemodynamically stable, no hypoxia on room air General: well nourished, well developed, in no distress Skin: warm, dry, no rash, no pallor HEENT: normocephalic and atraumatic; PERRL, EOMI, moist mucous membranes Cardiovascular: regular rate and rhythm with harsh systolic murmur, no peripheral edema, 2+ pulses all distal extremities Respiratory: No increased work of breathing, lungs are clear to auscultation bilaterally, no rales, rhonchi or wheezing Abdominal: Abdomen is soft, nontender with normoactive bowel sounds, no guarding or rebound, no masses MSK: Moves all extremities, no deformities, normal strength, no tenderness or deformities to the feet, very small nontender abrasion to the third distal toe Neuro: Awake and alert, oriented 4. No facial droop, sensation and motor function intact and symmetric Test Results: [] Emergency Department Course and Treatment: Patient declined an x-ray of the foot to look for occult injury because he did not think it was injured since he is able to walk on his foot during the day without any difficulty. He also declined any pain medication. Patient's nighttime symptoms that resolve during the day are not consistent with gout, infection, or other cause of foot pain. This is likely related to patient's history of neuropathy. Patient was encouraged to follow-up with his doctor. He will take dyej-wod-gupitoy pain medication as needed. He was discharged home. Treatment Plan: [] Disposition: [] Impression: Right foot pain, suspect neuropathy This note was generated with Info[employer]out dictation software. It may contain incorrect words, spelling, and punctuation that were not noted in review of the chart prior to signing ED Disposition - Plan for ED Patient: Disposition: Home or Assisted Living Chief Complaint: Lower Extremity Injury Instructions: ED Neuropathy Peripheral Referrals: Milton Menendez Chi, MD [Primary Care Provider] - Keep Lia appointment Additional Instructions: You are having night-time foot pain that has no other symptoms that would be concerning for a serious cause, such as heart failure. Please use Tylenol as needed for pain for your nighttime foot pain. You may continue the Epsom salt soaks. Please keep your appointment on Friday with your primary care doctor. If you have any worsening of your condition, such as shortness of breath, chest pain, dizziness or lightheadedness, or leg swelling, please return to emergency department immediately for another evaluation. What to do if you have Problems For any increased pain, shortness of breath, bleeding, nausea or vomiting, chest pain, or any unexpected problems, contact your Primary Care Provider. Call [facility] ([phone]) or report to the closest Emergency Room. Call 911 if necessary. 11/15/17 0137 <Electronically signed by Alana Rodriguez MD> Date Alana Rodriguez MD Cosigner Signature (If Indicated): Date CC: Milton Menendez MD DISCHARGE INSTRUCTION Observed: 11/15/2017 Status: F Source: [place] 12:18 AM [facility] REPOSITORY [facility] Medical Records Department [address] [place] [address] Discharge Instruction 11/14/17 1805 MR#: [id number] Acct: [id number] Name: NGA TABARES Rep #: [id number] : 1940 77 From: Alana Rodriguez MD PCP: Milton Menendez MD, Chi Status: DEP ER ED Disposition - Plan for ED Patient: Disposition: Home or Assisted Living Chief Complaint: Lower Extremity Injury Instructions: ED Neuropathy Peripheral Referrals: Milton Menendez Chi, MD [Primary Care Provider] - Keep Lia appointment Additional Instructions: You are having night-time foot pain that has no other symptoms that would be concerning for a serious cause, such as heart failure. Please use Tylenol as needed for pain for your nighttime foot pain. You may continue the Epsom salt soaks. Please keep your appointment on Friday with your primary care doctor. If you have any worsening of your condition, such as shortness of breath, chest pain, dizziness or lightheadedness, or leg swelling, please return to emergency department immediately for another evaluation. What to do if you have Problems For any increased pain, shortness of breath, bleeding, nausea or vomiting, chest pain, or any unexpected problems, contact your Primary Care Provider. Call [facility] ([phone]) or report to the closest Emergency Room. Call 911 if necessary. 11/15/17 0018 <Electronically signed by Alana Rodriguez MD> Date Alana Rodriguez MD Cosigner Signature (If Indicated): Date CC: Milton Menendez MD ALLERGIES ALLERGIES DATE TYPE / CODE NAME / CODE REACTION SEVERITY SOURCE 09/24/2018 Drug latex/[id number] Rash Unknown [facility] Allergy/4160 921(RXNORM) Hospital [address](SNOMED Repository CT) 01/05/2013 DRUG LATEX RASH [facility] INGREDI/[address] [place] [address](SNOMED Repository CT) ENCOUNTERS ENCOUNTERS ADMIT/DISCHARGE ACCOUNT ADMITTING ENCOUNTER LOCATION SOURCE NUMBER CLASS 10/14/2018 [id number] Ambulatory [facility] ing:LAB Repository 09/24/2018/09/24/20 [id number] Ambulatory BMSBuilding:Mike Newman 18 MS.[facility] Repository 09/18/2018 [id number] Ambulatory BMSBuilding:Mike Newman MS.[facility] Repository 09/17/2018 [id number] Ambulatory BMSBuilding:Mike Newman MS.[facility] Repository 09/12/2018 [id number] Ambulatory BMSBuilding:Mike Newman MS.[facility] Repository 09/12/2018/09/16/20 [id number] [place] Inpatient [address] ing:VZ2Nptb: Repository [id number]: 1 09/12/2018 [id number] [place] Ambulatory BMSBuilding:Mike Newman MS.CF.[facility] Repository 09/12/2018 [id number] [place] Ambulatory BMSBuilding:Mike Newman MS.[facility] Repository 09/12/2018 [id number] [place] Ambulatory BMSBuilding:Mike Newman MS.[facility] Repository 09/12/2018 [id number] [place] Ambulatory BMSBuilding:Mike Newman MS.CF.[facility] Repository 09/12/2018 [id number] [place] Ambulatory BMSBuilding:Mike Newman MS.[facility] Repository 09/12/2018 [id number] [place] Ambulatory BMSBuilding:Mike Newman MS.CF.[facility] Repository 09/12/2018 [id number] [place] Ambulatory BMSBuilding:Mike Newman MS.[facility] Repository 09/12/2018 [id number] [place] Ambulatory BMSBuilding:Mike Newman [facility] Rep[facility] 09/02/2018 [id number] Ambulatory [facility] ing:POLAB3 Repository 08/22/2018 [id number] Ambulatory BMSBuilding:[place] Repository 08/21/2018 [id number] [place] Ambulatory BMSBuilding:[place].[facility] Repository 08/21/2018 [id number] [place], Ambulatory BMSBuilding:[place].[facility] Repository 08/21/2018/08/22/20 [id number] [place] [facility] [facility] ing:PCURoom: Repository [id number]: 1 08/12/2018 [id number] Ambulatory [facility] ing:POLAB3 Repository 08/05/2018 [id number] Ambulatory [facility] ing:LAB Repository 07/24/2018 [id number] Ambulatory [facility] ing:POLAB3 Repository 07/10/2018 [id number] Ambulatory [facility] ing:[facility] Repository 07/10/2018 [id number] Ambulatory BMSBuilding:[facility] Repository 07/10/2018 [id number] Ambulatory [facility] ing:[facility] Repository 07/09/2018 [id number] Ambulatory [facility] ing:POLAB3 Repository 07/08/2018/07/08/20 [id number] Ambulatory BMSBuilding:[place] [address] [place].[facility] Repository 07/07/2018 [id number] Ambulatory [facility] Hospital ing:RAD Repository 06/30/2018/07/01/20 [id number] [place] [facility] [address] ing:PCURoom: Repository [id number]: 1 06/30/2018 [id number] [place] Ambulatory BMSBuilding:[place].[facility] Repository 06/30/2018 [id number] [place] Ambulatory BMSBuilding:[place] ARENAS.WIP [facility] Repository 04/09/2018/04/10/20 [id number] Ambulatory [address] Repository 11/17/2017 [id number] [facility] Rep[facility] 11/14/2017/11/14/19 [id number] Emergency [place] ing:ED Repository PAYERS PAYERS ENCOUNTER GUARANTOR PAYER SUBSCRIBER SOURCE 10/14/2018 NGA [place] Primary NGA C [place] [id number] Insurance:HUMANA FISHERDOB: [facility] [employer] MEDICARE PPOPolicy [id number] Number: Repository [address]Zfi: 330 [id number] [phone] (HP) Date:[id number] [address] [place] [address]OA: 10/14/2018 Secondary NOT GIVENUNK [place] Insurance:SELF PAY [facility] Number: Effective Repository Date:2018-10-14 09/24/2018 NGA C Primary NGA C [place] [id number] Insurance:HUMANA FISHERDOB: [facility] [employer] MEDICARE [facility] [id number] Number: Repository [address]Ztd: 330 [id number] [phone] (HP) Date:[id number] [address]AC: 09/24/2018 Secondary NOT GIVENUNK [place] Insurance:SELF PAY [facility] Number: Effective Repository Date:2018-09-23 09/18/2018 NGA C Primary NGA C [place] [id number] Insurance:HUMANA FISHERDOB: [facility] [employer] MEDICARE PPOPolicy [id number] Number: Repository [address]Oay: 330 [id number] [phone] (HP) Date:6221-41-17BL [address] [address]CM: 09/18/2018 Secondary NOT GIVENUNK [place] Insurance:SELF PAY [facility] Number: Effective Repository Date:2018-09-16 09/17/2018 NGA C Primary NGA C [place] [id number] Insurance:HUMANA FISHERDOB: Community [employer] MEDICARE [facility] [id number] Number: Repository [address]Yfb: 330 [id number] [phone] () Date:2953-57-01ZM [address] [address]OD: 09/17/2018 Secondary NOT GIVENUNK [place] Insurance:SELF PAY [facility] Number: Effective Repository Date:2018-09-17 09/12/2018 NGA C Primary NGA C [place] [id number] Insurance:HUMANA FISHERDOB: Community [employer] MEDICARE [facility] [id number] Number: Repository [address]Ubd: 330 [id number] [phone] () Date:[id number] [address]NI: 09/12/2018 Secondary NOT GIVENUNK [place] Insurance:SELF PAY [facility] Number: Effective Repository Date:2018-09-12 09/12/2018 NGA C Primary NGA C [place] [id number] Insurance:HUMANA FISHERDOB: Community [employer] MEDICARE [facility] [id number] Number: Repository [id number]: (330 [id number] [phone] (HP) Date:4819-47-55HE [address] [address]KG: 09/12/2018 Secondary NOT GIVENUNK [place] Insurance:SELF PAY [facility] Number: Effective Repository Date:2018-09-12 09/12/2018 NGA C Primary NGA C [place] [id number] Insurance:HUMANA FISHERDOB: Community [employer] MEDICARE [facility] [id number], [place] Number: Repository [phone]: (330 [id number] [phone] (HP) Date:8358-74-03JZ [address] [address]QN: 09/12/2018 Secondary NOT GIVENUNK [place] Insurance:SELF PAY [facility] Number: Effective Repository Date:2018-09-12 09/12/2018 NGA C Primary NGA C [place] [id number] Insurance:HUMANA FISHERDOB: Community [employer] MEDICARE [facility] [id number] Number: Repository [phone]: (330 [id number] [phone] (HP) Date:6340-38-30VD [address] [address]DA: 09/12/2018 Secondary NOT GIVENUNK [place] Insurance:SELF PAY [facility] Number: Effective Repository Date:2018-09-12 09/12/2018 NGA C Primary NGA C [place] [id number] Insurance:HUMANA FISHERDOB: Community [employer] MEDICARE [facility] [id number] Number: Repository [id number]: (330) [id number] [phone] (HP) Date:5351-13-61JX [address] [address]BC: 09/12/2018 Secondary NOT GIVENUNK [place] Insurance:SELF PAY [facility] Number: Effective Repository Date:2018-09-12 09/12/2018 NGA C Primary NGA C [place] [id number] Insurance:HUMANA FISHERDOB: Community [address] [employer] [facility] [id number] Number: Repository [id number]: (330) [id number] [phone] (HP) Date:2097-18-45GQ [address] [address]YK: 09/12/2018 Secondary NOT GIVENUNK [place] Insurance:SELF PAY [facility] Number: Effective Repository Date:2018-09-12 09/12/2018 NGA C Primary NGA C [place] [id number] Insurance:HUMANA FISHERDOB: Community [address] MEDIC[address] [facility] [id number] Number: Repository [id number]: (330 [id number] [phone] (HP) Date:9508-54-77VP [address] [address]KQ: 09/12/2018 Secondary NOT GIVENUNK [place] Insurance:SELF PAY [facility] Number: Effective Repository Date:2018-09-12 09/12/2018 NGA C Primary NGA C [place] [id number] Insurance:HUMANA FISHERDOB: Community [address] MEDICARE [facility] [id number] Number: Repository [phone]: (330 [id number] [phone] (HP) Date:1742-35-37FN [place] [address]WP: 09/12/2018 Secondary NOT GIVENUNK [place] Insurance:SELF PAY [facility] Number: Effective Repository Date:2018-09-12 09/12/2018 NGA C Primary NGA C [place] [id number] Insurance:HUMANA FISHERDOB: Community [address] MEDICARE [facility] [id number] Number: Repository [id number]: (330 [id number] [phone] (HP) Date:9496-46-75RG [address] [address]WO: 09/12/2018 Secondary NOT GIVENUNK [place] Insurance:SELF PAY [facility] Number: Effective Repository Date:2018-09-12 09/12/2018 NGA C Primary NGA C [place] [id number] Insurance:HUMANA FISHERDOB: Community [address] MEDICARE [facility] [id number] Number: Repository [id number]: (330 [id number] [phone] (HP) Date:4080-06-21XR [address] [address]OZ: 09/12/2018 Secondary NOT GIVENUNK [place] Insurance:SELF PAY [facility] Number: Effective Repository Date:2018-09-12 09/02/2018 NGA C Primary NGA C [place] [id number] Insurance:HUMANA FISHERDOB: Community [address] MEDICARE [facility] [id number] Number: Repository [id number]: (330 [id number] [phone] (HP) Date:4736-86-69WM [address] [address]MW: 09/02/2018 Secondary NOT GIVENUNK [place] Insurance:SELF PAY [facility] Number: Effective Repository Date:2018-08-19 08/22/2018 NGA C Primary NGA C [place] [id number] Insurance:HUMANA FISHERDOB: Community [address] MEDICARE [facility] [id number] Number: Repository [phone]: 330 [id number] [phone] (HP) Date:9708-64-59TU [address] [address]NA: 08/22/2018 Secondary NOT GIVENUNK [place] Insurance:SELF PAY [facility] Number: Effective Repository Date:2018-08-22 08/21/2018 NGA C Primary NGA C [place] [id number] Insurance:HUMANA FISHERDOB: Community [address] MEDICARE [facility] [id number] Number: Repository [id number]: 330 [id number] [phone] (HP) Date:3075-93-99KZ [address] [address]TY: 08/21/2018 Secondary NOT GIVENUNK [place] Insurance:SELF PAY [facility] Number: Effective Repository Date:2018-08-21 08/21/2018 NGA C Primary NGA C [place] [id number] Insurance:HUMANA FISHERDOB: Community [address] MEDICARE [facility] [id number] [place] Number: Repository [phone]: (330 [id number] [phone] (HP) Date:5093-22-24AQ [address] [address]FS: 08/21/2018 Secondary NOT GIVENUNK [place] Insurance:SELF PAY [facility] Number: Effective Repository Date:2018-08-21 08/21/2018 NGA C Primary NGA C [place] [id number] Insurance:HUMANA FISHERDOB: Community [address] MEDICARE [facility] [id number] [place] Number: Repository [address]Qoe: (330) [id number] [phone] (HP) Date:3335-39-19KF [address] [address]BI: 08/21/2018 Secondary NOT GIVENUNK [place] Insurance:SELF PAY [facility] Number: Effective Repository Date:2018-08-21 08/12/2018 NGA C Primary NGA C [place] [id number] Insurance:HUMANA FISHERDOB: Community [address] MEDICARE [facility] [id number] [place] Number: Repository [phone]: (330 [id number] [phone] (HP) Date:6216-76-74JD [address] [address]PQ: 08/12/2018 Secondary NOT GIVENUNK [place] Insurance:SELF PAY [facility] Number: Effective Repository Date:2018-08-12 08/05/2018 NGA C Primary NGA C [place] [id number] Insurance:HUMANA FISHERDOB: Community [address] MEDICARE [facility] [id number] [place] Number: Repository [phone]: (330 [id number] [phone] (HP) Date:5600-17-66SI [address] [address]NV: 08/05/2018 Secondary NOT GIVENUNK [place] Insurance:SELF PAY [facility] Number: Effective Repository Date:2018-08-05 07/24/2018 NGA Quiroga Primary NGA Quiroga Rtent [id number] Insurance:HUMANA FISHERDOB: Community [address] MEDICARE [facility] [id number] Number: Repository [address]Vne: 330 [id number] [phone] (HP) Date:6362-78-13OP [address] [address]MT: 07/24/2018 Secondary NOT GIVENUNK [place] Insurance:SELF PAY [facility] Number: Effective Repository Date:2018-07-24 07/10/2018 NGA Quiro[place] Primary NGA C [place] [id number] Insurance:HUMANA FISHERDOB: Community [address] MEDICARE [facility] [id number] Number: Repository [id number]: 330 [id number] [phone] (HP) Date:3724-65-89KP [address] [address]BC: 07/10/2018 Secondary NOT GIVENUNK [place] Insurance:SELF PAY [facility] Number: Effective Repository Date:2018-07-10 07/10/2018 NGA Quiroga Primary NGA Quiroga [place] [id number] Insurance:HUMANA FISHERDOB: Community [address] MEDICARE [facility] [id number] [place] Number: Repository [address]Obo: (330 [id number] [phone] (HP) Date:8782-74-81TU [address] [address]MJ: 07/10/2018 Secondary NOT GIVENUNK [place] Insurance:SELF PAY [facility] Number: Effective Repository Date:2018-07-10 07/10/2018 NGA Qu[place]ga Primary NGA C [place] [id number] Insurance:HUMANA FISHERDOB: Community [address] MEDICARE [facility] [id number] [id number] Number: Repository [phone]: (330) [id number] [phone] (HP) Date:5239-00-09YC [address] [address]DC: 07/10/2018 Secondary NOT GIVENUNK [place] Insurance:SELF PAY [facility] Number: Effective Repository Date:2018-07-09 07/09/2018 NGA Quiroga Primary NGA Quiroga [place] [id number] Insurance:HUMANA FISHERDOB: Community [address] MEDICARE [facility] [id number], [place] Number: Repository [id number]: (330 [id number] [phone] (HP) Date:4982-74-67UK [address] [address]HT: 07/09/2018 Secondary NOT GIVENUNK [place] Insurance:SELF PAY [facility] Number: Effective Repository Date:2018-07-09 07/08/2018 NGA Quiroga Primary NGA Quiroga [place] [id number] Insurance:HUMANA FISHERDOB: Community [address] MEDICARE [facility] [id number] [place] Number: Repository [address]Qid: (330) [id number] [phone] (HP) Date:6517-60-36KG [address] [address]CW: 07/08/2018 Secondary NOT GIVENUNK [place] Insurance:SELF PAY [facility] Number: Effective Repository Date:2018-07-08 07/07/2018 NGA Quiroga Primary NGA Quiroga [place] [id number] Insurance:HUMANA FISHERDOB: Community [address] MEDICARE [facility] [id number], [place] Number: Repository [address]Kgm: (330) [id number] [phone] (HP) Date:0920-29-24ZG [address] [address]IG: 07/07/2018 Secondary NOT GIVENUNK [place] Insurance:SELF PAY [facility] Number: Effective Repository Date:2018-07-07 06/30/2018 NGA C Primary NGA C [place] [id number] Insurance:HUMANA FISHERDOB: Community [address] MEDICARE [facility] [id number] Number: Repository [phone]: (330 [id number] [phone] (HP) Date:7721-68-75OK [address] [address]EL: 06/30/2018 Secondary NOT GIVENUNK [place] Insurance:SELF PAY [facility] Number: Effective Repository Date:2018-06-30 06/30/2018 NGA C Primary NGA C [place] [id number] Insurance:HUMANA FISHERDOB: Community [address] MEDICARE [facility] [id number] [place] Number: Repository [phone]: (330 [id number] [phone] (HP) Date:2317-93-10QFHAR[place]H, [place] [address]WP: 06/30/2018 Secondary NOT GIVENUNK [place] Insurance:SELF PAY [facility] Number: Effective Repository Date:2018-06-30 06/30/2018 NGA C Primary NGA C [place] [id number] Insurance:HUMANA FISHERDOB: Community [address] MEDICARE [facility]icy [id number] [place] Number: Repository [address]Srx: (330 [id number] [phone] (HP) Date:7646-13-23EF [address] [address]XU: 06/30/2018 Secondary NOT GIVENUNK [place] Insurance:SELF PAY [facility] Number: Effective Repository Date:2018-06-30 11/17/2017 Nga C Primary Nga C [place] [id number] Insurance:HUMANA FisherDOB: Community [address] MEDICARE [facility]olicy [id number] [place] Number[place] Repository [address]Nwy: (330 [id number] [phone] (HP) Date:8652-33-78AD [address] [place] [address]SN: 11/17/2017 Secondary NOT GIVENUNK [place] Insurance:SELF PAY [facility] Number: Effective Repository Date:2017-11-17 11/14/2017 Nga Quiroga Primary Nga Newman [id number] Insurance:HUMANA FisherDOB: Community [id number] Repository [phone]: (864) [id number] [phone] Date:9210-01-64JN [address] [place] [address]OO: 11/14/2017 Secondary NOT GIVENUNK [place] Insurance:SELF PAY [facility] Number: Effective Repository Date:2017-11-14
== END 2018-09-16 15:22 | disposition home or self-care (01) | DRG 392 ==
LOC: ED 12:43 → MS3 23:46
PROVIDERS: Admitting Provider Internal Medicine; Emergency Provider Emergency Medicine; Family Provider Family Medicine Geriatric Medicine; PCP Family Medicine Geriatric Medicine; Visit Provider Internal Medicine
DX: K57.32 Diverticulitis of large intestine without perforation or abscess without bleeding (principal); I50.22 Chronic systolic (congestive) heart failure; I11.0 Hypertensive heart disease with heart failure; E03.9 Hypothyroidism, unspecified; E78.5 Hyperlipidemia, unspecified; I48.2 Chronic atrial fibrillation; E87.6 Hypokalemia; H54.62 Unqualified visual loss, left eye, normal vision right eye; Z85.46 Personal history of malignant neoplasm of prostate; Z79.01 Long term (current) use of anticoagulants; Z87.891 Personal history of nicotine dependence
CPT/HCPCS: 36415; 74177; 80048; 80053; 81001; 83690; 83735; 84100; 85025; 97161; 97166; 99282; J7030; Q9967; A4216; J0744; J7799

== ENCOUNTER → 2018-10-14 17:53 | Outpatient (CLI) | payer MEDICARE, SELFPAY ==
[2018-09-24 14:15] VITALS: BMI 25.5
--- NOTE | 2018-10-14 18:00 | RAD_ITS ---
STUDY: X-RAY CHEST REASON FOR EXAM: Male, 78 years old. Shortness of breath. CHF. TECHNIQUE: PA and lateral chest. COMPARISON: August 21, 2018. FINDINGS: Stable mild cardiomegaly. There are now minimal bilateral pleural effusions. No focal infiltrates. Pulmonary vascularity is normal. Moderate hiatal hernia noted previously. Osseous structures unchanged. There is no demonstrated abnormality of the visualized soft tissue structures of the upper abdomen. RAD/Chest PA and Lateral IMPRESSION: Stable cardiomegaly with interval development of small bilateral pleural effusions. Hiatal hernia. Electronically Signed: Jon Nuñez MD at 5:41 EST , Service support ,
[2018-10-14 18:29] LABS: Absolute Lymphocyte Count 0.83 X10^3/ul (0.83-4.51); Absolute Neutrophil Count 5.9 X10^3/uL (2.0-7.7); Basophil# 0.02 X10^3/uL; Basophil% 0.3 % (0-1); Eosinophils% 1.4 % (0-5); Hematocrit 43.5 % (40-54); Hemoglobin 13.7 g/dl (13.0-16.5); Lymphocyte # 0.83 X10^3/ul (4.0); Lymphocyte % 11.2 % (19-41); Mean Corp Hgb Conc 31.5 g/gl (32-36); Mean Corpuscular Hgb 26.3 pg (27.0-32.0); Mean Corpuscular Volume 83.5 fL (80-94); Mean Platelet Vol. 10.2 fl (6.2-12.0); Monocyte% 6.8 % (0-10); Neutrophil # 5.93 X10^3/uL (2.7-7.7); Neutrophil % 80.2 % (47-70); Platelet Count 166 K/mm3 (150-450); RBC Distribution Width CV 21.2 % (11.6-14.6); RBC Distribution Width SD 64.6 fl (35.1-43.9); Red Blood Count 5.21 M/mm3 (4.6-6.2); White Blood Count 7.4 K/mm3 (4.4-11.0)
[2018-10-14 18:30] LABS: Differential Indicated SCAN CRITERIA MET; POSITIVE COUNT NO; POSITIVE DIFFERENTIAL NO; POSITIVE MORPHOLOGY YES
[2018-10-14 18:39] LABS: Differential Comment SCANNED
[2018-10-14 18:48] LABS: Anion Gap 8 (5-15); BUN 24 mg/dL (7-18); Calcium,Total 8.8 mg/dL (8.5-10.1); Chloride 107 mmol/L (98-107); EST Glomerular Filtration Rate 62 mL/min (>60); Est Glom Filt Rate - Afr Amer 75 mL/min (>60); Glucose 92 mg/dL (74-106); Potassium 3.6 mmol/L (3.5-5.1); Sodium Level 141 mmol/L (136-145)
[2018-10-14 19:03] LABS: BNP,B-Type NATRIURETIC PEPTIDE 4408.9 pg/mL (0-100)
--- OUTSIDE RECORDS SUMMARY | 2018-12-19 16:57 | XMS RPT_ITS ---
:1940 Author Organization OHIP Support Name Relationship Address Phone SKYLAR TABARES Unavailable [address] + [place] [address] KAMALJIT TABARES Unavailable [address] + [place] [address] R Unavailable Unavailable Unavailable TABARESSKYLAR Unavailable [address] + [place] [address] KAMALJIT TABARES Unavailable [address] + [place] [address] R Unavailable Unavailable Unavailable TABARESSKYLAR Unavailable [address] + [place] [address] KAMALJIT TABARES Unavailable [address] + [place] [address] R Unavailable Unavailable Unavailable SKYLAR TABARES Unavailable [address] + [place] [address] KAMALJIT TABARES Unavailable [address] + [place] [address] R Unavailable Unavailable Unavailable DANITA SKYLAR Unavailable [address] + [place] [address] KAMALJIT TABARES Unavailable [address] + [place] [address] R Unavailable Unavailable Unavailable SKYLAR TABARES Unavailable [address] + [place] [address] KAMALJIT TABARES Unavailable [address] + [place] [address] R Unavailable Unavailable Unavailable SKYLAR TABARES Unavailable [address] + [place] [address] KAMALJIT TABARES Unavailable [address] + [place] [address] R Unavailable Unavailable Unavailable TABARES SKYLAR Unavailable [address] + [place] [address] KAMLAJIT TABARES Unavailable [address] + [place] [address] R Unavailable Unavailable Unavailable SKYLAR TABARES Unavailable [address] + [place] [address] KAMALJIT TABARES Unavailable [address] + [place] [address] R Unavailable Unavailable Unavailable SKYLAR TABARES Unavailable [address] + [place] [address] KAMALJIT TABARES Unavailable [address] + [place] [address] R Unavailable Unavailable Unavailable SKYLAR TABARES Unavailable [address] + [place] [address] KAMALJIT TABARES Unavailable [address] + [place] [address] R Unavailable Unavailable Unavailable SKYLAR TABARES Unavailable [address] + [place] [address] KAMALJIT TABARES Unavailable [address] + [place] [address] R Unavailable Unavailable Unavailable SKYLAR TABARES Unavailable [address] + [place] [address] KAMALJIT TABARES Unavailable [address] + [place] [address] R Unavailable Unavailable Unavailable SKYLAR TABARES Unavailable [address] + [place] [address] KAMALJIT TABARES Unavailable [address] + [place] [address] R Unavailable Unavailable Unavailable SKYLAR TABARES Unavailable [address] + [place] [address] KAMALJIT TABARES Unavailable Unavailable + [place] [address] R Unavailable Unavailable Unavailable SKYLAR TABARES Unavailable [address] + [place] [address] KAMALJIT TABARES Unavailable Unavailable + [place] [address] R Unavailable Unavailable Unavailable SKYLAR TABARES Unavailable [address] + [facility] [place] [address] KAMALJIT TABARES Unavailable Unavailable + [place] [address] R Unavailable Unavailable Unavailable SKYLAR TABARES Unavailable [address] + [place] [address] KAMALJIT TABARES Unavailable Unavailable + [place] [address] R Unavailable Unavailable Unavailable SKYLAR TABARES Unavailable [address] + [place] [address] KAMALJIT TABARES Unavailable Unavailable + [place] [address] R Unavailable Unavailable Unavailable SKYLAR TABARES Unavailable [address] + [place] [address] KAMALJIT TABARES Unavailable Unavailable + [place] [address] R Unavailable Unavailable Unavailable SKYLAR TABARES Unavailable [address] + [place] [address] KAMALJIT TABARES Unavailable Unavailable + [place] [address] R Unavailable Unavailable Unavailable SKYLAR TABARES Unavailable [address] + [place] [place] [address] KAMALJIT TABARES Unavailable Unavailable + [place] [address] R Unavailable Unavailable Unavailable SKYLAR TABARES Unavailable [address] + [place] [address] KAMALJIT TABARES Unavailable Unavailable + [place] [address] R Unavailable Unavailable Unavailable SKYLAR TABARES Unavailable [address] + [place] [address] KAMALJIT TABARES Unavailable Unavailable + [place] [address] R Unavailable Unavailable Unavailable SKYLAR TABARES Unavailable [address] + [place] [address] KAMALJIT TABARES Unavailable Unavailable + [place] [address] R Unavailable Unavailable Unavailable SKYLAR TABARES Unavailable [address] + [place] [address] R Unavailable Unavailable Unavailable SKYLAR TABARES Unavailable [address] + [place] [address] R Unavailable Unavailable Unavailable SKYLAR TABARES Unavailable [address] + [place] [address] R Unavailable Unavailable Unavailable SKYLAR TABARES Unavailable [address] + [place] [address] R Unavailable Unavailable Unavailable SKYLAR TABARES Unavailable [address] + [place] [address] KAMALJIT TABARES Unavailable Unavailable + [place] [address] R Unavailable Unavailable Unavailable SKYLAR TABARES Unavailable [address] + [place] [address] KAMALJIT TABARES Unavailable Unavailable + [place] [address] R Unavailable Unavailable Unavailable SKYLAR TABARES Unavailable [address] + [place] [address] R Unavailable Unavailable Unavailable SKYLAR TABARES Unavailable [address] + [place] [address] R Unavailable Unavailable Unavailable Care Team Providers Name Role Phone Karlos Guaman Attending Unavailable Autumn Vasques Referring Unavailable Shon, Milton Chi Primary Care Unavailable Paintsil, [place] Admitting Unavailable Mandeep Carter Consulting Unavailable Willie, Thai Attending Unavailable Paint[place], [place] Attending Unavailable Shon, Milton Chi Primary Care Unavailable [place], [place] Admitting Unavailable Mandeep Carter Attending Unavailable Shon, Milton Chi Primary Care Unavailable Mandeep Carter Consulting Unavailable [place], [place] Referring Unavailable [place], [place] Consulting Unavailable [place], [place] Admitting Unavailable [place], [place] Attending Unavailable Shon, Milton Chi Primary Care Unavailable Mandeep Carter Consulting Unavailable [place], [place] Consulting Unavailable [place], [place] Admitting Unavailable Mandeep Carter Attending Unavailable Shon, Milton Chi Primary Care Unavailable Mandeep Carter Consulting Unavailable Willie, Thai Consulting Unavailable [place], [place] Admitting Unavailable Willie, Thai Attending Unavailable Shon, Milton Chi Primary Care Unavailable Mandeep Carter Consulting Unavailable Willie, Thai Consulting Unavailable [place], [place] Admitting Unavailable Mandeep Carter Attending Unavailable Shon, Milton Chi Primary Care Unavailable Mandeep Carter Consulting Unavailable Willie, Thai Consulting Unavailable [place], [place] Admitting Unavailable Willie, Thai Attending Unavailable Shon, Milton Chi Primary Care Unavailable Mandeep Carter Consulting Unavailable Willie, Htai Consulting Unavailable [place], [place] Admitting Unavailable Mandeep Carter Attending Unavailable Shon, Milton Chi Primary Care Unavailable Mandeep Carter Consulting Unavailable Willie, Thai Consulting Unavailable [place], [place] Admitting Unavailable Willie, Thai Attending Unavailable Shon, Milton Chi Primary Care Unavailable Mandeep Carter Consulting Unavailable Willie, Thai Consulting Unavailable Scarlett Bruce Attending Unavailable Karlos Guaman Attending Unavailable Shon, Milton Chi Referring Unavailable Mandeep Carter Attending Unavailable Shon, Milton Chi Referring Unavailable Shon, Milton Chi Attending Unavailable Shon, Milton Chi Primary Care Unavailable Shon, Milton Chi Primary Care Unavailable Alana Rodriguez Attending Unavailable Shon, Milton Chi Attending Unavailable Shon, Milton Chi Primary Care Unavailable Shon, Milton Chi Primary Care Unavailable Jopperi, Los Admitting Unavailable Jopperi, Los Referring Unavailable Paintsil, [place] Attending Unavailable Jopperi, Los Admitting Unavailable Jopperi, Los Attending Unavailable Jopperi, Los Referring Unavailable Shon, Milton Chi Primary Care Unavailable Jopperi, Los Consulting Unavailable Jopperi, Los Admitting Unavailable [place], [place] Attending Unavailable Jopperi, Los Referring Unavailable Shon, Milton Chi Primary Care Unavailable [place], [place] Consulting Unavailable Shon, Milton Chi Attending Unavailable Shon, [...] Unavailable Shon, Milton Chi Primary Care Unavailable Karlos Guaman Attending Unavailable Shon, Milton Chi Referring Unavailable Shon, Milton Chi Attending Unavailable Shon, Milton Chi Referring Unavailable Shon, Milton Chi Primary Care Unavailable Shon, Milton Chi Attending Unavailable Shon, Milton Chi Primary Care Unavailable Shon, Milton Chi Attending Unavailable Shon, Milton Chi Primary Care Unavailable Shon, Milton Chi Primary Care Unavailable White, Admitting Unavailable Christian Zapata Attending Unavailable White, Admitting Unavailable White, Attending Unavailable Shon, Milton Chi Primary Care Unavailable White, Consulting Unavailable White, Admitting Unavailable Shon, Milton Chi Primary Care Unavailable Christian Zapata Consulting Unavailable Christian Zapata Attending Unavailable PROBLEMS PROBLEMS DATE TYPE CONDITION / CODE ATTENDING STATUS SOURCE 10/15/2018 Unknown I50.23 - 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, Milton Chi Active [place]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 (congestive) heart Hospital failure / Repository I50.23(ICD-10) 09/11/2018 Unknown I50.22 - Chronic Yoan, Wallace Active [facility] systolic Community (congestive) heart Hospital failure / Repository I50.22(ICD-10) 09/11/2018 Unknown 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, Karlos Active [place] Hypertensive 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 / Repository I11.0(ICD-10) 09/11/2018 Unknown I48.2 - Chronic Yoan, Karlos Active [facility] atrial Community fibrillation / Hospital I48.2(ICD-10) Repository 08/05/2018 Unknown I50.9 - Heart Shon, Milton Chi Active [facility] failure, Community unspecified / Hospital I50.9(ICD-10) Repository 07/30/2018 Unknown R06.02 - Shortness Yoan, Karlos Active [facility] of breath / Community R06.02(ICD-10) Hospital Repository 07/07/2018 Unknown R05 - Cough / Shon, Milton Chi Active [facility] R05(ICD-10) [facility] Repository PROCEDURES PROCEDURES No Procedure Records FoundRESULTS RESULTS CBC W/DIFF, AUTOMATED Collected: 10/14/2018 Status: F Source: [place] 6:08 PM [facility] REPOSITORY TYPE CODE TESTS RESULT OUT [...] 1+ ANISOCYTOSIS Performed By: #### L100.0100 #### [facility] [address] [place], [address] BASIC METABOLIC Collected: 10/14/2018 Status: F Source: [place] PROFILE ([facility]) 6:08 PM [facility] REPOSITORY TYPE CODE TESTS RESULT OUT OF [...] GAP 8 Performed By: #### L500.2500 #### [facility] [address] [place], [address] BNP,B-TYPE NATRIURETIC Collected: 10/14/2018 Status: F Source: [place] 6:08 PM [facility] REPOSITORY TYPE CODE TESTS RESULT OUT OF RANGE REFERENCE UNITS LAB L503.6620 0-100 pg/mL High B-TYPE 4408.9 JULIO PEP Performed By: #### L503.6620 #### [facility] [address] [place], [address] CHEST PA AND LATERAL Observed: 10/14/2018 Status: F Source: [place] 6:00 PM [facility] REPOSITORY [facility] Imaging Services [address] [place] [address] Chest PA and Lateral MR#: [id number] Acct: [id number] Name: NGA TABARES Rep #: [id number] : 1940 M 78 From: Jon Nuñez PCP: Milton Menendez MD, Chi Status: REG CLI Study: Chest PA and Lateral Date of Exam: 10/14/18 Exam# [id number] Ordering Dr: Milton Menendez MD STUDY: X-RAY [...] Service support , CC: Milton Menendez MD Universal Grinder Operator: Signed SURGERY VISIT REPORT Observed: 09/25/2018 Status: F Source: [place] 8:11 AM [facility] REPOSITORY [facility] [address] [place] [address] OFFICE VISIT Date of Service: 09/24/18 MR#: [id number] Acct: [id number] Name: NGA TABARES Rep #: [id number] : 1940 Provider: Mandeep Carter MD Age/Sex: 78/M Location: [facility] Status: Signed Intake Vital Signs09/24/18 Body Mass Index (BMI) 25.5 09/24/18 Blood Pressure 128/87 H 09/24/18 Blood Pressure Location Lt brachial Intake Visit Reasons: Diverticular Abscess - sched with [facility] Chief Complaint: recheck abdomen Sterile Processing Tech Required: No Is patient in pain?: No [...] PO BID #0 09/16/18 [Rx Confirmed 09/24/18] [facility] Medical History Secondary pulmonary arterial [...] aggressive about this he would need a chilling hood operator approval before colonoscopy and elective laparoscopic sigmoid colectomy. At this time the patient given his age and health status does not want to proceed aggressively. Mandeep Carter MD Pager: [facility] [address] [place] [address] [address] [place] [address] Office: Coding Level of Care Code Off vis,est,level 3 Diagnoses Diverticulitis K57.92 09/25/18 0811 <Electronically signed by Mandeep Carter MD> Date Mandeep Carter MD Cosigner Signature: Date (if applicable) CC: Milton Menendez MD DISCHARGE SUMMARY Observed: 09/16/2018 Status: F Source: [place] 2:46 PM [facility] REPOSITORY [facility] Medical Records Department [address] [place] [address] Discharge Summary 09/16/18 0937 MR#: [id number] Acct: [id number] Name: NGA TABARES Rep #: [id number] : 1940 78 From: Thai Tapia MD PCP: Milton Menendez MD, Chi Status: ADM IN [facility] Discharge Date and Diagnosis - Problem List [...] appears or shortness of breath. Follow-up with chilling hood operator Dr. guaman as the patient EF is 20%. Entresto to be resumed with lower dose and titrate upwards. 7. DVT PPx-on Eliquis 5000 units subcutaneous 3 times daily. This note was generated with [employer] dictation software. Every effort was made to ensure accuracy, however computerized capacity manager mistakes may persist. Discharge medication reconciliation done. [...] applicable Code Visit Inpatient E AND M: 71014 Disch Hosp 09/16/18 1446 <Electronically signed by Thai Tapia MD> Date Thai Tapia MD Cosigner Signature (if applicable): Date CC: Thai Tapia MD; Milton Menendez MD Signed DISCHARGE INSTRUCTION Observed: 09/16/2018 Status: F Source: [place] 10:48 AM [facility] REPOSITORY [facility] Medical Records Department [address] [place] [address] Instructions for Home/Discharge Instructions 09/16/18 0931 MR#: [id number] Acct: [id number] Name: NGA TABARES Rep #: [id number] : 1940 78 From: Thai Tapia MD [...] Status: F Source: [place] ONLY 8:02 AM [facility] REPOSITORY [facility] Imaging Services [address] [place] [address] Abdomen/Pelvis W IV Cont ONLY MR#: [id number] Acct: [id number] Name: NGA TABARES Rep #: [id number] : 1940 M 78 From: Bryant Dang MD PCP: Shon GREENE,Milton Stephenson Status: ADM IN Study: Abdomen/Pelvis W IV Cont ONLY Date of Exam: 09/16/18 Exam# [id number] Ordering Dr: Mandeep Carter MD STUDY: CT [...] Bryant Dang MD at 9:06 EST Tel [phone], Service support , CC: Mandeep Carter MD; Milton Menendez MD Universal Grinder Operator: Signed CBC W/DIFF, AUTOMATED Collected: 09/16/2018 Status: F Source: [place] 5:42 AM [facility] REPOSITORY TYPE CODE TESTS RESULT OUT OF [...] MICROCYTES 1+ Performed By: #### L100.0100 #### [facility] [address] [place], [address] BASIC METABOLIC Collected: 09/16/2018 Status: F Source: [place] PROFILE ([place]) 5:42 AM [facility] REPOSITORY TYPE CODE TESTS RESULT OUT OF [...] GAP 7 Performed By: #### L500.2500 #### [facility] [address], [address] CBC W/DIFF, AUTOMATED Collected: 09/15/2018 Status: F Source: [place] 6:06 AM [facility] REPOSITORY TYPE CODE TESTS RESULT OUT OF [...] PLTS, LYMPHOPENIA. Performed By: #### L100.0100 #### [facility] [address] [place], [place], [id number] BASIC METABOLIC Collected: 09/15/2018 Status: F Source: [place] PROFILE ([place]) 6:06 AM [facility] REPOSITORY TYPE CODE TESTS RESULT OUT OF [...] 7 GAP Performed By: #### L500.2500 #### [facility] [address] [place], [place], [address] BASIC METABOLIC Collected: 09/14/2018 Status: F Source: [place] PROFILE ([place]) 5:40 AM [facility] REPOSITORY TYPE CODE TESTS RESULT OUT OF [...] GAP 10 Performed By: #### L500.2500 #### [facility] [place], [address] CBC W/DIFF, AUTOMATED Collected: 09/14/2018 Status: F Source: [place] 5:40 AM [facility] REPOSITORY TYPE CODE TESTS RESULT OUT OF [...] Normal 1+ Performed By: #### L100.0100 #### [facility] [address] [facility] [place], [place], [address] PHOSPHORUS Collected: 09/14/2018 Status: F Source: [place] 5:40 AM [facility] REPOSITORY TYPE CODE TESTS RESULT OUT OF RANGE REFERENCE UNITS LAB L501.2300 2.5-4.9 mg/dL Normal PHOS 2.5 Performed By: #### L501.2300, L501.5200 #### [facility] [address] [facility] [place], [place], [address] MAGNESIUM Collected: 09/14/2018 Status: F Source: [place] 5:40 AM [facility] REPOSITORY TYPE CODE TESTS RESULT OUT OF RANGE REFERENCE UNITS LAB L501.5200 1.6-2.6 mg/dL Normal MG 2.0 Performed By: #### L501.2300, L501.5200 #### [facility] [address] [place], [address] CONSULTATION Observed: 09/13/2018 Status: F Source: [place] 10:01 AM [facility] REPOSITORY [facility] Medical Records Department [address] [place] [address] Consultation 09/13/18 0957 MR#: [id number] Acct: [id number] Name: NGA TABARES Rep #: [id number] : 1940 78 From: Mandeep Carter MD PCP: Shon GREENE,Milton Stephenson Status: ADM IN Y [facility] Problem List (1) Colonic diverticular abscess Status: [...] a few years. Mandeep Carter MD Pager: [facility] [address] [place] [address] Outpatient [place], [address] [place] [address] Office: 09/13/18 1002 <Electronically signed by Mandeep Carter MD> Date Mandeep Carter MD Cosigner Signature (if applicable): Date CC: Mandeep Carter MD; Milton Menendez MD Signed BASIC METABOLIC Collected: 09/13/2018 Status: F Source: [place] PROFILE ([facility]) 6:00 AM [facility] REPOSITORY TYPE CODE TESTS RESULT OUT OF [...] GAP 9 Performed By: #### L500.2500 #### [facility] [address] [place], [address] CBC W/DIFF, AUTOMATED Collected: 09/13/2018 Status: F Source: [place] 6:00 AM [facility] REPOSITORY TYPE CODE TESTS RESULT OUT OF [...] Normal 1+ Performed By: #### L100.0100 #### [facility] [address] [place], [address] EMERGENCY DEPARTMENT Observed: 09/12/2018 Status: F Source: [place] SUMMARY 4:56 PM [facility] REPOSITORY [facility] Medical Records Department [address] [place] [address] Emergency Department Summary 09/12/18 1135 MR#: [id number] Acct: [id number] Name: NGA TABARES Rep #: [id number] : 1940 78 From: Eric Tay MD PCP: Shon GREENE,Milton [facility] Status: ADM IN - ER Visit [...] diverticular abscess This note was generated with [employer] dictation software. It may contain incorrect words, [...] problems, contact your Primary Care Provider. Call [facility] ([phone]) or report to the closest Emergency Room. Call 911 if necessary. 09/12/18 1656 <Electronically signed by Eric Tay MD> Date Eric Tay MD Cosigner Signature (If Indicated): Date CC: Milton Menendez MD HISTORY AND PHYSICAL Observed: 09/12/2018 Status: F Source: [place] EXAM 3:20 PM [facility] REPOSITORY [facility] Medical Records Department [address] [place] [address] History and Physical 09/12/18 1439 MR#: [id number] Acct: [id number] Name: NGA TABARES Rep #: [id number] : 1940 78 From: Kenyatta Cruz MD [...] apixaban Code Visit Inpatient E AND M: 21888 Init Hosp L3 09/12/18 1520 <Electronically signed by Kenyatta Cruz MD> Date Kenyatta Cruz MD Cosigner Signature: Date (if applicable) CC: Kenyatta Cruz MD; Milton Menendez MD Signed URINALYSIS, COMPLETE Collected: 09/12/2018 Status: F Source: [place] 2:15 PM [facility] REPOSITORY Order Comment: Order Date: 09/12/18 Has [...] URINE SEEN Performed By: #### L400.0001 #### [facility] [address] [place], [place], [id number] CBC W/DIFF, AUTOMATED Collected: 09/12/2018 Status: F Source: [place] 11:45 AM [facility] REPOSITORY TYPE CODE TESTS RESULT OUT OF [...] Normal RARE Performed By: #### L100.0100 #### [facility] [address] [place], [address] COMPREHENSIVE METABOLIC Collected: 09/12/2018 Status: F Source: [place] [facility] 11:45 AM [facility] REPOSITORY TYPE CODE TESTS RESULT OUT OF [...] 9 Performed By: #### L500.4050, L501.2450 #### [facility] [address] [place], [address] LIPASE Collected: 09/12/2018 Status: F Source: [place] 11:45 AM [facility] REPOSITORY TYPE CODE TESTS RESULT OUT OF RANGE REFERENCE UNITS LAB L501.2450 73-393 U/L Normal LIPASE 192 Performed By: #### L500.4050, L501.2450 #### [facility] [address] [place], [address] ABDOMEN/PELVIS WITH Observed: 09/12/2018 Status: F Source: [place] CONTRAST 11:33 AM [facility] REPOSITORY [facility] Imaging Services [address] [facility] [place] [address] Abdomen/Pelvis WITH Contrast MR#: [id number] Acct: [id number] Name: NGA TABARES Rep #: [id number] : 1940 M 78 From: Sheldon Yan MD PCP: Shon GREENE,Milton [facility] Status: REG ER Study: Abdomen/Pelvis WITH Contrast Date of Exam: 09/12/18 Exam# [id number] Ordering Dr: Eric Tay MD ADDENDUM by [...] Menendez MD * Signed ADDENDUM by Sheldon Yan MD on 09/12/[address]/Abdomen/Pelvis WITH [...] CC: Eric Tay MD; Milton Menendez MD Universal Grinder Operator: Signed BASIC METABOLIC Collected: 09/02/2018 Status: F Source: [place] PROFILE ([place]) 12:08 PM [facility] REPOSITORY TYPE CODE TESTS RESULT OUT OF [...] GAP 7 Performed By: #### L500.2500 #### [facility] [address] [place], [address] CBC W/DIFF, AUTOMATED Collected: 09/02/2018 Status: F Source: [place] 12:08 PM [facility] REPOSITORY TYPE CODE TESTS RESULT OUT OF [...] Normal 1+ Performed By: #### L100.0100 #### [facility] [address] [place], [address] 12 LEAD ELECTROCARDIOGRAM Observed: 08/28/2018 Status: F Source: [place] 9:24 AM [facility] REPOSITORY [facility] Cardiovascular Services [address] [place] [address] 12 Lead EKG 08/22/18 0541 MR#: [id number] Acct: [id number] Name: NGA TABARES Rep #: [id number] : 1940 78 From: Karlos Guaman MD Attending Dr: Christian Zapata MD Status: DIS IN Ordering Dr: Autumn Vasques Date: 08/22/18 Location: [facility] Sex: M C Admitted: 08/21/18 Test Reason [...] leads Confirmed by KARLOS GUAMAN MD ([id number]), proposal editor LEDY BUCHANAN ([id number]) on 08/25/2018 4:08:59 PM Referred By: PACO Confirmed By:KARLOS GUAMAN MD 08/25/18 1609 Date Karlos Guaman MD CC: Autumn Vasques; Christian Zapata MD; Milton Menendez MD Signed 12 LEAD ELECTROCARDIOGRAM Observed: 08/28/2018 Status: F Source: [place] 9:22 AM [facility] REPOSITORY [facility] Cardiovascular Services [address] [place] [address] 12 Lead EKG 08/21/18 1903 MR#: [id number] Acct: [id number] Name: NGA TABARES Rep #: [id number] : 1940 78 From: Karlos Guaman MD Attending Dr: Christian Zapata MD Status: DIS IN Ordering Dr: Sasha Hodge MD Date: 08/21/18 Location: [facility] Sex: M C Admitted: 08/21/18 Test Reason [...] ECG Confirmed by YOAN GREENE, KARLOS ([id number]), proposal editor LEDY BUCHANAN ([id number]) on 08/24/2018 10:56:59 AM Referred By: KELLEN Confirmed By:KARLOS GUAMAN MD 08/24/18 1057 Date Karlos Guaman MD CC: Sasha Hodge MD; Christian Zapata MD; Milton Menendez MD Signed DISCHARGE SUMMARY Observed: 08/22/2018 Status: F Source: TEHAMA 1:29 PM [facility] REPOSITORY [facility] Medical Records Department [address] [facility] [place] [address] Discharge Summary 08/22/18 1243 MR#: [id number] Acct: [id number] Name: NGA TABARES Junaid Rep #: [id number] : 1940 78 From: Margarette PATEL PCP: Shon GREENE,Milton Stephenson Status: ADM IN Y [id number] <Margarette Medina - Last Filed: 08/22/18 13:00> [...] Recorded Date Recorded By Document 08/22/18 12:28 PRESS BREAKER [id number] 08/22/18 12:32 PRESS BREAKER Orthostatic Vitals Standing -Blood Pressure (90/60-120/80) 96/60 [...] course: As elicited above by Margarette Medina EKG TECH - Physical Exam Vital Signs Temp Pulse [...] Recorded Date Recorded By Document 08/22/18 12:28 PRESS BREAKER [id number] 08/22/18 12:32 PRESS BREAKER Orthostatic Vitals Standing -Blood Pressure (90/60-120/80) 96/60 [...] 5.65 Code Visit OBSV E AND M: 95199 Observation care discharge 08/22/18 1301 <Electronically signed by Margarette ESPINALC> Date Margarette PATEL 08/22/18 1329<Electronically signed by Christian Zapata MD> Cosigner Signature (if applicable): Date Christian Zapata MD CC: AMANDA Medina; Christian Zapata MD; Milton Menendez MD Signed DISCHARGE INSTRUCTION Observed: 08/22/2018 Status: F Source: TEHAMA 12:55 PM [facility] REPOSITORY [facility] Medical Records Department [address] [place] [address] Instructions for Home/Discharge Instructions 08/22/18 1152 MR#: [id number] Acct: [id number] Name: NGA TABARES Rep #: [id number] : 1940 78 From: Margarette PATEL PCP: [...] F Source: TRENT NO DIFF 10:15 AM [facility] REPOSITORY TYPE CODE TESTS RESULT OUT OF [...] 9.7 Performed By: #### L100.0500, L100.4500 #### [facility] [address] [facility] [address] [place], [place], [address] DIFFERENTIAL COMMENT Collected: 08/22/2018 Status: F Source: TRENT 10:15 AM [facility] REPOSITORY TYPE CODE TESTS RESULT OUT OF RANGE REFERENCE UNITS LAB L100.4500 Normal SMEAR COMMENT SCANNED Result Comment: 1+ ANISOCYTOSIS RARE SCHISTOCYTES Performed By: #### L100.0500, L100.4500 #### [facility] [address] [place], [address] BASIC METABOLIC Collected: 08/22/2018 Status: F Source: TRENT PROFILE (BMP) 10:15 AM [facility] REPOSITORY TYPE CODE TESTS RESULT OUT OF [...] 10 Performed By: #### L500.2500, L501.5200 #### [facility] [address] [place], [address] MAGNESIUM Collected: 08/22/2018 Status: F Source: TRENT 10:15 AM [facility] REPOSITORY TYPE CODE TESTS RESULT OUT OF RANGE REFERENCE UNITS LAB L501.5200 1.6-2.6 mg/dL Normal MG 2.4 Performed By: #### L500.2500, L501.5200 #### [facility] [address] [place], [address] HISTORY AND PHYSICAL Observed: 08/22/2018 Status: F Source: TEHAMA EXAM 1:27 AM [facility] REPOSITORY [facility] Medical Records Department [address] [place] [address] History and Physical 08/21/182114 MR#: [id number] Acct: [id number] Name: NGA TABARES Junaid Rep #: [id number] : 1940 78 From: Autumn Vasques PCP: Shon GREENE,Milton Chi Status: ADM IN Y Location: [place] [address] Problem List (1) Hypotension Status: Acute Qualifiers: [...] Prostate CA, Hypothyroidism who presents to the [facility] ED on 08/21/18 with history of [...] Prostate CA, Hypothyroidism who presents to the [facility] ED on 08/21/18 with history of [...] eliquis. Code Visit Inpatient E AND M: 69829 Init Hosp L3 08/22/18 0127 <Electronically signed by Autumn Vasques > Date Autumn Vasques Cosigner Signature: Date (if applicable) CC: Autumn Vasques; Milton Menendez MD Signed EMERGENCY DEPARTMENT Observed: 08/21/2018 Status: F Source: TEHAMA SUMMARY 9:33 PM [facility] REPOSITORY [facility] Medical Records Department [address] [place] [address] Emergency Department Summary 08/21/18 1843 MR#: [id number] Acct: [id number] Name: NGA TABARES Rep #: [id number] : 1940 78 From: Sasha Hodge MD [...] and FUNMI This note was generated with [employer] dictation software. It may contain incorrect words, [...] problems, contact your Primary Care Provider. Call [facility] ([phone]) or report to the closest Emergency Room. Call 911 if necessary. 08/21/18 5689 <Electronically signed by Sasha Hodge MD> Date Sasha Loyola Signature (If Indicated): Date CC: Milton Menendez MD URINALYSIS, COMPLETE Collected: 08/21/2018 Status: F Source: TEHAMA 9:00 PM [facility] REPOSITORY Order Comment: Order Date: 08/21/18 How [...] 10-25 SEEN Performed By: #### L400.0001 #### [facility] [address] [place], [address] CBC W/DIFF, AUTOMATED Collected: 08/21/2018 Status: F Source: TEHAMA 7:00 PM [facility] REPOSITORY TYPE CODE TESTS RESULT OUT OF [...] Normal 1+ Performed By: #### L100.0100 #### [facility] [address] [place], [address] BASIC METABOLIC Collected: 08/21/2018 Status: F Source: TRENT PROFILE (BMP) 7:00 PM [facility] REPOSITORY TYPE CODE TESTS RESULT OUT OF [...] 8 Performed By: #### L500.2500, L501.4010 #### [facility] [address] [facility] [place], [address] TROPONIN-I Collected: 08/21/2018 Status: F Source: TRENT 7:00 PM [facility] REPOSITORY TYPE CODE TESTS RESULT OUT OF RANGE REFERENCE UNITS LAB L501.4010 <0.045 ng/mL Normal < 0.015 TROPONIN-I Result Comment: TROPONIN-I EXPECTED VALUES <0.045 Negative 0.045 - 0.590 Consistent with Cardiac Damage > OR = 0.600 Critical Value Not every elevated troponin is indicative of VA. These values should be used with clinical judgement in examining the patient's clinical picture for diagnosis. To establish a diagnosis of VA versus myocardial injury, there must be a demonstrated rise and/or fall in the troponin values, in addition to ischemic symptoms, EKG changes, new regional wall motion abnormality, and/or angiographical evidence. PLEASE NOTE: REFERENCE RANGES EDITED 18 Performed By: #### L500.2500, L501.4010 #### [facility] [address] [place], [address] LACTIC ACID Collected: 08/21/2018 Status: F Source: TRENT 7:00 PM [facility] REPOSITORY Order Comment: Yes/No query for Sepsis Lactate Rule Y TYPE CODE TESTS RESULT OUT OF RANGE REFERENCE UNITS LAB L503.6005 0.4-2.0 mmol/L Normal LACTIC ACID 1.5 Performed By: #### L503.6005 #### [facility] [address] [place], [address] MAGNESIUM Collected: 08/21/2018 Status: F Source: TRENT 7:00 PM [facility] REPOSITORY TYPE CODE TESTS RESULT OUT OF RANGE REFERENCE UNITS LAB L501.5200 1.6-2.6 mg/dL Normal MG 2.3 Result Comment: Slight Hemolysis, Result may be falsely increased. Performed By: #### L501.5200 #### [facility] [address] [place], [address] CHEST 1 VIEW Observed: 08/21/2018 Status: F Source: TRENT (PORTABLE) 6:42 PM [facility] REPOSITORY [facility] Imaging Services [address] [place] [address] Chest 1 View (Portable) MR#: [id number] Acct: [id number] Name: NGA TABARES Rep #: [id number] : 1940 M 78 From: Adan Cosme MD PCP: Shon GREENE,ybuy Chi Status: REG ER Study: Chest 1 View (Portable) Date of Exam: 08/21/18 Exam# [id number] Ordering Dr: Sasha Hodge MD STUDY: X-RAY [...] CC: Sasha Hodge MD; Milton Menendez MD Universal Grinder Operator: Signed Observed: 08/21/2018 Status: F Source: TEHAMA STOOL OCCULT BLOOD 6:30 PM [facility] IFOB REPOSITORY Order Date: 08/21/18 Has pt arrived? Y STOB iFOB Occult Blood Negative Performed By: #### M100.7900 #### [facility] [address] [place], [address] COMPREHENSIVE METABOLIC Collected: 08/12/2018 Status: F Source: TRENT PROFIL 4:35 PM [facility] REPOSITORY TYPE CODE TESTS RESULT OUT OF [...] GAP 8 Performed By: #### L500.4050 #### [facility] [address] [facility] [place], [place], [address] CBC W/DIFF, AUTOMATED Collected: 08/12/2018 Status: F Source: TEHAMA 4:35 PM [facility] REPOSITORY TYPE CODE TESTS RESULT OUT OF [...] RARE ANISOCYTOSIS Performed By: #### L100.0100 #### [facility] [address] [place], [address] CBC W/DIFF, AUTOMATED Collected: 08/05/2018 Status: F Source: TEHAMA 5:22 PM [facility] REPOSITORY TYPE CODE TESTS RESULT OUT OF [...] MICROCYTES 1+ Performed By: #### L100.0100 #### [facility] [address] [place], [address] BASIC METABOLIC Collected: 08/05/2018 Status: F Source: TEHAMA PROFILE ([facility]) 5:22 PM [facility] REPOSITORY TYPE CODE TESTS RESULT OUT OF [...] GAP 7 Performed By: #### L500.2500 #### [facility] [address] [place], [address] CBC W/DIFF, AUTOMATED Collected: 07/24/2018 Status: F Source: TEHAMA 12:43 PM [facility] REPOSITORY TYPE CODE TESTS RESULT OUT OF [...] Normal 2+ Performed By: #### L100.0100 #### [facility] [address] [place], [place], [address] BASIC METABOLIC Collected: 07/24/2018 Status: F Source: TRENT PROFILE (BMP) 12:43 PM [facility] REPOSITORY TYPE CODE TESTS RESULT OUT OF [...] GAP 7 Performed By: #### L500.2500 #### [facility] [address] [place], [place], [address] BNP,B-TYPE NATRIURETIC Collected: 07/24/2018 Status: F Source: TRENT PEPTIDE 12:43 PM [facility] REPOSITORY TYPE CODE TESTS RESULT OUT OF RANGE REFERENCE UNITS LAB L503.6620 0-100 pg/mL High B-TYPE 1862.6 JULIO PEP Performed By: #### L503.6620 #### [facility] [address] [place], [address] ECHOCARDIOGRAM COMPLETE Observed: 07/10/2018 Status: F Source: TEHAMA 1:20 PM [facility] REPOSITORY [facility] Cardiovascular Services [address] [place] [address] Echo Complete 07/10/18 1119 MR#: [id number] Acct: [id number] Name: NGA TABARES Rep #: [id number] : 1940 78 From: Karlos Guaman MD Attending Dr: Shon GREENE,Milton Stephenson Status: REG CLI Ordering Dr: Milton Menendez MD Date: 07/10/18 Location: [facility] Sex: M C Admitted: Reason For Study: [...] Dictated: 07/10/18 1119 Date Transcribed: 07/10/18 1320 Universal Grinder Operator: Signed CTA CHEST W/WO Observed: 07/10/2018 Status: F Source: TRENT CONTRAST 11:23 AM [facility] REPOSITORY [facility] Imaging Services [address] [place] [address] CTA Chest W/WO Contrast MR#: [id number] Acct: [id number] Name: NGA TABARES Junaid Rep #: [id number] : 1940 M 78 From: Sheldon Yan MD PCP: Milton Menendez MD, Chi Status: REG CLI Study: CTA Chest W/WO Contrast Date of Exam: 07/10/18 Exam# [id number] Ordering Dr: Milton Menendez MD STUDY: CTA [...] Service support , CC: Milton Menendez MD Universal Grinder Operator: Signed CTA CHEST W/WO Observed: 07/10/2018 Status: F Source: TRENT CONTRAST 10:23 AM [facility] REPOSITORY [facility] Imaging Services [address] [place] [address] CTA Chest W/WO Contrast MR#: [id number] Acct: [id number] Name: NGA TABARES Rep #: [id number] : 1940 M 78 From: Sheldon Yan MD PCP: Milton Menendez MD, Chi Status: REG CLI Study: CTA Chest W/WO Contrast Date of Exam: 07/10/18 Exam# [id number] Ordering Dr: Milton Menendez MD STUDY: CTA [...] Service support , CC: Milton Menendez MD Universal Grinder Operator: Signed D-DIMER QUANTITATIVE Collected: 07/09/2018 Status: F Source: TRENT (DVT/PE) 4:43 PM [facility] REPOSITORY TYPE CODE TESTS RESULT OUT OF RANGE REFERENCE UNITS LAB L300.8000 0.27-0.49 FEU/ug/m High alert D-DIMER 0.96 QUANT Result Comment: RESULTS CALLED TO 07/09/18 1717 Rogelio Pappas. REPORT READ BACK BY SAME . D-Dimer ELEVATED (>0.49): Additional studies and clinical assessments are indicated to conclude diagnosis of: Deep Vein Thrombosis (DVT) or Pulmonary Embolism (PE) Performed By: #### L300.8000 #### [facility] [address] [place], [address] BNP,B-TYPE NATRIURETIC Collected: 07/09/2018 Status: F Source: TRENT PEPTIDE 4:43 PM [facility] REPOSITORY TYPE CODE TESTS RESULT OUT OF RANGE REFERENCE UNITS LAB L503.6620 0-100 pg/mL High B-TYPE 1306.5 JULIO PEP Performed By: #### L503.6620 #### [facility] [address] [facility] [place], [address] BASIC METABOLIC Collected: 07/09/2018 Status: F Source: TRENT PROFILE (BMP) 4:43 PM [facility] REPOSITORY Order Comment: 'TROP' Serial specimen #1, [...] Performed By: #### L500.2500, L501.3620, L501.4010 #### [facility] [address] [place], [address] CPK TOTAL, CREATINE Collected: 07/09/2018 Status: F Source: TEHAMA KINASE 4:43 PM [facility] REPOSITORY Order Comment: 'TROP' Serial specimen #1, #2, #3, or #4: 1 TYPE CODE TESTS RESULT OUT OF RANGE REFERENCE UNITS LAB L501.3620 39-308 U/L Normal CPK TOTAL 73 Performed By: #### L500.2500, L501.3620, L501.4010 #### [facility] [address] [facility] [place], [address] TROPONIN-I Collected: 07/09/2018 Status: F Source: TEHAMA 4:43 PM [facility] REPOSITORY Order Comment: 'TROP' Serial specimen #1, #2, #3, or #4: 1 TYPE CODE TESTS RESULT OUT OF RANGE REFERENCE UNITS LAB L501.4010 <0.045 ng/mL Normal 0.019 TROPONIN-I Result Comment: TROPONIN-I EXPECTED VALUES <0.045 Negative 0.045 - 0.590 Consistent with Cardiac Damage > OR = 0.600 Critical Value Not every elevated troponin is indicative of VA. These values should be used with clinical judgement in examining the patient's clinical picture for diagnosis. To establish a diagnosis of VA versus myocardial injury, there must be a demonstrated rise and/or fall in the troponin values, in addition to ischemic symptoms, EKG changes, new regional wall motion abnormality, and/or angiographical evidence. PLEASE NOTE: REFERENCE RANGES EDITED 18 Performed By: #### L500.2500, L501.3620, L501.4010 #### [facility] [address] [place], [address] CBC W/DIFF, AUTOMATED Collected: 07/09/2018 Status: F Source: TEHAMA 4:43 PM [facility] REPOSITORY TYPE CODE TESTS RESULT OUT OF [...] Lymph 0.91 Performed By: #### L100.0100 #### [facility] [address] [facility] [facility] [address] [place], [place], [address] MYOGLOBIN, SERUM Collected: 07/09/2018 Status: F Source: TEHAMA 4:43 PM [facility] REPOSITORY TYPE CODE TESTS RESULT OUT OF RANGE REFERENCE UNITS LAB L3600.5100 28-72 ng/mL Normal 64 Myoglobin, Ser Result Comment: Performed at: - [facility], [place], [place] [id number] Eligibility Services Representative: Tai Marshall PhD, Phone: [phone] Performed By: #### L3600.5100 #### [facility] (refer to report for specific site) refer to report for address and phone number SURGERY VISIT REPORT Observed: 07/08/2018 Status: F Source: TRENT 2:49 PM [facility] REPOSITORY [facility] [address] [place] [address] OFFICE VISIT Date of Service: 07/08/18 MR#: [id number] Acct: [id number] Name: NGA TABARES Rep #: [id number] : 1940 Provider: Sherry De La Cruz MD Age/Sex: 78/M Location: [facility] Status: Signed Intake Vital Signs07/08/18 Height 6 ft 4 in 07/08/18 Weight: 215 lb 07/08/18 Body Mass Index (BMI) 26.2 Intake Visit Reasons: [facility] ER 06/30 Dyspnea/Anemia Chief Complaint: Anemia Sterile Processing Tech Required: No Is patient in pain?: No [...] an EGD about 8 years ago in [place]. Denies any GERD symptoms. However he does state that shortness of breath has not really gotten better since the transfusion it was okay when he was in the hospital not moving around but with activity he complains of increased shortness of breath/audible wheezing which his bhewjukm-ab-smf also agrees. Patient is heading to see [...] Dr. Shon De La Cruz M.D. Pager: [phone] [facility] [address] [place] [address], [facility], [address] [place] [address] Office: [phone] Orders Orders: Plan Detail Follow Up Will schedule EGD and colonoscopy Coding Level of Care Code Off vis,new,level 3 Diagnoses Anemia D64.9 Melena K92.1 07/08/18 1449 <Electronically signed by Sherry De La Cruz MD> Date Sherry De La Cruz MD Cosigner Signature: Date (if applicable) CC: Milton Menendez MD COMPREHENSIVE METABOLIC Collected: 07/07/2018 Status: F Source: TRENT IRENE 5:50 PM [facility] REPOSITORY TYPE CODE TESTS RESULT OUT OF [...] 8 Performed By: #### L500.4050, L501.9520 #### [facility] [address], [place], [address] THYROID STIM HORMONE Collected: 07/07/2018 Status: F Source: TEHAMA (TSH) 5:50 PM [facility] REPOSITORY TYPE CODE TESTS RESULT OUT OF RANGE REFERENCE UNITS LAB L501.9520 0.358-3.74 uIU/mL High TSH 3.77 Performed By: #### L500.4050, L501.9520 #### [facility] [address], [place], [address] CBC W/DIFF, AUTOMATED Collected: 07/07/2018 Status: F Source: TEHAMA 5:50 PM [facility] REPOSITORY TYPE CODE TESTS RESULT OUT OF [...] Normal RARE Performed By: #### L100.0100 #### [facility] [address] [place], [address] BNP,B-TYPE NATRIURETIC Collected: 07/07/2018 Status: F Source: TEHAMA PEPTIDE 5:50 PM [facility] REPOSITORY TYPE CODE TESTS RESULT OUT OF RANGE REFERENCE UNITS LAB L503.6620 0-100 pg/mL High B-TYPE 1174.7 JULIO PEP Performed By: #### L503.6620 #### [facility] [address] [facility] [place], [address] CHEST PA AND LATERAL Observed: 07/07/2018 Status: F Source: TRENT 5:23 PM [facility] REPOSITORY [facility] Imaging Services [address] [place] [address] Chest PA and Lateral MR#: [id number] Acct: [id number] Name: NGA TABARES Rep #: [id number] : 1940 M 78 From: Eleazar Wagner MD PCP: Shon Milton GREENE Chi Status: REG CLI Study: Chest PA and Lateral Date of Exam: 07/07/18 Exam# [id number] Ordering Dr: Milton Menendez MD STUDY: X-RAY [...] Service support , CC: Milton Menendez MD Universal Grinder Operator: Signed 12 LEAD ELECTROCARDIOGRAM Observed: 07/06/2018 Status: F Source: TEHAMA 3:30 PM [facility] REPOSITORY [facility] Cardiovascular Services [address] [place] [address] 12 Lead EKG 06/30/18 1303 MR#: [id number] Acct: [id number] Name: NGA TABARES Rep #: [id number] : 1940 78 From: Karlos Guaman MD Attending Dr: Kenyatta Cruz MD Status: DIS LIZZY Ordering Dr: Mary Barba DO Date: 06/30/18 Location: [facility] Sex: M C Admitted: 06/30/18 Test Reason [...] ECG Confirmed by KARLOS GUAMAN MD ([id number]), proposal editor WILDA QUINTANILLA ([id number]) on 07/06/2018 3:30:33 PM Referred By: Los Whitney Confirmed By:KARLOS GUAMAN MD 07/06/18 1530 Date Karlos Guaman MD CC: Kenyatta Cruz MD; Los Whitney DO; Mary Barba DO; Milton Menendez MD Signed EMERGENCY DEPARTMENT Observed: 07/02/2018 Status: F Source: TEHAMA SUMMARY 4:21 PM [facility] REPOSITORY [facility] Medical Records Department [address] [place] [address] Emergency Department Summary 06/30/18 1308 MR#: [id number] Acct: [id number] Name: NGA TABARES Rep #: [id number] : 1940 78 From: Mary Barba DO [...] A. fib] This note was generated with [employer] dictation software. It may contain incorrect words, [...] your Primary Care Provider. Call [facility] ([phone]) or report to the closest Emergency Room. Call 911 if necessary. 07/02/18 1621 <Electronically signed by Mary Barba DO> Date Mary Barba DO Cosigner Signature (If Indicated): Date CC: Milton Menendez MD DISCHARGE SUMMARY Observed: 07/01/2018 Status: F Source: TRENT 5:41 PM [facility] REPOSITORY [facility] Medical Records Department [address] [place] [address] Discharge Summary 07/01/18 1733 MR#: [id number] Acct: [id number] Name: NGA TABARES Rep #: [id number] : 1940 78 From: Kenyatta Cruz MD PCP: Shon GREENE,Milton Stephenson Status: ADM LIZZY Y Location: [place] [address] Discharge Date and Diagnosis - Problem List [...] Bryant Dang MD at 13:24 EDT Tel [phone], Service support , None Operations: None Procedures: [...] applicable Code Visit Inpatient E AND M: 78498 Disch Hosp 07/01/18 174 <Electronically signed by Kenyatta Cruz MD> Date Kenyatta Cruz MD Cosigner Signature (if applicable): Date CC: Kenyatta Cruz MD; Milton Menendez MD Signed DISCHARGE INSTRUCTION Observed: 07/01/2018 Status: F Source: TRENT 5:29 PM [facility] REPOSITORY [facility] Medical Records Department [address] [place] [address] Instructions for Home/Discharge Instructions 07/01/18 172 MR#: [id number] Acct: [id number] Name: NGA TABARES Rep #: [id number] : 1940 78 From: Kenyatta Cruz MD [...] W/DIFF, AUTOMATED Collected: 07/01/2018 Status: F Source: TEHAMA 5:44 [facility] REPOSITORY TYPE CODE TESTS RESULT OUT [...] Normal RARE Performed By: #### L100.0100 #### [facility] [address] [place], [place], [address] BASIC METABOLIC Collected: 07/01/2018 Status: F Source: TEHAMA PROFILE (BMP) 5:44 AM [facility] REPOSITORY TYPE CODE TESTS RESULT OUT OF [...] GAP 11 Performed By: #### L500.2500 #### [facility] [address] [facility] [place], [address] MAGNESIUM Collected: 07/01/2018 Status: F Source: TEHAMA 5:44 AM [facility] REPOSITORY TYPE CODE TESTS RESULT OUT OF RANGE REFERENCE UNITS LAB L501.5200 1.6-2.6 mg/dL Normal MG 2.2 Performed By: #### L501.5200 #### [facility] [address] [facility] [place], [address] HISTORY AND PHYSICAL Observed: 06/30/2018 Status: F Source: TEHAMA EXAM 3:13 PM [facility] REPOSITORY [facility] Medical Records Department [address] [place] [address] History and Physical 06/30/18 1459 MR#: [id number] Acct: [id number] Name: NGA TABARES Rep #: [id number] : 1940 78 From: Los Whitney DO PCP: Shon GREENE,Milton Stephenson Status: ADM LIZZY Y Location: [place] [address] Problem List (1) Acute blood loss anemia [...] Start ferrous sulfate 2. Atrial fibrillation * [id number]-BEDm score of 6 * Given the anemia [...] stable. Code Visit OBSV E AND M: 77814 Initial observation care L3 06/30/18 1513 <Electronically signed by Los Whitney DO> Date Los Whitney DO Cosigner Signature: Date (if applicable) CC: Los Whitney DO; Milton Menendez MD Signed TYPE AND SCREEN Collected: 06/30/2018 Status: F Source: TEHAMA 2:20 PM [facility] REPOSITORY Order Comment: CMV NEG? N Number [...] NEGATIVE Screen Performed By: #### B101.7450 #### [facility] [place], [address] Collected: 06/30/2018 Status: F Source: TRENT 2:20 PM [facility] REPOSITORY TYPE CODE TESTS RESULT OUT OF REFERENCE UNITS RANGE LAB U100.0000 [id number] TRANSFUSED PRODUCT: T AND S with Crossmatch, Red Cells COUNT: 2 Performed By: #### U100.0000 #### [facility] - refer to report for specific site CBC W/DIFF, AUTOMATED Collected: 06/30/2018 Status: F Source: TRENT 1:20 PM [facility] REPOSITORY TYPE CODE TESTS RESULT OUT OF [...] Normal 1+ Performed By: #### L100.0100 #### [facility] [address] [facility] [place], [place], [address] BASIC METABOLIC Collected: 06/30/2018 Status: F Source: TEHAMA PROFILE (BMP) 1:20 PM [facility] REPOSITORY TYPE CODE TESTS RESULT OUT OF [...] 9 Performed By: #### L500.2500, L501.4010 #### [facility] [address] [place], [place], [address] TROPONIN-I Collected: 06/30/2018 Status: F Source: TEHAMA 1:20 PM [facility] REPOSITORY TYPE CODE TESTS RESULT OUT OF RANGE REFERENCE UNITS LAB L501.4010 <0.045 ng/mL Normal 0.024 TROPONIN-I Result Comment: TROPONIN-I EXPECTED VALUES <0.045 Negative 0.045 - 0.590 Consistent with Cardiac Damage > OR = 0.600 Critical Value Not every elevated troponin is indicative of VA. These values should be used with clinical judgement in examining the patient's clinical picture for diagnosis. To establish a diagnosis of VA versus myocardial injury, there must be a demonstrated rise and/or fall in the troponin values, in addition to ischemic symptoms, EKG changes, new regional wall motion abnormality, and/or angiographical evidence. PLEASE NOTE: REFERENCE RANGES EDITED 18 Performed By: #### L500.2500, L501.4010 #### [facility] [address] [facility] [place], [address] BNP,B-TYPE NATRIURETIC Collected: 06/30/2018 Status: F Source: TEHAMA PEPTIDE 1:20 PM [facility] REPOSITORY TYPE CODE TESTS RESULT OUT OF RANGE REFERENCE UNITS LAB L503.6620 0-100 pg/mL High B-TYPE 896.7 JULIO PEP Performed By: #### L503.6620 #### [facility] [address] [facility] [place], [address] CHEST 1 VIEW Observed: 06/30/2018 Status: F Source: TRENT (PORTABLE) 12:47 PM [facility] REPOSITORY [facility] Imaging Services [address] [place] [address] Chest 1 View (Portable) MR#: [id number] Acct: [id number] Name: NGA TABARES Rep #: [id number] : 1940 M 78 From: Bryant Dang MD PCP: Shon GREENE,Milton Chi Status: REG ER Study: Chest 1 View (Portable) Date of Exam: 06/30/18 Exam# [id number] Ordering Dr: Mary Barba DO STUDY: X-RAY [...] Bryant Dang MD at 13:24 EDT Tel [phone], Service support , CC: Mary Barba DO; Milton Menendez MD Universal Grinder Operator: Signed PROGRESS Observed: 04/09/2018 Status: COMPLETED Source: FLINT 12:09 PM [facility] REPOSITORY HNO ID: [id number] Author: Loraine (Kristan) Hilaria Service: (none) Author [...] APRN.KRISTAN CNOV Observed: 04/09/2018 Status: COMPLETED Source: FLINT 11:45 AM [facility] REPOSITORY Office Visit (WSTR) NGA TABARES ([id number]) 1940 M Date Time Provider Department 04/09/18 [...] detail warranting prompt ER evaluation. Loraine Padilla APRN.WINE PASTEURIZER Referring Provider: SELF [200] Allergies As of Date: 04/09/2018 Noted Allergy Reaction LATEX 01/05/2013 2 - Rash Comments: Also itching Date Reviewed: 04/09/2018 Reviewed by: Adenike Cerna LPN - Fully Assessed Reason for Visit: right foot pain [Other] Cmt: [id number] started last night- he thinks there is [...] D,25 HYDROXY Collected: 11/17/2017 Status: F Source: TEHAMA 2:58 PM [facility] REPOSITORY TYPE CODE TESTS RESULT OUT OF REFERENCE UNITS RANGE LAB L506.1000 19.95-100.01 ng/mL Low Vitamin D 12.6 25-OH Result Comment: Vitamin D 25(OH) Status Range Deficiency <20 ng/mL (50nmol/L) Insuffciency 20 - 30 ng/mL (50 - 75 nmol/L) Sufficiency 30 - 100 ng/mL (75 - 250 nmol/L) Toxicity >100 ng/mL (>250 nmol/L) Performed By: #### L506.1000, L509.3000 #### [facility] [address] [place], [place], [address] TESTOSTERONE, SERUM TOTAL Collected: 11/17/2017 Status: F Source: TEHAMA 2:58 PM [facility] REPOSITORY TYPE CODE TESTS RESULT OUT OF [...] 09/17/2017 Performed By: #### L506.1000, L509.3000 #### [facility] [address] [place], [address] COMPREHENSIVE METABOLIC Collected: 11/17/2017 Status: F [facility] REPOSITORY TYPE CODE TESTS RESULT OUT OF [...] 8 Performed By: #### L500.4050, L501.9520 #### [facility] [address] [place], [address] THYROID STIM HORMONE Collected: 11/17/2017 Status: F Source: TRENT (TSH) 2:58 PM [facility] REPOSITORY TYPE CODE TESTS RESULT OUT OF RANGE REFERENCE UNITS LAB L501.9520 0.358-3.74 uIU/mL Normal TSH 2.69 Performed By: #### L500.4050, L501.9520 #### [facility] [address] [place], [place], [address] CBC W/DIFF, AUTOMATED Collected: 11/17/2017 Status: F Source: TEHAMA 2:58 PM [facility] REPOSITORY TYPE CODE TESTS RESULT OUT OF [...] Lymph 1.10 Performed By: #### L100.0100 #### [facility] [address] [place], [address] EMERGENCY DEPARTMENT Observed: 11/15/2017 Status: F Source: TEHAMA SUMMARY 1:37 AM [facility] REPOSITORY [facility] Medical Records Department [address] [place] [address] Emergency Department Summary 11/14/17 1805 MR#: [id number] Acct: [id number] Name: NGA TABARES Rep #: [id number] : 1940 77 From: Alana Rodriguez MD [...] follow-up with his doctor. He will take qcuy-vak-qwcwjdt pain medication as needed. He was discharged home. Treatment Plan: [] Disposition: [] Impression: Right foot pain, suspect neuropathy This note was generated with [employer] dictation software. It may contain incorrect words, [...] problems, contact your Primary Care Provider. Call [facility] ([phone]) or report to the closest Emergency Room. Call 911 if necessary. 11/15/17 0137 <Electronically signed by Alana Rodriguez MD> Date Alana Rodriguez MD Cosigner Signature (If Indicated): Date CC: Milton Menendez MD DISCHARGE INSTRUCTION Observed: 11/15/2017 Status: F Source: TRENT 12:18 AM [facility] REPOSITORY [facility] Medical Records Department [address] [place] [address] Discharge Instruction 11/14/17 1805 MR#: [id number] Acct: [id number] Name: NGA TABARES Rep #: [id number] : 1940 77 From: Alana Rodriguez MD [...] your Primary Care Provider. Call [facility] ([phone]) or report to the closest Emergency Room. Call 911 if necessary. 11/15/17 0018 <Electronically signed by Alana Rodriguez MD> Date Alana Rodriguez MD Cosigner Signature (If Indicated): Date CC: Milton Menendez MD ALLERGIES ALLERGIES DATE TYPE / CODE NAME / CODE REACTION SEVERITY SOURCE 09/24/2018 Drug latex/[id number] Rash Unknown [facility] Allergy/4160 921(RXNORM) Hospital [address]54(SNOMED Repository CT) 01/05/2013 DRUG LATEX [facility] INGREDI/[address] [place] [address](SNOMED Repository CT) ENCOUNTERS ENCOUNTERS ADMIT/DISCHARGE ACCOUNT ADMITTING ENCOUNTER LOCATION SOURCE NUMBER CLASS 10/14/2018 [id number] Ambulatory [facility] ing:LAB Repository 09/24/2018/09/24/20 [id number] Ambulatory BMSBuilding:Mike [place] [address] [place].[facility] Repository 09/18/2018 [id number] Ambulatory BMSBuilding:Mike Newman MS.[facility] Repository 09/17/2018 [id number] Ambulatory BMSBuilding:Mike Newman MS.[facility] Repository 09/12/2018 [id number] Ambulatory BMSBuilding:Mike Newman MS.[facility] Repository 09/12/2018/09/16/20 [id number] [place] Inpatient [address] ing:KE4Houl: Repository [id number]: 1 09/12/2018 [id number] [place] Ambulatory BMSBuilding:Mike Newman MS.CF.[facility] Repository 09/12/2018 [id number] [place] Ambulatory BMSBuilding:Mike Newman MS.[facility] Repository 09/12/2018 [id number] [place] Ambulatory BMSBuilding:Mike Newman MS.CF.[facility] Repository 09/12/2018 [id number] [place] Ambulatory BMSBuilding:Mike Newman MS.[facility] Repository 09/12/2018 [id number] [place] Ambulatory BMSBuilding:Mike Newman MS.CF.[facility] Repository 09/12/2018 [id number] [place] Ambulatory BMSBuilding:Mike Newman MS.[facility] Repository 09/12/2018 [id number] [place] Ambulatory BMSBuilding:Mike Newman MS.CF.[facility] Repository 09/12/2018 [id number] [place] Ambulatory BMSBuilding:Mike Newman MS.[facility] Hospital Repository 09/02/2018 [id number] Ambulatory [facility] Hospital ing:POLAB3 Repository 08/22/2018 [id number] Ambulatory BMSBuilding:W [facility] Hospital Repository 08/21/2018/08/22/20 [id number] [place] [address] [facility] ing:PCURoom: Repository [id number]: 1 08/21/2018 [id number] [place] Ambulatory BMSBuilding:Mike Newman MS.[facility] Repository 08/21/2018 [id number] [place] Ambulatory BMSBuilding:Mike Newman MS.[facility] Repository 08/12/2018 [id number] Ambulatory [facility] Hospital ing:POLAB3 Repository 08/05/2018 [id number] Ambulatory [facility] Hospital ing:LAB Repository 07/24/2018 [id number] Ambulatory [facility] Hospital ing:POLAB3 Repository 07/10/2018 [id number] Ambulatory [facility] Hospital ing:[facility] Repository 07/10/2018 [id number] Ambulatory BMSBuilding:W [facility] Repository 07/10/2018 [id number] Ambulatory [facility] Hospital ing:[facility] Repository 07/09/2018 [id number] Ambulatory [facility] Hospital ing:POLAB3 Repository 07/08/2018/07/08/20 [id number] Ambulatory BMSBuilding:B [place] [address] [place].[facility] Repository 07/07/2018 [id number] Ambulatory [facility] Hospital ing:RAD Repository 06/30/2018/07/01/20 [id number] [place] [facility] [address] Hospitalild Hospital ing:PCURoom: Repository [id number]: 1 06/30/2018 [id number] [place] [facility] BMSBuilding:[place] Repository 06/30/2018 [id number] [place] Ambulatory BMSBuilding:B [place] ARENAS.WIP [facility] Repository 04/09/2018/04/10/20 [id number] Ambulatory [address] Repository 11/17/2017 [id number] [facility] Repository 11/14/2017/11/14/19 [id number] Emergency [place] ing:ED Repository PAYERS PAYERS ENCOUNTER GUARANTOR PAYER SUBSCRIBER SOURCE 10/14/2018 NGA [place] Primary NGA C [place] [id number] Insurance:HUMANA FISHERDOB[facility] [address] MEDICARE PPOPolicy [id number] Number: Repository [address]End: 330 [id number] [phone] (HP) Date:9160-44-50WD [address] [place] [address]DP: 10/14/2018 Secondary NOT GIVENUNK [place] Insurance:SELF PAY [facility] Number: Effective Repository Date:2018-10-14 09/24/2018 NGA C Primary NGA C [place] [id number] Insurance:HUMANA FISHERDOB: [facility] [address] MEDICARE [facility] [id number] Number: Repository [address]Pap: 330 [id number] [phone] (HP) Date:9235-13-88RF[address] [address]CG: 09/24/2018 Secondary NOT GIVENUNK [place] Insurance:SELF PAY [facility] Number: Effective Repository Date:2018-09-23 09/18/2018 NGA C Primary NGA C [place] [id number] Insurance:HUMANA FISHERDOB: [facility] [address] MEDICARE PPOPolicy [id number] Number: Repository [address]Lda: 330 [id number] [phone] (HP) Date:2338-78-17DD [address] [address]RK: 09/18/2018 Secondary NOT GIVENUNK [place] Insurance:SELF PAY [facility] Number: Effective Repository Date:2018-09-16 09/17/2018 NGA C Primary NGA C [place] [id number] Insurance:HUMANA FISHERDOB: Community [address] MEDICARE [facility] [id number] Number: Repository [address]Fit: 330 [id number] [phone] () Date:2044-13-24WE [address] [address]UB: 09/17/2018 Secondary NOT GIVENUNK [place] Insurance:SELF PAY [facility] Number: Effective Repository Date:2018-09-17 09/12/2018 NGA C Primary NGA C [place] [id number] Insurance:HUMANA FISHERDOB: Community [address] MEDICARE [facility] [id number] Number: Repository [address]Rel: 330 [id number] [phone] () Date:0429-34-46VO[address] [address]AW: 09/12/2018 Secondary NOT GIVENUNK [place] Insurance:SELF PAY [facility] Number: Effective Repository Date:2018-09-12 09/12/2018 NGA C Primary NGA C [place] [id number] Insurance:HUMANA FISHERDOB: Community [address] MEDICARE [facility] [id number] Number: Repository [address]Caq: (330 [id number] [phone] (HP) Date:6489-96-59UY [address] [address]TO: 09/12/2018 Secondary NOT GIVENUNK [place] Insurance:SELF PAY [facility] Number: Effective Repository Date:2018-09-12 09/12/2018 NGA C Primary NGA C [place] [id number] Insurance:HUMANA FISHERDOB: Community [address] MEDICARE [facility] [id number], [place] Number: Repository [address]Rma: (330 [id number] [phone] (HP) Date:1473-52-56ZY [address] [address]HF: 09/12/2018 Secondary NOT GIVENUNK [place] Insurance:SELF PAY [facility] Number: Effective Repository Date:2018-09-12 09/12/2018 NGA C Primary NGA C [place] [id number] Insurance:HUMANA FISHERDOB: Community [address] MEDICARE [facility] [id number] Number: Repository [address]Cro: (330 [id number] [phone] (HP) Date:3786-71-96KO [address] [address]HJ: 09/12/2018 Secondary NOT GIVENUNK [place] Insurance:SELF PAY [facility] Number: Effective Repository Date:2018-09-12 09/12/2018 NGA C Primary NGA C [place] [id number] Insurance:HUMANA FISHERDOB: Community [address] MEDICARE [facility] [id number] Number: Repository [address]Gog: (330) [id number] [phone] (HP) Date:1176-19-54RF [address] [address]CN: 09/12/2018 Secondary NOT GIVENUNK [place] Insurance:SELF PAY [facility] Number: Effective Repository Date:2018-09-12 09/12/2018 NGA C Primary NGA C [place] [id number] Insurance:HUMANA FISHERDOB: Community [address] MEDICARE [facility] [id number] Number: Repository [address]Yrx: (330) [id number] [phone] (HP) Date:1928-36-15AY [address] [address]NV: 09/12/2018 Secondary NOT GIVENUNK [place] Insurance:SELF PAY [facility] Number: Effective Repository Date:2018-09-12 09/12/2018 NGA C Primary NGA C [place] [id number] Insurance:HUMANA FISHERDOB: Community [address] MEDICARE [facility] [id number] Number: Repository [address]Oba: (330 [id number] [phone] (HP) Date:8947-70-24MY [address] [address]FL: 09/12/2018 Secondary NOT GIVENUNK [place] Insurance:SELF PAY [facility] Number: Effective Repository Date:2018-09-12 09/12/2018 NGA C Primary NGA C [place] [id number] Insurance:HUMANA FISHERDOB: Community [address] MEDICARE [facility] [id number] Number: Repository [address]Rdm: (330 [id number] [phone] (HP) Date:8576-10-00AC [place] [address]WP: 09/12/2018 Secondary NOT GIVENUNK [place] [facility] Number: Effective Repository Date:2018-09-12 09/12/2018 NGA C Primary NGA C [place] [id number] Insurance:HUMANA FISHERDOB: Community [address] MEDICARE [facility] [id number] Number: Repository [address]Fct: (330 [id number] [phone] (HP) Date:8878-49-18LE [address] [address]YW: 09/12/2018 Secondary NOT GIVENUNK [place] Insurance:SELF PAY [facility] Number: Effective Repository Date:2018-09-12 09/12/2018 NGA C Primary NGA C [place] [id number] Insurance:HUMANA FISHERDOB: Community [address] MEDICARE [facility] [id number] Number: Repository [address]Oru: (330 [id number] [phone] (HP) Date:1105-20-62GZ [address] [address]FC: 09/12/2018 Secondary NOT GIVENUNK [place] Insurance:SELF PAY [facility] Number: Effective Repository Date:2018-09-12 09/02/2018 NGA C Primary NGA C [place] [id number] Insurance:HUMANA FISHERDOB: Community [address] MEDICARE [facility] [id number] Number: Repository [address]Agr: (330 [id number] [phone] (HP) Date:8493-31-55ZR [address] [address]OL: 09/02/2018 Secondary NOT GIVENUNK [place] Insurance:SELF PAY [facility] Number: Effective Repository Date:2018-08-19 08/22/2018 NGA C Primary NGA C [place] [id number] Insurance:HUMANA FISHERDOB: Community [address] MEDICARE [facility] [id number] Number: Repository [address]Vvj: 330 [id number] [phone] (HP) Date:0680-48-35DY [address] [address]PR: 08/22/2018 Secondary NOT GIVENUNK [place] Insurance:SELF PAY [facility] Number: Effective Repository Date:2018-08-22 08/21/2018 NGA C Primary NGA C [place] [id number] Insurance:HUMANA FISHERDOB: Community [address] MEDICARE [facility] [id number] Number: Repository [address]Cmj: 330 [id number] [phone] (HP) Date:6831-51-12KO [address] [address]LR: 08/21/2018 Secondary NOT GIVENUNK [place] [facility]Y [facility] Number: Effective Repository Date:2018-08-21 08/21/2018 NGA C Primary NGA C [place] [id number] Insurance:HUMANA FISHERDOB: Community [address] MEDICARE PPOPolicy [id number] [place] Number: Repository [address]Hpn: (330 [id number] [phone] (HP) Date:4717-69-89XQ [address] [address]CJ: 08/21/2018 Secondary NOT GIVENUNK [place] Insurance:[facility]LF [facility]Y [facility] Number: Effective Repository Date:2018-08-21 08/21/2018 NGA C Primary NGA C [place] [id number] Insurance:HUMANA FISHERDOB: Community [address] MEDICARE PPOPolicy [id number] [place] Number: Repository [address]Ert: (330) [id number] [phone] (HP) Date:6401-75-41QK [address] [address]OW: 08/21/2018 Secondary NOT GIVENUNK [place] Insurance:SELF [facility]Y [facility] Number: Effective Repository Date:2018-08-21 08/12/2018 NGA C Primary NGA C [place] [id number] Insurance:HUMANA FISHERDOB: Community [address] MEDICARE PPOPolicy [id number] [place] Number: Repository [address]Bcl: (330 [id number] [phone] (HP) Date:7009-37-80VF [address] [address]JE: 08/12/2018 Secondary NOT GIVENUNK [place] Insurance:SELF PAY [facility] Number: Effective Repository Date:2018-08-12 08/05/2018 NGA C Primary NGA C [place] [id number] Insurance:HUMANA FISHERDOB: Community [address] MEDICARE PPOPolicy [id number] [place] Number: Repository [address]Qud: (330 [id number] [phone] (HP) Date:4231-32-63IO [address] [address]RP: 08/05/2018 Secondary NOT GIVENUNK [place] Insurance:SELF PAY [facility] Number: Effective Repository Date:2018-08-05 07/24/2018 NGA [place] Primary NGA [place] [id number] Insurance:HUMANA FISHERDOB: Community [address] MEDICARE [facility] [id number] Number: Repository [address]Wkl: 330 [id number] [phone] (HP) Date:9370-22-55SC [address] [address]LC: 07/24/2018 Secondary NOT GIVENUNK [place] Insurance:SELF PAY [facility] Number: Effective Repository Date:2018-07-24 07/10/2018 NGA [place]iro[place] Primary NGA C [place] [id number] Insurance:HUMANA FISHERDOB: Community [address] MEDICARE PPOPolicy [id number] Number: Repository [address]Ysj: 330 [id number] [phone] (HP) Date:7446-28-06JO [address] [address]FX: 07/10/2018 Secondary NOT GIVENUNK [place] Insurance:SELF PAY [facility] Number: Effective Repository Date:2018-07-10 07/10/2018 NGA Quiroga Primary NGA Quiroga [place] [id number] Insurance:HUMANA FISHERDOB: Community [address] MEDICARE [facility] [id number] [place] Number: Repository [address]Eug: (330 [id number] [phone] (HP) Date:6627-31-43WW [address] [address]EZ: 07/10/2018 Secondary NOT GIVENUNK [place] Insurance:SELF PAY [facility] Number: Effective Repository Date:2018-07-10 07/10/2018 NGA [place]iro[place] Primary NGA C [place] [id number] Insurance:HUMANA FISHERDOB: Community [address] MEDICARE [facility] [id number] [facility] [id number] Number: Repository [address]Xlr: (330) [id number] [phone] (HP) Date:8156-08-67SJ [address] [address]GV: 07/10/2018 Secondary NOT GIVENUNK [place] Insurance:SELF PAY [facility] Number: Effective Repository Date:2018-07-09 07/09/2018 NGA Quiroga Primary NGA [place]iro[place] [id number] Insurance:HUMANA FISHERDOB: Community [address] MEDICARE [facility] [id number] Number: Repository [address]Qss: (330 [id number] [phone] (HP) Date:9253-12-78VQ [address] [address]KK: 07/09/2018 Secondary NOT GIVENUNK [place] Insurance:SELF PAY [facility] Number: Effective Repository Date:2018-07-09 07/08/2018 NGA Quiroga Primary NGA Quiroga [place] [id number] Insurance:HUMANA FISHERDOB: Community [address] MEDICARE [facility] [id number] [place] Number: Repository [address]Eer: (330) [id number] [phone] (HP) Date:0547-05-18RD [address] [address]GM: 07/08/2018 Secondary NOT GIVENUNK [place] Insurance:[facility]Y [facility] Number: Effective Repository Date:2018-07-08 07/07/2018 NGA Quiroga Primary NGA [place]iro[place] [id number] Insurance:HUMANA FISHERDOB: Community [address] MEDICARE [facility] [id number], [place] Number: Repository [address]Sns: (330) [id number] [phone] (HP) Date:3801-95-84EM [address] [address]JD: 07/07/2018 Secondary NOT GIVENUNK [place] Insurance:SELF [facility]Y [facility] Number: Effective Repository Date:2018-07-07 06/30/2018 NGA C Primary NGA C [place] [id number] Insurance:HUMANA FISHERDOB: Community [address] MEDICARE PPOPolicy [id number] Number: Repository [address]Okd: (330 [id number] [phone] (HP) Date:2579-19-31NC [address] [address]QP: 06/30/2018 Secondary NOT GIVENUNK [place] Insurance:SELF PAY [facility] Number: Effective Repository Date:2018-06-30 06/30/2018 NGA C Primary NGA C [place] [id number] Insurance:HUMANA FISHERDOB: Community [address] MEDICARE PPOPolicy [id number] [place] Number: Repository [address]Aez: (330 [id number] [phone] (HP) Date:[place]99[place] [address]WP: 06/30/2018 Secondary NOT GIVENUNK [place] Insurance:SELF PAY [facility] Number: Effective Repository Date:2018-06-30 06/30/2018 NAG C Primary NGA C [place] [id number] Insurance:HUMANA FISHERDOB: Community [address] MEDICARE PPOPolicy [id number] [place] Number: Repository [id number]: ([phone] [id number] [phone] (HP) Date:[id number] [address] [phone]: 06/30/2018 Secondary NOT GIVENUNK [place] Insurance:SELF PAY [facility] Number: Effective Repository Date:2018-06-30 11/17/2017 Nga C Primary Nga C [place] [id number] Insurance:HUMANA FisherDOB: [place] MEDICARE PPOPolicy [id number] [place] [facility] Repository [id number]: [phone] [id number] [phone] (HP) Date:[id number] [address] [place] [id number]: 11/17/2017 Secondary NOT GIVENUNK [place] Insurance:SELF PAY [facility] Number: Effective Repository Date:2017-11-17 11/14/2017 Nga Quiroga Primary Nga Newman [id number] Insurance:HUMANA FisherDOB: [place]icy [id number] [id number]: [phone] [id number] [phone] () Date:[id number] [address] [place] [phone]: 11/14/2017 Secondary NOT GIVENUNK [place] Insurance:SELF PAY [facility] Number: Effective Repository Date:2017-11-14
== END ==
PROVIDERS: Family Provider Family Medicine Geriatric Medicine; PCP Family Medicine Geriatric Medicine; Visit Provider Family Medicine Geriatric Medicine
DX: I50.23 Acute on chronic systolic (congestive) heart failure (principal); N17.9 Acute kidney failure, unspecified
CPT/HCPCS: 36415; 71046; 80048; 83880; 85025

== ENCOUNTER 2018-12-01 20:22 | Emergency (ER) | payer MEDICARE, SELFPAY ==
[2018-09-24 14:15] VITALS: BMI 25.5
[2018-12-01 20:23] VITALS: BP 142/109; PULSE 96; RESP 24; TEMP 36.4; O2SAT 97; BMI 26.4
--- NOTE | 2018-12-01 21:11 | ED.VISSUMM ---
- ER Visit Summary Date of Service: 12/01/18 Chief Complaint: [] Right-sided nosebleed on Eliquis hospice related to CHF and cardiovascular issues History of Present Illness: The patient is a 78 M [] lives at home home hospice he is on Eliquis for cardiovascular issues his hospice status is stable there is some issue with the Eliquis he supposed to be taking he may be taking 8.5 mg when he is it is supposed be taking 9 or only 5 mg he was doing fine at baseline today after dinner he began having right-sided nosebleed that stopped he has had no vomiting of blood no blood per rectum he has chronic shortness of breath and fatigue none of that is new or different his hospice status is stable Physical Examination: [] His blood pressure is 180/90 General, no distress resting comfortably HEENT is generally unremarkable kept he has some dry blood to the right nostril there is no active bleeding the oral cavity is unremarkable without bleeding the left nostril is unremarkable The neck is supple no adenopathy Cardiovascular, regular rate and rhythm Lungs, clear bilateral Abdomen, soft nontender Extremities, no clubbing cyanosis or edema Neurologic, awake alert answering questions appropriately moving all 4 extremities is no petechia purpura, he is per family had normal bowel habits normal urinary habits or bleeding Test Results: [] Emergency Department Course and Treatment: [] The family indicates but for the nosebleed he would not of come to the hospital the nosebleed has resolved appearing the hospice nurses on her way to the emergency department we can discuss the issue of the Eliquis dose or whether it should be discontinued I also recommended that the actually stopped Eliquis for a day or 2 we will coordinate this with the hospice nurse and his outpatient providers he stable for discharge Treatment Plan: [] Disposition: [] Home stable Impression: [] Right-sided nosebleed on Eliquis therapy, home hospice This note was generated with [employer] dictation software. It may contain incorrect words, spelling, and punctuation that were not noted in review of the chart prior to signing ED Disposition - Plan for ED Patient: Referrals: Milton Menendez Chi, MD [Primary Care Provider] -
--- NOTE | 2018-12-01 21:14 | ED.DEP ---
ED Disposition - Plan for ED Patient: Instructions: Nosebleed Referrals: Milton Menendez Chi, MD [Primary Care Provider] - Additional Instructions: Please consider holding the Eliquis for 1 or 2 days, or discussing with your providers the continued need for Eliquis
== END 2018-12-01 22:24 | disposition home or self-care (01) ==
LOC: ED 21:36
PROVIDERS: Emergency Provider Emergency Medicine; Family Provider Family Medicine Geriatric Medicine; PCP Family Medicine Geriatric Medicine
DX: R04.0 Epistaxis (principal); D68.32 Hemorrhagic disorder due to extrinsic circulating anticoagulants; T45.525A Adverse effect of antithrombotic drugs, initial encounter
CPT/HCPCS: 99284